=== PATIENT | male | born 1935 | race Caucasian/White ===

== ENCOUNTER 2018-01-06 11:59 | Observation (INO) | payer OTHER, BC ==
--- OUTSIDE RECORDS SUMMARY | 2018-01-06 12:32 | XMS REPORT | Clinical Summary ---
:1935 Author Organization [facility] Address [address] [place] [address] Care Team Providers Name Role Phone Jb Gregory Unavailable Allergies No Known Allergies Medications Medication Sig Dispensed Refills Start Date End Date Status naproxen Take 220 mg 0 Active (ALEVE,ANAPROX,MIDOL) 220 by mouth MG tablet daily. amLODIPine (NORVASC) 5 MG Take 5 mg by 0 Active tablet mouth daily. aspirin 81 MG EC tablet Take 81 mg by 0 Active mouth daily. omega-3 fatty acids-fish Take 1,400 mg 0 Active oil 340-1,000 mg Cap per by mouth capsule daily with dinner. folic acid (FOLVITE) 1 MG Take 1 mg by 0 Active tablet mouth 2 (two) times daily. hydroxychloroquine Take 200 mg 0 Active (PLAQUENIL) 200 mg tablet by mouth 2 (two) times daily. levothyroxine (SYNTHROID, Take 25 mcg 0 Active LEVOTHROID) 25 MCG tablet by mouth Every morning on an empty stomach. lutein 20 mg Tab Take 20 mg by 0 Active mouth daily with dinner. METHOTREXATE Take 2.5 mg 0 10/27/2017 Active ORALIndications: take 6 by mouth once pills a week. atorvastatin (LIPITOR) 10 Take 10 mg by 0 Active MG tablet mouth daily. traMADol (ULTRAM) 50 mg Take 50 mg by 0 Active tablet mouth every 6 (six) hours as needed for Pain. leflunomide (ARAVA) 10 MG Take 10 mg by 0 Active tablet mouth daily. losartan (COZAAR) 50 MG Take 50 mg by 0 Active tablet mouth daily. levoFLOXacin (LEVAQUIN) Take 1 tablet 7 tablet 0 10/28/2017 11/04/2017 500 MG tablet (500 mg total) by mouth daily for 7 days. Active Problems Problem Noted Date Syncope, unspecified syncope type 10/25/2017 Syncope 10/22/2017 Encounters Date Type Specialty Care Team Description 10/22/2017 - Hospital Encounter Cardiology [place], Syncope, unspecified syncope type; 10/27/2017 MD Pasha Family history of sudden cardiac ; Sebastianerkarina, Fall, initial encounter; Olivia Sensory ataxia; MD Alejandra Neurologic gait dysfunction; Neurogenic claudication; Polyneuropathy; Cervical myelopathy (HCC) 10/22/2017 Orders Only General Internal Medicine after 01/05/2017 Social History Tobacco Use Types Packs/Day Years Used Date Never Smoker Smokeless Tobacco: Never Used Sex Assigned at Date Recorded Not on file Job Start Date Occupation Industry Not on file Not on file Not on file Travel History Travel Start Travel End No recent travel history available. Last Filed Vital Signs Vital Sign Reading Time Taken Blood Pressure 129/70 10/27/2017 11:20 AM CDT Pulse 72 10/27/2017 11:20 AM CDT Temperature 35.7 C (96.3 F) 10/27/2017 11:20 AM CDT Respiratory Rate 18 10/27/2017 11:20 AM CDT Oxygen Saturation 100% 10/27/2017 11:20 AM CDT Inhaled Oxygen Concentration - - Weight 91.2 kg (201 lb 1 oz) 10/26/2017 7:16 AM CDT Height 165.1 cm (5' 5") 10/22/2017 3:43 PM CDT Body Mass Index 33.46 10/26/2017 7:16 AM CDT Plan of Treatment Not on file Procedures Procedure Name Priority Date/Time Associated Comments Diagnosis REPORT OF PROCEDURE - 10/31/2017 11:32 ENDOSCOPY SCAN AM CDT ARRYTHMIA IMPLANT 10/31/2017 11:32 REPORT - SCAN AM CDT RHYTHM STRIP - SCAN 10/31/2017 11:32 AM CDT NEEDLE EMG, 2 Routine 10/27/2017 5:04 Results for this EXTREMITY PM CDT procedure are in the results section. CBC W/PLT COUNT & AUTO Routine 10/27/2017 4:12 Results for this DIFFERENTIAL AM CDT procedure are in the results section. MAGNESIUM Routine 10/27/2017 4:12 Results for this AM CDT procedure are in the results section. BASIC METABOLIC PANEL Routine 10/27/2017 4:12 Results for this (7) AM CDT procedure are in the results section. CBC W/PLT COUNT & AUTO Routine 10/27/2017 4:12 Results for this DIFFERENTIAL AM CDT procedure are in the results section. MR THORACIC SPINE W & Routine 10/27/2017 3:28 Results for this WO CONTRAST AM CDT procedure are in the results section. KAPPA / LAMBDA LIGHT Routine 10/26/2017 6:02 Results for this CHAINS, SERUM PM CDT procedure are in the results section. PROTEIN AP Routine 10/26/2017 6:02 Results for this ELECTROPHORESIS, SERUM PM CDT procedure are in the results section. MR LUMBAR SPINE W & WO Routine 10/26/2017 6:18 Results for this CONTRAST AM CDT procedure are in the results section. MR CERVICAL SPINE W/WO Routine 10/26/2017 6:18 Results for this CONTRAST AM CDT procedure are in the results section. CBC W/PLT COUNT & AUTO Routine 10/26/2017 4:39 Results for this DIFFERENTIAL AM CDT procedure are in the results section. MAGNESIUM Routine 10/26/2017 4:39 Results for this AM CDT procedure are in the results section. BASIC METABOLIC PANEL Routine 10/26/2017 4:39 Results for this (7) AM CDT procedure are in the results section. CBC W/PLT COUNT & AUTO Routine 10/26/2017 4:39 Results for this DIFFERENTIAL AM CDT procedure are in the results section. HEMOGLOBIN A1C Routine 10/25/2017 10:32 Results for this AM CDT procedure are in the results section. PHOSPHORUS Routine 10/25/2017 4:10 Results for this AM CDT procedure are in the results section. MAGNESIUM Routine 10/25/2017 4:10 Results for this AM CDT procedure are in the results section. LIPID PANEL Routine 10/25/2017 4:10 Results for this AM CDT procedure are in the results section. ECHOCARDIOGRAM REPORT 10/24/2017 6:20 - SCAN PM CDT EEG AWAKE AND DROWSY Routine 10/24/2017 4:06 Results for this PM CDT procedure are in the results section. 2D ECHO W/ DOPPLER Routine 10/24/2017 3:02 Results for this (CW/PW/COLOR) PM CDT procedure are in the results section. CBC W/PLT COUNT & AUTO Routine 10/24/2017 4:11 Results for this DIFFERENTIAL AM CDT procedure are in the results section. CBC W/PLT COUNT & AUTO Routine 10/24/2017 4:11 Results for this DIFFERENTIAL AM CDT procedure are in the results section. PHOSPHORUS Routine 10/24/2017 4:11 Results for this AM CDT procedure are in the results section. MAGNESIUM Routine 10/24/2017 4:11 Results for this AM CDT procedure are in the results section. LIPID PANEL Routine 10/24/2017 4:11 Results for this AM CDT procedure are in the results section. BASIC METABOLIC PANEL Routine 10/24/2017 4:11 Results for this (7) AM CDT procedure are in the results section. MR MRA HEAD WITH AND Routine 10/23/2017 2:57 Results for this WITHOUT CONTRAST PM CDT procedure are in the results section. MR MRA NECK WITH AND Routine 10/23/2017 2:57 Results for this WITHOUT CONTRAST PM CDT procedure are in the results section. CBC W/PLT COUNT & AUTO Routine 10/23/2017 4:11 Results for this DIFFERENTIAL AM CDT procedure are in the results section. CBC W/PLT COUNT & AUTO Routine 10/23/2017 4:11 Results for this DIFFERENTIAL AM CDT procedure are in the results section. PHOSPHORUS Routine 10/23/2017 4:11 Results for this AM CDT procedure are in the results section. MAGNESIUM Routine 10/23/2017 4:11 Results for this AM CDT procedure are in the results section. LIPID PANEL Routine 10/23/2017 4:11 Results for this AM CDT procedure are in the results section. BASIC METABOLIC PANEL Routine 10/23/2017 4:11 Results for this (7) AM CDT procedure are in the results section. TROPONIN I Routine 10/22/2017 11:05 Results for this PM CDT procedure are in the results section. URINE CULTURE Routine 10/22/2017 7:00 Results for this PM CDT procedure are in the results section. ECG 12-LEAD Routine 10/22/2017 5:03 PM CDT Procedure Note - Interface, External Ris In - 10/22/2017 5:10 PM CDT Ventricular Rate 72 BPM Atrial Rate 72 BPM P-R Interval 190 ms QRS Duration 90 ms Q-T Interval 436 ms QTC Calculation(Bazett) 477 ms P [place] 54 degrees R [place] 29 degrees T [place] 67 degrees Normal sinus rhythm Normal ECG No previous ECGs available ECG 12-LEAD Routine 10/22/2017 5:03 PM CDT CBC W/PLT COUNT & AUTO Routine 10/22/2017 4:43 PM CDT Results for this DIFFERENTIAL procedure are in the results section. TSH/FREE T4 IF INDICATED Routine 10/22/2017 4:43 PM CDT IRON, TIBC, % SAT. (WITHOUT Routine 10/22/2017 4:43 PM CDT Results for this FERRITIN) procedure are in the results section. CALCIUM, IONIZED Routine 10/22/2017 4:43 PM CDT VITAMIN D, 25-HYDROXY Routine 10/22/2017 4:43 PM CDT RPR Routine 10/22/2017 4:43 PM CDT VITAMIN B12 AND FOLATE Routine 10/22/2017 4:43 PM CDT CBC W/PLT COUNT & AUTO Routine 10/22/2017 4:43 PM CDT Results for this DIFFERENTIAL procedure are in the results section. BASIC METABOLIC PANEL (7) Routine 10/22/2017 4:43 PM CDT TROPONIN I Routine 10/22/2017 4:43 PM CDT after 01/05/2017 Results EKG-SCANNED (10/31/2017 11:32 AM CDT) Narrative Performed At ARRYTHMIA IMPLANT REPORT - SCAN (10/31/2017 11:32 AM CDT) Narrative Performed At RHYTHM STRIP - SCAN (10/31/2017 11:32 AM CDT) Narrative Performed At NEEDLE EMG, 2 EXTREMITY (10/27/2017 5:04 PM CDT) Narrative Performed At [facility] Neurophysiology Department ELECTROMYOGRAPHY / NERVE CONDUCTION STUDY [address] [place] [address] Name: Germain Wilks Address:Date of : 1935 Gender: Male Date of Exam: 10/27/2017 5:15 PM Referring Physician: Dr. Viv Tomlinson Examining Physician: Dr. Sandra Quiñonez Patient History: Patient presents with a history of falls and gait instability, also endorses bilateral hand tingling and low back pain on right side without significant radiation.Exam shows 5/5 strength throughout, decreased sensation to proprioception in the toes (right>left), mild weakness in bilateral thumb abduction, negative Romberg.This study was done to evaluate for polyneuropathy, nerve entrapments in the hands, and right lumbosacral radiculopathy. Temperature: RLE 28 C; RUE, LUE 30 Standard temp: 32 C Temp correction: Latency 0.2 ms/C, CV 2 m/s/C Motor Nerve Conduction: Nerve and Site Latency Amplitude Segment Latency Difference Distance Conduction Velocity Peroneal.R Ankle 5.2 ms 0.4 mV Extensor digitorum brevis-Ankle 5.2 ms Fibula (head) 14.8 ms 0.3 mV Ankle-Fibula (head) 9.6 ms 300 mm 31 m/s *39 corrected Knee 17.4 ms 0.3 mV Fibula (head)-Knee 2.6 ms 110 mm 42 m/s Tibial.R Ankle 4.9 ms 3.3 mV Abductor hallucis-Ankle 4.9 ms Popliteal fossa 16.6 ms 1.8 mV Ankle-Popliteal fossa 11.7 ms 430 mm 37 m/s *45 corrected) Peroneal.R Fibula (head) 2.8 ms 4.1 mV Tibialis anterior -Fibula Knee 5.2 ms 5.9 mV Fibula (head)-Knee 2.4 ms 130 mm 54 m/s Peroneal.L Ankle 6.5 ms 0.3 mV Extensor digitorum brevis-Ankle Median.R Wrist 5.1 ms *4.7 corrected 4.7 mV Abductor pollicis brevis-Wrist 5.1 ms Elbow 10.3 ms 4.6 mV Wrist-Elbow 5.2 ms 245 mm 47 m/s *51 corrected Ulnar.R Wrist 3.0 ms 13.1 mV Abductor digiti minimi (manus)-Wrist 3.0 ms Below elbow 7.4 ms 11.5 mV Wrist-Below elbow 4.4 ms 240 mm 55 m/s Above elbow 9.8 ms 10.4 mV Below elbow-Above elbow 2.5 ms 100 mm 40 m/s Median.L Wrist 6.6 ms *6.2 corrected 3.4 mV Abductor pollicis brevis-Wrist 6.6 ms Elbow 13.2 ms 3.2 mV Wrist-Elbow 6.6 ms 290 mm 44 m/s *48 corrected Ulnar.L Wrist 2.8 ms 11.1 mV Abductor digiti minimi (manus)-Wrist 2.8 ms Below elbow 7.0 ms 10.8 mV Wrist-Below elbow 4.2 ms 240 mm 57 m/s Above elbow 9.0 ms 10.0 mV Below elbow-Above elbow 2.0 ms 130 mm 65 m/s F-Wave Studies Nerve M-Latency F-Latency Peroneal.R 17.4 NR Tibial.R 16.6 57.8 Median.R 10.3 34.4 Ulnar.R 9.8 34.6 Median.L 13.2 36.6 Ulnar.L 9.0 33.9 Sensory Nerve Conduction: Nerve and Site Onset Latency Peak Latency Amplitude Segment Latency Difference Distance Conduction Velocity Sural.R Lower leg NR NR NR Ankle-Lower [id number] mm Sural.L Lower leg NR NR NR Ankle-Lower [id number] mm Median.R Wrist 4.1 ms 5.1 ms 9 mV Digit II (index finger)-Wrist 4.1 ms 130 mm 32 m/s Ulnar.R Wrist NRNRNR Digit V (little finger)-Wrist 110 mm Median.R Wrist (Median) 2.5 ms 3.5 ms 31 mV 80 mm Wrist (Ulnar) NR NRNR 80 mm Radial.R Forearm 2.2 ms 2.8 ms 6 mV Anatomical snuff box-Forearm 2.2 ms 100 mm 36 m/s Median.L Wrist NR NR NR Digit II (index finger)-[id number] mm Ulnar.L Wrist 2.6 ms 3.2 ms 4 mV Digit V (little finger)-Wrist 2.6 ms 110 mm 42 m/s Radial.L Forearm 1.7 ms 2.4 ms 13 mV Anatomical snuff box-Forearm 1.7 ms 100 mm 42 m/s Median.L Wrist (Median) NR NRNR 80 mm Wrist (Ulnar) TI TI TI 80 mm TI - artifact Needle EMG Examination: Insertional Spontaneous Activity Volitional MUAPs Muscle Insertional Fibs +Wave Fasc Duration Amplitude Poly Pattern Effort Tibialis anterior.R Increased None None None Sl. Incr. Gr. Incr. Few Moderate Reduced Max. Gastrocnemius (Medial head).R Normal None None None Normal Normal None Normal Max. Vastus medialis.R Normal None None None Normal Normal None Normal Max. Gluteus medius.R Normal None None None Sl. Incr. Sl. Incr. Few Mild Reduced Max. Semimembranosus.R Normal None None None Normal Normal None Normal Max. 1st dorsal interosseous.R Normal None None None Normal Normal None Normal Max. Flexor carpi radialis.R Normal None None None Normal Normal None Normal Max. Biceps brachii.R Normal None None None Normal Sl. Incr. None Mild Reduced Deltoid.R Normal None None None Gr. Incr. Gr. Incr. Few Moderate Reduced Max. Triceps brachii.R Normal None None None Normal Normal None Normal Max. Abductor pollicis brevis.R Normal None None None Sl. Incr. Normal None Mild Reduced Max. 1st dorsal interosseous.L Normal None None None Normal Sl. Incr. None Normal Max. Abductor pollicis brevis.L Normal None None None Sl. IncrNormal None Mild Reduced Max. Extensor indicis proprius.L Normal None None None Normal Normal None Normal Max. Summary of findings: 1.Sensory studies of bilateral sural, left median (digit II and palmar), right ulnar (digit V and palmar) nerves showed no responses. The right median (digit II and palmar) showed prolonged peak latencies and reduced amplitudes.The left ulnar and both radial nerves showed low amplitudes. 2.Motor studies of the bilateral peroneal (EDB) showed very low amplitudes, otherwise normal when corrected for temperature on the right.The right tibial nerve showed borderline normal amplitude. The peroneal at TA showed normal findings.The median nerves showed prolonged distal latencies, much worse on the left, low amplitudes, also slightly worse on the left and normal to borderline normal velocities.The ulnar nerves showed normal findings except for mild slowing across the elbow on the right.F-wave latencies were unremarkable except for mild prolongation on the left median and absent response in right peroneal nerve. 3.Electromyography of the upper limbs and right lower limb was done using a disposable concentric needle.There was no abnormal spontaneous activity.There were chronic neurogenic changes in the right C5 myotome (deltoid>biceps) and right L5 myotome (gluteus medius, tibialis anterior) as well as both APB muscles.The remainder of the muscles tested showed normal findings. Conclusions: This is an abnormal electrodiagnostic study due to the followin. 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 3.Chronic cervical radiculopathies at the right C5 and the right L5 root levels, mild to moderate in severity, without active denervation. Sandra Quiñonez M.D. Procedure Note Interface, External Ris In - 10/27/2017 8:31 PM CDT [facility] Neurophysiology Department ELECTROMYOGRAPHY / NERVE CONDUCTION STUDY [address] [facility] [address] [place] [address] Name: Germain Wilks Address: Date of : 1935 Gender: Male Date of Exam: 10/27/2017 5:15 PM Referring Physician: Dr. Viv Tomlinson Examining Physician: Dr. Sandra Quiñonez Patient History: Patient presents with a history of falls and gait instability, also endorses bilateral hand tingling and low back pain on right side without significant radiation. Exam shows 5/5 strength throughout, decreased sensation to proprioception in the toes (right>left), mild weakness in bilateral thumb abduction, negative Romberg. This study was done to evaluate for polyneuropathy, nerve entrapments in the hands, and right lumbosacral radiculopathy. Temperature: RLE 28 C; DADA GRAY 30 Standard temp: 32 C Temp correction: Latency 0.2 ms/C, CV 2 m/s/C Motor Nerve Conduction: Nerve and Site Latency Amplitude Segment Latency Difference Distance Conduction Velocity Peroneal.R Ankle 5.2 ms 0.4 mV Extensor digitorum brevis-Ankle 5.2 ms Fibula (head) 14.8 ms 0.3 mV Ankle-Fibula (head) 9.6 ms 300 mm 31 m/s *39 corrected Knee 17.4 ms 0.3 mV Fibula (head)-Knee 2.6 ms 110 mm 42 m/s Tibial.R Ankle 4.9 ms 3.3 mV Abductor hallucis-Ankle 4.9 ms Popliteal fossa 16.6 ms 1.8 mV Ankle-Popliteal fossa 11.7 ms 430 mm 37 m/s *45 corrected) Peroneal.R Fibula (head) 2.8 ms 4.1 mV Tibialis anterior -Fibula Knee 5.2 ms 5.9 mV Fibula (head)-Knee 2.4 ms 130 mm 54 m/s Peroneal.L Ankle 6.5 ms 0.3 mV Extensor digitorum brevis-Ankle Median.R Wrist 5.1 ms *4.7 corrected 4.7 mV Abductor pollicis brevis-Wrist 5.1 ms Elbow 10.3 ms 4.6 mV Wrist-Elbow 5.2 ms 245 mm 47 m/s *51 corrected Ulnar.R Wrist 3.0 ms 13.1 mV Abductor digiti minimi (manus)-Wrist 3.0 ms Below elbow 7.4 ms 11.5 mV Wrist-Below elbow 4.4 ms 240 mm 55 m/s Above elbow 9.8 ms 10.4 mV Below elbow-Above elbow 2.5 ms 100 mm 40 m/s Median.L Wrist 6.6 ms *6.2 corrected 3.4 mV Abductor pollicis brevis-Wrist 6.6 ms Elbow 13.2 ms 3.2 mV Wrist-Elbow 6.6 ms 290 mm 44 m/s *48 corrected Ulnar.L Wrist 2.8 ms 11.1 mV Abductor digiti minimi (manus)-Wrist 2.8 ms Below elbow 7.0 ms 10.8 mV Wrist-Below elbow 4.2 ms 240 mm 57 m/s Above elbow 9.0 ms 10.0 mV Below elbow-Above elbow 2.0 ms 130 mm 65 m/s F-Wave Studies Nerve M-Latency F-Latency Peroneal.R 17.4 NR Tibial.R 16.6 57.8 Median.R 10.3 34.4 Ulnar.R 9.8 34.6 Median.L 13.2 36.6 Ulnar.L 9.0 33.9 Sensory Nerve Conduction: Nerve and Site Onset Latency Peak Latency Amplitude Segment Latency Difference Distance Conduction Velocity Sural.R Lower leg NR NR NR Ankle-Lower leg 140 mm Sural.L Lower leg NR NR NR Ankle-Lower leg 140 mm Median.R Wrist 4.1 ms 5.1 ms 9 mV Digit II (index finger)-Wrist 4.1 ms 130 mm 32 m/s Ulnar.R Wrist NR NR NR Digit V (little finger)-Wrist 110 mm Median.R Wrist (Median) 2.5 ms 3.5 ms 31 mV 80 mm Wrist (Ulnar) NR NR NR 80 mm Radial.R Forearm 2.2 ms 2.8 ms 6 mV Anatomical snuff box-Forearm 2.2 ms 100 mm 36 m/s Median.L Wrist NR NR NR Digit II (index finger)-Wrist 130 mm Ulnar.L Wrist 2.6 ms 3.2 ms 4 mV Digit V (little finger)-Wrist 2.6 ms 110 mm 42 m/s Radial.L Forearm 1.7 ms 2.4 ms 13 mV Anatomical snuff box-Forearm 1.7 ms 100 mm 42 m/s Median.L Wrist (Median) NR NR NR 80 mm Wrist (Ulnar) TI TI TI 80 mm TI - artifact Needle EMG Examination: Insertional Spontaneous Activity Volitional MUAPs Muscle Insertional Fibs +Wave Fasc Duration Amplitude Poly Pattern Effort Tibialis anterior.R Increased None None None Sl. Incr. Gr. Incr. Few Moderate Reduced Max. Gastrocnemius (Medial head).R Normal None None None Normal Normal None Normal Max. Vastus medialis.R Normal None None None Normal Normal None Normal Max. Gluteus medius.R Normal None None None Sl. Incr. Sl. Incr. Few Mild Reduced Max. Semimembranosus.R Normal None None None Normal Normal None Normal Max. 1st dorsal interosseous.R Normal None None None Normal Normal None Normal Max. Flexor carpi radialis.R Normal None None None Normal Normal None Normal Max. Biceps brachii.R Normal None None None Normal Sl. Incr. None Mild Reduced Deltoid.R Normal None None None Gr. Incr. Gr. Incr. Few Moderate Reduced Max. Triceps brachii.R Normal None None None Normal Normal None Normal Max. Abductor pollicis brevis.R Normal None None None Sl. Incr. Normal None Mild Reduced Max. 1st dorsal interosseous.L Normal None None None Normal Sl. Incr. None Normal Max. Abductor pollicis brevis.L Normal None None None Sl. Incr Normal None Mild Reduced Max. Extensor indicis proprius.L Normal None None None Normal Normal None Normal Max. Summary of findings: 1. Sensory studies of bilateral sural, left median (digit II and palmar), right ulnar (digit V and palmar) nerves showed no responses. The right median (digit II and palmar) showed prolonged peak latencies and reduced amplitudes. The left ulnar and both radial nerves showed low amplitudes. 2. Motor studies of the bilateral peroneal (EDB) showed very low amplitudes, otherwise normal when corrected for temperature on the right. The right tibial nerve showed borderline normal amplitude. The peroneal at TA showed normal findings. The median nerves showed prolonged distal latencies, much worse on the left, low amplitudes, also slightly worse on the left and normal to borderline normal velocities. The ulnar nerves showed normal findings except for mild slowing across the elbow on the right. F-wave latencies were unremarkable except for mild prolongation on the left median and absent response in right peroneal nerve. 3. Electromyography of the upper limbs and right lower limb was done using a disposable concentric needle. There was no abnormal spontaneous activity. There were chronic neurogenic changes in the right C5 myotome (deltoid>biceps) and right L5 myotome (gluteus medius, tibialis anterior) as well as both APB muscles. The remainder of the muscles tested showed normal findings. Conclusions: This is an abnormal electrodiagnostic study due to the followin. 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 2. 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 3. Chronic cervical radiculopathies at the right C5 and the right L5 root levels, mild to moderate in severity, without active denervation. Sandra Quiñonez M.D. Performing Organization Address City/State/Zipcode Phone Number GE RIS CBC with platelet count + automated diff (10/27/2017 4:12 AM CDT)Only the most recent of5 resultswithin the time period is included. WBC 5.4 3.5 - 10.5 K/L [facility] RBC 3.16 (L) 4.63 - 6.08 M/L [facility] Hemoglobin 9.0 (L) 13.7 - 17.5 GM/DL [facility] Hematocrit 29.2 (L) 40.1 - 51.0 % [facility] MCV 92.4 (H) 79.0 - 92.2 fL [facility] MCH 28.5 25.7 - 32.2 pg [facility] MCHC 30.8 (L) 32.3 - 36.5 GM/DL [facility] RDW 17.7 (H) 11.6 - 14.4 % [facility] Platelets 242 150 - 450 K/CU MM [facility] MPV 10.7 9.4 - 12.4 fL [facility] nRBC 0 0 - 0 /100 WBC [facility] % Neutros 51 % [facility] % Lymphs 15 % [facility] % Monos 17 % [facility] % Eos 15 % [facility] % Baso 1 % [facility] # Neutros 2.79 1.78 - 5.38 K/L [facility] # Lymphs 0.82 (L) 1.32 - 3.57 K/L [facility] # Monos 0.93 (H) 0.30 - 0.82 K/L [facility] # Eos 0.82 (H) 0.04 - 0.54 K/L [facility] # Baso 0.05 0.01 - 0.08 K/L [facility] Immature Granulocytes-Relative 0 0 - 1 % [facility] Specimen Blood Performing Organization Address City/State/Zipcode Phone Number [address] [address] CENTER Magnesium (10/27/2017 4:12 AM CDT)Only the most recent of5 resultswithin the time period is included. Magnesium 2.1 1.6 - 2.6 mg/dL [facility] Specimen Blood Performing Organization Address City/[facility] Phone Number [address] [address] [phone] REGINA Basic Metabolic Panel (10/27/2017 4:12 AM CDT)Only the most recent of5 resultswithin the time period is included. Sodium 139 136 - 145 meq/L [facility] Potassium 4.2 3.5 - 5.1 meq/L [facility] Chloride 107 98 - 107 meq/L [facility] CO2 25 22 - 29 meq/L [facility] BUN 13 7 - 21 mg/dL [facility] Creatinine 0.80 0.57 - 1.25 mg/dL [facility] Glucose 92 70 - 105 mg/dL [facility] Calcium 9.0 8.4 - 10.2 mg/dL [facility] EGFR Comment: INSUFFICIENT CLINICAL mL/min/1.73 sq m [facility] DATA TO CALCULATE ESTIMATED MEDICAL [facility] GFR. Specimen Blood Performing Organization Address City/State/Zipcode Phone Number [address] [address] [phone] [place] MR thoracic spine without & with IV contrast (10/27/2017 3:28 AM CDT) Narrative Performed At FINAL REPORT [facility] MR thoracic spine with and without contrast INDICATION: Myelopathy TECHNIQUE: MRI of the thoracic spine utilizing the following sequences: Sagittal T1, T2, STIR; axial T1 and T2, postcontrast sagittal and axial T1 with fat suppression. COMPARISON: None available FINDINGS: There are chronic Schmorl's nodes, degenerative endplate changes, and incidental small hemangiomas, most notable at T1, T5, and T7. Thoracic vertebral height and alignment are otherwise maintained. 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 There are disc osteophyte complexes and facet arthropathy at T1-2 and T2-3, a left paracentral disc protrusion at T3-4 indenting the cord, small left paracentral disc protrusion at T6-7, and small central disc protrusion at T8-9. There is conspicuous facet arthropathy and posterior ligamentous thickening at T7-8, T9-10, and T10-11. Spinal canal stenosis is mild at T1-T2 and mild to moderate T2-3. There are mild to moderate bilateral T1-T2 and mild T2-3, and T7-8 to T10-11 neural foraminal stenoses. 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 There is paraspinal muscle deconditioning. IMPRESSION: 1. Questionable faint cord signal changes T2-3 without enhancement. 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 Advise neurologic correlation. 2. Thoracic spine degenerative changes with multifactorial mild to moderate T2-3 and mild T1-2 canal stenosis with cord contouring. 3. Neural foraminal stenoses as detailed above. Signed: Hiren Suarez MD Report Verified Date/Time:10/27/2017 07:17:46 Reading Location: [address] Neuro Reading Room Procedure Note Interface, External Ris In - 10/27/2017 7:19 AM CDT FINAL REPORT MR thoracic spine with and without contrast INDICATION: Myelopathy TECHNIQUE: MRI of the thoracic spine utilizing the following sequences: Sagittal T1, T2, STIR; axial T1 and T2, postcontrast sagittal and axial T1 with fat suppression. COMPARISON: None available FINDINGS: There are chronic Schmorl's nodes, degenerative endplate changes, and incidental small hemangiomas, most notable at T1, T5, and T7. Thoracic vertebral height and alignment are otherwise maintained. 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 There are disc osteophyte complexes and facet arthropathy at T1-2 and T2-3, a left paracentral disc protrusion at T3-4 indenting the cord, small left paracentral disc protrusion at T6-7, and small central disc protrusion at T8-9. There is conspicuous facet arthropathy and posterior ligamentous thickening at T7-8, T9-10, and T10-11. Spinal canal stenosis is mild at T1-T2 and mild to moderate T2-3. There are mild to moderate bilateral T1-T2 and mild T2-3, and T7-8 to T10-11 neural foraminal stenoses. 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 There is paraspinal muscle deconditioning. IMPRESSION: 1. Questionable faint cord signal changes T2-3 without enhancement. 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 Advise neurologic correlation. 2. Thoracic spine degenerative changes with multifactorial mild to moderate T2-3 and mild T1-2 canal stenosis with cord contouring. 3. Neural foraminal stenoses as detailed above. Signed: Hiren Suarez MD Report Verified Date/Time: 10/27/2017 07:17:46 Reading Location: [address] Neuro Reading Room Performing Organization Address City/State/Zipcode Phone Number GE RIS [place] / lambda light chains, serum (10/26/2017 6:02 PM CDT) [place] Lt Chain,Free 17.0 3.3 - 19.4 mg/L [facility] Lambda Lt 12.8 5.7 - 26.3 mg/L [facility] Chain,Free [facility] [place]/Lambda,Free 1.33 0.26 - 1.65 [facility] Comment: INC[facility]PORATED Free kappa/lambda ratio in serum of normal individuals is 0.26-1.65. Excess production of free kappa or lambda chains can alter this ratio. Monoclonal free light chains are found in serum of patients with multiple myeloma, Waldenstrom's macroglobulinemia, mu-heavy chain disease, primary amyloidosis , light chain deposition disease, monoclonal gammopathy of undetermined significance, and lymphoproliferative disorders. Measurement of free light chain concentration in serum is useful for diagnosis, prognosis, monitoring disease activity and following response to therapy of these disorders. Specimen Blood Narrative Performed At Performing Lab [facility] EZ [facility] [address] [place] [address] Bradley Weems MD, PhD, [place] Performing Organization Address City/[facility] Phone Number [facility] [place] [address] [id number] [facility] Protein electrophoresis, serum (10/26/2017 6:02 PM CDT) Albumin Fraction 2.9 (L) 3.5 - 5.5 g/dL [facility] Alpha 1 Fraction 0.2 0.2 - 0.4 g/dL [facility] Alpha 2 Fraction 0.8 0.5 - 0.9 g/dL [facility] Beta Fraction 0.8 0.6 - 1.1 g/dL [facility] Gamma Globulin Fraction 0.7 0.7 - 1.7 g/dL [facility] Interpretation Pattern suggestive of [facility] acute inflammatory [facility] process. No monoclonal bands detected. Pathologist: Trish Rodas MD [facility] (electronic signature) [facility] Protein, Total 5.5 (L) 6.0 - 8.3 gm/dL [facility] Specimen Blood Performing Organization Address City/[facility]/Zipcode Phone Number [facility] [address] [place] [address] CENTER MR lumbar spine without & with IV contrast (10/26/2017 6:18 AM CDT) Narrative Performed At FINAL REPORT [facility] MR Lumbar spine with and without contrast INDICATION: Myelopathy TECHNIQUE: MRI of the lumbar spine utilizing the following sequences: Sagittal T1, T2, STIR; axial T1 and T2, postcontrast sagittal and axial T1 with fat suppression. COMPARISON: None available FINDINGS: There is mild right convex lumbar spinal curvature. There is mild retrolisthesis at L2-3 and L3-4 and minimal anterolisthesis at L5-S1. There are chronic Schmorl's nodes and degenerative endplate changes, most notable at L3-4. Vertebral height and alignment are otherwise maintained. The conus medullaris is unremarkable and terminates at L1. T12-L1: No significant canal or foraminal stenosis. L1-2: Left greater than right facet arthropathy and ligamentous thickening with mild to moderate left foraminal stenosis. No significant canal or right foraminal stenosis. L2-3: Disc degeneration with asymmetric bulge extending into the foraminal regions, endplate osteophytes, facet arthropathy, and ligamentous thickening. Moderate canal and left lateral recess stenosis. Mild to moderate left and mild right foraminal stenosis. L3-4: Disc degeneration and asymmetric bulge extending into the foraminal regions, endplate osteophytes and left foraminal/far lateral disc osteophyte complex, facet arthropathy, and ligamentous thickening. Moderate canal and lateral recess stenoses. Moderate bilateral foraminal stenosis. L4-5: Disc degeneration with asymmetric bulge extending into the foraminal regions, endplate osteophytes, and right foraminal/far lateral disc osteophyte complex, facet arthropathy, and ligamentous thickening. Severe canal and right lateral recess stenosis. Moderate to severe right and mild to moderate left foraminal stenosis. L5-S1: Disc bulge extending into the foraminal regions, endplate osteophytes, right foraminal/far lateral disc osteophyte complex, facet arthropathy, and ligamentous thickening. Mild canal stenosis. Mild to moderate right and mild left foraminal stenosis. There is bilateral SI joint arthropathy and paraspinal deconditioning. Bilateral renal T2 hyperintense foci may reflect parapelvic cysts. Advise dedicated renal imaging as clinically warranted. IMPRESSION: 1. Multilevel degenerative changes with multifactorial spinal canal stenosis, severe at L4-5, moderate at L2-3 and L3-4, and mild at L5-S1. 2. Lateral recess and neural foraminal stenoses as discussed, worst at L4-5 on the right. Advise correlation with radiculopathic symptoms. 3. 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 Consider dedicated imaging. Signed: Hiren Suarez MD Report Verified Date/Time:10/26/2017 07:52:13 Reading Location: [address] Neuro Reading Room Procedure Note Interface, External Ris In - 10/26/2017 7:54 AM CDT FINAL REPORT MR Lumbar spine with and without contrast INDICATION: Myelopathy TECHNIQUE: MRI of the lumbar spine utilizing the following sequences: Sagittal T1, T2, STIR; axial T1 and T2, postcontrast sagittal and axial T1 with fat suppression. COMPARISON: None available FINDINGS: There is mild right convex lumbar spinal curvature. There is mild retrolisthesis at L2-3 and L3-4 and minimal anterolisthesis at L5-S1. There are chronic Schmorl's nodes and degenerative endplate changes, most notable at L3-4. Vertebral height and alignment are otherwise maintained. The conus medullaris is unremarkable and terminates at L1. T12-L1: No significant canal or foraminal stenosis. L1-2: Left greater than right facet arthropathy and ligamentous thickening with mild to moderate left foraminal stenosis. No significant canal or right foraminal stenosis. L2-3: Disc degeneration with asymmetric bulge extending into the foraminal regions, endplate osteophytes, facet arthropathy, and ligamentous thickening. Moderate canal and left lateral recess stenosis. Mild to moderate left and mild right foraminal stenosis. L3-4: Disc degeneration and asymmetric bulge extending into the foraminal regions, endplate osteophytes and left foraminal/far lateral disc osteophyte complex, facet arthropathy, and ligamentous thickening. Moderate canal and lateral recess stenoses. Moderate bilateral foraminal stenosis. L4-5: Disc degeneration with asymmetric bulge extending into the foraminal regions, endplate osteophytes, and right foraminal/far lateral disc osteophyte complex, facet arthropathy, and ligamentous thickening. Severe canal and right lateral recess stenosis. Moderate to severe right and mild to moderate left foraminal stenosis. L5-S1: Disc bulge extending into the foraminal regions, endplate osteophytes, right foraminal/far lateral disc osteophyte complex, facet arthropathy, and ligamentous thickening. Mild canal stenosis. Mild to moderate right and mild left foraminal stenosis. There is bilateral SI joint arthropathy and paraspinal deconditioning. Bilateral renal T2 hyperintense foci may reflect parapelvic cysts. Advise dedicated renal imaging as clinically warranted. IMPRESSION: 1. Multilevel degenerative changes with multifactorial spinal canal stenosis, severe at L4-5, moderate at L2-3 and L3-4, and mild at L5-S1. 2. Lateral recess and neural foraminal stenoses as discussed, worst at L4-5 on the right. Advise correlation with radiculopathic symptoms. 3. 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 Consider dedicated imaging. Signed: Hiren Suarez MD Report Verified Date/Time: 10/26/2017 07:52:13 Reading Location: [facility] [id number] Neuro Reading Room Performing Organization Address City/State/Zipcode Phone Number [facility] MR cervical spine without & with IV contrast (10/26/2017 6:18 AM CDT) Narrative Performed At FINAL REPORT [facility] MR cervical spine with and without contrast INDICATION: Myelopathy TECHNIQUE: MRI of the cervical spine utilizing the following sequences: Sagittal T1, T2, STIR; axial T1 and T2; postcontrast sagittal and axial T1. COMPARISON: None available. FINDINGS: There are findings suggesting PLL ossification from C3 to C6. There is abnormal cord signal from C3 to C6 in keeping with myelopathy. There are disc osteophyte complexes with spondylosis, facet arthropathy, and posterior ligamentous thickening from C3-4 to C6-7. Resultant spinal canal stenosis is severe at C3-4 and C4-5, moderate to severe at C5-6, moderate at C6-7, and mild C7-T1. There is mild anterolisthesis at C3-4, C4-5, and C7-T1. Vertebral height and alignment are otherwise maintained. There is C1-2 arthropathy with mild pannus and dens remodeling. There are small left facet joint effusions at C3-4 and C4-5. Neural foraminal stenoses are suboptimally depicted due to artifacts. Right foraminal stenosis is mild at C2-3, severe at C3-4, moderate to severe at C4-5, severe at C5-6, moderate to severe at C6-7, and mild to moderate at C7-T1. Left foraminal stenosis is severe at C3-4, moderate to severe at C4-5, moderate at C5-6, mild to moderate at C6-7, and moderate at C7-T1. There is nonspecific hemosiderin staining in the right cerebellum. There is paraspinal muscle deconditioning. IMPRESSION: 1. 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 Resultant spinal canal stenosis, severe at C3-4 and C4-5, moderate to severe at C5-6, and moderate at C6-7. 2. Abnormal C3-C6 cord signal in keeping with myelopathy. Advise neurologic correlation. 3. Neural foraminal stenoses as discussed, worst at C3-4 and C4-5. Signed: Hiren Suarez MD Report Verified Date/Time:10/26/2017 07:53:00 Reading Location: [address] Neuro Reading Room Procedure Note Interface, External Ris In - 10/26/2017 7:55 AM CDT FINAL REPORT MR cervical spine with and without contrast INDICATION: Myelopathy TECHNIQUE: MRI of the cervical spine utilizing the following sequences: Sagittal T1, T2, STIR; axial T1 and T2; postcontrast sagittal and axial T1. COMPARISON: None available. FINDINGS: There are findings suggesting PLL ossification from C3 to C6. There is abnormal cord signal from C3 to C6 in keeping with myelopathy. There are disc osteophyte complexes with spondylosis, facet arthropathy, and posterior ligamentous thickening from C3-4 to C6-7. Resultant spinal canal stenosis is severe at C3-4 and C4-5, moderate to severe at C5-6, moderate at C6-7, and mild C7-T1. There is mild anterolisthesis at C3-4, C4-5, and C7-T1. Vertebral height and alignment are otherwise maintained. There is C1-2 arthropathy with mild pannus and dens remodeling. There are small left facet joint effusions at C3-4 and C4-5. Neural foraminal stenoses are suboptimally depicted due to artifacts. Right foraminal stenosis is mild at C2-3, severe at C3-4, moderate to severe at C4-5, severe at C5-6, moderate to severe at C6-7, and mild to moderate at C7-T1. Left foraminal stenosis is severe at C3-4, moderate to severe at C4-5, moderate at C5-6, mild to moderate at C6-7, and moderate at C7-T1. There is nonspecific hemosiderin staining in the right cerebellum. There is paraspinal muscle deconditioning. IMPRESSION: 1. 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 Resultant spinal canal stenosis, severe at C3-4 and C4-5, moderate to severe at C5-6, and moderate at C6-7. 2. Abnormal C3-C6 cord signal in keeping with myelopathy. Advise neurologic correlation. 3. Neural foraminal stenoses as discussed, worst at C3-4 and C4-5. Signed: Hiren Suarez MD Report Verified Date/Time: 10/26/2017 07:53:00 Reading Location: [address] Neuro Reading Room Performing Organization Address City/State/Zipcode Phone Number GE [facility] Hemoglobin A1c (10/25/2017 10:32 AM CDT) Hemoglobin A1C 5.7 4.3 - 6.1 % [facility] Specimen Blood Performing Organization Address City/[facility] Phone Number [address] [address] CENTER Phosphorus (10/25/2017 4:10 AM CDT)Only the most recent of3 resultswithin the time period is included. Phosphorus 3.2 2.3 - 4.7 mg/dL [facility] Specimen Blood - Arm, Right Performing Organization Address [facility]/Zipcode Phone Number [address] [address] [phone] CENTER Lipid panel (10/25/2017 4:10 AM CDT)Only the most recent of3 resultswithin the time period is included. Triglycerides 61 mg/dL [facility] Cholesterol 119 mg/dL [facility] HDL 36 mg/dL [facility] LDL Calculated 71 mg/dL [facility] Specimen Blood - Arm, Right Narrative Performed At [facility] Triglyceride Reference Range: Low Risk <150 [id number] High Risk 200-499 Very High Risk>=500 Cholesterol Reference Range: Low Risk <200 [id number] High Risk>240 HDL Cholesterol Reference Range: Low Risk >=60 High Risk <40 LDL Cholesterol Reference Range: Optimal<100 Near [id number] [id number] Very High >=190 Performing Organization Address City/State/Zipcode Phone Number [facility] [address] [place] [address] CENTER ECHOCARDIOGRAM REPORT - SCAN (10/24/2017 6:20 PM CDT) Narrative Performed At EEG AWAKE AND DROWSY (10/24/2017 4:06 PM CDT) Narrative Performed At Neurophysiology Electroencephalogram Report GE RIS DATE OF REPORT:DATE \\@ "M/d/yy" 10/24/17 Date(s) of Study: 10/24/2017 ACC: [id number] Start time: 1545 hrs Stop time: 1606 hrs ICD-10: R55 Syncope and Collapse CPT Code: 60634 EEG: awake and drowsy <40 min HISTORY: 82 year old male referred for EEG to assess for epileptiform abnormalities. He has a history significant for recurrent syncope with fall. MEDICATIONS THAT COULD AFFECT EEG: None TECHNICAL SUMMARY: This is a digital video EEG recorded with 32 input channels reviewed with bipolar and referential montages using the modified combinatorial system nomenclature. DESCRIPTION OF RECORD: BACKGROUND: There was a symmetric, reactive to eye opening, and well regulated posterior dominant rhythm of 10 Hz.More anteriorly, low voltage frontocentral beta predominated.Drowsiness was characterized by alpha attenuation and increased frontocentral theta. HYPERVENTILATION: Hyperventilation was not performed. PHOTIC STIMULATION: Photic stimulation was done from 3-30 Hz; no photic driving was seen; photoparoxysmal responses were absent. EVENTS: None ELECTROCARDIOGRAM: A single lead EKG showed normal rate, rhythm, and appearance. IMPRESSION: Normal awake and drowsy EEG CLINICAL COMMENT: An EEG without epileptiform discharges does not exclude the possibility of epilepsy.If the clinical suspicion of epilepsy remains, consider additional EEG recordings. Haydee Garcia MD Epilepsy Fellow [facility] Neurophysiology Service Robert Ferreira M.D., ABA, THERESA, SHADI Professor of Neurology, [facility] Director, [facility] Head, [facility] Neurophysiology Lab Procedure Note Interface, External Ris In - 10/24/2017 4:35 PM CDT Neurophysiology Electroencephalogram Report DATE OF REPORT: DATE \\@ "M//y" 10/24/17 Date(s) of Study: 10/24/2017 ACC: [id number] Start time: 1545 hrs Stop time: 1606 hrs ICD-10: R55 Syncope and Collapse CPT Code: 50925 EEG: awake and drowsy <40 min HISTORY: 82 year old male referred for EEG to assess for epileptiform abnormalities. He has a history significant for recurrent syncope with fall. MEDICATIONS THAT COULD AFFECT EEG: None TECHNICAL SUMMARY: This is a digital video EEG recorded with 32 input channels reviewed with bipolar and referential montages using the modified combinatorial system nomenclature. DESCRIPTION OF RECORD: BACKGROUND: There was a symmetric, reactive to eye opening, and well regulated posterior dominant rhythm of 10 Hz. More anteriorly, low voltage frontocentral beta predominated. Drowsiness was characterized by alpha attenuation and increased frontocentral theta. HYPERVENTILATION: Hyperventilation was not performed. PHOTIC STIMULATION: Photic stimulation was done from 3-30 Hz; no photic driving was seen; photoparoxysmal responses were absent. EVENTS: None ELECTROCARDIOGRAM: A single lead EKG showed normal rate, rhythm, and appearance. IMPRESSION: Normal awake and drowsy EEG CLINICAL COMMENT: An EEG without epileptiform discharges does not exclude the possibility of epilepsy. If the clinical suspicion of epilepsy remains, consider additional EEG recordings. Haydee Garcia MD Epilepsy Fellow [facility] Neurophysiology Service Robert Ferreira M.D., ABA, THERESA, SHADI Professor of Neurology, [facility] Director, [facility] Head, [facility] Neurophysiology Lab Performing Organization Address City/State/Zipcode Phone Number GE RIS 2D Echo W/Doppler(CW/PW/Color) (10/24/2017 3:02 PM CDT) Ejection Fraction [facility] ECHO [facility] MKCKESSON CPA Narrative Performed At Transthoracic Echocardiography Report (TTE) 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 Clinical History HGB 9.1 HCT 29.6 % DEFINITY SYNCOPE, HTN, RHEUMATOID ARTHRITIS Contrast Medium: Bubble Study. Height: 65 inches Weight: 91.17 kg (201 lbs) BSA: 1.98 m^2 BMI: 33.45 kg/m^2 HR: 65 bpm BP: 128/61 mmHg Summary LV endocardium is adequately visualized with IV ultrasound enhancing agent. Normal left ventricular chamber size. Normal wall thickness. Normal overall left ventricular systolic function. No apparent segmental wall motion abnormalities. Global LV systolic function normal . Estimated LVEF by qualitative assessment is normal (>60%) . Grade 1 diastolic dysfunction (impaired relaxation and low-normal LA pressure). Mild aortic stenosis. AoV area at rest by continuity equation is in the range of 1.7 Unable to estimate peak systolic PA pressure; inadequate TR velocity signal. IV saline contrast injection was negative for a PFO (patent foramen ovale) at rest and post Valsalva . Signature Findings Left Ventricle LV endocardium is adequately visualized with IV ul trasound enhancing agent. Normal left ventricular ch anthony size. Normal wall thickness. Normal overall le ft ventricular systolic function. No apparent se gmental wall motion abnormalities. Global LV sy stolic function normal . Estimated LVEF by qu alitative assessment is normal (>60%) . Grade 1 di astolic dysfunction (impaired relaxation and lo w-normal LA pressure). Left AtriumLA size is moderately enlarged . Right VentricleNormal right ventricle structure and function. Right Atrium Normal right atrium. Atrial SeptumIV saline contrast injection was negative for a PFO (p atent foramen ovale) at rest and post Valsalva . Aortic Valve Mild AoV cusp thickening. Mi ld AoV cusp calcification. Mi ld aortic stenosis. AoV area at rest by co ntinuity equation is in the range of 1.7 cm2. Mitral Valve Mild MV leaflet thickening. Tricuspid ValveA trace of tricuspid regurgitation. Un able to estimate peak systolic PA pressure; in adequate TR velocity signal. Pulmonic Valve Normal PV structure and function by limited views an d Doppler. AortaAortic root size (SInus of Valsalva diameter) is no rmal . PericardiumNo evidence of pericardial effusion. IVC/SVC/PA/PV/PleuralThe estimated RA pressure by IVC dynamics 5-10mmHg . Chambers/Structures Left Atrium LA Dimension: 3.8 cmLA Area: 25.9 cm^2 LA Volume: 87.23 ml LA Vol. Index: 44 ml/m^2 Left Ventricle LVIDd: 4.35 cm LV Septum Diastolic: 1 cm LV PW Diastolic: 1 cm LVOT Diameter: 1.94 cm Aorta Ao Root S of Chrissie.: 3.18 cm Doppler/Quantitative Measurements Aortic Valve Peak Velocity: 2.59 m/sMean Velocity: 1.62 m/s Peak Gradient: 26.79 mmHgMean Gradient: 12.68 mmHg AV Area (continuity): 1.73 cm^2 AV VTI: 47.15 cm AV DVI: 0.59 LVOT Peak Velocity: 1.37 m/s Peak Gradient: 7.47 mmHg Mean Velocity: 0.82 m/s Mean Gradient: 3.41 mmHg LVOT Diameter: 1.94 cmLVOT VTI: 27.62 cm LVOT Area: 2.96 cm^2LVOT SV:81.6 ml LVOT CO: 5.3 l/minLVOT CI: 2.68 l/min/m^2 Procedure Note Interface, External Ris In - 10/24/2017 5:37 PM CDT Transthoracic Echocardiography Report (TTE) Demographics Patient Name MOUSTAPHA, Date of Study 10/24/2017 [place] Gender Male Visit Number [id number] Race Unknown Room Number 1034 Number Date of 1935 Referring Olivia Da Cerda Physician Age 82 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 Clinical History HGB 9.1 HCT 29.6 % DEFINITY SYNCOPE, HTN, RHEUMATOID ARTHRITIS Contrast Medium: Bubble Study. Height: 65 inches Weight: 91.17 kg (201 lbs) BSA: 1.98 m^2 BMI: 33.45 kg/m^2 HR: 65 bpm BP: 128/61 mmHg Summary LV endocardium is adequately visualized with IV ultrasound enhancing agent. Normal left ventricular chamber size. Normal wall thickness. Normal overall left ventricular systolic function. No apparent segmental wall motion abnormalities. Global LV systolic function normal . Estimated LVEF by qualitative assessment is normal (>60%) . Grade 1 diastolic dysfunction (impaired relaxation and low-normal LA pressure). Mild aortic stenosis. AoV area at rest by continuity equation is in the range of 1.7 Unable to estimate peak systolic PA pressure; inadequate TR velocity signal. IV saline contrast injection was negative for a PFO (patent foramen ovale) at rest and post Valsalva . Signature Findings Left Ventricle LV endocardium is adequately visualized with IV ultrasound enhancing agent. Normal left ventricular chamber size. Normal wall thickness. Normal overall left ventricular systolic function. No apparent segmental wall motion abnormalities. Global LV systolic function normal . Estimated LVEF by qualitative assessment is normal (>60%) . Grade 1 diastolic dysfunction (impaired relaxation and low-normal LA pressure). Left Atrium LA size is moderately enlarged . Right Ventricle Normal right ventricle structure and function. Right Atrium Normal right atrium. Atrial Septum IV saline contrast injection was negative for a PFO (patent foramen ovale) at rest and post Valsalva . Aortic Valve Mild AoV cusp thickening. Mild AoV cusp calcification. Mild aortic stenosis. AoV area at rest by continuity equation is in the range of 1.7 cm2. Mitral Valve Mild MV leaflet thickening. Tricuspid Valve A trace of tricuspid regurgitation. Unable to estimate peak systolic PA pressure; inadequate TR velocity signal. Pulmonic Valve Normal PV structure and function by limited views and Doppler. Aorta Aortic root size (SInus of Valsalva diameter) is normal . Pericardium No evidence of pericardial effusion. IVC/SVC/PA/PV/Pleural The estimated RA pressure by IVC dynamics 5-10mmHg . Chambers/Structures Left Atrium LA Dimension: 3.8 cm LA Area: 25.9 cm^2 LA Volume: 87.23 ml LA Vol. Index: 44 ml/m^2 Left Ventricle LVIDd: 4.35 cm LV Septum Diastolic: 1 cm LV PW Diastolic: 1 cm LVOT Diameter: 1.94 cm Aorta Ao Root S of Chrissie.: 3.18 cm Doppler/Quantitative Measurements Aortic Valve Peak Velocity: 2.59 m/s Mean Velocity: 1.62 m/s Peak Gradient: 26.79 mmHg Mean Gradient: 12.68 mmHg AV Area (continuity): 1.73 cm^2 AV VTI: 47.15 cm AV DVI: 0.59 LVOT Peak Velocity: 1.37 m/s Peak Gradient: 7.47 mmHg Mean Velocity: 0.82 m/s Mean Gradient: 3.41 mmHg LVOT Diameter: 1.94 cm LVOT VTI: 27.62 cm LVOT Area: 2.96 cm^2 LVOT SV:81.6 ml LVOT CO: 5.3 l/min LVOT CI: 2.68 l/min/m^2 Performing Organization Address City/State/Zipcode Phone Number [facility] MRA neck without & with IV contrast (10/23/2017 2:57 PM CDT) Narrative Performed At FINAL REPORT [facility] MRA arch, great vessels, neck, and head with and without contrast Comparison: None Reason for exam:Stroke Discussion: 2 D and 3-D [id number] and contrast-enhanced MRA of the arch, great vessels, and neck, and 3-D htto-qs-ddiemc MRA head was provided with maximal intensity projection 3-D reconstructions of the imaged arterial vasculatures.NASCET criteria are utilized when considering stenosis. Normal flow cervical carotid systems and cervical segment vertebral arteries with no stenosis by NASCET criteria. Normal flow intracranial internal carotid arteries and in the carotid terminus branches proximally. There is however a focal moderate stenosis of the right-sided M1 segment is beyond its origin. Normal vertebrobasilar and proximal posterior cerebral artery flow. Impressions: 1. Negative MRA neck. 2. Moderate right MCA M1 segment stenosis. 3. 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 There is moderate to severe multilevel central canal stenosis warranting neurological correlation. Consider follow-up cervical spine MRI and/or CT. Signed: Agustina Hayes MD Report Verified Date/Time:10/23/2017 16:44:06 Reading Location: [address] Neuro Reading Room Procedure Note Interface, External Ris In - 10/23/2017 4:46 PM CDT FINAL REPORT MRA arch, great vessels, neck, and head with and without contrast Comparison: None Reason for exam: Stroke Discussion: 2 D and 3-D oban-ze-[id number] and contrast-enhanced MRA of the arch, great vessels, and neck, and 3-D fjzn-cq-hyospz MRA head was provided with maximal intensity projection 3-D reconstructions of the imaged arterial vasculatures. NASCET criteria are utilized when considering stenosis. Normal flow cervical carotid systems and cervical segment vertebral arteries with no stenosis by NASCET criteria. Normal flow intracranial internal carotid arteries and in the carotid terminus branches proximally. There is however a focal moderate stenosis of the right-sided M1 segment is beyond its origin. Normal vertebrobasilar and proximal posterior cerebral artery flow. Impressions: 1. Negative MRA neck. 2. Moderate right MCA M1 segment stenosis. 3. 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 There is moderate to severe multilevel central canal stenosis warranting neurological correlation. Consider follow-up cervical spine MRI and/or CT. Signed: Agustina Hayes MD Report Verified Date/Time: 10/23/2017 16:44:06 Reading Location: [address] Neuro Reading Room Performing Organization Address City/State/Zipcode Phone Number [facility] MRA head with and without contrast (10/23/2017 2:57 PM CDT) Narrative Performed At FINAL REPORT [facility] MRA arch, great vessels, neck, and head with and without contrast Comparison: None Reason for exam:Stroke Discussion: 2 D and 3-D qduc-xz-evvmko and contrast-enhanced MRA of the arch, great vessels, and neck, and 3-D wvhv-vv-anpehh MRA head was provided with maximal intensity projection 3-D reconstructions of the imaged arterial vasculatures.NASCET criteria are utilized when considering stenosis. Normal flow cervical carotid systems and cervical segment vertebral arteries with no stenosis by NASCET criteria. Normal flow intracranial internal carotid arteries and in the carotid terminus branches proximally. There is however a focal moderate stenosis of the right-sided M1 segment is beyond its origin. Normal vertebrobasilar and proximal posterior cerebral artery flow. Impressions: 1. Negative MRA neck. 2. Moderate right MCA M1 segment stenosis. 3. 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 There is moderate to severe multilevel central canal stenosis warranting neurological correlation. Consider follow-up cervical spine MRI and/or CT. Signed: Agustina Hayes MD Report Verified Date/Time:10/23/2017 16:44:06 Reading Location: [address] Neuro Reading Room Procedure Note Interface, External Ris In - 10/23/2017 4:46 PM CDT FINAL REPORT MRA arch, great vessels, neck, and head with and without contrast Comparison: None Reason for exam: Stroke Discussion: 2 D and 3-D xwgi-xw-behvxn and contrast-enhanced MRA of the arch, great vessels, and neck, and 3-D bhoe-wi-fsddlm MRA head was provided with maximal intensity projection 3-D reconstructions of the imaged arterial vasculatures. NASCET criteria are utilized when considering stenosis. Normal flow cervical carotid systems and cervical segment vertebral arteries with no stenosis by NASCET criteria. Normal flow intracranial internal carotid arteries and in the carotid terminus branches proximally. There is however a focal moderate stenosis of the right-sided M1 segment is beyond its origin. Normal vertebrobasilar and proximal posterior cerebral artery flow. Impressions: 1. Negative MRA neck. 2. Moderate right MCA M1 segment stenosis. 3. 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 There is moderate to severe multilevel central canal stenosis warranting neurological correlation. Consider follow-up cervical spine MRI and/or CT. Signed: Agustina Hayes MD Report Verified Date/Time: 10/23/2017 16:44:06 Reading Location: [address] Neuro Reading Room Performing Organization Address City/State/Zipcode Phone Number [facility] Troponin I (10/22/2017 11:05 PM CDT)Only the most recent of2 resultswithin the time period is included. Troponin I <0.01 0.00 - 0.03 ng/mL [facility] Specimen Blood - Arm, Right Narrative Performed At [facility] Troponin I (TnI) levels must be interpreted in the context of the presenting symptoms and the clinical findings. Elevated TnI levels indicate myocardial damage, but are not specific for ischemic heart disease. Elevated TnI levels are seen in patients with other cardiac conditions (including myocarditis and congestive heart failure), and slight TnI elevations occur in patients with other conditions, including sepsis, renal failure, acidosis, acute neurological disease, and persistent tachyarrhythmia. Performing Organization Address [facility] Phone Number [phone] [place] [address] [place] Urine culture (10/22/2017 7:00 PM CDT) Result KLEBSIELLA PNEUMONIAE (A) [facility] Specimen Urine - Urine, Clean Catch Narrative Performed At <10,000 col/mL Gram Negative Sid of second [facility] type Organism Antibiotic Method Susceptibility Klebsiella pneumoniae Amikacin <=2: Susceptible Klebsiella pneumoniae Ampicillin + Sulbactam 4: Susceptible Klebsiella pneumoniae Aztreonam <=1: Susceptible Klebsiella pneumoniae Cefepime <=1: Susceptible Klebsiella pneumoniae Cefoxitin <=4: Susceptible Klebsiella pneumoniae Ceftazidime <=1: Susceptible Klebsiella pneumoniae Ceftriaxone <=1: Susceptible Klebsiella pneumoniae Ertapenem <=0.5: Susceptible Klebsiella pneumoniae Gentamicin <=1: Susceptible Klebsiella pneumoniae Levofloxacin <=0.12: Susceptible Klebsiella pneumoniae Meropenem <=0.25: Susceptible Klebsiella pneumoniae Nitrofurantoin 64: Intermediate Klebsiella pneumoniae Piperacillin + Tazobactam <=4: Susceptible Klebsiella pneumoniae Tetracycline 2: Susceptible Klebsiella pneumoniae Tobramycin <=1: Susceptible Klebsiella pneumoniae Trimethoprim + Sulfamethoxazole <=20: Susceptible Performing Organization Address [facility] Phone Number [address] [address] [place] ECG 12 lead (10/22/2017 5:03 PM CDT) Narrative Performed At Ventricular Rate 72 BPM GE [facility] Atrial Rate 72 BPM P-R Interval 190 ms QRS Duration 90 ms Q-T Interval 436 ms QTC Calculation(Bazett) 477 ms P [place] 54 degrees R [place] 29 degrees T [place] 67 degrees Normal sinus rhythm Low voltage QRS Borderline ECG No previous ECGs available Confirmed by Du Wylie ([id number]) on 10/23/2017 2:07:12 PM Procedure Note Interface, External Ris In - 10/23/2017 2:07 PM CDT Ventricular Rate 72 BPM Atrial Rate 72 BPM P-R Interval 190 ms QRS Duration 90 ms Q-T Interval 436 ms QTC Calculation(Bazett) 477 ms P [place] 54 degrees R [place] 29 degrees T [place] 67 degrees Normal sinus rhythm Low voltage QRS Borderline ECG No previous ECGs available Confirmed by Du Wylie ([id number]) on 10/23/2017 2:07:12 PM Performing Organization Address [facility] Phone Number [facility] Vitamin B12 and Folate (10/22/2017 4:43 PM CDT) Vitamin B12 539 213 - 816 pg/mL [facility] Folate 35.7 >=7.0 ng/mL [facility] Specimen Blood Performing Organization Address [facility] [place] Phone Number [address] [address] C[facility] TSH/Free T4 If Indicated (10/22/2017 4:43 PM CDT) TSH 1.29 0.35 - 4.94 uIU/mL [facility] Specimen Blood Performing Organization Address [facility] [place] Phone Number [address] [address] [phone] CENTER Iron, TIBC, % sat. (without ferritin) (10/22/2017 4:43 PM CDT) Iron 36 (L) 40 - 160 ug/dL [facility] TIBC 348 250 - 450 ug/dL [facility] Iron % Saturation 10 (L) 20 - 55 % [facility] Specimen Blood Performing Organization Address [facility] Phone Number [address] [address] [phone] CENTER Calcium, Ionized (10/22/2017 4:43 PM CDT) Calcium, Ion 1.09 (L) 1.12 - 1.27 mmol/L [facility] pH, Blood 7.40 [facility] Specimen Blood Performing Organization Address City/State/Zipcode Phone Number [facility] [address] [place] [address] [place] Vitamin D, 25-Hydroxy (10/22/2017 4:43 PM CDT) Vitamin D 25-Hydroxy 41.7 6.6 - 49.9 ng/mL [facility] Specimen Blood Narrative Performed At [facility] Effective 11/17/2016: Reference Range Change New: 6.6-49.9 ng/mL Previous: 13.0-47.8 ng/mL Recommended Vitamin D Target Range: 30.0-40.0 ng/mL Performing Organization Address City/State/Zipcode Phone Number [facility] [address] [place] [address] [place] RPR (10/22/2017 4:43 PM CDT) RPR Nonreactive Nonreactive [facility] Specimen Blood Performing Organization Address City[facility] Phone Number [facility] [address] [place] [address] CENTER after 01/05/2017 Insurance Payer Benefit Plan / Subscriber ID Type Phone Address Group MEDICARE MEDICARE A B xxxxxxxxxxx Medicare BLUE CROSS/BLUE BCBS FED xxxxxxxxx O [phone] [address] [place] [address] Advance Directives For more information, please contact:[address] [phone] Code Status Date Activated Date Inactivated Comments Full Code 10/22/2017 4:08 PM 10/27/2017 9:37 PM This code status was determined by: Patient
--- OUTSIDE RECORDS SUMMARY | 2018-01-06 12:32 | XMS REPORT ---
:1935 [facility] [address] [place] [address] [address] [place] [address] Care Team Providers Name Role Phone TRACIE BISHOP Unavailable Unavailable Problems This patient has no known problems. Allergies, Adverse Reactions, Alerts This patient has no known allergies or adverse reactions. Medications This patient has no known medications. Results Test Description Test Time Test Comments Text Results Atomic Results Result Comments PROTEIN ELECTROPHORESIS, SERUM 2017-11-02 18:38:00 Test Item Value Reference Range Comments ALBUMIN FRACTION (BEAKER) (test 2.9 g/dL 3.5-5.5 rgsl=090) ALPHA 1 FRACTION (BEAKER) (test 0.2 g/dL 0.2-0.4 smzr=276) ALPHA 2 FRACTION (BEAKER) (test 0.8 g/dL 0.5-0.9 dxre=287) BETA FRACTION (BEAKER) (test 0.8 g/dL 0.6-1.1 jebo=301) GAMMA GLOBULIN FRACTION (BEAKER) 0.7 g/dL 0.7-1.7 (test cnxi=958) INTERPRETATION-119 (BEAKER) (test Pattern suggestive of acute rooj=4915) inflammatory process. No monoclonal bands detected. [id number] (BEAKER) (test Trish Rodas MD (electronic arpt=6604) signature) PROTEIN TOTAL SERUM, SPEP (BEAKER) 5.5 gm/dL 6.0-8.3 (test puvm=7342) NEEDLE EMG, 2 [id number] 20:31:00Reason for exam:->Suspect polyneuropathy, sensory ataxia, falls.[facility]Neurophysiology DepartmentELECTROMYOGRAPHY / NERVE CONDUCTION STUDY [address] [facility] [address] [place] [address] Name: Germain Gerard : Date of : 1935 Gender: Male Date of Exam: 10/27/2017 5:15 PMReferring Physician: Dr. Viv TomlinsonExamining Physician: Dr. Sandra Quiñonez Patient History: Patient [...] entrapments in the hands, and right lumbosacral radiculopathy.Temperature: RLE 28 C; DADA GRAY 30Standard temp: 32 CTemp correction: Latency 0.2 ms/C, CV 2 m/s/CMotor Nerve Conduction:Nerve and Site Latency Amplitude SegmentLatencyDifference Distance ConductionVelocityPeroneal.RAnkle 5.2 ms 0.4 mV Extensor digitorum brevis-Ankle 5.2 ms Fibula (head) 14.8 ms 0.3 mV Ankle-Fibula (head) 9.6 ms 300 mm 31 m/s *39 correctedKnee 17.4 ms 0.3 mV Fibula (head)-Knee 2.6 ms 110 mm 42 m/sTibial.RAnkle 4.9 ms 3.3 mV Abductor hallucis-Ankle 4.9 ms Popliteal fossa 16.6 ms 1.8 mV Ankle-Popliteal fossa 11.7 ms 430 mm 37 m/s *45 corrected) Peroneal.RFibula (head) 2.8 ms 4.1 mV Tibialis anterior -Fibula Knee 5.2 ms 5.9 mV Fibula (head)-Knee 2.4 ms 130 mm 54 m/sPeroneal.LAnkle 6.5 ms 0.3 mV Extensor digitorum brevis-Ankle Median.RWrist 5.1 ms *4.7 corrected 4.7 mV Abductor pollicis brevis-Wrist 5.1 ms Elbow 10.3 ms 4.6 mV Wrist-Elbow 5.2 ms 245 mm 47 m/s *51 correctedUlnar.RWrist 3.0 ms 13.1 mV Abductor digiti minimi ( manus)-Wrist3.0 ms Below elbow 7.4 ms 11.5 mV Wrist-Below elbow 4.4 ms 240 mm 55 m/sAbove elbow 9.8 ms 10.4 mV Below elbow-Above elbow 2.5 ms 100 mm 40 m/ sMedian.LWrist 6.6 ms *6.2 corrected 3.4 mV Abductor pollicis brevis-Wrist 6.6 ms Elbow 13.2 ms 3.2 mV Wrist-Elbow 6.6 ms 290 mm 44 m/s *48 correctedUlnar.LWrist 2.8 ms 11.1 mV Abductor digiti minimi (manus)-Wrist 2.8 ms Below elbow 7.0 ms 10.8 mV Wrist-Below elbow 4.2 ms 240 mm 57 m/sAbove elbow 9.0 ms 10.0 mV Below elbow-Above elbow 2.0 ms 130 mm 65 m/sF-Wave StudiesNerve M-Latency F-LatencyPeroneal.R 17.4 NRTibial.R 16.6 57.8Median.R 10.3 34.4Ulnar.R 9.8 34.6Median.L 13.2 36.6Ulnar.L 9.0 33.9Sensory Nerve Conduction:Nerve and Site Onset Latency PeakLatency Amplitude Segment LatencyDifference Distance ConductionVelocitySural.RLower leg NR NR NR Ankle- Lower leg 140 mm Sural.LLower leg NR NR NR Ankle-Lower leg 140 mm Median.RWrist 4.1 ms 5.1 ms 9 㡖V Digit II (index finger)-Wrist 4.1 ms 130 mm 32 m/sUlnar.RWrist NR NR NR Digit V (little finger)-Wrist 110 mm Median.RWrist (Median) 2.5 ms 3.5 ms 31 &#[id number];V 80 mm Wrist (Ulnar) NRNR NR 80 mm Radial.RForearm 2.2 ms 2.8 ms 6 𗋻V Anatomical snuff box-Forearm 2.2 ms 100mm 36 m/sMedian.LWrist NR NR NR Digit II (index finger)- Wrist 130 mm Ulnar.LWrist 2.6 ms 3.2 ms 4 V Digit V (little finger) -Wrist 2.6 ms 110 mm 42 m/sRadial.LForearm 1.7 ms 2.4 ms 13 𖛒V Anatomical snuff box-Forearm 1.7 ms 100 mm 42 m/sMedian.LWrist (Median) NR NR NR 80 mm Wrist (Ulnar) TI TI TI 80 mm TI - artifactNeedle EMG Examination: Insertional Spontaneous Activity Volitional MUAPsMuscle Insertional Fibs +Wave Fasc Duration Amplitude Poly Pattern EffortTibialis anterior.R Increased None None None Sl. Incr. Gr. Incr. Few Moderate Reduced Max.Gastrocnemius (Medial head).R Normal None None None Normal Normal None Normal Max.Vastus medialis.R Normal None None None Normal Normal None Normal Max.Gluteus medius.R Normal None None None Sl. Incr. Sl. Incr. Few Mild ReducedMax.Semimembranosus.R Normal None None None Normal Normal None Normal Max.1st dorsal interosseous.R Normal None None None Normal Normal None Normal Max.Flexor carpi radialis.R Normal None None None Normal Normal None Normal Max.Biceps brachii.R Normal None None None Normal Sl. Incr. None Mild Reduced Deltoid.R Normal None None None Gr. Incr. Gr. Incr. Few Moderate Reduced Max.Triceps brachii.R NormalNone None None Normal Normal None Normal Max.Abductor pollicis brevis.R Normal None None None Sl. Incr. Normal None Mild Reduced Max.1st dorsal interosseous.L Normal None None None Normal Sl. Incr. None Normal Max.Abductor pollicis brevis.L Normal None None None Sl. Incr Normal None Mild Reduced Max.Extensor indicis proprius.L Normal None None None Normal Normal None Normal Max.Summary of findings: 1. Sensory studies of bilateral sural, left median (digit II and palmar), right ulnar (digit V and palmar) nerves showed no responses. The right median (digit II and palmar) showed prolonged peak latencies and reduced amplitudes. The left ulnar and both radial nerves showed low amplitudes. 2. Motor studies of the bilateral peroneal (EDB) showed very low amplitudes, otherwise normal when correctedfor temperature on the right. The right tibial nerve showed borderline normal amplitude. The peroneal at TA showed normal findings. The median nerves showed prolonged distal latencies, much worse onthe left, low amplitudes, also slightly worse on the left and normal to borderline normal velocities. The ulnar nerves showed normal findings except for mild slowing across the elbow on the right. F-wave latencies were unremarkable except for mild prolongation on the left median and absent response in right peroneal nerve.3. Electromyography of the upper limbs and right lower limb was done using adisposable concentric needle. There was no abnormal spontaneous activity. There were chronic neurogenic changes in the right C5 myotome (deltoid>biceps) and right L5 myotome (gluteus medius, tibialis anterior) as well as both APB muscles. The remainder of the muscles tested showed normal findings.Conclusions: This is an abnormal electrodiagnostic study due to the followin. 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 Chronic cervical radiculopathies at the right C5 and the right L5 root levels, mild to moderate in severity, without active denervation. Sandra Quiñonez M.D. MR, SPINE, THORACIC, [id number] 07:17: 00FINAL REPORT MR thoracic spine with and without [...] canal stenosis is mild at T1-T2 and mildto moderate T2-3. There are mild to moderate bilateral T1-T2 and mild T2-3, and T7-8 to T10-11 neural foraminal stenoses. 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 IMPRESSION: 1. Questionable faint cord signal changes T2-3 without enhancement. 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 Advise neurologic correlation. 2. Thoracic spine degenerative changes with multifactorial mild to moderate T2-3 and mild T1-2 canal stenosis with cord contouring. 3. Neural foraminal stenoses as detailed above. Signed: Hiren Suarez MDReport Verified Date/Time: 10/27/2017 07: 17:46 Reading Location: [facility] C0[facility] Neuro Reading Room BASIC METABOLIC [id number] 05:18:00 Test Item Value Reference Range Comments SODIUM (BEAKER) (test 139 meq/L 136-145 einx=252) POTASSIUM (BEAKER) (test 4.2 meq/L 3.5-5.1 cdcj=975) CHLORIDE (BEAKER) (test 107 meq/L 98-107 fkah=181) CO2 (BEAKER) (test 25 meq/L 22-29 qvju=420) BLOOD UREA NITROGEN 13 mg/dL 7-21 (BEAKER) (test pidq=581) CREATININE (BEAKER) (test 0.80 mg/dL 0.57-1.25 zvxb=022) GLUCOSE RANDOM (BEAKER) 92 mg/dL 70-105 (test tghy=471) CALCIUM (BEAKER) (test 9.0 mg/dL 8.4-10.2 epyb=288) EGFR (BEAKER) (test mL/min/1.73 sq m INSUFFICIENT CLINICAL DATA wtlo=8915) TO CALCULATE ESTIMATED GFR. [id number] 05:16:00 Test Item Value Reference Range Comments MAGNESIUM (BEAKER) (test rdms=769) 2.1 mg/dL 1.6-2.6 CBC W/PLT COUNT & AUTO [id number] 05:01:00 Test Item Value Reference Range Comments WHITE BLOOD CELL COUNT (BEAKER) (test spsq=382) 5.4 K/ L 3.5-10.5 RED BLOOD CELL COUNT (BEAKER) (test vinc=189) 3.16 M/ L 4.63-6.08 HEMOGLOBIN (BEAKER) (test hcqt=718) 9.0 GM/DL 13.7-17.5 HEMATOCRIT (BEAKER) (test ugyf=055) 29.2 % 40.1-51.0 MEAN CORPUSCULAR VOLUME (BEAKER) (test nalz=508) 92.4 fL 79.0-92.2 MEAN CORPUSCULAR HEMOGLOBIN (BEAKER) (test 28.5 pg 25.7-32.2 hppn=517) MEAN CORPUSCULAR HEMOGLOBIN CONC (BEAKER) (test 30.8 GM/DL 32.3-36.5 ycmg=016) RED CELL DISTRIBUTION WIDTH (BEAKER) (test 17.7 % 11.6-14.4 tgbs=230) PLATELET COUNT (BEAKER) (test lqjm=544) 242 K/CU MM 150-450 MEAN PLATELET VOLUME (BEAKER) (test aqhx=126) 10.7 fL 9.4-12.4 NUCLEATED RED BLOOD CELLS (BEAKER) (test 0 /100 WBC 0-0 hwkg=045) NEUTROPHILS RELATIVE PERCENT (BEAKER) (test 51 % zrgg=599) LYMPHOCYTES RELATIVE PERCENT (BEAKER) (test 15 % rqfb=813) MONOCYTES RELATIVE PERCENT (BEAKER) (test 17 % dejo=750) EOSINOPHILS RELATIVE PERCENT (BEAKER) (test 15 % dbqf=872) BASOPHILS RELATIVE PERCENT (BEAKER) (test 1 % pajd=152) NEUTROPHILS ABSOLUTE COUNT (BEAKER) (test 2.79 K/ L 1.78-5.38 vyqk=648) LYMPHOCYTES ABSOLUTE COUNT (BEAKER) (test 0.82 K/ L 1.32-3.57 seuv=997) MONOCYTES ABSOLUTE COUNT (BEAKER) (test 0.93 K/ L 0.30-0.82 qiwf=937) EOSINOPHILS ABSOLUTE COUNT (BEAKER) (test 0.82 K/ L 0.04-0.54 yzhw=236) BASOPHILS ABSOLUTE COUNT (BEAKER) (test 0.05 K/ L 0.01-0.08 lrrf=779) IMMATURE GRANULOCYTES-RELATIVE PERCENT (BEAKER) 0 % 0-1 (test zkep=6203) MR, SPINE, CERVICAL, [id number] 07:53:00FINAL REPORT MR cervical spine with and without contrast INDICATION: Myelopathy TECHNIQUE: MRI of the cervical spine utilizing the following sequences: Sagittal T1, T2, STIR; axial T1 and T2; postcontrast sagittal and axial T1. COMPARISON: None available. FINDINGS:There are findings suggesting PLL ossification from C3 to C6. There is abnormal cord signal from C3 to C6 in keeping with myelopathy. There are disc osteophyte complexes with spondylosis, facet arthropathy, and posterior ligamentous thickening from C3-4 to C6-7. Resultant spinal canal stenosis is severe at C3-4 and C4-5, moderate to severe at C5-6, moderate at C6- 7, and mild C7-T1. There is mild anterolisthesis [...] and moderate at C7-T1. There is nonspecific hemosiderinstaining in the right cerebellum. There is paraspinal muscle deconditioning. IMPRESSION: 1. 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 Resultant spinal canal stenosis, severe at C3-4 and C4-5, moderate to severe at C5-6, and moderate at C6-7. 2. Abnormal C3-C6 cord signal in keeping with myelopathy. Advise neurologic correlation. 3. Neural foraminal stenoses as discussed, worst at C3-4 and C4-5. Signed: Hiren Suarez MDReport Verified Date/Time: 10/26/2017 07:53:00 Reading Location: [facility] C013V Neuro Reading Room MR, SPINE, LUMBAR, [id number] 07:52:00FINAL REPORT MR Lumbar spine with and without contrast INDICATION: MyelopathyTECHNIQUE: MRI of the lumbar spine utilizing the following sequences: Sagittal T1, T2, STIR; axial T1 and T2, postcontrast sagittal and axial T1 with fat suppression. COMPARISON: None available FINDINGS:There is mild right convex lumbar spinal curvature. [...] foraminal/far lateral disc osteophyte complex, facet arthropathy, andligamentous thickening. Moderate canal and lateral recess stenoses. Moderate bilateral foraminal stenosis. L4-5: Disc degeneration with asymmetric bulge extending into the foraminal regions, endplate osteophytes, and right foraminal/ far lateral disc osteophyte complex, facet arthropathy, and [...] canal stenosis, severe at L4-5, moderate at L2-3and L3-4, and mild at L5-S1. 2. Lateral recess and neural foraminal stenoses as discussed, worst at L4-5 on the right. Advise correlation with radiculopathic symptoms. 3. 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 Consider dedicated imaging. Signed: Hiren Suarez MDReport Verified Date/Time: 10/26/201707:52:13 Reading Location: [address] Neuro Reading Room BASIC METABOLIC [id number] 06:20:00 Test Item Value Reference Range Comments SODIUM (BEAKER) (test 139 meq/L 136-145 qngs=054) POTASSIUM (BEAKER) (test 4.3 meq/L 3.5-5.1 Specimen slightly lwjo=795) hemolyzed CHLORIDE (BEAKER) (test 109 meq/L 98-107 btey=143) CO2 (BEAKER) (test 24 meq/L 22-29 pece=406) BLOOD UREA NITROGEN 15 mg/dL 7-21 (BEAKER) (test rrlh=351) CREATININE (BEAKER) (test 0.78 mg/dL 0.57-1.25 Specimen slightly rpkc=407) hemolyzed GLUCOSE RANDOM (BEAKER) 86 mg/dL 70-105 (test tdlp=218) CALCIUM (BEAKER) (test 8.6 mg/dL 8.4-10.2 shdi=493) EGFR (BEAKER) (test mL/min/1.73 sq m INSUFFICIENT CLINICAL DATA plgj=8202) TO CALCULATE ESTIMATED GFR. [id number] 06:14:00 Test Item Value Reference Range Comments MAGNESIUM (BEAKER) (test 2.3 mg/dL 1.6-2.6 Specimen slightly hemolyzed mcka=865) CBC W/PLT COUNT & AUTO [id number] 05:27:00 Test Item Value Reference Range Comments WHITE BLOOD CELL COUNT (BEAKER) (test qwxa=719) 5.1 K/ L 3.5-10.5 RED BLOOD CELL COUNT (BEAKER) (test qfcj=930) 3.13 M/ L 4.63-6.08 HEMOGLOBIN (BEAKER) (test pnis=594) 8.9 GM/DL 13.7-17.5 HEMATOCRIT (BEAKER) (test wmkn=576) 28.8 % 40.1-51.0 MEAN CORPUSCULAR VOLUME (BEAKER) (test iebl=231) 92.0 fL 79.0-92.2 MEAN CORPUSCULAR HEMOGLOBIN (BEAKER) (test 28.4 pg 25.7-32.2 ocel=009) MEAN CORPUSCULAR HEMOGLOBIN CONC (BEAKER) (test 30.9 GM/DL 32.3-36.5 csrx=359) RED CELL DISTRIBUTION WIDTH (BEAKER) (test 17.8 % 11.6-14.4 ecce=177) PLATELET COUNT (BEAKER) (test hyeb=592) 258 K/CU MM 150-450 MEAN PLATELET VOLUME (BEAKER) (test vpjr=076) 10.6 fL 9.4-12.4 NUCLEATED RED BLOOD CELLS (BEAKER) (test 0 /100 WBC 0-0 gxzg=762) NEUTROPHILS RELATIVE PERCENT (BEAKER) (test 49 % yzqk=306) LYMPHOCYTES RELATIVE PERCENT (BEAKER) (test 15 % ruac=427) MONOCYTES RELATIVE PERCENT (BEAKER) (test 19 % xtib=689) EOSINOPHILS RELATIVE PERCENT (BEAKER) (test 16 % spcz=116) BASOPHILS RELATIVE PERCENT (BEAKER) (test 1 % izws=644) NEUTROPHILS ABSOLUTE COUNT (BEAKER) (test 2.50 K/ L 1.78-5.38 ixox=432) LYMPHOCYTES ABSOLUTE COUNT (BEAKER) (test 0.77 K/ L 1.32-3.57 ynrp=438) MONOCYTES ABSOLUTE COUNT (BEAKER) (test 0.98 K/ L 0.30-0.82 jecg=906) EOSINOPHILS ABSOLUTE COUNT (BEAKER) (test 0.79 K/ L 0.04-0.54 mncy=110) BASOPHILS ABSOLUTE COUNT (BEAKER) (test 0.04 K/ L 0.01-0.08 fwyh=013) IMMATURE GRANULOCYTES-RELATIVE PERCENT (BEAKER) 1 % 0-1 (test gikv=5702) HEMOGLOBIN [id number] 14:31:00 Test Item Value Reference Range Comments HEMOGLOBIN A1C (BEAKER) (test tzvi=140) 5.7 % 4.3-6.1 URINE [id number] 10:53:00 Test Item Value Reference Range Comments CULTURE (BEAKER) (test KLEBSIELLA PNEUMONIAE >100,000 col/mL ujbb=7799) Klebsiella pneumoniae Amikacin (test code=1) Ampicillin + Sulbactam (test code=6) Aztreonam (test code=32) Cefepime (test code=51) Cefoxitin (test code=68) Ceftazidime (test code=27) Ceftriaxone (test code=52) Ertapenem (test code=38) Gentamicin (test code=18) Levofloxacin (test code=22) Meropenem (test code=34) Nitrofurantoin (test code=23) Piperacillin + Tazobactam (test code=29) Tetracycline (test code=2) Tobramycin (test code=25) Trimethoprim + Sulfamethoxazole (test code=47) <10,000 col/mL Gram Negative Sid of second [id number] 06:07:00 Test Item Value Reference Range Comments PHOSPHORUS (BEAKER) (test myrc=615) 3.2 mg/dL 2.3-4.7 [id number] 06:07:00 Test Item Value Reference Range Comments MAGNESIUM (BEAKER) (test lhhu=606) 2.1 mg/dL 1.6-2.6 LIPID [id number] 06:07:00 Test Item Value Reference Range Comments TRIGLYCERIDES (BEAKER) (test jmtz=639) 61 mg/dL CHOLESTEROL (BEAKER) (test qnwn=354) 119 mg/dL HDL CHOLESTEROL (BEAKER) (test qlji=319) 36 mg/dL LDL CHOLESTEROL CALCULATED (BEAKER) (test 71 mg/dL jwnd=165) Triglyceride Reference Range: Low Risk <150 Borderline 150- 199 High Risk 200-499 Very High Risk >=500Cholesterol Reference Range: Low Risk <200 Borderline 200-239 High Risk > 240HDL Cholesterol Reference Range: Low Risk >=60 High Risk <40LDL Cholesterol Reference Range: Optimal <100 Near Optimal 100-129 Borderline 130-159 High 160-189 Very High >=190EEG AWAKE AND [id number] 16:35:00Reason for exam:-> syncopeNeurophysiology Electroencephalogram Report DATE OF REPORT: DATE \\@ "M /d/yy" 10/24/17 Date(s) of Study: 10/24/2017 ACC: [id number] EE Start time : 1545 hrs Stop time: 1606 hrs ICD-10: R55 Syncope and Collapse CPT Code: 05577 EEG: awake and drowsy <40 min HISTORY: 82 year old male referredfor EEG to assess for epileptiform abnormalities. He has a history significant for recurrent syncopewith fall. MEDICATIONS THAT COULD AFFECT EEG: None TECHNICAL SUMMARY: This is a digital video EEG recorded with 32 input channels reviewed with bipolar and referential montages using the modified combinatorial system nomenclature. DESCRIPTION OF RECORD: BACKGROUND: There was a symmetric , reactive to eye opening, and well regulated [...] epilepsy. If the clinical suspicion of epilepsy remains,consider additional EEG recordings. Haydee Garcia MD Epilepsy Fellow [facility] Neurophysiology Service Robert Cardona M.D. , FACNS, FAAN, FAES Professor of Neurology, [facility] [employer] Director , [facility] Head, [facility] BASIC METABOLIC [id number] 05:04:00 Test Item Value Reference Range Comments SODIUM (BEAKER) (test 141 meq/L 136-145 brqs=157) POTASSIUM (BEAKER) (test 4.1 meq/L 3.5-5.1 pssz=485) CHLORIDE (BEAKER) (test 110 meq/L 98-107 hsvi=244) CO2 (BEAKER) (test 25 meq/L 22-29 jraq=359) BLOOD UREA NITROGEN 13 mg/dL 7-21 (BEAKER) (test blzo=259) CREATININE (BEAKER) (test 0.77 mg/dL 0.57-1.25 zskr=774) GLUCOSE RANDOM (BEAKER) 86 mg/dL 70-105 (test ecku=647) CALCIUM (BEAKER) (test 8.8 mg/dL 8.4-10.2 mabd=588) EGFR (BEAKER) (test mL/min/1.73 sq m INSUFFICIENT CLINICAL DATA xvdi=5756) TO CALCULATE ESTIMATED GFR. [id number] 05:01:00 Test Item Value Reference Range Comments PHOSPHORUS (BEAKER) (test clde=862) 2.9 mg/dL 2.3-4.7 [id number] 05:01:00 Test Item Value Reference Range Comments MAGNESIUM (BEAKER) (test jqux=915) 2.2 mg/dL 1.6-2.6 LIPID [id number] 05:01:00 Test Item Value Reference Range Comments TRIGLYCERIDES (BEAKER) (test gnak=842) 70 mg/dL CHOLESTEROL (BEAKER) (test ucxp=337) 120 mg/dL HDL CHOLESTEROL (BEAKER) (test kxzf=472) 35 mg/dL LDL CHOLESTEROL CALCULATED (BEAKER) (test 71 mg/dL arzf=247) Triglyceride Reference Range: Low Risk <150 Borderline 150- 199 High Risk 200-499 Very High Risk >=500Cholesterol Reference Range: Low Risk <200 Borderline 200-239 High Risk > 240HDL Cholesterol Reference Range: Low Risk >=60 High Risk <40LDL Cholesterol Reference Range: Optimal <100 Near Optimal 100-129 Borderline 130-159 High 160-189 Very High >=190CBC W/PLT COUNT & AUTO [id number] 04:32:00 Test Item Value Reference Range Comments WHITE BLOOD CELL COUNT (BEAKER) (test vvgp=948) 5.3 K/ L 3.5-10.5 RED BLOOD CELL COUNT (BEAKER) (test xnlm=621) 3.22 M/ L 4.63-6.08 HEMOGLOBIN (BEAKER) (test wvvk=446) 9.1 GM/DL 13.7-17.5 HEMATOCRIT (BEAKER) (test egcs=351) 29.6 % 40.1-51.0 MEAN CORPUSCULAR VOLUME (BEAKER) (test osry=160) 91.9 fL 79.0-92.2 MEAN CORPUSCULAR HEMOGLOBIN (BEAKER) (test 28.3 pg 25.7-32.2 ybpu=587) MEAN CORPUSCULAR HEMOGLOBIN CONC (BEAKER) (test 30.7 GM/DL 32.3-36.5 dspi=223) RED CELL DISTRIBUTION WIDTH (BEAKER) (test 17.4 % 11.6-14.4 nmic=508) PLATELET COUNT (BEAKER) (test gpgs=948) 250 K/CU MM 150-450 MEAN PLATELET VOLUME (BEAKER) (test nnym=681) 10.6 fL 9.4-12.4 NUCLEATED RED BLOOD CELLS (BEAKER) (test 0 /100 WBC 0-0 bkvd=708) NEUTROPHILS RELATIVE PERCENT (BEAKER) (test 53 % uhni=870) LYMPHOCYTES RELATIVE PERCENT (BEAKER) (test 16 % akdw=191) MONOCYTES RELATIVE PERCENT (BEAKER) (test 16 % xjyx=657) EOSINOPHILS RELATIVE PERCENT (BEAKER) (test 14 % jxbx=652) BASOPHILS RELATIVE PERCENT (BEAKER) (test 1 % qzvh=120) NEUTROPHILS ABSOLUTE COUNT (BEAKER) (test 2.80 K/ L 1.78-5.38 ttyq=523) LYMPHOCYTES ABSOLUTE COUNT (BEAKER) (test 0.84 K/ L 1.32-3.57 xgkf=665) MONOCYTES ABSOLUTE COUNT (BEAKER) (test 0.82 K/ L 0.30-0.82 ozjz=375) EOSINOPHILS ABSOLUTE COUNT (BEAKER) (test 0.75 K/ L 0.04-0.54 gesc=128) BASOPHILS ABSOLUTE COUNT (BEAKER) (test 0.05 K/ L 0.01-0.08 ditj=662) IMMATURE GRANULOCYTES-RELATIVE PERCENT (BEAKER) 0 % 0-1 (test weiu=7943) MR, MRA, NECK, [id number] 16:44:00FINAL REPORT MRA arch, great vessels, neck, and head with and without contrast Comparison: None Reason for exam: Stroke Discussion: 2 D and 3-D rscf-ui-sloyop and contrast-enhanced MRA of the arch, great vessels, and neck, and 3-D time-of- flight MRA head was provided withmaximal intensity projection 3-D reconstructions of the imaged arterial vasculatures. NASCET criteria are utilized when considering stenosis. Normal flow cervical carotid systems and cervical segment vertebral arteries with no stenosis by NASCET criteria. Normal flow intracranial internal carotid arteries and in the carotid terminus branches proximally. There is however a focal moderate stenosis of the right- sided M1 segment is beyond its origin. Normal vertebrobasilar and proximal posterior cerebral artery flow. Impressions: 1. Negative MRA neck. 2. Moderate right MCA M1 segment stenosis. 3. MRAneck source images show multiple levels of disc protrusion or ossification posterior longitudinal ligament. There is moderate to severe multilevel central canal stenosis warranting neurological correlation. Consider follow-up cervical spine MRI and/or CT. Signed: Agustina Hayes Verified Date/Time: 10/23/2017 16:44:06 Reading Location: [address] Neuro Reading Room MR, MRA, BRAIN, [id number] 16:44:00FINAL REPORT MRA arch, great vessels, neck, and head with and without contrast Comparison: None Reason for exam: Stroke Discussion: 2 D and 3-D hrlf-dg-mvuobw and contrast-enhanced MRA of the arch, great vessels, and neck, and 3-D leqb-cd-lygymb MRA head was provided withmaximal intensity projection 3- D reconstructions of the imaged arterial vasculatures. NASCET criteria are utilized when considering stenosis. Normal flow cervical carotid systems and cervical segment vertebral arteries with no stenosis by NASCET criteria. Normal flow intracranial internal carotid arteries and in the carotid terminus branches proximally. There is however a focal moderate stenosis of the right- sided M1 segment is beyond its origin. Normal vertebrobasilar and proximal posterior cerebral artery flow. Impressions: 1. Negative MRA neck. 2. Moderate right MCA M1 segment stenosis. 3. MRAneck source images show multiple levels of disc protrusion or ossification posterior longitudinal ligament. There is moderate to severe multilevel central canal stenosis warranting neurological correlation. Consider follow-up cervical spine MRI and/or CT. Signed: Agustina Hayes Verified Date/Time: 10/23/2017 16:44:06 Reading Location: [facility] [id number] Neuro Reading Room [id number] 05:18:00 Test Item Value Reference Range Comments RPR SCREEN (BEAKER) (test pnrg=690) Nonreactive Nonreactive BASIC METABOLIC [id number] 05:05:00 Test Item Value Reference Range Comments SODIUM (BEAKER) (test 141 meq/L 136-145 gsfq=102) POTASSIUM (BEAKER) (test 4.0 meq/L 3.5-5.1 jrou=147) CHLORIDE (BEAKER) (test 110 meq/L 98-107 jids=351) CO2 (BEAKER) (test 25 meq/L 22-29 jfsc=632) BLOOD UREA NITROGEN 12 mg/dL 7-21 (BEAKER) (test fnpk=004) CREATININE (BEAKER) (test 0.78 mg/dL 0.57-1.25 jfql=310) GLUCOSE RANDOM (BEAKER) 89 mg/dL 70-105 (test qlfb=660) CALCIUM (BEAKER) (test 8.6 mg/dL 8.4-10.2 pydk=825) EGFR (BEAKER) (test mL/min/1.73 sq m INSUFFICIENT CLINICAL DATA nfkw=6426) TO CALCULATE ESTIMATED GFR. [id number] 04:58:00 Test Item Value Reference Range Comments PHOSPHORUS (BEAKER) (test dlub=920) 2.9 mg/dL 2.3-4.7 [id number] 04:58:00 Test Item Value Reference Range Comments MAGNESIUM (BEAKER) (test mpjp=580) 2.0 mg/dL 1.6-2.6 LIPID [id number] 04:58:00 Test Item Value Reference Range Comments TRIGLYCERIDES (BEAKER) (test xamp=793) 69 mg/dL CHOLESTEROL (BEAKER) (test gbwh=703) 108 mg/dL HDL CHOLESTEROL (BEAKER) (test paku=231) 34 mg/dL LDL CHOLESTEROL CALCULATED (BEAKER) (test 60 mg/dL nxes=416) Triglyceride Reference Range: Low Risk <150 Borderline 150- 199 High Risk 200-499 Very High Risk >=500Cholesterol Reference Range: Low Risk <200 Borderline 200-239 High Risk > 240HDL Cholesterol Reference Range: Low Risk >=60 High Risk <40LDL Cholesterol Reference Range: Optimal <100 Near Optimal 100-129 Borderline 130-159 High 160-189 Very High >=190CBC W/PLT COUNT & AUTO [id number] 04:46:00 Test Item Value Reference Range Comments WHITE BLOOD CELL COUNT (BEAKER) (test oxzi=431) 5.6 K/ L 3.5-10.5 RED BLOOD CELL COUNT (BEAKER) (test koor=748) 3.19 M/ L 4.63-6.08 HEMOGLOBIN (BEAKER) (test lsrt=683) 9.1 GM/DL 13.7-17.5 HEMATOCRIT (BEAKER) (test iojl=307) 29.4 % 40.1-51.0 MEAN CORPUSCULAR VOLUME (BEAKER) (test oyjd=347) 92.2 fL 79.0-92.2 MEAN CORPUSCULAR HEMOGLOBIN (BEAKER) (test 28.5 pg 25.7-32.2 alaa=423) MEAN CORPUSCULAR HEMOGLOBIN CONC (BEAKER) (test 31.0 GM/DL 32.3-36.5 yekr=944) RED CELL DISTRIBUTION WIDTH (BEAKER) (test 17.2 % 11.6-14.4 pwtj=790) PLATELET COUNT (BEAKER) (test gxgf=032) 253 K/CU MM 150-450 MEAN PLATELET VOLUME (BEAKER) (test mpkv=402) 10.4 fL 9.4-12.4 NUCLEATED RED BLOOD CELLS (BEAKER) (test 0 /100 WBC 0-0 moyp=626) NEUTROPHILS RELATIVE PERCENT (BEAKER) (test 53 % ksdj=925) LYMPHOCYTES RELATIVE PERCENT (BEAKER) (test 16 % wijw=953) MONOCYTES RELATIVE PERCENT (BEAKER) (test 15 % elef=568) EOSINOPHILS RELATIVE PERCENT (BEAKER) (test 14 % fupq=363) BASOPHILS RELATIVE PERCENT (BEAKER) (test 1 % tasr=245) NEUTROPHILS ABSOLUTE COUNT (BEAKER) (test 2.95 K/ L 1.78-5.38 glcp=564) LYMPHOCYTES ABSOLUTE COUNT (BEAKER) (test 0.90 K/ L 1.32-3.57 qgox=040) MONOCYTES ABSOLUTE COUNT (BEAKER) (test 0.86 K/ L 0.30-0.82 vivc=405) EOSINOPHILS ABSOLUTE COUNT (BEAKER) (test 0.80 K/ L 0.04-0.54 iwgm=694) BASOPHILS ABSOLUTE COUNT (BEAKER) (test 0.05 K/ L 0.01-0.08 zihn=908) IMMATURE GRANULOCYTES-RELATIVE PERCENT (BEAKER) 0 % 0-1 (test bobm=8023) TROPONIN [id number] 23:34:00 Test Item Value Reference Range Comments TROPONIN I (BEAKER) (test nknb=786) < ng/mL 0.00-0.03 Troponin I (TnI) levels must be interpreted [...] failure, acidosis, acute neurological disease, and persistent tachyarrhythmia.VITAMIN B12 AND [id number] 18:43: 00 Test Item Value Reference Range Comments VITAMIN B12 (BEAKER) (test ikio=529) 539 pg/mL 213-816 FOLATE (BEAKER) (test zdqa=607) 35.7 ng/mL >=7.0 VITAMIN D, [id number] 18:35:00 Test Item Value Reference Range Comments VITAMIN D 25-OH (BEAKER) (test sisl=5687) 41.7 ng/mL 6.6-49.9 Effective 11/17/2016: Reference Range ChangeNew: 6.6-49.9 ng/mL Previous: 13.0 -47.8 ng/mLRecommended Vitamin D Target Range: 30.0-40.0 ng/mLCALCIUM, [id number] 17:55:00 Test Item Value Reference Range Comments CALCIUM IONIZED (BEAKER) (test aqaf=609) 1.09 mmol/L 1.12-1.27 PH, BLOOD (BEAKER) (test fzkv=6713) 7.40 TSH/FREE T4 IF [id number] 17:34:00 Test Item Value Reference Range Comments THYROID STIMULATING HORMONE (BEAKER) (test 1.29 uIU/mL 0.35-4.94 kmzp=788) TROPONIN [id number] 17:22:00 Test Item Value Reference Range Comments TROPONIN I (BEAKER) (test kbrn=316) < ng/mL 0.00-0.03 Troponin I (TnI) levels must be interpreted [...] failure, acidosis, acute neurological disease, and persistent tachyarrhythmia.IRON, TIBC, % SAT. (WITHOUT FERRITIN) 2017-10-22 17:16:00 Test Item Value Reference Range Comments IRON (BEAKER) (test imgz=396) 36 ug/dL 40-160 TOTAL IRON BINDING CAPACITY (BEAKER) (test 348 ug/dL 250-450 qmbx=083) IRON % SATURATION (2) (BEAKER) (test yiab=9623) 10 % 20-55 BASIC METABOLIC [id number] 17:14:00 Test Item Value Reference Range Comments SODIUM (BEAKER) (test 139 meq/L 136-145 ignu=001) POTASSIUM (BEAKER) (test 4.1 meq/L 3.5-5.1 qdxz=971) CHLORIDE (BEAKER) (test 108 meq/L 98-107 ywkd=849) CO2 (BEAKER) (test 25 meq/L 22-29 jinx=159) BLOOD UREA NITROGEN 13 mg/dL 7-21 (BEAKER) (test bsdz=046) CREATININE (BEAKER) (test 0.73 mg/dL 0.57-1.25 vhvb=365) GLUCOSE RANDOM (BEAKER) 91 mg/dL 70-105 (test zqpn=311) CALCIUM (BEAKER) (test 8.8 mg/dL 8.4-10.2 gcxe=100) EGFR (BEAKER) (test mL/min/1.73 sq m INSUFFICIENT CLINICAL DATA izkn=7547) TO CALCULATE ESTIMATED GFR. CBC W/PLT COUNT & AUTO [id number] 17:00:00 Test Item Value Reference Range Comments WHITE BLOOD CELL COUNT (BEAKER) (test cdnq=834) 6.4 K/ L 3.5-10.5 RED BLOOD CELL COUNT (BEAKER) (test jxyn=710) 3.14 M/ L 4.63-6.08 HEMOGLOBIN (BEAKER) (test mkum=779) 9.0 GM/DL 13.7-17.5 HEMATOCRIT (BEAKER) (test kfnf=765) 29.3 % 40.1-51.0 MEAN CORPUSCULAR VOLUME (BEAKER) (test xllw=208) 93.3 fL 79.0-92.2 MEAN CORPUSCULAR HEMOGLOBIN (BEAKER) (test 28.7 pg 25.7-32.2 thmn=935) MEAN CORPUSCULAR HEMOGLOBIN CONC (BEAKER) (test 30.7 GM/DL 32.3-36.5 zulu=807) RED CELL DISTRIBUTION WIDTH (BEAKER) (test 17.2 % 11.6-14.4 fogv=518) PLATELET COUNT (BEAKER) (test jxhj=412) 232 K/CU MM 150-450 MEAN PLATELET VOLUME (BEAKER) (test ffsh=382) 10.6 fL 9.4-12.4 NUCLEATED RED BLOOD CELLS (BEAKER) (test 0 /100 WBC 0-0 sjdn=208) NEUTROPHILS RELATIVE PERCENT (BEAKER) (test 62 % mekx=773) LYMPHOCYTES RELATIVE PERCENT (BEAKER) (test 14 % bhsn=262) MONOCYTES RELATIVE PERCENT (BEAKER) (test 12 % bgri=897) EOSINOPHILS RELATIVE PERCENT (BEAKER) (test 11 % eyxo=785) BASOPHILS RELATIVE PERCENT (BEAKER) (test 1 % rvqy=051) NEUTROPHILS ABSOLUTE COUNT (BEAKER) (test 4.02 K/ L 1.78-5.38 iwcl=393) LYMPHOCYTES ABSOLUTE COUNT (BEAKER) (test 0.87 K/ L 1.32-3.57 brwo=861) MONOCYTES ABSOLUTE COUNT (BEAKER) (test 0.78 K/ L 0.30-0.82 guzt=374) EOSINOPHILS ABSOLUTE COUNT (BEAKER) (test 0.70 K/ L 0.04-0.54 sltq=690) BASOPHILS ABSOLUTE COUNT (BEAKER) (test 0.05 K/ L 0.01-0.08 gkfo=961) IMMATURE GRANULOCYTES-RELATIVE PERCENT (BEAKER) 0 % 0-1 (test zuca=1529)
[2018-01-06] MEDS ORDERED: POLYETHYL GLY 3350 17 GM/DOSE PO PRN (14:00)
[2018-01-06] MEDS: NACHLORIDE 0.45% 1,000 ML IV SCH ×2 (14:00→23:00)
[2018-01-06] MEDS ORDERED: LOPERAMIDE HCL 2 MG CAPSULE PO PRN (14:00)
[2018-01-06] MEDS ORDERED: ONDANSETRON 4 MG/2 ML VIAL IV PRN (14:00)
[2018-01-06] MEDS ORDERED: DIPHENHYDRAMINE 25 MG TAB/CAP PO PRN (14:00)
[2018-01-06] MEDS ORDERED: ONDANSETRON 4 MG (ODT) TAB PO PRN (14:00)
[2018-01-06] MEDS ORDERED: ACETAMINOPHEN 325 MG TABLET PO PRN (14:00)
[2018-01-06 14:25] VITALS: BMI 32.5
[2018-01-06 14:39] LABS: Absolute Lymphocytes (CBC) 0.7 K/uL (0.7-4.9); Absolute Monocytes 0.7 K/uL (0.1-1.3); Absolute Neutrophil 3.7 K/uL (1.8-8.0); Eosinophils % 2.5 % (0-4.4); Hematocrit 20.5 % (39.6-49.0); Lymphocytes % 12.5 % (15.3-44.8); MCH 26.2 pg (27.0-35.0); MCV 81.2 fL (80-100); MPV 8.9 fL (7.6-11.3); RBC Red Blood Cell Count 2.53 M/uL (4.33-5.43)
[2018-01-06 14:46] LABS: BUN Blood Urea Nitrogen 16 mg/dL (7-18); Bicarbonate 26 mmol/L (21-32); Glucose Level 90 mg/dL (74-106); Potassium 4.3 mmol/L (3.5-5.1); Sodium Level 140 mmol/L (136-145)
--- NOTE | 2018-01-06 14:59 | RAD REPORT ---
EXAM DESCRIPTION: Bessy Wright (2 Views)01/06/2018 2:54 pm CLINICAL HISTORY: Anemia COMPARISON: None FINDINGS: The lungs appear clear of acute infiltrate. The heart is normal size IMPRESSION: No acute abnormalities displayed
[2018-01-06 15:09] LABS: Anisocytosis 2+; Blood Morphology Comment NOTED (NOT SEEN); Elliptocytes 1+; Platelet Estimate ADEQ; Poikilocytosis 1+; Urine White Blood Cell Casts OK
[2018-01-06] MEDS ORDERED: NA CHLORIDE 0.9% 250 ML ONE (15:55)
[2018-01-06 16:44] LABS: Urine Appearance CLEAR; Urine Bilirubin NEGATIVE (NEG); Urine Blood NEGATIVE (NEG); Urine Color YELLOW; Urine Glucose NEGATIVE (NEG); Urine Protein NEGATIVE (NEG); Urine Specific Gravity 1.025 (1.005-1.030); Urine Urobilinogen 0.2 mg/dL (0.2-1.0); Urine pH 5.5 (5.0-7.0)
[2018-01-06 16:56] LABS: Urine Microscopic Reflex NO UMIC
[2018-01-06] MEDS ORDERED: AMLODIPINE 5 MG TAB PO ONE (20:10)
[2018-01-06] MEDS ORDERED: cloNIDine HCl 0.1 MG TAB PO ONE (21:36)
[2018-01-06] MEDS ORDERED: cloNIDine HCl 0.1 MG TAB PO PRN (21:37)
[2018-01-06 22:08] VITALS: O2SAT 97
[2018-01-07] MEDS ORDERED: NA CHLORIDE 0.9% 250 ML ONE ×2 (03:42→09:23)
[2018-01-07 05:22] LABS: BUN Blood Urea Nitrogen 11 mg/dL (7-18); Bicarbonate 27 mmol/L (21-32); Glucose Level 82 mg/dL (74-106); Magnesium 2.3 mg/dL (1.8-2.4); Potassium 4.3 mmol/L (3.5-5.1); Sodium Level 142 mmol/L (136-145)
--- NOTE | 2018-01-07 08:30 | EKG ---
Test Date: 2018-01-06 Test Time: 14:03:41 Tariff Compiler: KARINA MEASUREMENT RESULTS: Intervals: Rate: 71 NH: 194 QRSD: 92 QT: 412 QTc: 447 [place]: P: 62 NH: 194 QRS: 59 T: 74 INTERPRETIVE STATEMENTS: Normal sinus rhythm Normal ECG Compared to ECG 08/30/2000 11:50:00 Myocardial infarct finding no longer present Electronically Signed On 01-07-18 08:29:18 NETWORK SYSTEMS ANALYST by Leno Martinez
--- NOTE | 2018-01-07 10:19 | P.DS ---
Admission Date: 01/06/18 Discharge Date: 01/07/18 Disposition: ROUTINE DISCHARGE Discharge Condition: FAIR Hospital Course: MR. GERARD HAS LOW HG DOWN TO 6.6 GM HE HAS NO ACUTE BLEEDING. HE HAS NO SYMPTOMS. HE HAS IRON DEF. HE IS SEEN BY DR MALAGON FOR EGD AND COLONOSCOPY JUST DONE. HE MAY NEED CAPSULE ENDOSCOPY BY DR MALAGON. HE IS AWARE. PATIENT WILL GO HOME AFTER 3 UNITS IF HE IS STABLE. I EXPECT HE WILL BE FINE. Vital Signs/Physical Exam: Temp Pulse Resp BP Pulse Ox 98.1 F 79 16 145/65 H 95 01/07/18 04:00 01/07/18 04:00 01/07/18 04:00 01/07/18 04:00 01/07/18 04:00 Laboratory Data at Discharge: WBC 5.3 K/uL (4.3-10.9) 01/06/18 14:18 Hgb 6.6 g/dL (13.6-17.9) L* 01/06/18 14:18 Hct 20.5 % (39.6-49.0) L* 01/06/18 14:18 Plt Count 198 K/uL (152-406) 01/06/18 14:18 Sodium 142 mmol/L (136-145) 01/07/18 04:23 Potassium 4.3 mmol/L (3.5-5.1) 01/07/18 04:23 BUN 11 mg/dL (7-18) 01/07/18 04:23 Creatinine 0.80 mg/dL (0.55-1.3) 01/07/18 04:23 Glucose 82 mg/dL (74-106) 01/07/18 04:23 Magnesium 2.3 mg/dL (1.8-2.4) 01/07/18 04:23 Home Medications: Acetaminophen [Tylenol Arthritis] 1 tab PO DAILY PRN 01/06/18 Amlodipine [Norvasc*] 1 tab PO DAILY 01/06/18 Folic Acid 1 tab PO DAILY AFTER SUPPER 01/06/18 Hydroxychloroquine [Plaquenil*] 1 tab PO BID 01/06/18 Leflunomide [Arava] 1 tab PO DAILY 01/06/18 Levothyroxine Sodium 1 tab PO [id number] 01/06/18 Lutein 1 tab PO DAILY AFTER SUPPER 01/06/18 Meclizine HCl 1 tab PO DAILY PRN 01/06/18 Methotrexate Sodium [Methotrexate] 6 tab PO SEECOM 01/06/18 Multivitamin [Multivitamins] 1 tab PO DAILY AFTER SUPPER 01/06/18 Naltrexone HCl/Bupropion HCl [Contrave ER 8-90 mg Tablet] 1.5 mg PO DAILY PRN [place]-3/Dha/Epa/Fish Oil [Fish Oil 1,360 mg Softgel] 1 tab PO DAILY AFTER SUPPER 01/06/18 Omeprazole [Prilosec] 40 cap PO BID 01/06/18 Simvastatin 40 mg PO BEDTIME 01/06/18 Tramadol HCl [Ultram] 50 mg PO DAILY 01/06/18 methylPREDNISolone [Medrol*] 4 mg PO DAILY 01/06/18 Patient Discharge Instructions: no changes in meds. Come to office in 10 days Diet: AHA
[2018-01-07 19:43] LABS: Hematocrit 30.4 % (39.6-49.0)
[2018-01-07 19:44] LABS: Absolute Lymphocytes (CBC) 0.8 K/uL (0.7-4.9); Absolute Monocytes 0.6 K/uL (0.1-1.3); Absolute Neutrophil 3.3 K/uL (1.8-8.0); Basophils % 1.3 % (0-1.3); Lymphocytes % 16.3 % (15.3-44.8); MCV 83.9 fL (80-100); MPV 9.1 fL (7.6-11.3); Monocytes % 11.9 % (3.3-12.3); RBC Red Blood Cell Count 3.58 M/uL (4.33-5.43)
[2018-01-07 20:41] VITALS: BP 176/73; TEMP 98.1
== END 2018-01-07 20:50 | disposition home or self-care (01) ==
LOC: 2ND 12:24
PROVIDERS: ADMIT Internal Medicine; ATTEND Internal Medicine
PROC: 30233N1 Transfusion of Nonautologous Red Blood Cells into Peripheral Vein, Percutaneous Approach (ICD-10-PCS; principal; 2018-01-07)
DX: D50.9 Iron deficiency anemia, unspecified (principal); M19.90 Unspecified osteoarthritis, unspecified site; I10 Essential (primary) hypertension; E03.9 Hypothyroidism, unspecified; E78.5 Hyperlipidemia, unspecified; M06.9 Rheumatoid arthritis, unspecified
CPT/HCPCS: 36415 ×2; 36430; 71046; 80048 ×2; 81003; 83735; 85014; 85018; 85025 ×2; 86850; 86900; 86901; 93005; P9016 ×3

== ENCOUNTER 2018-02-24 09:27 | Inpatient (IN) | payer OTHER, BC ==
--- NOTE | 2018-02-24 15:21 | R.PREADM ---
SCREENING DATE AND TIME 02/24/2018 11:55 (CADASTRAL SURVEYOR) ANTICIPATED REHAB ADMISSION DATE 02/26/2018 REFERRING FACILITY [facility] REFERRAL DATE AND TIME 02/24/2018 11:55 (CADASTRAL SURVEYOR) ACUTE ADMIT DATE 02/21/2018 Previous Rehabilitation(s): No. ACUTE PARKING ENFORCEMENT OFFICER/DC THRESHING DEPARTMENT SUPERVISOR Wilma Brewster REFERRING PHYSICIAN Efe Cooper REHAB FACILITY [facility] CLINICAL LIAISON Cameron Romero PHYSICIAN REVIEWER Dr. Parish Gates M.D. [id number] [id number] NAME RONNI GERARD [address] [facility] [place]IP [address] DATE OF 1935 AGE 83 SSN# [id number] GENDER male MARITAL STATUS RACE white ADMIT FROM 02 - [facility] PRE-HOSPITAL LIVING SETTING 01 - Home (private home/apt. board/care, assisted living, senior care, transitional living) HOME TYPE AND DETAILS Type of home: single family house # of steps to enter the residence: 0 # of steps within the residence: 0 # of levels in the residence: 1 PRE-HOSPITAL LIVING WITH Alone FAMILY SUPPORT No PRIMARY FAMILY CONTACT NAME Raf Gerard PRIMARY FAMILY CONTACT PHONE PHONE PRIMARY FAMILY CONTACT ON ADM.? no IS PRIMARY FAMILY CONTACT AUTH. REP.? no 1ST EMERGENCY CONTACT Raf Gerard 1ST CONTACT PHONE PHONE 1ST CONTACT ON ADM. no IS 1ST CONTACT AUTH. REP.? no PHONE 2ND CONTACT ON ADM.? no PATIENT EMPLOYMENT STATUS Retired (for age) PATIENT EMPLOYER No Employer PAYOR INFORMATION: 1ST PAYOR NAME Medicare 1ST PAYOR PHONE 1ST PAYOR INJURY/ILLNESS DUE TO ACCIDENT? No ANOTHER CONSTITUTION PARTY RESPONSIBLE? 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 is a 83 yo Right-handed white male. On 02/21/2018 he was admitted to [facility] with diagnosis degenerative ryan mbar spinal stenosis. His impairment category is Spinal Cord Dysfunction 04 - Other Non-traumatic Spinal Cord Dysfunction (04.130). Pre-morbidly, Pt. was independent/mod-I in Self-Care, Sphincter Control, Transfers Control, Communica tion, Social Cognition, and Locomotion; and he had good Sphincter Control. Currently, he has deficits of Balance, Endurance, Safety Awareness, Transfers Control, Communication, Social Cognition, Locomotion, and Self-Care. Pt. is now referred to [facility] for acute in-patient rehabilitation in order to maximize patient's functional independence in activities of daily living, strength, ROM, and mobi lity. Patient has realistic goal of being discharged at assistance level 6-Wei to reside at Home with Fam papito/Relatives. PAST MEDICAL HISTORY cholesterol hypertension anemia arthritis benign mass of parotid gland hearing loss rheumatoid arthritis PAST SURGICAL HISTORY: history of left knee replacement tonsillectomy MEDICATION ALLERGIES: No Known Drug Allergies (NKDA) ENVIRONMENTAL ALLERGIES: - Substance Allergies None Known - Other Allergies None Known CODE STATUS: Full code WEIGHT/HEIGHT/BMI: WEIGHT 199 lbs HEIGHT 5' 6" BMI 32.1 DIET: - Diet Type Regular - Diet - Solid Texture Regular - Diet - Liquid Texture Regular - Tube Feed N/A SKIN DIAGRAM: Incision on Neck; extent - small; stage - NS(Not Stageable). Treatment - Per Physician's Orders. Incision on Back; extent - small; stage - NS(Not Stageable). Treatment - Per Physician's Orders. REVIEW OF SYSTEMS: - Gen Alert and awake Lying in bed No apparent distress Oriented to: person, time, and place - CVS RRR VITAL SIGNS Temperature: 100 F SBP/DBP: 132/60 Pulse: 94 Resp: 18 Vital signs stable, afebrile CURRENT SPHINCTER CONTROL: Pre-hospital bladder status: continent # of bladder accidents in the last 7 days prior to screenin Pre-hospital bowel status: continent # of bowel accidents in the last 7 days prior to screenin Last Bowel Movement Date: 02/24/2018 DETAILED CURRENT FUNCTIONAL STATUS: - Bladder accident frequency: Ind - No accidents in the past 7 days - Bowel accident frequency: Ind - No accidents in the past 7 days - Walking score based on distance walked: 3(>=150ft) FUNCTIONAL STATUS: - Self-Care A. Eating Ind Ind B. Grooming Ind sup C. Bathing Ind modA D. Dressing - Upper Ind sup E. Dressing - Lower Ind Dep F. Toileting Ind Dep - Sphincter Control G: Bladder control Ind Ind H: Bowel control Ind Ind - Transfers Control I. Bed/Chair/Wheelchair Ind Jossy J. Toilet Ind Jossy K. Tub/Shower Ind Jossy - Locomotion L. Walk/Wheelchair (B) Ind sup M. Stairs Ind ADNO - Communication N. Comprehension (B) Ind sup O. Expression (B) Ind sup - Social Cognition P. Social Interaction Ind sup Q. Problem Solving Ind sup R. Memory Ind sup - Endurance Fair - Balance Fair - Safety Awareness Fair CURRENT FUNC. DEFICITS: Balance, Endurance, Safety Awareness, Transfers Control, Communication, Social Cognition, Locomotion, and Self-Care THERAPY NOTES FROM ACUTE CARE: Attached. SPECIAL NEEDS: - Safety Concerns Skin breakdown precautions needed due to skin breakdown risk PATIENT NEEDS ACTIVE AND ONGOING THERAPEUTIC INTERVENTION OF MULTIPLE THERAPY DISCIPLINES, INCLUDING: - Orthotics/Prosthetics Orthotic Evaluation. Splinting/Casting. - Occupational Therapy Evaluate and Treat. - Physical Therapy Evaluate and Treat. PATIENT NEEDS CLOSE MEDICAL SUPERVISION BY A REHABILITATION PHYSICIAN FOR: Bowel and Bladder Management Coordination of Treatment Team Medical and Co-Morbidity Management Wound Care PATIENT REQUIRES 24X7 REHAB NURSING FOR MEDICAL AND FUNCTIONAL MGT. OF THE FOLLOWING DEFICITS: ADL's Ambulation Bowel and Bladder Management Cognition Communication Disease Management Medication Management Patient/Family Education Providing Safe Environment Skin Integrity Transfers PATIENT REQUIRES INTENSIVE, COORDINATED INTERDISCIPLINARY APPROACH TO REHAB: Arranging Home Equipment/Services Discharge Planning Family Intervention/Training Subassembly Assembler/Case Management PATIENT REHAB POTENTIAL: Expected level of measurable improvement will be of a practical value to patient's functional capacit y or adaptations to impairments Has a viable Discharge Plan Medically appropriate; condition is sufficiently stable to participate in intensive rehab program Patient is able and expected to receive 3 hours of individualized therapy daily on at least 5 of ever y 7 days Patient's prognosis for significant practical improvement within a reasonable period of time appears Good DISCHARGE PLAN: - Estimated Length of Stay (days) 16. - Consensus on plan Discharge plan has been discussed with primary caregiver. Patient/Family is in agreement with the haley n. Primary caregiver is in agreement with the plan. - Patient/Family Goals Return home with assistance. - Planned Living Setting Upon Discharge Home, to live with Family/Relatives. RECOMMENDED CARE LEVEL: IRF RECOMMENDATION DETAILS: Recommended Admission to Comprehensive Rehabilitation Program to Increase Functional [place] SCREENER'S COMPLETENESS CONFIRMATION: - Screening Confirmation The patient data collection on this preadmission screening form is finished PHYSICIANS REVIEW AND ADMISSION DETERMINATION Admit - Based on my review of the Pre-Admission Screening results, in my medical judgment and experie nce, I concur with the findings and recommend admission to [facility], as this patient requires an IRF level of care. SIGNATURE PANEL: Clinical Liaison - [electronically] signed by Dena Allison on 02/24/2018 at 12:48 (CADASTRAL SURVEYOR) Clinical Liaison - [electronically] signed by Cameron Romero on 02/24/2018 at 14:56 (CADASTRAL SURVEYOR) Physician Reviewer - [electronically] signed by Dr. Parish Gates M.D. on 02/24/2018 at 15:20 (CADASTRAL SURVEYOR )
--- OUTSIDE RECORDS SUMMARY | 2018-02-24 18:05 | XMS REPORT | Clinical Summary ---
:1935 Author Organization [facility] Address [address] [place] [address] Care Team Providers Name Role Phone Colt Jb Fisher Unavailable Pcp, No Primary Care Provider Unavailable Allergies No Known Allergies Medications Medication Sig Dispensed Refills Start End Date Status Date amLODIPine (NORVASC) 5 Take 5 mg by 0 Active MG tablet mouth daily. omega-3 fatty Take 1,400 mg 0 Active acids-fish oil by mouth 340-1,000 mg Cap per daily with capsule dinner. folic acid (FOLVITE) 1 Take 1 mg by 0 Active MG tablet mouth 2 (two) times daily. hydroxychloroquine Take 200 mg 0 Active (PLAQUENIL) 200 mg by mouth 2 tablet (two) times daily. levothyroxine Take 25 mcg 0 Active (SYNTHROID, LEVOTHROID) by mouth 25 MCG tablet Every morning on an empty stomach. lutein 20 mg Tab Take 20 mg by 0 Active mouth daily with dinner. METHOTREXATE Take 2.5 mg 0 Active ORALIndications: take 6 by mouth once 8 pills a week. atorvastatin (LIPITOR) Take 10 mg by 0 Active 10 MG tablet mouth daily. leflunomide (ARAVA) 10 Take 10 mg by 0 Active MG tablet mouth daily. losartan (COZAAR) 50 MG Take 50 mg by 0 Active tablet mouth daily. iron Take by mouth 0 Active aspgly,[id number] daily. uc 150-60-25-1 zk-qx-sso-mg Cap per capsule przav-[id number]-epa-fish Take 1 0 Active oil 1,000-1,400 mg CpDR capsule by mouth daily. gabapentin (NEURONTIN) Take 300 mg 0 Active 300 MG capsule by mouth 3 (three) times daily. meclizine (ANTIVERT) 25 Take 25 mg by 0 Active MG tablet mouth 3 (three) times daily as needed. methylPREDNISolone Take 4 mg by 0 Active (MEDROL) 4 MG tablet mouth daily directed . naltrexone HCl Take by 0 Active (NALTREXONE ORAL) mouth. omeprazole (PRILOSEC) Take 40 mg by 0 Active 40 MG capsule mouth daily. simvastatin (ZOCOR) 40 Take 40 mg by 0 Active MG tablet mouth nightly. acetaminophen (TYLENOL) Take 650 mg 0 Active 650 MG CR tablet by mouth every 8 (eight) hours as needed for Pain. aspirin 81 MG EC tablet May resume on 0 Active Tuesday02/28/18. docusate sodium Take 1 20 capsule 0 03/06/19 Active (COLACE) 100 MG capsule capsule (100 9 19 mg total) by mouth 2 (two) times daily for 10 days. traMADol (ULTRAM) 50 mg Take 1 tablet 30 tablet 0 03/06/19 Active tablet (50 mg total) 9 19 by mouth every 6 (six) hours as needed for Pain for up to 10 days. Max Daily Amount: 200 mg naproxen Take 220 mg 0 02/24/19 Discontinued (ALEVE,ANAPROX,MIDOL) by mouth 19 220 MG tablet daily. aspirin 81 MG EC tablet Take 81 mg by 0 02/24/19 Discontinued mouth daily. 19 traMADol (ULTRAM) 50 mg Take 50 mg by 0 02/24/19 Discontinued tablet mouth every 6 19 (six) hours as needed for Pain. levoFLOXacin (LEVAQUIN) Take 1 tablet 7 tablet 0 11/05/19 500 MG tablet (500 mg 8 18 total) by mouth daily for 7 days. HYDROcodone-acetaminoph Take 1 tablet 30 tablet 0 02/24/19 Discontinued en (NORCO 5-325) 5-325 by mouth 9 19 mg per tablet every 6 (six) hours as needed for up to 10 days. 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 Pre-op testing 02/21/2018 Syncope, unspecified syncope type 10/25/2017 Syncope 10/22/2017 Encounters Date Type Specialty Care Team Description 02/21/2018 Anesthesia Event Trish Blackman, MASSIMO 02/21/2018 Surgery Efe Cooper LAMINECTOMY,POSTERIO MD Kylee R CERVICAL PRONE W/INTERNAL FIXATION 02/21/2018 - Hospital Encounter General Internal Efe Cooper Pre-op testing 02/24/2018 Medicine MD Kylee (Primary Dx) 02/21/2018 Travel 02/03/2018 Anesthesia Event Pre-Admission Trish Blackman Testing MASSIMO Huynh 02/03/2018 Hospital Encounter Cardiology Efe Cooper MD 02/03/2018 Hospital Encounter Efe Cooper MD 02/03/2018 Hospital Encounter Pre-Admission Efe Cooper Pre-op testing; Testing MD Kylee Cervical myelopathy ([facility]); Edema of spinal cord (HCC); Lumbar stenosis with neurogenic claudication 02/03/2018 Hospital Encounter Radiology IgwalKay wilson Cervical myelopathy ([facility]); Chinedum, 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 Degenerative cervical spinal stenosis 01/30/2018 Orders Only Family Medicine Efe Cooper Pre-op testing ( Primary Dx); MD Kylee Cervical myelopathy (HCC); Edema of spinal cord (HCC); Lumbar stenosis with neurogenic claudication 01/10/2018 Outside Orders Central Scheduling Kay Ortega Cervical myelopathy (HCC) (Primary Dx); 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, 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[employer]IC Degenerative cervical spinal stenosis 10/22/2017 - Hospital Encounter Cardiology Pasha Alcantara, Syncope, unspecified syncope type; 10/27/2017 Family history of sudden cardiac ; Olivia Cerda Fall, initial encounter; MD Alejandra Sensory ataxia; Neurologic gait dysfunction; Neurogenic claudication; Polyneuropathy; Cervical myelopathy (HCC) 10/22/2017 Orders Only General Internal Medicine after 02/23/2017 Social History Tobacco Use Types Packs/Day Years Used Date Never Smoker Smokeless Tobacco: Never Used Tobacco Cessation: Counseling Given: No Alcohol Use Drinks/Week oz/Week Comments No Alcohol Habits Answer Date Recorded How often do you have a drink containing alcohol? Never 02/03/2018 How many drinks containing alcohol do you have on a typical Not asked day when you are drinking? How often do you have six or more drinks on one occasion? 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 Last Filed Vital Signs Vital Sign Reading Time Taken Blood Pressure 136/64 02/24/2018 2:58 PM METEOROLOGY TEACHER Pulse 86 02/24/2018 2:58 PM METEOROLOGY TEACHER Temperature 38.3 C (100.9 F) 02/24/2018 2:58 PM METEOROLOGY TEACHER Respiratory Rate 20 02/24/2018 2:58 PM METEOROLOGY TEACHER Oxygen Saturation 96% 02/24/2018 2:58 PM METEOROLOGY TEACHER Inhaled Oxygen Concentration - - Weight 88.5 kg (194 lb 16 oz) 02/21/2018 9:30 AM METEOROLOGY TEACHER Height 170.2 cm (5' 7.01") 02/21/2018 9:30 AM METEOROLOGY TEACHER Body Mass Index 30.53 02/21/2018 9:30 AM METEOROLOGY TEACHER Plan of Treatment Not on file Implants Implanted Type Area Side Sawyer Device Shelf Model / Identifier Expiration Serial / Lot Date Bone Vivigen Matrix Frozen 5cc Bl-[id number] - [id number] Bone N/A: Spine LIFENET:LIFENET 12/28/2018 [id number] / Implanted: Qty: 1 on 02/21/2018 by Efe Cooper MD Cervical TRANSPLANT SRV / [id number] Flseal Vhsd Full Strlprep 10ml [id number] - [id number] Cement/F N/A: Spine LONGORIA:BIOSCI 07/11/2019 [id number] / Implanted: Qty: 1 on 02/21/2018 by Efe Cooper MD iller/Ad Cervical / hesive [id number] Floseal Vhsd Full Strlprep 5ml [id number] - [id number] Cement/F N/A: Spine LONGORIA:BIOSCI 04/07/2019 [id number] / Implanted: Qty: 1 on 02/21/2018 by Efe Cooper MD iller/Ad Cervical / hesive [id number] Scr Canc Pa Synap 3.5x14 Ti Ns .014 - [id number] Spine N/A: Spine SYNTHES:SYNTHES / Implanted: Qty: 6 on 02/21/2018 by Efe Cooper MD Cervical USA / Scr Lck Synap Ti Ns .614.508 - [id number] Spine N/A: Spine SYNTHES:SYNTHES 614.508 / Implanted: Qty: 6 on 02/21/2018 by Efe Cooper MD Cervical USA / Rods N/A: Spine SYNTHES SPINE 614.760 / Implanted: Qty: 2 on 02/21/2018 by Efe Cooper MD Cervical / Procedures Procedure Name Priority Date/Time Associated Diagnosis Comments CBC (HEMOGRAM ONLY) Routine 02/24/2018 4:34 Results for this AM METEOROLOGY TEACHER procedure are in the results section. BASIC METABOLIC Routine 02/24/2018 4:34 Results for this PANEL (7) AM METEOROLOGY TEACHER procedure are in the results section. TRANSFUSION SERVICE 02/23/2018 6:01 REPORT - SCAN PM METEOROLOGY TEACHER CBC (HEMOGRAM ONLY) Routine 02/23/2018 4:22 Results for this AM METEOROLOGY TEACHER procedure are in the results section. BASIC METABOLIC Routine 02/23/2018 4:22 Results for this PANEL (7) AM METEOROLOGY TEACHER procedure are in the results section. PREPARE RBC STAT 02/22/2018 11:54 Results for this PM METEOROLOGY TEACHER procedure are in the results section. TRANSFUSION SERVICE 02/22/2018 6:01 REPORT - SCAN PM METEOROLOGY TEACHER CBC (HEMOGRAM ONLY) Routine 02/22/2018 4:51 Results for this AM METEOROLOGY TEACHER procedure are in the results section. BASIC METABOLIC Routine 02/22/2018 4:51 Results for this PANEL (7) AM METEOROLOGY TEACHER procedure are in the results section. BASIC METABOLIC Routine 02/21/2018 5:47 Results for this PANEL (7) PM METEOROLOGY TEACHER procedure are in the results section. CALCIUM, IONIZED STAT 02/21/2018 4:14 Results for this PM METEOROLOGY TEACHER procedure are in the results section. HGB/HCT (H&H) - STAT STAT 02/21/2018 4:14 Results for this LAB PM METEOROLOGY TEACHER procedure are in the results section. GLUCOSE-STAT LAB STAT 02/21/2018 4:14 Results for this PM METEOROLOGY TEACHER procedure are in the results section. POTASSIUM-STAT LAB STAT 02/21/2018 4:14 Results for this PM METEOROLOGY TEACHER procedure are in the results section. SODIUM NA-STAT LAB STAT 02/21/2018 4:14 Results for this PM METEOROLOGY TEACHER procedure are in the results section. BLOOD GAS, ARTERIAL STAT 02/21/2018 4:14 Results for this PM METEOROLOGY TEACHER procedure are in the results section. FL STITCH BONDER MACHINE OPERATOR HELPER IN OR 30 Routine 02/21/2018 3:55 Results for this MINUTE INCREMENTS PM METEOROLOGY TEACHER procedure are in the results section. TRANSFUSE Routine 02/21/2018 3:28 LEUKO-REDUCED RED PM METEOROLOGY TEACHER BLOOD CELLS HGB/HCT (H&H) - STAT STAT 02/21/2018 2:58 Results for this LAB PM METEOROLOGY TEACHER procedure are in the results section. GLUCOSE-STAT LAB STAT 02/21/2018 2:58 Results for this PM METEOROLOGY TEACHER procedure are in the results section. POTASSIUM-STAT LAB STAT 02/21/2018 2:58 Results for this PM METEOROLOGY TEACHER procedure are in the results section. SODIUM NA-STAT LAB STAT 02/21/2018 2:58 Results for this PM METEOROLOGY TEACHER procedure are in the results section. BLOOD GAS, ARTERIAL STAT 02/21/2018 2:58 Results for this PM METEOROLOGY TEACHER procedure are in the results section. CALCIUM, IONIZED STAT 02/21/2018 2:58 Results for this PM METEOROLOGY TEACHER procedure are in the results section. RRL CRITICAL LABS STAT 02/21/2018 2:58 Results for this (ABG,NA,K,H&H,GLUCOS PM METEOROLOGY TEACHER procedure are in E) the results section. FL STITCH BONDER MACHINE OPERATOR HELPER IN OR 30 Routine 02/21/2018 2:28 Results for this MINUTE INCREMENTS PM METEOROLOGY TEACHER procedure are in the results section. PROCEDURE W/ C-ARM 02/21/2018 12:34 Cervical myelopathy PM METEOROLOGY TEACHER (HCC) Edema of spinal cord (HCC) Lumbar stenosis with neurogenic claudication Case Notes 3 HRS PER FAX Special Needs (PRONE POSITION, NEURO-MONITORING:SSEP, EMG, C-ARM, MICROSCOPE, REGULAR OR TABLE, AQUAMANTYS, BOVIES X2, MISONIX BONE SCALPEL, DEPUY) PROCEDURE W/ INTRAOPERATIVE 02/21/2018 12:34 PM METEOROLOGY TEACHER Cervical myelopathy ( HCC) NEUROMONITORING Edema of spinal cord (HCC) Lumbar stenosis with neurogenic claudication Case Notes 3 HRS PER FAX Special Needs (PRONE POSITION, NEURO-MONITORING:SSEP, EMG, C-ARM, MICROSCOPE, REGULAR OR TABLE, AQUAMANTYS, BOVIES X2, MISONIX BONE SCALPEL, DEPUY) LAMINECTOMY,POSTERIOR CERVICAL 02/21/2018 12:34 PM Cervical myelopathy (HCC ) PRONE W/FUSION METEOROLOGY TEACHER Edema of spinal cord (HCC) Lumbar stenosis with neurogenic claudication Case Notes 3 HRS PER FAX Special Needs (PRONE POSITION, NEURO-MONITORING:SSEP, EMG, C-ARM, MICROSCOPE, REGULAR OR TABLE, AQUAMANTYS, BOVIES X2, MISONIX BONE SCALPEL, DEPUY) LAMINECTOMY,POSTERIOR CERVICAL 02/21/2018 12:34 PM Cervical myelopathy (HCC ) PRONE W/INTERNAL FIXATION METEOROLOGY TEACHER Edema of spinal cord (HCC) Lumbar stenosis with neurogenic claudication Case Notes 3 HRS PER FAX Special Needs (PRONE POSITION, NEURO-MONITORING:SSEP, EMG, C-ARM, MICROSCOPE, REGULAR OR TABLE, AQUAMANTYS, BOVIES X2, MISONIX BONE SCALPEL, DEPUY) TRANSFUSION SERVICE 02/04/2018 6:04 PM REPORT - SCAN METEOROLOGY TEACHER CT SPINE CERVICAL Routine 02/03/2018 12:43 PM Cervical myelopathy Results for this WITHOUT IV CONTRAST METEOROLOGY TEACHER (HCC) procedure are in Degenerative the results cervical spinal section. stenosis ECG 12-LEAD Routine 02/03/2018 11:35 AM METEOROLOGY TEACHER Procedure Note - Interface, External Ris In - 02/03/2018 12:19 PM METEOROLOGY TEACHER Ventricular Rate 72 BPM Atrial Rate 72 BPM P-R Interval 186 ms QRS Duration 84 ms Q-T Interval 418 ms QTC Calculation(Bazett) 457 ms P Leola 60 degrees R Leola 40 degrees T Leola 66 degrees Normal sinus rhythm Normal ECG When compared with ECG of 22-OCT-2017 17:03, No significant change was found ECG 12-LEAD STAT 02/03/2018 11:35 AM Pre-op testing Results for this METEOROLOGY TEACHER procedure are in the results section. CBC W/PLT COUNT & AUTO Routine 02/03/2018 11:27 AM Pre-op testing Results for this DIFFERENTIAL METEOROLOGY TEACHER procedure are in the results section. CBC W/PLT COUNT & AUTO Routine 02/03/2018 11:27 AM Pre-op testing Results for this DIFFERENTIAL METEOROLOGY TEACHER procedure are in the results section. URINALYSIS W/ REFLEX Routine 02/03/2018 11:27 AM Pre-op testing Results for this URINE CULTURE METEOROLOGY TEACHER procedure are in the results section. URINE CULTURE Routine 02/03/2018 11:27 AM Pre-op testing Results for this METEOROLOGY TEACHER procedure are in the results section. TYPE AND SCREEN, Routine 02/03/2018 11:24 AM Pre-op testing Results for this AUTOMATED METEOROLOGY TEACHER procedure are in the results section. PROTHROMBIN TIME/INR Routine 02/03/2018 11:24 AM Pre-op testing Results for this METEOROLOGY TEACHER procedure are in the results section. APTT Routine 02/03/2018 11:24 AM Pre-op testing Results for this METEOROLOGY TEACHER procedure are in the results section. BASIC METABOLIC PANEL Routine 02/03/2018 11:24 AM Pre-op testing Results for this (7) METEOROLOGY TEACHER procedure are in the results section. REPORT OF PROCEDURE - 10/31/2017 11:32 AM ENDOSCOPY SCAN CDT ARRYTHMIA IMPLANT 10/31/2017 11:32 AM REPORT - SCAN CDT RHYTHM STRIP - SCAN 10/31/2017 11:32 AM CDT NEEDLE EMG, 2 EXTREMITY Routine 10/27/2017 5:04 PM Results for this CDT procedure are in the results section. CBC W/PLT COUNT & AUTO Routine 10/27/2017 4:12 AM Results for this DIFFERENTIAL CDT procedure are in the results section. MAGNESIUM Routine 10/27/2017 4:12 AM Results for this CDT procedure are in the results section. BASIC METABOLIC PANEL Routine 10/27/2017 4:12 AM Results for this (7) CDT procedure are in the results section. CBC W/PLT COUNT & AUTO Routine 10/27/2017 4:12 AM Results for this DIFFERENTIAL CDT procedure are in the results section. MR THORACIC SPINE W & Routine 10/27/2017 3:28 AM Results for this WO CONTRAST CDT procedure are in the results section. KAPPA / LAMBDA LIGHT Routine 10/26/2017 6:02 PM Results for this CHAINS, SERUM CDT procedure are in the results section. PROTEIN AP Routine 10/26/2017 6:02 PM Results for this ELECTROPHORESIS, SERUM CDT procedure are in the results section. MR LUMBAR SPINE W & WO Routine 10/26/2017 6:18 AM Results for this CONTRAST CDT procedure are in the results section. MR CERVICAL SPINE W/WO Routine 10/26/2017 6:18 AM Results for this CONTRAST CDT procedure are in the results section. CBC W/PLT COUNT & AUTO Routine 10/26/2017 4:39 AM Results for this DIFFERENTIAL CDT procedure are in the results section. MAGNESIUM Routine 10/26/2017 4:39 AM Results for this CDT procedure are in the results section. BASIC METABOLIC PANEL Routine 10/26/2017 4:39 AM Results for this (7) CDT procedure are in the results section. CBC W/PLT COUNT & AUTO Routine 10/26/2017 4:39 AM Results for this DIFFERENTIAL CDT procedure are in the results section. HEMOGLOBIN A1C Routine 10/25/2017 10:32 AM Results for this CDT procedure are in the results section. PHOSPHORUS Routine 10/25/2017 4:10 AM Results for this CDT procedure are in the results section. MAGNESIUM Routine 10/25/2017 4:10 AM Results for this CDT procedure are in the results section. LIPID PANEL Routine 10/25/2017 4:10 AM Results for this CDT procedure are in the results section. ECHOCARDIOGRAM REPORT - 10/24/2017 6:20 PM SCAN CDT EEG AWAKE AND DROWSY Routine 10/24/2017 4:06 PM Results for this CDT procedure are in the results section. 2D ECHO W/ DOPPLER Routine 10/24/2017 3:02 PM Results for this (CW/PW/COLOR) CDT procedure are in the results section. CBC W/PLT COUNT & AUTO Routine 10/24/2017 4:11 AM Results for this DIFFERENTIAL CDT procedure are in the results section. CBC W/PLT COUNT & AUTO Routine 10/24/2017 4:11 AM Results for this DIFFERENTIAL CDT procedure are in the results section. PHOSPHORUS Routine 10/24/2017 4:11 AM Results for this CDT procedure are in the results section. MAGNESIUM Routine 10/24/2017 4:11 AM Results for this CDT procedure are in the results section. LIPID PANEL Routine 10/24/2017 4:11 AM Results for this CDT procedure are in the results section. BASIC METABOLIC PANEL Routine 10/24/2017 4:11 AM Results for this (7) CDT procedure are in the results section. MR MRA HEAD WITH AND Routine 10/23/2017 2:57 PM Results for this WITHOUT CONTRAST CDT procedure are in the results section. MR MRA NECK WITH AND Routine 10/23/2017 2:57 PM Results for this WITHOUT CONTRAST CDT procedure are in the results section. CBC W/PLT COUNT & AUTO Routine 10/23/2017 4:11 AM Results for this DIFFERENTIAL CDT procedure are in the results section. CBC W/PLT COUNT & AUTO Routine 10/23/2017 4:11 AM Results for this DIFFERENTIAL CDT procedure are in the results section. PHOSPHORUS Routine 10/23/2017 4:11 AM Results for this CDT procedure are in the results section. MAGNESIUM Routine 10/23/2017 4:11 AM Results for this CDT procedure are in the results section. LIPID PANEL Routine 10/23/2017 4:11 AM Results for this CDT procedure are in the results section. BASIC METABOLIC PANEL Routine 10/23/2017 4:11 AM Results for this (7) CDT procedure are in the results section. TROPONIN I Routine 10/22/2017 11:05 PM Results for this CDT procedure are in the results section. URINE CULTURE Routine 10/22/2017 7:00 PM Results for this CDT procedure are in the results section. ECG 12-LEAD Routine 10/22/2017 5:03 PM CDT Procedure Note - Interface, External Ris In - 10/22/2017 5:10 PM CDT Ventricular Rate 72 BPM Atrial Rate 72 BPM P-R Interval 190 ms QRS Duration 90 ms Q-T Interval 436 ms QTC Calculation(Bazett) 477 ms P Leola 54 degrees R Leola 29 degrees T Leola 67 degrees Normal sinus rhythm Normal ECG [...] I Routine 10/22/2017 4:43 PM CDT after 02/23/2017 Results CBC (Hemogram only) (02/24/2018 4:34 AM METEOROLOGY TEACHER)Only the most recent of3 resultswithin the time period is included. WBC 9.0 3.5 - 10.5 K/L [facility] RBC 2.96 (L) 4.63 - 6.08 M/L [facility] Hemoglobin 8.6 (L) 13.7 - 17.5 GM/DL [facility] Hematocrit 28.2 (L) 40.1 - 51.0 % [facility] MCV 95.3 (H) 79.0 - 92.2 fL [facility] MCH 29.1 25.7 - 32.2 pg [facility] MCHC 30.5 (L) 32.3 - 36.5 GM/DL [facility] RDW 22.2 (H) 11.6 - 14.4 % [facility] Platelets 233 150 - 450 K/CU MM [facility] MPV 10.3 9.4 - 12.4 fL [facility] nRBC 0 0 - 0 /100 WBC [facility] Specimen Blood Performing Organization Address City/State/Zipcode Phone Number [facility] [address] [place] [address] CENTER Basic Metabolic Panel (02/24/2018 4:34 AM METEOROLOGY TEACHER)Only the most recent of10 resultswithin the time period is included. Sodium 136 136 - 145 meq/L [facility] Potassium 4.2 3.5 - 5.1 meq/L [facility] Chloride 106 98 - 107 meq/L [facility] CO2 26 22 - 29 meq/L [facility] BUN 13 7 - 21 mg/dL [facility] Creatinine 0.67 0.57 - 1.25 mg/dL [facility] Glucose 93 70 - 105 mg/dL [facility] Calcium 7.9 (L) 8.4 - 10.2 mg/dL [facility] EGFR 113Comment: ESTIMATED GFR IS mL/min/1.73 sq m [facility] NOT ACCURATE [facility] CLEARANCE IN PREDICTING GLOMERULAR FILTRATION RATE. ESTIMATED GFR IS NOT APPLICABLE FOR DIALYSIS PATIENTS. Specimen Blood Narrative Performed At POD 1 [facility] Performing Organization Address City/[facility] Phone Number [address] [address] [phone] [place] TRANSFUSION SERVICE REPORT - SCAN (02/23/2018 6:01 PM METEOROLOGY TEACHER)Only the most recent of3 resultswithin the time period is included. Narrative Performed At Prepare RBC (02/22/2018 11:54 PM METEOROLOGY TEACHER) CROSSMATCH COMPATIBLE SAFETRACE TX Unit ABO A Pos SAFETRACE TX UNIT NUMBER [id number] SAFETRACE TX Status TRANSFUSED SAFETRACE TX Blood Bank Product RED BLOOD CELLS SAFETRACE TX PRODUCT CODE [id number] SAFETRACE TX Performing Organization Address [facility] Phone Number [facility] Potassium-Stat Lab (02/21/2018 4:14 PM METEOROLOGY TEACHER)Only the most recent of2 resultswithin the time period is included. Potassium 4.0 3.6 - 5.5 meq/L [facility] Specimen Blood, Arterial Performing Organization Address City/[facility]/Zipcode Phone Number [address] [address] [phone] [place] Sodium Na-Stat Lab (02/21/2018 4:14 PM METEOROLOGY TEACHER)Only the most recent of2 resultswithin the time period is included. Sodium 137 135 - 148 meq/L [facility] Specimen Blood, Arterial Performing Organization Address City/[facility]/Zipcode Phone Number [address] [phone] [place] Glucose-Stat Lab (02/21/2018 4:14 PM METEOROLOGY TEACHER)Only the most recent of2 resultswithin the time period is included. Glucose 87 70 - 110 mg/dL [facility] Specimen Blood, Arterial Performing Organization Address [facility] Phone Number [address] [address] [place] HGB/HCT (H&H)-Stat Lab (02/21/2018 4:14 PM METEOROLOGY TEACHER)Only the most recent of2 resultswithin the time period is included. Hemoglobin 9.3 (L) 13.0 - 16.8 g/dL [facility] Hematocrit 27.0 (L) 40.0 - 50.0 % [facility] Specimen Blood, Arterial Performing Organization Address [facility] Phone Number [address] [phone] [place] Calcium, Ionized (02/21/2018 4:14 PM METEOROLOGY TEACHER)Only the most recent of3 resultswithin the time period is included. Calcium, Ion 1.12 1.12 - 1.27 mmol/L [facility] pH, Blood 7.37 [facility] Specimen Blood Performing Organization Address [facility] Phone Number [address] [phone] [place] Blood gas, arterial (02/21/2018 4:14 PM METEOROLOGY TEACHER)Only the most recent of2 resultswithin the time period is included. pH, Arterial 7.39 7.35 - 7.45 [facility] pCO2, Arterial 39 35 - 45 mmHg [facility] pO2, Arterial 310 (H) 80 - 90 mmHg [facility] O2 Sat, Arterial 99.7 (H) 96.0 - 97.0 % [facility] [place] HCO3, Arterial 23 21 - 29 mmol/L [facility] Base Excess, Arterial -2.2 (L) -2.0 - 3.0 mmol/L [facility] Patient Temperature 36.0 C [facility] FIO2 50.0 % [facility] Specimen Blood, Arterial Performing Organization Address City/[facility]/Zipcode Phone Number [facility] [address] [place] [address] CENTER [place] Transportation Supervisor in [place] 30 minute increments (02/21/2018 3:55 PM METEOROLOGY TEACHER)Only the most recent of2 resultswithin the time period is included. Narrative Performed At FINAL REPORT GE RIS Lumbar spine one view intraoperative 02/21/2018 4:08 PM CLINICAL HISTORY: Instrument localization COMPARISON: None available IMPRESSION: A localization probe projects posterior and inferior to L4-5. Findings were reported to Dr. Lamar on 02/21/2018 at 1608. Signed: Jonathon Romero MD Report Verified Date/Time:02/21/2018 19:10:44 Reading Location: [facility] Radiology Reading Room Procedure Note Interface, External Ris In - 02/21/2018 7:12 PM METEOROLOGY TEACHER FINAL REPORT Lumbar spine one view intraoperative 02/21/2018 4:08 PM CLINICAL HISTORY: Instrument localization COMPARISON: None available IMPRESSION: A localization probe projects posterior and inferior to L4-5. Findings were reported to Dr. Lamar on 02/21/2018 at 1608. Signed: Jonathon Romero MD Report Verified Date/Time: 02/21/2018 19:10:44 Reading Location: [facility] Radiology Reading Room Performing Organization Address City/[facility] Cent[facility]ode Phone Number GE RIS Transfuse Leuko-Red RBC (02/21/2018 3:28 PM METEOROLOGY TEACHER)CT Spine Cervical without IV Contrast (02/03/2018 12:43 PM METEOROLOGY TEACHER) Narrative Performed At FINAL REPORT GE RIS CT cervical spine without contrast 02/03/2018 1:07 PM CLINICAL HISTORY: g95.9,m48.02 COMPARISON: None available TECHNIQUE: Axial noncontrast CT images of the cervical spine were obtained. Axially acquired data were reformatted in coronal and sagittal planes for further analysis. This examination was performed according to our departmental dose optimization program, which includes automated exposure control, adjustment of the mA and/or kV according to patient size, and/or use of iterated reconstruction technique. FINDINGS: There is no fracture or traumatic malalignment. There are no osteolytic or osteoblastic lesions. Spinal canal diameter is at the lower limit of normal. 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 Uncovertebral and facet joint arthropathy contribute to multifocal mild/moderate foraminal stenosis. The visualized soft tissue is without worrisome finding. IMPRESSION: 1. No fracture or traumatic malalignment. 2. 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 Signed: Jonathon Romero MD Report Verified Date/Time:02/03/2018 13:11:13 Reading Location: [facility] Radiology Reading Room Procedure Note Interface, External Ris In - 02/03/2018 1:13 PM METEOROLOGY TEACHER FINAL REPORT CT cervical spine without contrast 02/03/2018 1:07 PM CLINICAL HISTORY: g95.9,m48.02 COMPARISON: None available TECHNIQUE: Axial noncontrast CT images of the cervical spine were obtained. Axially acquired data were reformatted in coronal and sagittal planes for further analysis. This examination was performed according to our departmental dose optimization program, which includes automated exposure control, adjustment of the mA and/or kV according to patient size, and/or use of iterated reconstruction technique. FINDINGS: There is no fracture or traumatic malalignment. There are no osteolytic or osteoblastic lesions. Spinal canal diameter is at the lower limit of normal. 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 Uncovertebral and facet joint arthropathy contribute to multifocal mild/moderate foraminal stenosis. The visualized soft tissue is without worrisome finding. IMPRESSION: 1. No fracture or traumatic malalignment. 2. 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 Signed: Jonathon Romero MD Report Verified Date/Time: 02/03/2018 13:11:13 Reading Location: [facility] Radiology Reading Room Performing Organization Address [facility] Phone Number [facility] ECG 12 lead (02/03/2018 11:35 AM METEOROLOGY TEACHER)Only the most recent of2 resultswithin the time period is included. Narrative Performed At Ventricular Rate 72 BPM GE MUSE Atrial Rate 72 BPM P-R Interval 186 ms QRS Duration 84 ms Q-T Interval 418 ms QTC Calculation(Bazett) 457 ms P Leola 60 degrees R Leola 40 degrees T Leola 66 degrees Normal sinus rhythm Normal ECG When compared with ECG of 22-OCT-2017 17:03, No significant change was found Confirmed by MD BYRNE JORGE ([id number]) on 02/03/2018 1:57:55 PM Procedure Note Interface, External Ris In - 02/03/2018 1:58 PM METEOROLOGY TEACHER Ventricular Rate 72 BPM Atrial Rate 72 BPM P-R Interval 186 ms QRS Duration 84 ms Q-T Interval 418 ms QTC Calculation(Bazett) 457 ms P Leola 60 degrees R Leola 40 degrees T Leola 66 degrees Normal sinus rhythm Normal ECG When compared with ECG of 22-OCT-2017 17:03, No significant change was found Confirmed by MD BYRNE JORGE ([id number]) on 02/03/2018 1:57:55 PM Performing Organization Address [facility] Phone Number [employer] Urinalysis w/Microscopic + Reflex to Culture (02/03/2018 11:27 AM METEOROLOGY TEACHER) Color, UA Yellow [facility] Clarity, UA Clear [facility] Specific [place], UA 1.023 1.001 - 1.035 [facility] pH, UA 5.5 5.0 - 8.0 [facility] Protein, UA 20 mg/dL (A) Negative [facility] Glucose, UA Negative Negative [facility] Ketones, UA Negative Negative [facility] Bilirubin, UA Negative Negative [facility] Blood, UA Negative Negative [facility] Nitrite, UA Negative Negative [facility] Leukocytes, UA Negative Negative [facility] Urobilinogen, UA 0.2 0.2 - 1.0 mg/dL [facility] RBC, UA 0 /HPF [facility] WBC, UA 72 /HPF [facility] Bacteria, UA Rare [facility] Mucus Few [facility] Specimen Source [facility] Specimen Urine Performing Organization Address City/State/Zipcode Phone Number [facility] [address] [place] [address] CENTER CBC with platelet count + automated diff (02/03/2018 11:27 AM METEOROLOGY TEACHER)Only the most recent of6 resultswithin the time period is included. WBC 9.0 3.5 - 10.5 K/L [facility] RBC 3.51 (L) 4.63 - 6.08 M/L [facility] Hemoglobin 9.9 (L) 13.7 - 17.5 GM/DL [facility] Hematocrit 33.3 (L) 40.1 - 51.0 % [facility] MCV 94.9 (H) 79.0 - 92.2 fL [facility] MCH 28.2 25.7 - 32.2 pg [facility] MCHC 29.7 (L) 32.3 - 36.5 GM/DL [facility] RDW 24.6 (H) 11.6 - 14.4 % [facility] Platelets 277 150 - 450 K/CU MM [facility] MPV 10.8 9.4 - 12.4 fL [facility] nRBC 0 0 - 0 /100 WBC [facility] % Neutros 63 % [facility] % Lymphs 10 % [facility] % Monos 13 % [facility] % Eos 12 % [facility] % Baso 1 % [facility] # Neutros 5.70 (H) 1.78 - 5.38 K/L [facility] # Lymphs 0.89 (L) 1.32 - 3.57 K/L [facility] # Monos 1.21 (H) 0.30 - 0.82 K/L [facility] # Eos 1.12 (H) 0.04 - 0.54 K/L [facility] # Baso 0.05 0.01 - 0.08 K/L [facility] Immature Granulocytes-Relative 1 0 - 1 % [facility] Specimen Blood Performing Organization Address City/[facility]/Zipcode Phone Number [address] [address] [phone] CENTER Urine culture (02/03/2018 11:27 AM METEOROLOGY TEACHER)Only the most recent of2 resultswithin the time period is included. Result No growth [facility] Specimen Urine Performing Organization Address City/[facility]/Zipcode Phone Number [address] [address] [phone] CENTER Type and screen, automated (02/03/2018 11:24 AM METEOROLOGY TEACHER) ABO/RH AUTOMATED (BEAKER) A POSITIVE [facility] Ab Scrn NEGATIVE [facility] Specimen Blood Performing Organization Address City/State/Zipcode Phone Number [facility] [address] [place], [place] [phone] aPTT (02/03/2018 11:24 AM METEOROLOGY TEACHER) PTT 33.2 22.5 - 36.0 seconds [facility] Specimen Blood Performing Organization Address [facility]/Zipcode Phone Number [facility] [address] [place] [address] CENTER Prothrombin time/INR (02/03/2018 11:24 AM METEOROLOGY TEACHER) Protime 13.3 11.7 - 14.7 seconds [facility] INR 1.0 <=5.9 [facility] Specimen Blood Narrative Performed At RECOMMENDED COUMADIN/WARFARIN INR THERAPY [facility] RANGES STANDARD DOSE: 2.0 - 3.0 Includes: PROPHYLAXIS for venous thrombosis, systemic embolization; TREATMENT for venous thrombosis and/or pulmonary embolus. HIGH RISK: Target INR is 2.5-3.5 for patients with mechanical heart valves. Performing Organization Address [facility] Cent[facility]ode Phone Number [facility] [address] [place] [phone] [place] EKG-SCANNED (10/31/2017 11:32 AM CDT) Narrative Performed At ARRYTHMIA IMPLANT REPORT - SCAN (10/31/2017 11:32 AM CDT) Narrative Performed At RHYTHM STRIP - SCAN (10/31/2017 11:32 AM CDT) Narrative Performed At NEEDLE EMG, 2 EXTREMITY (10/27/2017 5:04 PM CDT) Narrative Performed At [facility] Neurophysiology Department ELECTROMYOGRAPHY / NERVE CONDUCTION STUDY [address] [place], [place] [address]del[facility]is [facility] [address] [place] [address] Name: Germain Wilks Address:Date of [...] Sural.R Lower leg NR NR NR Ankle-Lower [id number] mm Sural.L Lower leg NR NR NR Ankle-Lower [id number] mm Median.R Wrist 4.1 ms 5.1 ms [...] Wrist NR NR NR Digit II (index finger)-[id number] mm Ulnar.L Wrist 2.6 ms 3.2 ms [...] Ris In - 10/27/2017 8:31 PM CDT [facility] Neurophysiology Department ELECTROMYOGRAPHY / NERVE CONDUCTION STUDY [address] [facility] [facility] [address] [place] [address] Name: Germain Wilks Address: Date of : [...] Performing Organization Address City/State/Zipcode Phone Number GE MEG Magnesium (10/27/2017 4:12 AM CDT)Only the most recent of5 resultswithin the time period is included. Magnesium 2.1 1.6 - 2.6 mg/dL [facility] CENTER Specimen Blood Performing Organization Address City/[facility]/Zipcode Phone Number [facility] [address] [place] [address] CENTER MR thoracic spine without & with IV contrast (10/27/2017 3:28 AM CDT) Narrative Performed At FINAL REPORT GE Tittat MR thoracic spine with and without contrast [...] MD Report Verified Date/Time:10/27/2017 07:17:46 Reading Location: [address] Neuro Reading Room Procedure Note Interface, [...] Report Verified Date/Time: 10/27/2017 07:17:46 Reading Location: [facility] Neuro Reading Room Performing Organization Address City/State/Zipcode Phone Number GE RIS [place] / lambda light chains, serum (10/26/2017 6:02 PM CDT) [place] Lt Chain,Free 17.0 3.3 - 19.4 mg/L [facility] Lambda Lt 12.8 5.7 - 26.3 mg/L [facility] Chain,Free [facility] [place]/Lambda,Free 1.33 0.26 - 1.65 [facility] Comment: [...] Lab [facility] EZ [facility] [address] [address] Bradley Weems MD, PhD, [place] Performing Organization Address [facility] Centerconv Phone Number [place] [address] [facility]ORPORATED [phone] [facility] Protein electrophoresis, serum (10/26/2017 6:02 PM CDT) Albumin Fraction 2.9 (L) 3.5 - 5.5 g/dL [facility] Alpha 1 Fraction 0.2 0.2 - 0.4 g/dL [facility] Alpha 2 Fraction 0.8 0.5 - 0.9 g/dL [facility] Beta Fraction 0.8 0.6 - 1.1 g/dL [facility] Gamma Globulin Fraction 0.7 0.7 - 1.7 g/dL [facility] Interpretation Pattern suggestive of [facility] acute inflammatory [facility] process. No monoclonal bands detected. Pathologist: Trish Rodas MD [facility] (electronic signature) [facility] Protein, Total 5.5 (L) 6.0 - 8.3 gm/dL [facility] Specimen Blood Performing Organization Address City/State/Zipcode Phone Number [facility] [address] [place] [address] CENTER MR lumbar spine without & with IV contrast (10/26/2017 6:18 AM CDT) Narrative Performed At FINAL REPORT [facility] MR Lumbar spine with and without contrast [...] MD Report Verified Date/Time:10/26/2017 07:52:13 Reading Location: [address] Neuro Reading Room Procedure Note Interface, [...] Report Verified Date/Time: 10/26/2017 07:52:13 Reading Location: [address] Neuro Reading Room Performing Organization Address City/State/Zipcode Phone Number [facility] MR cervical spine without & with IV contrast (10/26/2017 6:18 AM CDT) Narrative Performed At FINAL REPORT [facility] MR cervical spine with and without contrast [...] MD Report Verified Date/Time:10/26/2017 07:53:00 Reading Location: [address] Neuro Reading Room Procedure Note Interface, [...] Report Verified Date/Time: 10/26/2017 07:53:00 Reading Location: [facility] Neuro Reading Room Performing Organization Address City/State/Zipcode Phone Number GE RIS Hemoglobin A1c (10/25/2017 10:32 AM CDT) Hemoglobin A1C 5.7 4.3 - 6.1 % [facility] Specimen Blood Performing Organization Address City/State/Zipcode Phone Number [address] [address] [phone] CENTER Phosphorus (10/25/2017 4:10 AM CDT)Only the most recent of3 resultswithin the time period is included. Phosphorus 3.2 2.3 - 4.7 mg/dL [facility] Specimen Blood - Arm, Right Performing Organization Address City/State/Zipcode Phone Number [facility] [address] [place], [place] [phone] [place] Lipid panel (10/25/2017 4:10 AM CDT)Only the most recent of3 resultswithin the time period is included. Triglycerides 61 mg/dL [facility] Cholesterol 119 mg/dL [facility] HDL 36 mg/dL [facility] LDL Calculated 71 mg/dL [facility] Specimen Blood - Arm, Right Narrative Performed At [facility] Triglyceride Reference Range: Low Risk <150 [id number] High Risk 200-499 Very High Risk>=500 Cholesterol Reference Range: Low Risk <200 Pkihqgfafz812-613 High Risk>240 HDL Cholesterol Reference Range: Low Risk >=60 High Risk <40 LDL Cholesterol Reference Range: Optimal<100 Near Jmethxn555-280 Zxumzoifbi648-928 Hnfm819-104 Very High >=190 Performing Organization Address City/State/Zipcode Phone Number [facility] [address] [place], [place] [phone] [place] ECHOCARDIOGRAM REPORT - SCAN (10/24/2017 6:20 PM CDT) Narrative Performed At EEG AWAKE AND DROWSY (10/24/2017 4:06 PM CDT) Narrative Performed At Neurophysiology Electroencephalogram Report GE RIS DATE OF REPORT:DATE \\@ "M/d/yy" 10/24/17 Date(s) of Study: 10/24/2017 ACC: [id number] Start time: 1545 hrs Stop time: 1606 hrs ICD-10: R55 Syncope and Collapse CPT Code: 88599 EEG: awake and drowsy <40 min HISTORY: [...] EEG recordings. Haydee Garcia MD Epilepsy Fellow [facility] Neurophysiology Service Robert Ferreira M.D., FACJAMES, FAAN, SHADI Professor of Neurology, [facility] [employer] Director, [facility] Ep[facility] Head, Cristi [facility] Neurophysiology Lab Procedure Note Interface, External Ris In - 10/24/2017 4:35 PM CDT Neurophysiology Electroencephalogram Report DATE OF REPORT: DATE \\@ "M/d/yy" 10/24/17 Date(s) of Study: 10/24/2017 ACC: [id number] Start time: 1545 hrs Stop time: 1606 hrs ICD-10: R55 Syncope and Collapse CPT Code: 08194 EEG: awake and drowsy <40 min HISTORY: [...] EEG recordings. Haydee Garcia MD Epilepsy Fellow [facility] Neurophysiology Service Robert Ferreira M.D., FACNS, FAAN, FAES Professor of Neurology, [facility] [employer] Director, [facility] Ep[facility]psy [facility] Head, Cristi [facility] [place] Neurophysiology Lab Performing Organization Address City/State/Zipcode Phone Number [facility] 2D Echo W/Doppler(CW/PW/Color) (10/24/2017 3:02 PM CDT) Ejection Fraction [facility] Narrative Performed At Transthoracic Echocardiography Report (TTE) [facility] Demographics Patient NameALEXANDER,Date of Study 10/24/2017 [place] Male Visit [id number] Unknown Room Number 1034 Number Date of 4Referring Olivia Da Vernonnoemijennifer Physician Age 82 year(s)Rides Supervisor YUE Vasquez, RDCS,RVT,RDMS InterpretingJoabdullahi Torrez MD Physician [...] Transthoracic Echocardiography Report (TTE) Demographics Patient Name EFE, Date of Study 10/24/2017 [place] Gender Male Visit Number [id number] Race Unknown Room Number 1034 Number Date of 1935 Referring Olivia Da Cerda Physician Age 82 year(s) Rides Supervisor YUE Vasquez, RDCS,RVT,RDMS Interpreting Ten Torrez MD [...] LVOT CI: 2.68 l/min/m^2 Performing Organization Address City/State/[facility] Centercode Phone Number [facility]CK[facility] MRA neck without & with IV contrast (10/23/2017 2:57 PM CDT) Narrative Performed At FINAL REPORT [facility] MRA arch, great vessels, neck, and head with and without contrast Comparison: None Reason for exam:Stroke Discussion: 2 D and 3-D maza-jx-fcfosj and contrast-enhanced MRA of the arch, great vessels, and neck, and 3-D jgly-nv-kqltbo MRA head was provided with maximal intensity [...] MD Report Verified Date/Time:10/23/2017 16:44:06 Reading Location: [address] Neuro Reading Room Procedure Note Interface, External Ris In - 10/23/2017 4:46 PM CDT FINAL REPORT MRA arch, great vessels, neck, and head with and without contrast Comparison: None Reason for exam: Stroke Discussion: 2 D and 3-D jaez-yt-hongye and contrast-enhanced MRA of the arch, great vessels, and neck, and 3-D vvwx-vk-yyofbe MRA head was provided with maximal intensity [...] Report Verified Date/Time: 10/23/2017 16:44:06 Reading Location: [address] Neuro Reading Room Performing Organization Address City/State/Zipcode Phone Number [facility] MRA head with and without contrast (10/23/2017 2:57 PM CDT) Narrative Performed At FINAL REPORT [facility] MRA arch, great vessels, neck, and head with and without contrast Comparison: None Reason for exam:Stroke Discussion: 2 D and 3-D xzry-dk-kdxybv and contrast-enhanced MRA of the arch, great vessels, and neck, and 3-D iqyw-wj-zqsjre MRA head was provided with maximal intensity [...] MD Report Verified Date/Time:10/23/2017 16:44:06 Reading Location: [address] Neuro Reading Room Procedure Note Interface, External Ris In - 10/23/2017 4:46 PM CDT FINAL REPORT MRA arch, great vessels, neck, and head with and without contrast Comparison: None Reason for exam: Stroke Discussion: 2 D and 3-D naex-rl-lctiwq and contrast-enhanced MRA of the arch, great vessels, and neck, and 3-D fgom-yc-cmzcry MRA head was provided with maximal intensity [...] Report Verified Date/Time: 10/23/2017 16:44:06 Reading Location: [address] Neuro Reading Room Performing Organization Address City/[facility] Centercode Phone Number GE RIS Troponin I (10/22/2017 11:05 PM CDT)Only the most recent of2 resultswithin the time period is included. Troponin I <0.01 0.00 - 0.03 ng/mL [facility] Specimen Blood - Arm, Right Narrative Performed At [facility] Troponin I (TnI) levels must be interpreted [...] disease, and persistent tachyarrhythmia. Performing Organization Address [facility] Centerconv Phone Number [address] [address] [phone] CENTER Vitamin B12 and Folate (10/22/2017 4:43 PM CDT) Vitamin B12 539 213 - 816 pg/mL [facility] Folate 35.7 >=7.0 ng/mL [facility] Specimen Blood Performing Organization Address [facility] Phone Number [address] [address] CENTER TSH/Free T4 If Indicated (10/22/2017 4:43 PM CDT) TSH 1.29 0.35 - 4.94 uIU/mL [facility] Specimen Blood Performing Organization Address [facility] Phone Number [address] [address] CENTER Iron, TIBC, % sat. (without ferritin) (10/22/2017 4:43 PM CDT) Iron 36 (L) 40 - 160 ug/dL [facility] TIBC 348 250 - 450 ug/dL [facility] Iron % Saturation 10 (L) 20 - 55 % [facility] Specimen Blood Performing Organization Address City/State/Zipcode Phone Number [address] [address] CENTER Vitamin D, 25-Hydroxy (10/22/2017 4:43 PM CDT) Vitamin D 25-Hydroxy 41.7 6.6 - 49.9 ng/mL [facility] Specimen Blood Narrative Performed At [facility] Effective 11/17/2016: Reference Range Change New: 6.6-49.9 ng/mL Previous: 13.0-47.8 ng/mL Recommended Vitamin D Target Range: 30.0-40.0 ng/mL Performing Organization Address City/[facility]/Zipcode Phone Number [address] [address] CENTER RPR (10/22/2017 4:43 PM CDT) RPR Nonreactive Nonreactive [facility] Specimen Blood Performing Organization Address City/[facility] Centercode Phone Number [address] [address] [id number] [phone] [facility] after 02/23/2017 Insurance Payer Benefit Plan / Subscriber ID Type Phone Address Group MEDICARE MEDICARE A B xxxxxxxxxxx Medicare BLUE CROSS/BLUE BCBS FED xxxxxxxxx [facility] [phone] [address] [place] [address] Advance Directives For more information, please contact:[address] [phone] Code Status Date Activated Date Inactivated Comments Full Code 02/21/2018 10:03 PM This code status was determined by: Patient Full Code 02/21/2018 10:15 AM 02/21/2018 5:14 PM This code status was determined by: Patient Full Code 10/22/2017 4:08 PM 10/27/2017 9:37 PM This code status was determined by: Patient
--- OUTSIDE RECORDS SUMMARY | 2018-02-24 18:07 | XMS REPORT ---
:1935 [facility] Address [address] [place] [address] Dr. Shell [address] [place] [id number] Care Team Providers Name Role Phone MOUSTAPHA WAKEFIELD PHILLIP Unavailable Unavailable TRACIE BISHOP Unavailable Unavailable Problems This patient has no known problems. Allergies, Adverse Reactions, Alerts This patient has no known allergies or adverse reactions. Medications This patient has no known medications. Results Test Description Test Time Test Comments Text Results Atomic Results Result Comments BASIC METABOLIC PANEL 2018-02-24 05:22:00 Test Item Value Reference Range Comments SODIUM (BEAKER) (test 136 meq/L 136-145 crrf=165) POTASSIUM (BEAKER) (test 4.2 meq/L 3.5-5.1 juaw=231) CHLORIDE (BEAKER) (test 106 meq/L 98-107 ozcb=428) CO2 (BEAKER) (test 26 meq/L 22-29 uyoh=672) BLOOD UREA NITROGEN 13 mg/dL 7-21 (BEAKER) (test szon=668) CREATININE (BEAKER) (test 0.67 mg/dL 0.57-1.25 yrpi=757) GLUCOSE RANDOM (BEAKER) 93 mg/dL 70-105 (test hpln=690) CALCIUM (BEAKER) (test 7.9 mg/dL 8.4-10.2 pldy=714) EGFR (BEAKER) (test 113 mL/min/1.73 sq m ESTIMATED GFR IS NOT cmsh=3401) ACCURATE CREATININE CLEARANCE IN PREDICTING GLOMERULAR FILTRATION RATE. ESTIMATED GFR IS NOT APPLICABLE FOR DIALYSIS PATIENTS. POD 1CBC (HEMOGRAM ONLY)2018-02-24 05:04:00 Test Item Value Reference Range Comments WHITE BLOOD CELL COUNT (BEAKER) (test zmxy=338) 9.0 K/ L 3.5-10.5 RED BLOOD CELL COUNT (BEAKER) (test shwh=145) 2.96 M/ L 4.63-6.08 HEMOGLOBIN (BEAKER) (test imhd=491) 8.6 GM/DL 13.7-17.5 HEMATOCRIT (BEAKER) (test brns=195) 28.2 % 40.1-51.0 MEAN CORPUSCULAR VOLUME (BEAKER) (test hxqe=459) 95.3 fL 79.0-92.2 MEAN CORPUSCULAR HEMOGLOBIN (BEAKER) (test 29.1 pg 25.7-32.2 ktlo=100) MEAN CORPUSCULAR HEMOGLOBIN CONC (BEAKER) (test 30.5 GM/DL 32.3-36.5 tzdr=230) RED CELL DISTRIBUTION WIDTH (BEAKER) (test 22.2 % 11.6-14.4 efcy=315) PLATELET COUNT (BEAKER) (test fahf=016) 233 K/CU MM 150-450 MEAN PLATELET VOLUME (BEAKER) (test dytc=938) 10.3 fL 9.4-12.4 NUCLEATED RED BLOOD CELLS (BEAKER) (test 0 /100 WBC 0-0 wwjy=796) BASIC METABOLIC [id number] 06:44:00 Test Item Value Reference Range Comments SODIUM (BEAKER) (test 138 meq/L 136-145 phkg=662) POTASSIUM (BEAKER) (test 4.0 meq/L 3.5-5.1 facn=007) CHLORIDE (BEAKER) (test 108 meq/L 98-107 suew=287) CO2 (BEAKER) (test 23 meq/L 22-29 eoan=162) BLOOD UREA NITROGEN 13 mg/dL 7-21 (BEAKER) (test qrjb=296) CREATININE (BEAKER) (test 0.64 mg/dL 0.57-1.25 zyqz=942) GLUCOSE RANDOM (BEAKER) 99 mg/dL 70-105 (test fiuv=375) CALCIUM (BEAKER) (test 8.0 mg/dL 8.4-10.2 raxm=309) EGFR (BEAKER) (test 119 mL/min/1.73 sq m ESTIMATED GFR IS NOT ucik=9442) ACCURATE CREATININE CLEARANCE IN PREDICTING GLOMERULAR FILTRATION RATE. ESTIMATED GFR IS NOT APPLICABLE FOR DIALYSIS PATIENTS. POD 1CBC (HEMOGRAM ONLY)2018-02-23 06:01:00 Test Item Value Reference Range Comments WHITE BLOOD CELL COUNT (BEAKER) (test zeyf=531) 10.1 K/ L 3.5-10.5 RED BLOOD CELL COUNT (BEAKER) (test oxmb=895) 3.02 M/ L 4.63-6.08 HEMOGLOBIN (BEAKER) (test yzrp=687) 8.9 GM/DL 13.7-17.5 HEMATOCRIT (BEAKER) (test wquq=058) 29.0 % 40.1-51.0 MEAN CORPUSCULAR VOLUME (BEAKER) (test cxye=274) 96.0 fL 79.0-92.2 MEAN CORPUSCULAR HEMOGLOBIN (BEAKER) (test 29.5 pg 25.7-32.2 tgmb=931) MEAN CORPUSCULAR HEMOGLOBIN CONC (BEAKER) (test 30.7 GM/DL 32.3-36.5 qzug=992) RED CELL DISTRIBUTION WIDTH (BEAKER) (test 23.2 % 11.6-14.4 dtex=775) PLATELET COUNT (BEAKER) (test cgxk=173) 249 K/CU MM 150-450 MEAN PLATELET VOLUME (BEAKER) (test kcru=562) 10.7 fL 9.4-12.4 NUCLEATED RED BLOOD CELLS (BEAKER) (test 0 /100 WBC 0-0 bdbn=386) BASIC METABOLIC [id number] 07:14:00 Test Item Value Reference Range Comments SODIUM (BEAKER) (test 139 meq/L 136-145 cejs=177) POTASSIUM (BEAKER) (test 4.9 meq/L 3.5-5.1 zguc=254) CHLORIDE (BEAKER) (test 110 meq/L 98-107 sfzs=647) CO2 (BEAKER) (test 21 meq/L 22-29 cerb=121) BLOOD UREA NITROGEN 14 mg/dL 7-21 (BEAKER) (test jyso=209) CREATININE (BEAKER) (test 0.73 mg/dL 0.57-1.25 sepo=456) GLUCOSE RANDOM (BEAKER) 108 mg/dL 70-105 (test olmo=495) CALCIUM (BEAKER) (test 8.4 mg/dL 8.4-10.2 lrhq=909) EGFR (BEAKER) (test 102 mL/min/1.73 sq m ESTIMATED GFR IS NOT uiff=8048) ACCURATE CREATININE CLEARANCE IN PREDICTING GLOMERULAR FILTRATION RATE. ESTIMATED GFR IS NOT APPLICABLE FOR DIALYSIS PATIENTS. POD 1CBC (HEMOGRAM ONLY)2018-02-22 06:54:00 Test Item Value Reference Range Comments WHITE BLOOD CELL COUNT (BEAKER) (test szbv=980) 11.5 K/ L 3.5-10.5 RED BLOOD CELL COUNT (BEAKER) (test ulxk=818) 3.15 M/ L 4.63-6.08 HEMOGLOBIN (BEAKER) (test hbvv=743) 9.2 GM/DL 13.7-17.5 HEMATOCRIT (BEAKER) (test ucxd=129) 30.8 % 40.1-51.0 MEAN CORPUSCULAR VOLUME (BEAKER) (test rcnq=194) 97.8 fL 79.0-92.2 MEAN CORPUSCULAR HEMOGLOBIN (BEAKER) (test 29.2 pg 25.7-32.2 lfhi=966) MEAN CORPUSCULAR HEMOGLOBIN CONC (BEAKER) (test 29.9 GM/DL 32.3-36.5 mbab=058) RED CELL DISTRIBUTION WIDTH (BEAKER) (test 23.9 % 11.6-14.4 srvr=662) PLATELET COUNT (BEAKER) (test uxoc=036) 253 K/CU MM 150-450 MEAN PLATELET VOLUME (BEAKER) (test dfmv=231) 10.9 fL 9.4-12.4 NUCLEATED RED BLOOD CELLS (BEAKER) (test 0 /100 WBC 0-0 horp=375) [place], [employer] SALES IN OR/30 MINUTE [id number] 19:10:00Reason for exam:-> LUMBAR STENOSISFINAL REPORT Lumbar spine one view intraoperative 02/21/2018 4:08 PM CLINICAL HISTORY: Instrument localization COMPARISON: None available IMPRESSION: A localization probe projectsposterior and inferior to L4-5. Findings were reported to Dr. Lamar on 02/21/2018 at 1608. Signed: Jonathon Romero Verified Date/Time: 02/21/2018 19:10:44 Reading Location: [facility] Radiology Reading Room BASI METABOLIC [id number] 18:27:00 Test Item Value Reference Range Comments SODIUM (BEAKER) (test 140 meq/L 136-145 zqid=801) POTASSIUM (BEAKER) (test 4.5 meq/L 3.5-5.1 jfyf=855) CHLORIDE (BEAKER) (test 109 meq/L 98-107 jyvz=486) CO2 (BEAKER) (test 22 meq/L 22-29 puwu=054) BLOOD UREA NITROGEN 15 mg/dL 7-21 (BEAKER) (test tqxb=245) CREATININE (BEAKER) (test 0.80 mg/dL 0.57-1.25 pgei=872) GLUCOSE RANDOM (BEAKER) 101 mg/dL 70-105 (test brhw=748) CALCIUM (BEAKER) (test 9.0 mg/dL 8.4-10.2 axxo=896) EGFR (BEAKER) (test 92 mL/min/1.73 sq m ESTIMATED GFR IS NOT aewn=3418) ACCURATE CREATININE CLEARANCE IN PREDICTING GLOMERULAR FILTRATION RATE. ESTIMATED GFR IS NOT APPLICABLE FOR DIALYSIS PATIENTS. GLUCOSE-STAT [id number] 16:28:00 Test Item Value Reference Range Comments GLUCOSE RANDOM (BEAKER) (test dlmm=428) 87 mg/dL 70-110 SODIUM NA-STAT [id number] 16:28:00 Test Item Value Reference Range Comments SODIUM (BEAKER) (test grhm=764) 137 meq/L 135-148 POTASSIUM-STAT [id number] 16:28:00 Test Item Value Reference Range Comments POTASSIUM (BEAKER) (test lyct=733) 4.0 meq/L 3.6-5.5 BLOOD GAS, [id number] 16:28:00 Test Item Value Reference Range Comments PH ARTERIAL (BEAKER) (test ypdh=238) 7.39 7.35-7.45 PCO2 ARTERIAL (BEAKER) (test ozeu=676) 39 mmHg 35-45 PO2 ARTERIAL (BEAKER) (test naxz=546) 310 mmHg 80-90 O2 SATURATION ARTERIAL (BEAKER) (test txoa=504) 99.7 % 96.0-97.0 HCO3 ARTERIAL (BEAKER) (test oovn=007) 23 mmol/L 21-29 BASE EXCESS ARTERIAL (BEAKER) (test lkcl=174) -2.2 mmol/L -2.0-3.0 PATIENT TEMPERATURE (BEAKER) (test tkus=6751) 36.0 C FIO2 (BEAKER) (test ycba=7198) 50.0 % HGB/HCT (H&H) - STAT [id number] 16:28:00 Test Item Value Reference Range Comments HEMOGLOBIN (BEAKER) (test gvjw=169) 9.3 g/dL 13.0-16.8 HEMATOCRIT (BEAKER) (test biop=714) 27.0 % 40.0-50.0 CALCIUM, [id number] 16:27:00 Test Item Value Reference Range Comments CALCIUM IONIZED (BEAKER) (test yfnk=625) 1.12 mmol/L 1.12-1.27 PH, BLOOD (BEAKER) (test flyn=8756) 7.37 BLOOD GAS, [id number] 15:11:00 Test Item Value Reference Range Comments PH ARTERIAL (BEAKER) (test ofab=991) 7.40 7.35-7.45 PCO2 ARTERIAL (BEAKER) (test xoar=521) 38 mmHg 35-45 PO2 ARTERIAL (BEAKER) (test fyfa=110) 293 mmHg 80-90 O2 SATURATION ARTERIAL (BEAKER) (test yfgb=091) 99.7 % 96.0-97.0 HCO3 ARTERIAL (BEAKER) (test rwdh=162) 23 mmol/L 21-29 BASE EXCESS ARTERIAL (BEAKER) (test towx=374) -1.3 mmol/L -2.0-3.0 PATIENT TEMPERATURE (BEAKER) (test qwjf=5621) 37.0 C POTASSIUM-STAT [id number] 15:11:00 Test Item Value Reference Range Comments POTASSIUM (BEAKER) (test zqim=803) 3.4 meq/L 3.6-5.5 HGB/HCT (H&H) - STAT [id number] 15:11:00 Test Item Value Reference Range Comments HEMOGLOBIN (BEAKER) (test zyjq=119) 7.9 g/dL 13.0-16.8 HEMATOCRIT (BEAKER) (test dogc=651) 23.0 % 40.0-50.0 CALCIUM, [id number] 15:11:00 Test Item Value Reference Range Comments CALCIUM IONIZED (BEAKER) (test adca=938) 0.98 mmol/L 1.12-1.27 PH, BLOOD (BEAKER) (test yhah=4396) 7.40 GLUCOSE-STAT [id number] 15:10:00 Test Item Value Reference Range Comments GLUCOSE RANDOM (CHAN) (test eqkb=255) 78 mg/dL 70-110 SODIUM NA-STAT [id number] 15:10:00 Test Item Value Reference Range Comments SODIUM (CHAN) (test zpkt=425) 137 meq/L 135-148 [place], DIRECTOR [employer] SALES IN OR/30 MINUTE [id number] 14:32:00Reason for exam:-> spine painFINAL REPORT Radiograph of the cervical spine Indication: spine pain Comparison: none Findings: A single lateral view of the cervical spine is obtained intraoperatively. A probeprojects over C3-4 facet. Results were discussed with Dr. Wakefield , who concurred with the above findings. Signed: Lubna Hendricks Verified Date/Time: 02/21/2018 14:32:06 Reading Location: [address] Consult Reading Room CT, SPINE, CERVICAL, WO [id number] 13:11:00FINAL REPORT CT cervical spine without contrast 02/03/2018 1:07 PM CLINICAL HISTORY: g95.9,m48.02 COMPARISON: None available TECHNIQUE: Axial noncontrast CT images of the cervical spine were obtained. Axially acquired data were reformatted in coronal and sagittal planes for further analysis. This examination was performed according to our departmental dose optimization program,which includes automated exposure control , adjustment of the mA and/or kV according to patient size,and/or use of iterated reconstruction technique. FINDINGS: There is no fracture or traumatic malalignment. There are no osteolytic or osteoblastic lesions. Spinal canal diameter is at the lower limit of normal. 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 Uncovertebral and facet joint arthropathy contribute to multifocal mild/moderate foraminal stenosis. The visualized soft tissue is without worrisome finding. IMPRESSION: 1. No fracture or traumatic malalignment. 2. 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 Signed: Jonathon Romero Verified Date/Time: 02/03/2018 13:11:13 Reading Location: [facility] Reading Room [id number] 12:44:00 Test Item Value Reference Range Comments PARTIAL THROMBOPLASTIN TIME (BEAKER) (test 33.2 seconds 22.5-36.0 hbjc=009) PROTHROMBIN TIME/[id number] 12:43:00 Test Item Value Reference Range Comments PROTIME (BEAKER) (test tppj=695) 13.3 seconds 11.7-14.7 INR (BEAKER) (test pswb=081) 1.0 <=5.9 RECOMMENDED COUMADIN/WARFARIN INR THERAPY RANGESSTANDARD DOSE: 2.0 - 3.0 Includes: PROPHYLAXIS forvenous thrombosis, systemic embolization; TREATMENT for venous thrombosis and/or pulmonary embolus.HIGH RISK: Target INR is 2.5-3.5 for patients with mechanical heart valves.BASIC METABOLIC [id number] 12:42: 00 Test Item Value Reference Range Comments SODIUM (BEAKER) (test 140 meq/L 136-145 fesh=200) POTASSIUM (BEAKER) (test 4.7 meq/L 3.5-5.1 fppo=166) CHLORIDE (BEAKER) (test 106 meq/L 98-107 krmr=023) CO2 (BEAKER) (test 31 meq/L 22-29 hmlj=307) BLOOD UREA NITROGEN 13 mg/dL 7-21 (BEAKER) (test horl=002) CREATININE (BEAKER) (test 0.75 mg/dL 0.57-1.25 umcf=949) GLUCOSE RANDOM (BEAKER) 98 mg/dL 70-105 (test sedd=899) CALCIUM (BEAKER) (test 9.3 mg/dL 8.4-10.2 eoel=954) EGFR (BEAKER) (test 99 mL/min/1.73 sq m ESTIMATED GFR IS NOT dstl=2630) ACCURATE CREATININE CLEARANCE IN PREDICTING GLOMERULAR FILTRATION RATE. ESTIMATED GFR IS NOT APPLICABLE FOR DIALYSIS PATIENTS. URINALYSIS W/ REFLEX URINE [id number] 12:40:00 Test Item Value Reference Range Comments COLOR (BEAKER) (test zyys=565) Yellow CLARITY (BEAKER) (test maru=687) Clear SPECIFIC GRAVITY UA (BEAKER) (test zqxz=605) 1.023 1.001-1.035 PH UA (BEAKER) (test seov=384) 5.5 5.0-8.0 PROTEIN UA (BEAKER) (test kosv=281) 20 mg/dL Negative GLUCOSE UA (BEAKER) (test zcgg=090) Negative Negative KETONES UA (BEAKER) (test ibjs=613) Negative Negative BILIRUBIN UA (BEAKER) (test mbci=957) Negative Negative BLOOD UA (BEAKER) (test yxos=058) Negative Negative NITRITE UA (BEAKER) (test rakr=943) Negative Negative LEUKOCYTE ESTERASE UA (BEAKER) (test rndy=400) Negative Negative UROBILINOGEN UA (BEAKER) (test cxdv=166) 0.2 mg/dL 0.2-1.0 RBC UA (BEAKER) (test kbcz=904) 0 /HPF WBC UA (BEAKER) (test cikm=297) 72 /HPF BACTERIA (BEAKER) (test cbxh=668) Rare MUCUS (BEAKER) (test vdvc=7607) Few SOURCE(BEAKER) (test mrca=8033) CBC W/PLT COUNT & AUTO [id number] 12:39:00 Test Item Value Reference Range Comments WHITE BLOOD CELL COUNT (BEAKER) (test dgbk=858) 9.0 K/ L 3.5-10.5 RED BLOOD CELL COUNT (BEAKER) (test zwlz=011) 3.51 M/ L 4.63-6.08 HEMOGLOBIN (BEAKER) (test zdzl=861) 9.9 GM/DL 13.7-17.5 HEMATOCRIT (BEAKER) (test htnu=100) 33.3 % 40.1-51.0 MEAN CORPUSCULAR VOLUME (BEAKER) (test kxmq=167) 94.9 fL 79.0-92.2 MEAN CORPUSCULAR HEMOGLOBIN (BEAKER) (test 28.2 pg 25.7-32.2 qobn=471) MEAN CORPUSCULAR HEMOGLOBIN CONC (BEAKER) (test 29.7 GM/DL 32.3-36.5 fmne=971) RED CELL DISTRIBUTION WIDTH (BEAKER) (test 24.6 % 11.6-14.4 zypq=595) PLATELET COUNT (BEAKER) (test irah=420) 277 K/CU MM 150-450 MEAN PLATELET VOLUME (BEAKER) (test lout=798) 10.8 fL 9.4-12.4 NUCLEATED RED BLOOD CELLS (BEAKER) (test 0 /100 WBC 0-0 nddv=045) NEUTROPHILS RELATIVE PERCENT (BEAKER) (test 63 % klql=771) LYMPHOCYTES RELATIVE PERCENT (BEAKER) (test 10 % ljhh=215) MONOCYTES RELATIVE PERCENT (BEAKER) (test 13 % hcwg=326) EOSINOPHILS RELATIVE PERCENT (BEAKER) (test 12 % jrlo=316) BASOPHILS RELATIVE PERCENT (BEAKER) (test 1 % fkpc=081) NEUTROPHILS ABSOLUTE COUNT (BEAKER) (test 5.70 K/ L 1.78-5.38 ofcy=999) LYMPHOCYTES ABSOLUTE COUNT (BEAKER) (test 0.89 K/ L 1.32-3.57 fmhb=719) MONOCYTES ABSOLUTE COUNT (BEAKER) (test 1.21 K/ L 0.30-0.82 nubk=284) EOSINOPHILS ABSOLUTE COUNT (BEAKER) (test 1.12 K/ L 0.04-0.54 omrt=726) BASOPHILS ABSOLUTE COUNT (BEAKER) (test 0.05 K/ L 0.01-0.08 sefv=396) IMMATURE GRANULOCYTES-RELATIVE PERCENT (BEAKER) 1 % 0-1 (test osnq=8950) PROTEIN ELECTROPHORESIS, [id number] 18:38:00 Test Item Value Reference Range Comments ALBUMIN FRACTION (BEAKER) 2.9 g/dL 3.5-5.5 (test azav=201) ALPHA 1 FRACTION (BEAKER) 0.2 g/dL 0.2-0.4 (test ehpr=681) ALPHA 2 FRACTION (BEAKER) 0.8 g/dL 0.5-0.9 (test ztth=538) BETA FRACTION (BEAKER) (test 0.8 g/dL 0.6-1.1 hhfe=565) GAMMA GLOBULIN FRACTION 0.7 g/dL 0.7-1.7 (BEAKER) (test uinv=750) INTERPRETATION-119 (BEAKER) Pattern suggestive of acute (test bdus=5449) inflammatory process. No monoclonal bands detected. [id number] Trish Rodas MD (BEAKER) (test leiv=6294) (electronic signature) PROTEIN TOTAL SERUM, SPEP 5.5 gm/dL 6.0-8.3 (BEAKER) (test sthe=6324) NEEDLE EMG, 2 [id number] 20:31:00Reason for exam:->Suspect polyneuropathy, sensory ataxia, falls.[facility] DepartmentELECTROMYOGRAPHY / NERVE CONDUCTION STUDY [address] [place] [address] Name: Germain Wilks : Date of : 1935 Gender: Male [...] and right lumbosacral radiculopathy.Temperature: RLE 28 C; RUDADA Adamson 30Standard temp: 32 CTemp correction: Latency 0.2 [...] mm Median.RWrist 4.1 ms 5.1 ms 9 𑾻V Digit II (index finger)-Wrist 4.1 ms 130 mm 32 m/sUlnar.RWrist NR NR NR Digit V (little finger)-Wrist 110 mm Median.RWrist (Median) 2.5 ms 3.5 ms 31 뾻V 80 mm Wrist (Ulnar) NRNR NR 80 mm Radial.RForearm 2.2 ms 2.8 ms 6 썒V Anatomical snuff box-Forearm 2.2 ms 100mm 36 m/sMedian.LWrist NR NR NR Digit II (index finger)- Wrist 130 mm Ulnar.LWrist 2.6 ms 3.2 ms 4 ꑜV Digit V (little finger) -Wrist 2.6 ms 110 mm 42 m/sRadial.LForearm 1.7 ms 2.4 ms 13 𕲮V Anatomical snuff box-Forearm 1.7 ms 100 mm [...] denervation. Sandra Quiñonez M.D. MR, SPINE, THORACIC, [id number] 07:17: 00FINAL REPORT MR thoracic spine with [...] stenoses as detailed above. Signed: Hiren Suarez [facility] Verified Date/Time: 10/27/2017 07: 17:46 Reading Location: [address] Neuro Reading Room BASIC METABOLIC [id number] 05:18:00 Test Item Value Reference Range Comments SODIUM (BEAKER) (test 139 meq/L 136-145 wtyd=588) POTASSIUM (BEAKER) (test 4.2 meq/L 3.5-5.1 ofnw=682) CHLORIDE (BEAKER) (test 107 meq/L 98-107 oakp=137) CO2 (BEAKER) (test 25 meq/L 22-29 vmov=027) BLOOD UREA NITROGEN 13 mg/dL 7-21 (BEAKER) (test wvae=423) CREATININE (BEAKER) (test 0.80 mg/dL 0.57-1.25 swbv=629) GLUCOSE RANDOM (BEAKER) 92 mg/dL 70-105 (test qpru=645) CALCIUM (BEAKER) (test 9.0 mg/dL 8.4-10.2 unuy=177) EGFR (BEAKER) (test mL/min/1.73 sq m INSUFFICIENT CLINICAL DATA uxtv=8914) TO CALCULATE ESTIMATED GFR. [id number] 05:16:00 Test Item Value Reference Range Comments MAGNESIUM (BEAKER) (test qrgj=294) 2.1 mg/dL 1.6-2.6 CBC W/PLT COUNT & AUTO [id number] 05:01:00 Test Item Value Reference Range Comments WHITE BLOOD CELL COUNT (BEAKER) (test mfxn=905) 5.4 K/ L 3.5-10.5 RED BLOOD CELL COUNT (BEAKER) (test dmdx=805) 3.16 M/ L 4.63-6.08 HEMOGLOBIN (BEAKER) (test wfxl=179) 9.0 GM/DL 13.7-17.5 HEMATOCRIT (BEAKER) (test orrq=510) 29.2 % 40.1-51.0 MEAN CORPUSCULAR VOLUME (BEAKER) (test sxpz=531) 92.4 fL 79.0-92.2 MEAN CORPUSCULAR HEMOGLOBIN (BEAKER) (test 28.5 pg 25.7-32.2 adaz=645) MEAN CORPUSCULAR HEMOGLOBIN CONC (BEAKER) (test 30.8 GM/DL 32.3-36.5 cndq=741) RED CELL DISTRIBUTION WIDTH (BEAKER) (test 17.7 % 11.6-14.4 tsjr=351) PLATELET COUNT (BEAKER) (test hbax=513) 242 K/CU MM 150-450 MEAN PLATELET VOLUME (BEAKER) (test ztmp=262) 10.7 fL 9.4-12.4 NUCLEATED RED BLOOD CELLS (BEAKER) (test 0 /100 WBC 0-0 qeyw=020) NEUTROPHILS RELATIVE PERCENT (BEAKER) (test 51 % egsi=427) LYMPHOCYTES RELATIVE PERCENT (BEAKER) (test 15 % mijd=766) MONOCYTES RELATIVE PERCENT (BEAKER) (test 17 % rahm=650) EOSINOPHILS RELATIVE PERCENT (BEAKER) (test 15 % gidg=937) BASOPHILS RELATIVE PERCENT (BEAKER) (test 1 % fjqe=998) NEUTROPHILS ABSOLUTE COUNT (BEAKER) (test 2.79 K/ L 1.78-5.38 xywk=444) LYMPHOCYTES ABSOLUTE COUNT (BEAKER) (test 0.82 K/ L 1.32-3.57 jkzp=308) MONOCYTES ABSOLUTE COUNT (BEAKER) (test 0.93 K/ L 0.30-0.82 omss=302) EOSINOPHILS ABSOLUTE COUNT (BEAKER) (test 0.82 K/ L 0.04-0.54 llzq=292) BASOPHILS ABSOLUTE COUNT (BEAKER) (test 0.05 K/ L 0.01-0.08 sazi=416) IMMATURE GRANULOCYTES-RELATIVE PERCENT (BEAKER) 0 % 0-1 (test favh=5241) MR, SPINE, CERVICAL, [id number] 07:53:00FINAL REPORT MR cervical spine with and [...] MDReport Verified Date/Time: 10/26/2017 07:53:00 Reading Location: [address] Neuro Reading Room , SPINE, LUMBAR, [id number] 07:52:00FINAL REPORT MR Lumbar spine with and [...] Suarez MDReport Verified Date/Time: 10/26/201707:52:13 Reading Location: [address] Neuro Reading Room BASIC METABOLIC [id number] 06:20:00 Test Item Value Reference Range Comments SODIUM (BEAKER) (test 139 meq/L 136-145 fako=927) POTASSIUM (BEAKER) (test 4.3 meq/L 3.5-5.1 Specimen slightly lnec=426) hemolyzed CHLORIDE (BEAKER) (test 109 meq/L 98-107 pvfw=899) CO2 (BEAKER) (test 24 meq/L 22-29 scth=981) BLOOD UREA NITROGEN 15 mg/dL 7-21 (BEAKER) (test ryde=897) CREATININE (BEAKER) (test 0.78 mg/dL 0.57-1.25 Specimen slightly aeei=694) hemolyzed GLUCOSE RANDOM (BEAKER) 86 mg/dL 70-105 (test gmnl=088) CALCIUM (BEAKER) (test 8.6 mg/dL 8.4-10.2 orwl=080) EGFR (BEAKER) (test mL/min/1.73 sq m INSUFFICIENT CLINICAL DATA lvas=7281) TO CALCULATE ESTIMATED GFR. [id number] 06:14:00 Test Item Value Reference Range Comments MAGNESIUM (BEAKER) (test 2.3 mg/dL 1.6-2.6 Specimen slightly hemolyzed txpk=218) CBC W/PLT COUNT & AUTO [id number] 05:27:00 Test Item Value Reference Range Comments WHITE BLOOD CELL COUNT (BEAKER) (test pqeb=694) 5.1 K/ L 3.5-10.5 RED BLOOD CELL COUNT (BEAKER) (test tlgp=158) 3.13 M/ L 4.63-6.08 HEMOGLOBIN (BEAKER) (test jgog=480) 8.9 GM/DL 13.7-17.5 HEMATOCRIT (BEAKER) (test aiff=183) 28.8 % 40.1-51.0 MEAN CORPUSCULAR VOLUME (BEAKER) (test qxqq=639) 92.0 fL 79.0-92.2 MEAN CORPUSCULAR HEMOGLOBIN (BEAKER) (test 28.4 pg 25.7-32.2 thmh=007) MEAN CORPUSCULAR HEMOGLOBIN CONC (BEAKER) (test 30.9 GM/DL 32.3-36.5 dxnz=165) RED CELL DISTRIBUTION WIDTH (BEAKER) (test 17.8 % 11.6-14.4 zayr=866) PLATELET COUNT (BEAKER) (test aqvu=803) 258 K/CU MM 150-450 MEAN PLATELET VOLUME (BEAKER) (test yrrw=167) 10.6 fL 9.4-12.4 NUCLEATED RED BLOOD CELLS (BEAKER) (test 0 /100 WBC 0-0 uwsw=367) NEUTROPHILS RELATIVE PERCENT (BEAKER) (test 49 % uarx=476) LYMPHOCYTES RELATIVE PERCENT (BEAKER) (test 15 % zigo=579) MONOCYTES RELATIVE PERCENT (BEAKER) (test 19 % mqsj=773) EOSINOPHILS RELATIVE PERCENT (BEAKER) (test 16 % ksra=986) BASOPHILS RELATIVE PERCENT (BEAKER) (test 1 % tffn=592) NEUTROPHILS ABSOLUTE COUNT (BEAKER) (test 2.50 K/ L 1.78-5.38 uaxi=002) LYMPHOCYTES ABSOLUTE COUNT (BEAKER) (test 0.77 K/ L 1.32-3.57 corz=617) MONOCYTES ABSOLUTE COUNT (BEAKER) (test 0.98 K/ L 0.30-0.82 pzzc=942) EOSINOPHILS ABSOLUTE COUNT (BEAKER) (test 0.79 K/ L 0.04-0.54 ybbq=484) BASOPHILS ABSOLUTE COUNT (BEAKER) (test 0.04 K/ L 0.01-0.08 pygr=083) IMMATURE GRANULOCYTES-RELATIVE PERCENT (BEAKER) 1 % 0-1 (test nrzw=2963) HEMOGLOBIN [id number] 14:31:00 Test Item Value Reference Range Comments HEMOGLOBIN A1C (BEAKER) (test pexa=900) 5.7 % 4.3-6.1 URINE [id number] 10:53:00 Test Item Value Reference Range Comments CULTURE (BEAKER) (test KLEBSIELLA PNEUMONIAE >100,000 col/mL mjui=9904) Klebsiella pneumoniae Amikacin (test code=1) Ampicillin + Sulbactam (test code=6) Aztreonam (test code=32) Cefepime (test code=51) Cefoxitin (test code=68) Ceftazidime (test code=27) Ceftriaxone (test code=52) Ertapenem (test code=38) Gentamicin (test code=18) Levofloxacin (test code=22) Meropenem (test code=34) Nitrofurantoin (test code=23) Piperacillin + Tazobactam (test code=29) Tetracycline (test code=2) Tobramycin (test code=25) Trimethoprim + Sulfamethoxazole (test code=47) <10,000 col/mL Gram Negative Sid of second [id number] 06:07:00 Test Item Value Reference Range Comments PHOSPHORUS (BEAKER) (test fxiu=924) 3.2 mg/dL 2.3-4.7 [id number] 06:07:00 Test Item Value Reference Range Comments MAGNESIUM (BEAKER) (test dmea=350) 2.1 mg/dL 1.6-2.6 LIPID [id number] 06:07:00 Test Item Value Reference Range Comments TRIGLYCERIDES (BEAKER) (test gwzo=701) 61 mg/dL CHOLESTEROL (BEAKER) (test fuek=202) 119 mg/dL HDL CHOLESTEROL (ADRIANNEAKER) (test jded=450) 36 mg/dL LDL CHOLESTEROL CALCULATED (BEAKER) (test 71 mg/dL xrxy=735) Triglyceride Reference Range: Low Risk <150 Borderline 150- 199 High Risk 200-499 Very High Risk >=500Cholesterol Reference Range: Low Risk <200 Borderline 200-239 High Risk > 240HDL Cholesterol Reference Range: Low Risk >=60 High Risk <40LDL Cholesterol Reference Range: Optimal <100 Near Optimal 100-129 Borderline 130-159 High 160-189 Very High >=190EEG AWAKE AND [id number] 16:35:00Reason for exam:-> syncopeNeurophysiology Electroencephalogram Report DATE OF REPORT: DATE \\@ "M /d/yy" 10/24/17 Date(s) of Study: 10/24/2017 ACC: [id number] Start time : 1545 hrs Stop time: 1606 hrs ICD-10: R55 Syncope and Collapse CPT Code: 70258 EEG: awake and drowsy <40 min HISTORY: [...] EEG recordings. Haydee Garcia MD Epilepsy Fellow [facility] Neurophysiology Service Robert Ferreira M.D. , FACNS, FAAN, FAES Professor of Neurology, [facility] [employer] Director , [facility] Epilepsy [place], [facility]iology [facility] METABOLIC [id number] 05:04:00 Test Item Value Reference Range Comments SODIUM (BEAKER) (test 141 meq/L 136-145 haft=429) POTASSIUM (BEAKER) (test 4.1 meq/L 3.5-5.1 ofhk=893) CHLORIDE (BEAKER) (test 110 meq/L 98-107 vozi=152) CO2 (BEAKER) (test 25 meq/L 22-29 juie=796) BLOOD UREA NITROGEN 13 mg/dL 7-21 (BEAKER) (test anuf=983) CREATININE (BEAKER) (test 0.77 mg/dL 0.57-1.25 dbjc=675) GLUCOSE RANDOM (BEAKER) 86 mg/dL 70-105 (test tstj=291) CALCIUM (BEAKER) (test 8.8 mg/dL 8.4-10.2 mfez=225) EGFR (BEAKER) (test mL/min/1.73 sq m INSUFFICIENT CLINICAL DATA khwh=6975) TO CALCULATE ESTIMATED GFR. [id number] 05:01:00 Test Item Value Reference Range Comments PHOSPHORUS (BEAKER) (test imzk=546) 2.9 mg/dL 2.3-4.7 [id number] 05:01:00 Test Item Value Reference Range Comments MAGNESIUM (BEAKER) (test tpqo=079) 2.2 mg/dL 1.6-2.6 LIPID [id number] 05:01:00 Test Item Value Reference Range Comments TRIGLYCERIDES (BEAKER) (test kqpq=714) 70 mg/dL CHOLESTEROL (BEAKER) (test ciiz=529) 120 mg/dL HDL CHOLESTEROL (BEAKER) (test tzzs=308) 35 mg/dL LDL CHOLESTEROL CALCULATED (BEAKER) (test 71 mg/dL lami=161) Triglyceride Reference Range: Low Risk <150 Borderline 150- 199 High Risk 200-499 Very High Risk >=500Cholesterol Reference Range: Low Risk <200 Borderline 200-239 High Risk > 240HDL Cholesterol Reference Range: Low Risk >=60 High Risk <40LDL Cholesterol Reference Range: Optimal <100 Near Optimal 100-129 Borderline 130-159 High 160-189 Very High >=190CBC W/PLT COUNT & AUTO [id number] 04:32:00 Test Item Value Reference Range Comments WHITE BLOOD CELL COUNT (BEAKER) (test glce=707) 5.3 K/ L 3.5-10.5 RED BLOOD CELL COUNT (BEAKER) (test rfwp=068) 3.22 M/ L 4.63-6.08 HEMOGLOBIN (BEAKER) (test dfjm=516) 9.1 GM/DL 13.7-17.5 HEMATOCRIT (BEAKER) (test ngeu=193) 29.6 % 40.1-51.0 MEAN CORPUSCULAR VOLUME (BEAKER) (test rilc=427) 91.9 fL 79.0-92.2 MEAN CORPUSCULAR HEMOGLOBIN (BEAKER) (test 28.3 pg 25.7-32.2 uubo=789) MEAN CORPUSCULAR HEMOGLOBIN CONC (BEAKER) (test 30.7 GM/DL 32.3-36.5 vqzj=179) RED CELL DISTRIBUTION WIDTH (BEAKER) (test 17.4 % 11.6-14.4 htso=617) PLATELET COUNT (BEAKER) (test wyes=800) 250 K/CU MM 150-450 MEAN PLATELET VOLUME (BEAKER) (test wmgl=290) 10.6 fL 9.4-12.4 NUCLEATED RED BLOOD CELLS (BEAKER) (test 0 /100 WBC 0-0 kceo=514) NEUTROPHILS RELATIVE PERCENT (BEAKER) (test 53 % cufq=574) LYMPHOCYTES RELATIVE PERCENT (BEAKER) (test 16 % hezl=681) MONOCYTES RELATIVE PERCENT (BEAKER) (test 16 % awob=407) EOSINOPHILS RELATIVE PERCENT (BEAKER) (test 14 % fner=267) BASOPHILS RELATIVE PERCENT (BEAKER) (test 1 % rups=616) NEUTROPHILS ABSOLUTE COUNT (BEAKER) (test 2.80 K/ L 1.78-5.38 rfjx=162) LYMPHOCYTES ABSOLUTE COUNT (BEAKER) (test 0.84 K/ L 1.32-3.57 boww=437) MONOCYTES ABSOLUTE COUNT (BEAKER) (test 0.82 K/ L 0.30-0.82 wiwp=997) EOSINOPHILS ABSOLUTE COUNT (BEAKER) (test 0.75 K/ L 0.04-0.54 pava=228) BASOPHILS ABSOLUTE COUNT (BEAKER) (test 0.05 K/ L 0.01-0.08 xyqp=344) IMMATURE GRANULOCYTES-RELATIVE PERCENT (BEAKER) 0 % 0-1 (test winc=4511) MR, MRA, NECK, [id number] 16:44:00FINAL REPORT MRA arch, great vessels, neck, and head with and without contrast Comparison: None Reason for exam: Stroke Discussion: 2 D and 3-D pmhw-ij-ihkmcj and contrast-enhanced MRA of the arch, great [...] Hayes Verified Date/Time: 10/23/2017 16:44:06 Reading Location: [address] Neuro Reading Room MR, MRA, BRAIN, [id number] 16:44:00FINAL REPORT MRA arch, great vessels, neck, and head with and without contrast Comparison: None Reason for exam: Stroke Discussion: 2 D and 3-D wyod-ue-ofakzo and contrast-enhanced MRA of the arch, great vessels, and neck, and 3-D ogbe-jn-[id number] MRA head was provided withmaximal intensity projection [...] spine MRI and/or CT. Signed: Agustina Hayes MDReport Verified Date/Time: 10/23/2017 16:44:06 Reading Location: [address] Neuro Reading Room [id number] 05:18:00 Test Item Value Reference Range Comments RPR SCREEN (BEAKER) (test okdl=375) Nonreactive Nonreactive BASIC METABOLIC [id number] 05:05:00 Test Item Value Reference Range Comments SODIUM (BEAKER) (test 141 meq/L 136-145 inwp=367) POTASSIUM (BEAKER) (test 4.0 meq/L 3.5-5.1 ahda=022) CHLORIDE (BEAKER) (test 110 meq/L 98-107 kkmb=689) CO2 (BEAKER) (test 25 meq/L 22-29 bcrh=783) BLOOD UREA NITROGEN 12 mg/dL 7-21 (BEAKER) (test dapc=923) CREATININE (BEAKER) (test 0.78 mg/dL 0.57-1.25 lmkv=110) GLUCOSE RANDOM (BEAKER) 89 mg/dL 70-105 (test ildo=755) CALCIUM (BEAKER) (test 8.6 mg/dL 8.4-10.2 zifk=327) EGFR (BEAKER) (test mL/min/1.73 sq m INSUFFICIENT CLINICAL DATA dqil=5158) TO CALCULATE ESTIMATED GFR. [id number] 04:58:00 Test Item Value Reference Range Comments PHOSPHORUS (BEAKER) (test zaja=006) 2.9 mg/dL 2.3-4.7 [id number] 04:58:00 Test Item Value Reference Range Comments MAGNESIUM (BEAKER) (test mjyr=639) 2.0 mg/dL 1.6-2.6 LIPID [id number] 04:58:00 Test Item Value Reference Range Comments TRIGLYCERIDES (BEAKER) (test jzmb=298) 69 mg/dL CHOLESTEROL (BEAKER) (test yukr=571) 108 mg/dL HDL CHOLESTEROL (BEAKER) (test otdg=845) 34 mg/dL LDL CHOLESTEROL CALCULATED (BEAKER) (test 60 mg/dL tvrc=309) Triglyceride Reference Range: Low Risk <150 Borderline 150- 199 High Risk 200-499 Very High Risk >=500Cholesterol Reference Range: Low Risk <200 Borderline 200-239 High Risk > 240HDL Cholesterol Reference Range: Low Risk >=60 High Risk <40LDL Cholesterol Reference Range: Optimal <100 Near Optimal 100-129 Borderline 130-159 High 160-189 Very High >=190CBC W/PLT COUNT & AUTO [id number] 04:46:00 Test Item Value Reference Range Comments WHITE BLOOD CELL COUNT (BEAKER) (test hbwu=154) 5.6 K/ L 3.5-10.5 RED BLOOD CELL COUNT (BEAKER) (test jkvq=040) 3.19 M/ L 4.63-6.08 HEMOGLOBIN (BEAKER) (test umlx=955) 9.1 GM/DL 13.7-17.5 HEMATOCRIT (BEAKER) (test iydb=305) 29.4 % 40.1-51.0 MEAN CORPUSCULAR VOLUME (BEAKER) (test hxvi=298) 92.2 fL 79.0-92.2 MEAN CORPUSCULAR HEMOGLOBIN (BEAKER) (test 28.5 pg 25.7-32.2 rhap=791) MEAN CORPUSCULAR HEMOGLOBIN CONC (BEAKER) (test 31.0 GM/DL 32.3-36.5 ovpo=953) RED CELL DISTRIBUTION WIDTH (BEAKER) (test 17.2 % 11.6-14.4 mxbx=977) PLATELET COUNT (BEAKER) (test cqhn=664) 253 K/CU MM 150-450 MEAN PLATELET VOLUME (BEAKER) (test bbdj=431) 10.4 fL 9.4-12.4 NUCLEATED RED BLOOD CELLS (BEAKER) (test 0 /100 WBC 0-0 kwhr=105) NEUTROPHILS RELATIVE PERCENT (BEAKER) (test 53 % bfpk=446) LYMPHOCYTES RELATIVE PERCENT (BEAKER) (test 16 % wgoy=777) MONOCYTES RELATIVE PERCENT (BEAKER) (test 15 % uaar=273) EOSINOPHILS RELATIVE PERCENT (BEAKER) (test 14 % arci=658) BASOPHILS RELATIVE PERCENT (BEAKER) (test 1 % vwxf=359) NEUTROPHILS ABSOLUTE COUNT (BEAKER) (test 2.95 K/ L 1.78-5.38 gtue=411) LYMPHOCYTES ABSOLUTE COUNT (BEAKER) (test 0.90 K/ L 1.32-3.57 wovb=864) MONOCYTES ABSOLUTE COUNT (BEAKER) (test 0.86 K/ L 0.30-0.82 tcqt=959) EOSINOPHILS ABSOLUTE COUNT (BEAKER) (test 0.80 K/ L 0.04-0.54 opxu=663) BASOPHILS ABSOLUTE COUNT (BEAKER) (test 0.05 K/ L 0.01-0.08 apoo=779) IMMATURE GRANULOCYTES-RELATIVE PERCENT (BEAKER) 0 % 0-1 (test vxzg=5492) TROPONIN [id number] 23:34:00 Test Item Value Reference Range Comments TROPONIN I (BEAKER) (test bgja=314) < ng/mL 0.00-0.03 Troponin I (TnI) levels [...] neurological disease, and persistent tachyarrhythmia.VITAMIN B12 AND [id number] 18:43: 00 Test Item Value Reference Range Comments VITAMIN B12 (BEAKER) (test eefr=506) 539 pg/mL 213-816 FOLATE (BEAKER) (test srbm=016) 35.7 ng/mL >=7.0 VITAMIN D, [id number] 18:35:00 Test Item Value Reference Range Comments VITAMIN D 25-OH (BEAKER) (test mktf=0891) 41.7 ng/mL 6.6-49.9 Effective 11/17/2016: Reference Range ChangeNew: 6.6-49.9 ng/mL Previous: 13.0 -47.8 ng/mLRecommended Vitamin D Target Range: 30.0-40.0 ng/mLCALCIUM, [id number] 17:55:00 Test Item Value Reference Range Comments CALCIUM IONIZED (BEAKER) (test ovcq=988) 1.09 mmol/L 1.12-1.27 PH, BLOOD (BEAKER) (test yluf=2213) 7.40 TSH/FREE T4 IF [id number] 17:34:00 Test Item Value Reference Range Comments THYROID STIMULATING HORMONE (BEAKER) (test 1.29 uIU/mL 0.35-4.94 ydxo=602) TROPONIN [id number] 17:22:00 Test Item Value Reference Range Comments TROPONIN I (BEAKER) (test nnqh=389) < ng/mL 0.00-0.03 Troponin I (TnI) levels [...] Value Reference Range Comments IRON (BEAKER) (test lzkq=048) 36 ug/dL 40-160 TOTAL IRON BINDING CAPACITY (BEAKER) (test 348 ug/dL 250-450 mjvw=633) IRON % SATURATION (2) (BEAKER) (test cgtv=6052) 10 % 20-55 BASIC METABOLIC [id number] 17:14:00 Test Item Value Reference Range Comments SODIUM (BEAKER) (test 139 meq/L 136-145 tiee=533) POTASSIUM (BEAKER) (test 4.1 meq/L 3.5-5.1 fwfq=464) CHLORIDE (BEAKER) (test 108 meq/L 98-107 eqfq=842) CO2 (BEAKER) (test 25 meq/L 22-29 doak=477) BLOOD UREA NITROGEN 13 mg/dL 7-21 (BEAKER) (test ktpe=501) CREATININE (BEAKER) (test 0.73 mg/dL 0.57-1.25 wuir=074) GLUCOSE RANDOM (BEAKER) 91 mg/dL 70-105 (test vtrw=502) CALCIUM (BEAKER) (test 8.8 mg/dL 8.4-10.2 uqtf=982) EGFR (BEAKER) (test mL/min/1.73 sq m INSUFFICIENT CLINICAL DATA myok=1966) TO CALCULATE ESTIMATED GFR. CBC W/PLT COUNT & AUTO [id number] 17:00:00 Test Item Value Reference Range Comments WHITE BLOOD CELL COUNT (BEAKER) (test xotw=531) 6.4 K/ L 3.5-10.5 RED BLOOD CELL COUNT (BEAKER) (test ldxo=434) 3.14 M/ L 4.63-6.08 HEMOGLOBIN (BEAKER) (test vrek=723) 9.0 GM/DL 13.7-17.5 HEMATOCRIT (BEAKER) (test ccio=603) 29.3 % 40.1-51.0 MEAN CORPUSCULAR VOLUME (BEAKER) (test rkav=934) 93.3 fL 79.0-92.2 MEAN CORPUSCULAR HEMOGLOBIN (BEAKER) (test 28.7 pg 25.7-32.2 rkdy=784) MEAN CORPUSCULAR HEMOGLOBIN CONC (BEAKER) (test 30.7 GM/DL 32.3-36.5 ymvy=114) RED CELL DISTRIBUTION WIDTH (BEAKER) (test 17.2 % 11.6-14.4 kxho=397) PLATELET COUNT (BEAKER) (test qlex=121) 232 K/CU MM 150-450 MEAN PLATELET VOLUME (BEAKER) (test upwj=338) 10.6 fL 9.4-12.4 NUCLEATED RED BLOOD CELLS (BEAKER) (test 0 /100 WBC 0-0 fory=814) NEUTROPHILS RELATIVE PERCENT (BEAKER) (test 62 % rwxd=438) LYMPHOCYTES RELATIVE PERCENT (BEAKER) (test 14 % zgce=626) MONOCYTES RELATIVE PERCENT (BEAKER) (test 12 % gswa=250) EOSINOPHILS RELATIVE PERCENT (BEAKER) (test 11 % jogk=718) BASOPHILS RELATIVE PERCENT (BEAKER) (test 1 % lxsj=283) NEUTROPHILS ABSOLUTE COUNT (BEAKER) (test 4.02 K/ L 1.78-5.38 wmud=629) LYMPHOCYTES ABSOLUTE COUNT (BEAKER) (test 0.87 K/ L 1.32-3.57 aqdi=343) MONOCYTES ABSOLUTE COUNT (BEAKER) (test 0.78 K/ L 0.30-0.82 djor=715) EOSINOPHILS ABSOLUTE COUNT (BEAKER) (test 0.70 K/ L 0.04-0.54 flen=732) BASOPHILS ABSOLUTE COUNT (BEAKER) (test 0.05 K/ L 0.01-0.08 sbxb=358) IMMATURE GRANULOCYTES-RELATIVE PERCENT (BEAKER) 0 % 0-1 (test ygso=8874)
[2018-02-24] MEDS ORDERED: MECLIZINE HCL 12.5 MG TAB PO PRN (18:47)
[2018-02-24] MEDS: DOCUSATE NA 100 MG CAP PO SCH (20:00)
[2018-02-24] MEDS: HYDROXYCHLOROQUINE 200MG TAB PO SCH (20:00)
[2018-02-24] MEDS ORDERED: ATORVASTATIN 10 MG TAB PO SCH (21:00)
[2018-02-24] MEDS: FOLIC ACID 1 MG TABLET PO SCH (22:27)
[2018-02-24] MEDS: GABAPENTIN 300 MG CAP PO SCH (22:28)
[2018-02-24] MEDS: ATORVASTATIN 20 MG TAB PO SCH (22:28)
[2018-02-24 22:53] LABS: Urine Appearance CLEAR; Urine Bilirubin NEGATIVE (NEG); Urine Blood NEGATIVE (NEG); Urine Color YELLOW; Urine Glucose NEGATIVE (NEG); Urine Protein 1+ (NEG); Urine Specific Gravity 1.025 (1.005-1.030); Urine Urobilinogen 0.2 mg/dL (0.2-1.0)
[2018-02-25 00:14] LABS: Urine Bacteria <20 /HPF (NONE SEEN); Urine Culture Reflex Order NOT NEEDED; Urine Mucus HEAVY /HPF (NONE SEEN); Urine RBC <5 /HPF (NONE SEEN)
[2018-02-25] MEDS: PANTOPRAZOLE 40MG TABLET PO SCH (06:28)
[2018-02-25] MEDS: LEVOTHYROXINE SOD 0.125 MG TAB PO SCH (06:28)
[2018-02-25 07:05] LABS: Absolute Lymphocytes (CBC) 0.9 K/uL (0.7-4.9); Absolute Monocytes 1.5 K/uL (0.1-1.3); Absolute Neutrophil 5.5 K/uL (1.8-8.0); Basophils % 0.7 % (0-1.3); Eosinophils % 7.3 % (0-4.4); Hematocrit 28.5 % (39.6-49.0); Monocytes % 17.2 % (3.3-12.3); RBC Red Blood Cell Count 3.13 M/uL (4.33-5.43)
[2018-02-25] MEDS ORDERED: DOCOSAHEXANOIC AC/EPA 1000 MG PO SCH (08:00)
[2018-02-25] MEDS ORDERED: methylPREDNISolone 4 MG TAB PO SCH (08:00)
[2018-02-25 08:07] LABS: Anisocytosis 2+; Blood Morphology Comment NOTED (NOT SEEN); Platelet Estimate ADEQ; Urine White Blood Cell Casts OK
[2018-02-25] MEDS: DOCUSATE NA 100 MG CAP PO SCH ×2 (08:29→20:21)
[2018-02-25] MEDS: TRAMADOL HCL 50 MG TAB PO PRN (08:29)
[2018-02-25] MEDS: AMLODIPINE 5 MG TAB PO SCH (08:29)
[2018-02-25] MEDS: LOSARTAN POTASSIUM 50 MG TABLET PO SCH (08:30)
[2018-02-25] MEDS: FOLIC ACID 1 MG TABLET PO SCH ×2 (08:30→20:21)
[2018-02-25] MEDS: GABAPENTIN 300 MG CAP PO SCH ×3 (08:30→20:21)
[2018-02-25 08:36] LABS: Albumin 2.2 g/dL (3.4-5.0); BUN Blood Urea Nitrogen 12 mg/dL (7-18); Bicarbonate 26 mmol/L (21-32); Glucose Level 93 mg/dL (74-106); Magnesium 2.4 mg/dL (1.8-2.4); Potassium 4.3 mmol/L (3.5-5.1); Prealbumin 7.6 mg/dL (20-40); Sodium Level 138 mmol/L (136-145)
[2018-02-25] MEDS: HYDROXYCHLOROQUINE 200MG TAB PO SCH (11:04)
[2018-02-25] MEDS: DOCOSAHEXANOIC AC/EPA 1000 MG PO SCH (11:04)
--- NOTE | 2018-02-25 12:49 | FAST ---
ENCOUNTER DATE AND TIME: 02/25/2018 08:00 ([employer] [employer] [facility]) NAME RONNI GERARD DATE OF : 1935 DATE OF ADMISSION: 02/25/2018 18:03 ([facility] [employer] [facility]) PHONE: AGE: 83 SSN# [id number] GENDER: Male ENCOUNTER PHYSICIAN: Dr. Parish Gates M.D. 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 concussion and edema of cervical spinal cord, sequela. cervical myelopathy. degenerative cervical spinal stenosis. lumbar stenosis with neurogenic claudication. EATING: EATING - STEP 1: Does the patient require the assistance of a person or device, or need extra time when eating? Yes. EATING - STEP 2: Does the patient require the assistance of a helper? Yes. EATING - STEP 3: Does the patient perform half or more of the eating tasks? Yes. EATING - STEP 4: Does the patient need only supervision, cuing, coaxing OR help to apply an orthosis OR help to cut fo od, open containers, pour liquids, or butter bread? Yes. EATING - SCORE: 5-SUP GROOMING: GROOMING - STEP 1: Does the patient require the assistance of a person or device, or need extra time when grooming? Yes. GROOMING - STEP 2: Does the patient require the assistance of a helper? Yes. GROOMING - STEP 3: How much assistance does the patient require from the helper? Only prior equipment preparation/set up from the helper GROOMING - SCORE: 5-SUP BATHING: Abdomen Buttocks Chest Left arm Left lower leg and foot Left upper leg Perineal area Right arm Right lower leg and foot Right upper leg BATHING - STEP 1: Does the patient require the assistance of a person or device, or need extra time when bathing? Yes. BATHING - STEP 2: Does the patient require the assistance of a helper? Yes. BATHING - STEP 3: How much assistance does the patient require from the helper? More than just incidental help BATHING - STEP 4: What percent of the body parts did the patient bathe WITHOUT the helper? Half or more of the body par ts BATHING - SCORE: 3-MOD DRESSING - UPPER BODY: T-shirt/pullover shirt (four steps) ARTICLES SCORE Total number of steps: 4 DRESSING - UPPER BODY - STEP 1: Does the patient require help from a person or device, or need extra time when dressing above the [address]? Yes. DRESSING - UPPER BODY - STEP 2: Does the patient require the assistance of a helper? Yes. DRESSING - UPPER BODY - STEP 3: Does the helper touch the patient while dressing? Yes. DRESSING - UPPER BODY - STEP 4: How many of the total steps does the patient complete on his/her own? 3 DRESSING - UPPER BODY - SCORE: 4-MIN DRESSING - LOWER BODY: Slip-on shoe - Left foot (one step) Slip-on shoe - Right foot (one step) Sock - Left foot (one step) Sock - Right foot (one step) Zippered pants (four steps) ARTICLES SCORE Total number of steps: 8 DRESSING - LOWER BODY - STEP 1: Does the patient require help from a person or device, or need extra time when dressing below the [address]? Yes. DRESSING - LOWER BODY - STEP 2: Does the patient require the assistance of a helper? Yes. DRESSING - LOWER BODY - STEP 3: Does the helper touch the patient while dressing? Yes. DRESSING - LOWER BODY - STEP 4: How many of the total steps does the patient complete on his/her own? 4 DRESSING - LOWER BODY - SCORE: 3-MOD TOILETING: TOILETING - STEP 1: Does the patient require the assistance of a person or device, or need extra time with toileting? Yes . TOILETING - STEP 2: Does the patient require the assistance of a helper? Yes. TOILETING - STEP 3: How much assistance does the patient require from the helper? Hands-on assistance from the helper TOILETING - STEP 4: Of the 3 tasks: 1) Adjusting clothing prior to use, 2) Cleansing of perineal area, 3) Adjusting clot cooper after use; How many tasks does the patient perform WITHOUT assistance of the helper? Three tasks with steadying assistance from the helper TOILETING - SCORE: 4-MIN BLADDER MANAGEMENT: Activity did not occur on this shift BLADDER MANAGEMENT - SCORE: 7-IND BOWEL MANAGEMENT: Activity did not occur on this shift BOWEL MANAGEMENT - SCORE: 7-IND TRANSFERS: BED, CHAIR, WHEELCHAIR: TRANSFERS: BED, CHAIR, WHEELCHAIR - STEP 1: Does the patient require assistance of a person or device, or need extra time with bed, chair, or whe elchair transfers? Yes. TRANSFERS: BED, CHAIR, WHEELCHAIR - STEP 2: Does the patient require the assistance of a helper? Yes. TRANSFERS: BED, CHAIR, WHEELCHAIR - STEP 3: How much assistance does the patient require from the helper? Steadying/guiding assistance TRANSFERS: BED, CHAIR, WHEELCHAIR - SCORE: 4-MIN TRANSFERS: TOILET: TRANSFERS: TOILET - STEP 1: Does the patient require the assistance of a person or device, or need extra time with toilet transfe rs? Yes. TRANSFERS: TOILET - STEP 2: Does the patient require the assistance of a helper? Yes. TRANSFERS: TOILET - STEP 3: How much assistance does the patient require from the helper? Patient performs half or more of the tr ansferring tasks TRANSFERS: TOILET - STEP 4: Does the patient need only incidental help such as contact guard or steadying during toilet transfer? Yes. TRANSFERS: TOILET - SCORE: 4-MIN TRANSFERS: SHOWER: Activity did not occur on this shift TRANSFERS: SHOWER - SCORE: 0-UNK TRANSFERS: TUB: TRANSFERS: TUB - STEP 1: Does the patient require the assistance of a person or device, or need extra time with tub transfers? Yes. TRANSFERS: TUB - STEP 2: Does the patient require the assistance of a helper? Yes. TRANSFERS: TUB - STEP 3: How much assistance does the patient require from the helper? Incidental help such as contact guardin g or steadying, OR help to lift one leg into the tub TRANSFERS: TUB - SCORE: 4-MIN LOCOMOTION: WALK: Activity did not occur on this shift LOCOMOTION: WALK - SCORE: 0-UNK LOCOMOTION: WHEELCHAIR: Activity did not occur on this shift LOCOMOTION: WHEELCHAIR - SCORE: 0-UNK LOCOMOTION: STAIRS: Activity did not occur on this shift LOCOMOTION: STAIRS - SCORE: 0-UNK COMPREHENSION: COMPREHENSION: TYPE: Auditory COMPREHENSION - STEP 1: Does the patient require help from a person or device, or need extra time to understand complex and a bstract ideas (such as current events, finances, discharge planning, medical issues, relationships, e tc)? Yes. COMPREHENSION - STEP 2: Does the patient require help to understand questions or statements about basic needs or ideas (such as hunger, thirst, sleep, safety, daily schedule, room location, or discomfort) half or more of the t gabriel? No. COMPREHENSION - STEP 3: How often does the patient need help to understand directions and conversation about basic needs? Les s than 10% of the time COMPREHENSION - SCORE: 5-SUP EXPRESSION EXPRESSION: TYPE: Vocal EXPRESSION - STEP 1: Does the patient require help from a person or device, or need extra time expressing complex and abst ract ideas (such as current events, finances, discharge planning, medical issues, relationships, etc) ? No. EXPRESSION - STEP 2: Does the patient need extra time, require an assistive device (such as augmentive communication syste m or a communication board), OR does s/he have mild difficulty expressing complex and abstract ideas (including mild dysarthria or mild word-find problems)? Yes. EXPRESSION - SCORE: 6-MAGGY SOCIAL INTERACTION: SOCIAL INTERACTION - STEP 1: Does the patient require a helper to interact with others in social and therapeutic situations? No. SOCIAL INTERACTION - STEP 2: Does the patient need extra time in social situations, OR does s/he interact with staff, other patien ts, and family members ONLY in structured environments, OR does s/he require medication for social in teraction? Yes, patient interacts appropriately ONLY in structured environments SOCIAL INTERACTION - SCORE: 6-MAGGY PROBLEM SOLVING: PROBLEM SOLVING - STEP 1: Does the patient need help from a person or device, or need extra time to solve complex problems such as managing a checking account or confronting interpersonal problems? Yes. PROBLEM SOLVING - STEP 2: Does the patient solve basic routine problems half or more of the time? Yes. PROBLEM SOLVING - STEP 3: How often does the patient need help to solve basic routine problems? 10%-24% of the time PROBLEM SOLVING - SCORE: 4-MIN MEMORY: MEMORY - STEP 1: Does the patient need help from a person or device, or need extra time to remember frequently encount ered people, daily routines, and executing requests? Yes. MEMORY - STEP 2: How often does the patient need help to remember frequently encountered people, daily routines, and e xecuting requests? Less than 10% of the time MEMORY - SCORE: 5-SUP SIGNATURE PANEL: The following modified sections: Eating - Score, Grooming - Score, Bathing - Score, Dressing - Upper Body - Score, Dressing - Lower Body - Score, Toileting - Score, Transfers: Bed, Chair, Wheelchair - S core, Transfers: Toilet - Score, Transfers: Shower - Score, Transfers: Tub - Score, Comprehension - S core, Expression - Score, Social Interaction - Score, Problem Solving - Score, Memory - Score were [e lectronically] signed by Mey Collins OT on Sat Feb 25 2018 12:48:02 GMT-0600 (Central Standard Time)
--- NOTE | 2018-02-25 19:50 | R.HP ---
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 board/care, assisted living, longterm, transitional living) PRE-HOSPITAL LIVING WITH Alone ENCOUNTER PHYSICIAN: Dr. Parish Gates M.D. 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 is a 83 yo Right-handed white male. On 02/21/2018 he was admitted to [facility] with diagnosis degenerative ryan mbar spinal stenosis. His impairment category is Spinal Cord Dysfunction 04 - Other Non-traumatic Spinal Cord Dysfunction (04.130). Pre-morbidly, Pt. was independent/mod-I in Self-Care, Sphincter Control, Transfers Control, Communica tion, Social Cognition, and Locomotion; and he had good Sphincter Control. Currently, he has deficits of Balance, Endurance, Safety Awareness, Transfers Control, Communication, Social Cognition, Locomotion, and Self-Care. Pt. is now referred to [facility] for acute in-patient rehabilitation in order to maximize patient's functional independence in activities of daily living, strength, ROM, and mobi lity. Patient has realistic goal of being discharged at assistance level 6-Wei to reside at Home with Fam papito/Relatives. MEDICATION ALLERGIES: No Known Drug Allergies (NKDA) ENVIRONMENTAL ALLERGIES: - Substance Allergies None Known - Other Allergies None Known PAST MEDICAL HISTORY: cholesterol hypertension anemia arthritis benign mass of parotid gland hearing loss rheumatoid arthritis PAST SURGICAL HISTORY: history of left knee replacement tonsillectomy FAMILY HISTORY: Family history is not contributory. SOCIAL HISTORY: - Home Living Alone REVIEW OF SYSTEMS: - Gen No Chills Fatigue No Fever - Eyes No Double Vision No itchiness - ENMT No Difficulty Swallowing - CVS No Chest Discomfort No Chest Pain Fatigue No Weight Gain - Resp No Cough No Shortness of Breath - GI Continent No Abdominal Pain No Constipation No Diarrhea - Continent No Kidney Pain No Painful Urination No Urinary Urgency - MSK Joint Pain Muscle Cramps Stiffness - Skin No Itching No Rash No Suspicious Lesions - Neuro Coordination Difficulty No Difficulty with Concentration No Memory Loss No Seizures Weakness - Psych No Anxiety No Depression No HIV Exposure No Persistent Infections No Seasonal Allergies - Endo No Cold/Heat Intolerance No Excessive Hunger No Excessive Thirst No Excessive Urination PHYSICAL EXAM - Gen Alert and awake Lying in bed No apparent distress Oriented to: person, time, and place - Skin No breakdown No abnormalities - Eyes No abnormalities - ENMT No abnormalities - Neck No pain - CVS RRR - Chest No abnormalities - Resp CTA bilaterally - Abd +bowel sounds - GI Soft Deferred - No abnormalities - Ext No significant edema - MSK 4+/5 weakness in both lower extremities. - Neuro No focal deficits - Psych No abnormalities VITAL SIGNS Temperature: 100 F SBP/DBP: 132/60 Pulse: 94 Resp: 18 NURSING: - Shower allowing shower - Bladder care per protocol - Skin care per protocol ACTIVITIES OOB only with supervision FUNCTIONAL STATUS: - Self-Care A. Eating Ind Ind B. Grooming Ind sup C. Bathing Ind modA D. Dressing - Upper Ind sup E. Dressing - Lower Ind Dep F. Toileting Ind Dep - Sphincter Control G: Bladder control Ind Ind H: Bowel control Ind Ind - Transfers Control I. Bed/Chair/Wheelchair Ind Jossy J. Toilet Ind Jossy K. Tub/Shower Ind Jossy - Locomotion L. Walk/Wheelchair (B) Ind sup M. Stairs Ind ADNO - Communication N. Comprehension (B) Ind sup O. Expression (B) Ind sup - Social Cognition P. Social Interaction Ind sup Q. Problem Solving Ind sup R. Memory Ind sup - Endurance Fair - Balance Fair - Safety Awareness Fair [facility] DEFICITS: Balance, Endurance, Safety Awareness, Transfers Control, Communication, Social Cognition, Locomotion, and Self-Care ASSESSMENT: Pt. is a 83 yo Right-handed white male.On 02/21/2018 he was admitted to [facility] with diagnosis degenerative lumbar spinal stenosis.His impairment category is Spinal Cord Dy sfunction 04 - Other Non-traumatic Spinal Cord Dysfunction (04.130).Pre-morbidly, Pt. was independen t/mod-I in Self-Care, Sphincter Control, Transfers Control, Communication, Social Cognition, and [place] motion; and he had good Sphincter Control.Currently, he has deficits of Balance, Endurance, Safety Aw areness, Transfers Control, Communication, Social Cognition, Locomotion, and Self-Care.Pt. is now ref erred to [facility] for acute in-patient rehabilitation in order to maximize p atient's functional independence in activities of daily living, strength, ROM, and mobility.- Rehab G oal Patient has realistic goal of being discharged at assistance level 6-Wei to reside at Home with Fam papito/Relatives. REHAB PLAN: - Physical Therapy Gait dysfunction - to improve, our physical therapists will perform initial evaluation of pt's status upon admission and devise an individualized program for Gait Training, and Wheel Chair mobility Inability to transfer - to improve, our physical therapists will perform initial evaluation of pt's s tatus upon admission and devise an individualized program for Bed mobility Need for home safety evaluation - to improve, our physical therapists will perform initial evaluation of pt's status upon admission and devise an individualized program for Home Evaluation Need in caregiver upon discharge - to improve, our physical therapists will perform initial evaluatio n of pt's status upon admission and devise an individualized program for Caregiver Training New precaution - to improve, our physical therapists will perform initial evaluation of pt's status u jaylyn admission and devise an individualized program for Patient precaution education Edema - to improve, our physical therapists will perform initial evaluation of pt's status upon admi ssion and devise an individualized program for Elevation Training, and Lymphedema Therapy Poor balance - to improve, our physical therapists will perform initial evaluation of pt's status upo n admission and devise an individualized program for Balance Training Poor endurance - to improve, our physical therapists will perform initial evaluation of pt's status u jaylyn admission and devise an individualized program for Endurance Training Weakness - to improve, our physical therapists will perform initial evaluation of pt's status upon ad mission and devise an individualized program for Aquatic Therapy, Neuromuscular Reeducation, and Stre ngthening Achieving independence - to improve, our physical therapists will perform initial evaluation of pt's status upon admission and devise an individualized program for Community Reintegration Activities - Occupational Therapy ADL deficits - to improve, our occupation therapists will perform initial evaluation of pt's status u jaylyn admission and devise an individualized program for Bathing, Bed mobility, Community Reintegration , Cooking, Dressing, Eating, Fine Motor Skills, Grooming, Homemaking, Kitchen Mobility, Laundry, Aggie ent Education, Safety Awareness, Splinting - Positioning, Transfers(Toilet, Tub, Shower), and Wheel C hair Management Cognitive deficits - to improve, our occupation therapists will perform initial evaluation of pt's st atus upon admission and devise an individualized program for Cognition - orientation Need for primary care md - to improve, our occupation therapists will perform initial evaluation of pt's s tatus upon admission and devise an individualized program for Caregiver Training Weakness - to improve, our occupation therapists will perform initial evaluation of pt's status upon admission and devise an individualized program for Aquatic Therapy, Balance, Endurance, UE ROM, and U E strengthening MEDICAL PLAN: - Diet Type Start Regular - Diet - Liquid Texture Start Regular - Tube Feed Start N/A - Bladder care per protocol - Skin care per protocol - Diet - Solid Texture Regular - Shower shower DISCHARGE PLAN: - Estimated Length of Stay (days) 16. - Consensus on plan Discharge plan has been discussed with primary caregiver. Patient/Family is in agreement with the haley n. Primary caregiver is in agreement with the plan. - Patient/Family Goals Return home with assistance. - Planned Living Setting Upon Discharge Home, to live with Family/Relatives. 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
[2018-02-25] MEDS: ATORVASTATIN 20 MG TAB PO SCH (20:21)
[2018-02-25] MEDS: PROMOD 30 ML DOSE PO SCH (20:22)
--- NOTE | 2018-02-26 00:28 | FAST ---
SHIFT START DATE/TIME: 02/25/2018 19:00 (OFFSET PRINTER) SHIFT END DATE/TIME: 02/26/2018 07:00 (OFFSET PRINTER) NAME RONNI GERARD DATE OF : 1935 DATE OF ADMISSION: 02/25/2018 18:03 (OFFSET PRINTER) PHONE: AGE: 83 SSN# [id number] GENDER: Male ENCOUNTER PHYSICIAN: Dr. Parish Gates M.D. 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 concussion and edema of cervical spinal cord, sequela. cervical myelopathy. degenerative cervical spinal stenosis. lumbar stenosis with neurogenic claudication. EATING: Activity did not occur on this shift EATING - SCORE: 0-UNK GROOMING: Activity did not occur on this shift GROOMING - SCORE: 0-UNK BATHING: Activity did not occur on this shift BATHING - SCORE: 0-UNK DRESSING - UPPER BODY: Patient is not dressing in public clothing ARTICLES SCORE Total number of steps: 0 DRESSING - UPPER BODY - SCORE: 0-UNK DRESSING - LOWER BODY: Patient is not dressing in public clothing ARTICLES SCORE Total number of steps: 0 DRESSING - LOWER BODY - SCORE: 0-UNK TOILETING: TOILETING - STEP 1: Does the patient require the assistance of a person or device, or need extra time with toileting? Yes . TOILETING - STEP 2: Does the patient require the assistance of a helper? Yes. TOILETING - STEP 3: How much assistance does the patient require from the helper? Hands-on assistance from the helper TOILETING - STEP 4: Of the 3 tasks: 1) Adjusting clothing prior to use, 2) Cleansing of perineal area, 3) Adjusting clot cooper after use; How many tasks does the patient perform WITHOUT assistance of the helper? One task TOILETING - SCORE: 2-MAX BLADDER MANAGEMENT: Fleischmanns removes incontinent device (Depends, pull ups, etc.); cleans the patient after accident / inco ntinent episode; and, applies new incontinent device. BLADDER MANAGEMENT - SCORE: 1-DEP BLADDER MANAGEMENT - FREQUENCY OF ACCIDENTS: BLADDER MANAGEMENT(FA) - STEP 1: How many accidents has the patient had during the current shift? 1 BOWEL MANAGEMENT: Activity did not occur on this shift BOWEL MANAGEMENT - SCORE: 7-IND TRANSFERS: BED, CHAIR, WHEELCHAIR: Activity did not occur on this shift TRANSFERS: BED, CHAIR, WHEELCHAIR - SCORE: 0-UNK TRANSFERS: TOILET: Activity did not occur on this shift TRANSFERS: TOILET - SCORE: 0-UNK TRANSFERS: SHOWER: Activity did not occur on this shift TRANSFERS: SHOWER - SCORE: 0-UNK TRANSFERS: TUB: Activity did not occur on this shift TRANSFERS: TUB - SCORE: 0-UNK LOCOMOTION: WALK: Activity did not occur on this shift LOCOMOTION: WALK - SCORE: 0-UNK LOCOMOTION: WHEELCHAIR: Activity did not occur on this shift LOCOMOTION: WHEELCHAIR - SCORE: 0-UNK COMPREHENSION: COMPREHENSION: TYPE: Both COMPREHENSION - STEP 1: Does the patient require help from a person or device, or need extra time to understand complex and a bstract ideas (such as current events, finances, discharge planning, medical issues, relationships, e tc)? No. COMPREHENSION - STEP 2: Does the patient need extra time, require an assistive device (such as glasses for visual comprehensi on or a hearing aid for auditory comprehension) or does s/he have mild difficulty understanding compl ex and abstract information? Yes. COMPREHENSION - SCORE: 6-MAGGY EXPRESSION EXPRESSION: TYPE: Both EXPRESSION - STEP 1: Does the patient require help from a person or device, or need extra time expressing complex and abst ract ideas (such as current events, finances, discharge planning, medical issues, relationships, etc) ? No. EXPRESSION - STEP 2: Does the patient need extra time, require an assistive device (such as augmentive communication syste m or a communication board), OR does s/he have mild difficulty expressing complex and abstract ideas (including mild dysarthria or mild word-find problems)? No. EXPRESSION - SCORE: 7-IND SOCIAL INTERACTION: SOCIAL INTERACTION - STEP 1: Does the patient require a helper to interact with others in social and therapeutic situations? No. SOCIAL INTERACTION - STEP 2: Does the patient need extra time in social situations, OR does s/he interact with staff, other patien ts, and family members ONLY in structured environments, OR does s/he require medication for social in teraction? Yes, patient needs extra time SOCIAL INTERACTION - SCORE: 6-MAGGY PROBLEM SOLVING: PROBLEM SOLVING - STEP 1: Does the patient need help from a person or device, or need extra time to solve complex problems such as managing a checking account or confronting interpersonal problems? Yes. PROBLEM SOLVING - STEP 2: Does the patient solve basic routine problems half or more of the time? Yes. PROBLEM SOLVING - STEP 3: How often does the patient need help to solve basic routine problems? 10%-24% of the time PROBLEM SOLVING - SCORE: 4-MIN MEMORY: MEMORY - STEP 1: Does the patient need help from a person or device, or need extra time to remember frequently encount ered people, daily routines, and executing requests? No. MEMORY - STEP 2: Does the patient have slight difficulty recognizing frequently encountered people, daily routines, or executing requests without the need for repetition or using self-initiated or environmental cues to remember? Yes. MEMORY - SCORE: 6-MAGGY SIGNATURE PANEL: The following modified sections: Eating - Score, Grooming - Score, Dressing - Upper Body - Score, Gregory ssing - Lower Body - Score, Toileting - Score, Bladder Management - Score, Bowel Management - Score, Transfers: Bed, Chair, Wheelchair - Score, Transfers: Toilet - Score, Transfers: Shower - Score, Mariano sfers: Tub - Score, Locomotion: Walk - Score, Locomotion: Wheelchair - Score, Comprehension - Score, Expression - Score, Social Interaction - Score, Problem Solving - Score, Memory - Score were [electro nically] signed by Gabbi Soni CNA on TueFeb 26 2018 00:21:39 GMT-0600 (Central Standard Time)
[2018-02-26] MEDS: PANTOPRAZOLE 40MG TABLET PO SCH (05:18)
[2018-02-26] MEDS: LEVOTHYROXINE SOD 0.125 MG TAB PO SCH (05:18)
[2018-02-26] MEDS: PROMOD 30 ML DOSE PO SCH ×2 (08:00→19:30)
[2018-02-26] MEDS ORDERED: ASPIRIN 81 MG CHEWABLE TABLET PO SCH (08:00)
[2018-02-26] MEDS ORDERED: LEFLUNOMIDE 10 MG PO SCH (08:00)
[2018-02-26] MEDS ORDERED: LUTEIN 20 MG PO SCH (08:00)
[2018-02-26] MEDS: AMLODIPINE 5 MG TAB PO SCH (08:29)
[2018-02-26] MEDS: FOLIC ACID 1 MG TABLET PO SCH ×2 (08:29→19:30)
[2018-02-26] MEDS: FE SULF/FA/VIT B COMP & C TAB PO SCH (08:30)
[2018-02-26] MEDS: LOSARTAN POTASSIUM 50 MG TABLET PO SCH (08:30)
[2018-02-26] MEDS: GABAPENTIN 300 MG CAP PO SCH ×3 (08:30→21:54)
[2018-02-26] MEDS: DOCUSATE NA 100 MG CAP PO SCH ×2 (08:30→19:30)
[2018-02-26] MEDS: DOCOSAHEXANOIC AC/EPA 1000 MG PO SCH (08:30)
[2018-02-26] MEDS: FERROUS SULFATE 325 MG TAB PO SCH (08:30)
--- NOTE | 2018-02-26 12:02 | P.HP ---
Certification for Inpatient Patient admitted to: Inpatient With expected LOS: >2 Midnights Practitioner: I am a practitioner with admitting privileges, knowledge of patient current condition, hospital course, and medical plan of care. Services: Services provided to patient in accordance with Admission requirements found in Title 42 Section 412.3 of the Code of Federal Regulations Patient History Date of Service: 02/26/18 Reason for admission: MR. GERARD HAD CERVICAL LAMINECTOMY History of Present Illness: MR. GERARD HAD SURGERY FOR C SPINE AND I HAD ADVISED HE CAME TO REHAB FOR PT NOW. HE IS COMFORTABLE AND DOING WELL. Allergies No Known Allergies Allergy (Verified 02/25/18 11:09) Home Medications: Acetaminophen [Tylenol Arthritis] 1 tab PO Q8HP PRN 01/06/18 Amlodipine [Norvasc*] 1 tab PO DAILY 01/06/18 Folic Acid 1 tab PO BID 01/06/18 Hydroxychloroquine [Plaquenil*] 1 tab PO BID 01/06/18 Leflunomide [Arava] 1 tab PO DAILY 01/06/18 Levothyroxine Sodium 1 tab PO [id number] 01/06/18 Lutein 1 tab PO DAILY AFTER SUPPER 01/06/18 Meclizine HCl 1 tab PO TIDP PRN 01/06/18 Methotrexate Sodium [Methotrexate] 6 tab PO EVERY 7TH DAY 01/06/18 Naltrexone HCl/Bupropion HCl [Contrave ER 8-90 mg Tablet] 1.5 mg PO DAILY PRN [place]-3/Dha/Epa/Fish Oil [Fish Oil 1,360 mg Softgel] 1 tab PO DAILY AFTER SUPPER 01/06/18 Omeprazole [Prilosec] 40 cap PO DAILY 01/06/18 Simvastatin 40 mg PO BEDTIME 01/06/18 Tramadol HCl [Ultram] 50 mg PO Q6HP PRN 01/06/18 methylPREDNISolone [Medrol*] 4 mg PO DAILY 01/06/18 Atorvastatin Calcium [Lipitor] 10 mg PO DAILY 02/25/18 Docusate Sodium 100 mg PO BID 02/25/18 Gabapentin 1 cap PO TID 02/25/18 Iron Aspgly/C/B12/FA/Ca-Th/Suc [Ferrovite FA Caplet] 1 each PO DAILY 02/25/18 Losartan Potassium [Cozaar] 50 mg PO DAILY 02/25/18 [place]-3S/Dha/Epa/Fish Oil [[place]-3 Fish Oil 1,400 mg Sfgl] 1 cap PO DAILY - Past Medical/Surgical History Has patient received pneumonia vaccine in the past: Yes Diabetic: No -: Vertigo -: HTN -: ANEMIA -: ARTHRITIS -: BENIGN MASS ON PAROTID GLAND -: HEARING LOSS -: RHEUMATOID ARTHRITIS -: HYPERCHOLESTEROL -: neck surgery -: left knee surgery -: surgery for anal fistula - Social History Smoking Status: Never smoker Alcohol use: No CD- Drugs: No Caffeine use: No Place of Residence: Home Review of Systems 10-point ROS is otherwise unremarkable Physical Examination - Vital Signs Temperature: 98.5 F Blood Pressure: 138/63 Pulse: 88 Respirations: 16 Pulse Ox (%): 96 - Physical Exam General: Mild distress, Obese, Other (POST SURGICAL) HEENT: Atraumatic, PERRLA, Mucous membr. moist/pink, EOMI, Sclerae nonicteric Neck: Supple, 2+ carotid pulse no bruit, No LAD, Without JVD or thyroid abnormality Respiratory: Clear to auscultation bilaterally, Normal air movement Cardiovascular: Regular rate/rhythm, Normal S1 S2 Gastrointestinal: Normal bowel sounds, No tenderness Musculoskeletal: No tenderness Integumentary: No rashes Neurological: Normal gait, Normal speech, Normal strength at 5/5 x4 extr, Normal tone, Normal affect Lymphatics: No axilla or inguinal lymphadenopathy Assessment and Plan - Problems (Diagnosis) (1) Cervical post-laminectomy syndrome Current Visit: Yes Status: Acute Plan: OT PT. (2) Anemia, chronic disease Current Visit: Yes Status: Chronic Plan: STABLE AT ABOUT 9 HE ALSO HAS SOME BLEEDING BUT HAS BEEN TO GI DOCTORS. 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 - Advance Directives Does patient have a Living Will: Yes Does patient have a Durable POA for Healthcare: No
[2018-02-26] MEDS: [UNRECOGNIZED DRUG - OTHER] PO SCH (12:11)
--- NOTE | 2018-02-26 16:07 | FAST ---
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 Parish Gates M.D. 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 concussion and edema of cervical spinal cord, sequela. cervical myelopathy. degenerative cervical spinal stenosis. lumbar stenosis with neurogenic claudication. EATING: EATING - STEP 1: Does the patient require the assistance of a person or device, or need extra time when eating? Yes. EATING - STEP 2: Does the patient require the assistance of a helper? Yes. EATING - STEP 3: Does the patient perform half or more of the eating tasks? Yes. EATING - STEP 4: Does the patient need only supervision, cuing, coaxing OR help to apply an orthosis OR help to cut fo od, open containers, pour liquids, or butter bread? Yes. EATING - SCORE: 5-SUP GROOMING: Comb/brush hair Oral care Wash, rinse, and dry face Wash, rinse, and dry hands GROOMING - STEP 1: Does the patient require the assistance of a person or device, or need extra time when grooming? Yes. GROOMING - STEP 2: Does the patient require the assistance of a helper? No. The patient only requires an assistive devic e, OR takes more than reasonable time to groom, OR there is a concern for safety as the patient groom s GROOMING - SCORE: 6-MAGGY BATHING: Activity did not occur on this shift BATHING - SCORE: 0-UNK DRESSING - UPPER BODY: ARTICLES SCORE Total number of steps: 0 DRESSING - UPPER BODY - STEP 1: Does the patient require help from a person or device, or need extra time when dressing above the [address] st? Yes. DRESSING - UPPER BODY - STEP 2: Does the patient require the assistance of a helper? Yes. DRESSING - UPPER BODY - STEP 3: Does the helper touch the patient while dressing? No. DRESSING - UPPER BODY - SCORE: 5-SUP DRESSING - LOWER BODY: ARTICLES SCORE Total number of steps: 0 DRESSING - LOWER BODY - STEP 1: Does the patient require help from a person or device, or need extra time when dressing below the [address] st? Yes. DRESSING - LOWER BODY - STEP 2: Does the patient require the assistance of a helper? Yes. DRESSING - LOWER BODY - STEP 3: Does the helper touch the patient while dressing? No. DRESSING - LOWER BODY - SCORE: 5-SUP TOILETING: TOILETING - STEP 1: Does the patient require the assistance of a person or device, or need extra time with toileting? Yes . TOILETING - STEP 2: Does the patient require the assistance of a helper? Yes. TOILETING - STEP 3: How much assistance does the patient require from the helper? Only supervision TOILETING - SCORE: 5-SUP BLADDER MANAGEMENT: BLADDER MANAGEMENT - STEP 1: Does the patient control the bladder completely and intentionally without equipment or devices or med ications, and is always continent? No. BLADDER MANAGEMENT - STEP 2: Does the patient require the assistance of a helper? Yes. BLADDER MANAGEMENT - STEP 3: How much assistance does the patient require from the helper? Only set-up of equipment - such as plac ing it within reach of the patient or emptying a device - to maintain either satisfactory voiding pat tern or managing an external device, such as an absorbent pad, ileal device, or catheter BLADDER MANAGEMENT - SCORE: 5-SUP BLADDER MANAGEMENT - FREQUENCY OF ACCIDENTS: BLADDER MANAGEMENT(FA) - STEP 1: How many accidents has the patient had during the current shift? 0 BOWEL MANAGEMENT: BOWEL MANAGEMENT - STEP 1: Does the patient control bowels completely and intentionally without equipment devices or medications AND is always continent? No. BOWEL MANAGEMENT - STEP 2: Does the patient require the assistance of a helper? No, patient requires medication for control such as stool softeners, suppositories, laxatives, enemas, or OTC medications BOWEL MANAGEMENT - SCORE: 6-MAGGY BOWEL MANAGEMENT - FREQUENCY OF ACCIDENTS: BOWEL MANAGEMENT(FA) - STEP 1: How many accidents has the patient had during the current shift? 0 TRANSFERS: BED, CHAIR, WHEELCHAIR: TRANSFERS: BED, CHAIR, WHEELCHAIR - STEP 1: Does the patient require assistance of a person or device, or need extra time with bed, chair, or whe elchair transfers? Yes. TRANSFERS: BED, CHAIR, WHEELCHAIR - STEP 2: Does the patient require the assistance of a helper? Yes. TRANSFERS: BED, CHAIR, WHEELCHAIR - STEP 3: How much assistance does the patient require from the helper? Steadying/guiding assistance TRANSFERS: BED, CHAIR, WHEELCHAIR - SCORE: 4-MIN TRANSFERS: TOILET: TRANSFERS: TOILET - STEP 1: Does the patient require the assistance of a person or device, or need extra time with toilet transfe rs? Yes. TRANSFERS: TOILET - STEP 2: Does the patient require the assistance of a helper? Yes. TRANSFERS: TOILET - STEP 3: How much assistance does the patient require from the helper? Patient performs half or more of the tr ansferring tasks TRANSFERS: TOILET - STEP 4: Does the patient need only incidental help such as contact guard or steadying during toilet transfer? Yes. TRANSFERS: TOILET - SCORE: 4-MIN TRANSFERS: SHOWER: Activity did not occur on this shift TRANSFERS: SHOWER - SCORE: 0-UNK TRANSFERS: TUB: Activity did not occur on this shift TRANSFERS: TUB - SCORE: 0-UNK LOCOMOTION: WALK: Activity did not occur on this shift LOCOMOTION: WALK - SCORE: 0-UNK LOCOMOTION: WHEELCHAIR: Activity did not occur on this shift LOCOMOTION: WHEELCHAIR - SCORE: 0-UNK COMPREHENSION: COMPREHENSION: TYPE: Both COMPREHENSION - STEP 1: Does the patient require help from a person or device, or need extra time to understand complex and a bstract ideas (such as current events, finances, discharge planning, medical issues, relationships, e tc)? No. COMPREHENSION - STEP 2: Does the patient need extra time, require an assistive device (such as glasses for visual comprehensi on or a hearing aid for auditory comprehension) or does s/he have mild difficulty understanding compl ex and abstract information? Yes. COMPREHENSION - SCORE: 6-MAGGY EXPRESSION EXPRESSION: TYPE: Both EXPRESSION - STEP 1: Does the patient require help from a person or device, or need extra time expressing complex and abst ract ideas (such as current events, finances, discharge planning, medical issues, relationships, etc) ? No. EXPRESSION - STEP 2: Does the patient need extra time, require an assistive device (such as augmentive communication syste m or a communication board), OR does s/he have mild difficulty expressing complex and abstract ideas (including mild dysarthria or mild word-find problems)? Yes. EXPRESSION - SCORE: 6-MAGGY SOCIAL INTERACTION: SOCIAL INTERACTION - STEP 1: Does the patient require a helper to interact with others in social and therapeutic situations? No. SOCIAL INTERACTION - STEP 2: Does the patient need extra time in social situations, OR does s/he interact with staff, other patien ts, and family members ONLY in structured environments, OR does s/he require medication for social in teraction? Yes, patient needs extra time SOCIAL INTERACTION - SCORE: 6-MAGGY PROBLEM SOLVING: PROBLEM SOLVING - STEP 1: Does the patient need help from a person or device, or need extra time to solve complex problems such as managing a checking account or confronting interpersonal problems? No. PROBLEM SOLVING - STEP 2: Does the patient require extra time to make decisions or solve problems, OR does s/he have slight dif ficulty reading, initiating, or self-correcting in unfamiliar situations? No. PROBLEM SOLVING - SCORE: 7-IND MEMORY: MEMORY - STEP 1: Does the patient need help from a person or device, or need extra time to remember frequently encount ered people, daily routines, and executing requests? No. MEMORY - STEP 2: Does the patient have slight difficulty recognizing frequently encountered people, daily routines, or executing requests without the need for repetition or using self-initiated or environmental cues to remember? Yes. MEMORY - SCORE: 6-MAGGY SIGNATURE PANEL: The following modified sections: Eating - Score, Grooming - Score, Bathing - Score, Dressing - Upper Body - Score, Dressing - Lower Body - Score, Toileting - Score, Bladder Management - Score, Bowel Man agement - Score, Transfers: Bed, Chair, Wheelchair - Score, Transfers: Toilet - Score, Transfers: Enedina wer - Score, Transfers: Tub - Score, Locomotion: Walk - Score, Locomotion: Wheelchair - Score, Compre hension - Score, Expression - Score, Social Interaction - Score, Problem Solving - Score, Memory - Sc ore were [electronically] signed by Joyce Levin C.N.A. on TueFeb 26 2018 16:06:51 GMT-0600 (Cent[place] Standard Time)
[2018-02-26] MEDS: TRAMADOL HCL 50 MG TAB PO PRN (19:36)
[2018-02-26] MEDS: ATORVASTATIN 20 MG TAB PO SCH (21:55)
[2018-02-27] MEDS: PANTOPRAZOLE 40MG TABLET PO SCH (06:27)
[2018-02-27] MEDS: LEVOTHYROXINE SOD 0.125 MG TAB PO SCH (06:27)
[2018-02-27] MEDS: [UNRECOGNIZED DRUG - OTHER] PO SCH (08:03)
[2018-02-27] MEDS: FE SULF/FA/VIT B COMP & C TAB PO SCH (08:04)
[2018-02-27] MEDS: DOCOSAHEXANOIC AC/EPA 1000 MG PO SCH (08:04)
[2018-02-27] MEDS: FERROUS SULFATE 325 MG TAB PO SCH (08:04)
[2018-02-27] MEDS: DOCUSATE NA 100 MG CAP PO SCH ×2 (08:05→20:37)
[2018-02-27] MEDS: AMLODIPINE 5 MG TAB PO SCH (08:05)
[2018-02-27] MEDS: GABAPENTIN 300 MG CAP PO SCH ×3 (08:05→20:37)
[2018-02-27] MEDS: LOSARTAN POTASSIUM 50 MG TABLET PO SCH (08:06)
[2018-02-27] MEDS: FOLIC ACID 1 MG TABLET PO SCH ×2 (08:06→20:37)
[2018-02-27] MEDS: TRAMADOL HCL 50 MG TAB PO PRN ×2 (08:06→13:22)
[2018-02-27] MEDS: PROMOD 30 ML DOSE PO SCH ×2 (08:07→20:37)
--- NOTE | 2018-02-27 12:36 | P.PN ---
Subjective Date of Service: 02/27/18 Chief Complaint: MR. GERARD HAD CERVICAL LAMINECTOMY Subjective: Improving HE IS FEELING GREAT, SP SURGERY. Review of Systems 10-point ROS is otherwise unremarkable General: Weakness, Malaise Physical Examination - Vital Signs Temperature: 97.8 F Blood Pressure: 128/60 Pulse: 85 Respirations: 16 Pulse Ox (%): 98 - Physical Exam General: Alert, In no apparent distress HEENT: Atraumatic, PERRLA, EOMI Neck: Supple, JVD not distended Respiratory: Clear to auscultation bilaterally, Normal air movement Cardiovascular: Regular rate/rhythm, Normal S1 S2 Gastrointestinal: Normal bowel sounds, No tenderness Musculoskeletal: No tenderness Integumentary: No rashes Neurological: Normal speech, Normal tone, Normal affect Lymphatics: No axilla or inguinal lymphadenopathy - Studies Microbiology Data (last 24 hrs): 02/24/18 19:00 Clean Catch Urine [place] Count - Final <10,000 CFU/ML. 02/24/18 19:00 Clean Catch Urine - Final Medications List Reviewed: Yes Assessment And Plan - Current Problems (Diagnosis) (1) Cervical post-laminectomy syndrome Onset Date: 02/27/18 Current Visit: Yes Status: Acute Plan: OT PT. SP SURGERY, DOING WELL. STABLE. (2) Anemia, chronic disease Onset Date: 02/27/18 Current Visit: Yes Status: Chronic Plan: STABLE AT ABOUT 9 HE ALSO HAS SOME BLEEDING BUT HAS BEEN TO GI DOCTORS. (3) Rheumatoid arthritis Onset Date: 02/27/18 Current Visit: Yes Status: Chronic Plan: HAS DOGMAN/WOMAN AND GOES TO [facility].
--- NOTE | 2018-02-27 15:39 | FAST ---
SHIFT START DATE/TIME: 02/27/2018 07:00 (FINANCIAL DEALERS) SHIFT END DATE/TIME: 02/27/2018 19:00 (FINANCIAL DEALERS) NAME RONNI GERARD DATE OF : 1935 DATE OF ADMISSION: 02/25/2018 18:03 (FINANCIAL DEALERS) PHONE: AGE: 83 SSN# [id number] GENDER: Male ENCOUNTER PHYSICIAN: Dr. Parish Gates M.D. 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 concussion and edema of cervical spinal cord, sequela. cervical myelopathy. degenerative cervical spinal stenosis. lumbar stenosis with neurogenic claudication. EATING: EATING - STEP 1: Does the patient require the assistance of a person or device, or need extra time when eating? Yes. EATING - STEP 2: Does the patient require the assistance of a helper? Yes. EATING - STEP 3: Does the patient perform half or more of the eating tasks? Yes. EATING - STEP 4: Does the patient need only supervision, cuing, coaxing OR help to apply an orthosis OR help to cut fo od, open containers, pour liquids, or butter bread? Yes. EATING - SCORE: 5-SUP GROOMING: Comb/brush hair Oral care Wash, rinse, and dry face Wash, rinse, and dry hands GROOMING - STEP 1: Does the patient require the assistance of a person or device, or need extra time when grooming? Yes. GROOMING - STEP 2: Does the patient require the assistance of a helper? Yes. GROOMING - STEP 3: How much assistance does the patient require from the helper? Only prior equipment preparation/set up from the helper GROOMING - SCORE: 5-SUP BATHING: Activity did not occur on this shift BATHING - SCORE: 0-UNK DRESSING - UPPER BODY: Activity did not occur on this shift ARTICLES SCORE Total number of steps: 0 DRESSING - UPPER BODY - SCORE: 0-UNK DRESSING - LOWER BODY: Activity did not occur on this shift ARTICLES SCORE Total number of steps: 0 DRESSING - LOWER BODY - SCORE: 0-UNK TOILETING: TOILETING - STEP 1: Does the patient require the assistance of a person or device, or need extra time with toileting? Yes . TOILETING - STEP 2: Does the patient require the assistance of a helper? Yes. TOILETING - STEP 3: How much assistance does the patient require from the helper? Only supervision TOILETING - SCORE: 5-SUP BLADDER MANAGEMENT: BLADDER MANAGEMENT - STEP 1: Does the patient control the bladder completely and intentionally without equipment or devices or med ications, and is always continent? Yes. BLADDER MANAGEMENT - SCORE: 7-IND BOWEL MANAGEMENT: Activity did not occur on this shift BOWEL MANAGEMENT - SCORE: 7-IND TRANSFERS: BED, CHAIR, WHEELCHAIR: TRANSFERS: BED, CHAIR, WHEELCHAIR - STEP 1: Does the patient require assistance of a person or device, or need extra time with bed, chair, or whe elchair transfers? Yes. TRANSFERS: BED, CHAIR, WHEELCHAIR - STEP 2: Does the patient require the assistance of a helper? Yes. TRANSFERS: BED, CHAIR, WHEELCHAIR - STEP 3: How much assistance does the patient require from the helper? Steadying/guiding assistance TRANSFERS: BED, CHAIR, WHEELCHAIR - SCORE: 4-MIN TRANSFERS: TOILET: TRANSFERS: TOILET - STEP 1: Does the patient require the assistance of a person or device, or need extra time with toilet transfe rs? Yes. TRANSFERS: TOILET - STEP 2: Does the patient require the assistance of a helper? Yes. TRANSFERS: TOILET - STEP 3: How much assistance does the patient require from the helper? Only supervision, cuing, coaxing, OR he lp to set out transfer equipment or to lock brakes and/or lift foot rests TRANSFERS: TOILET - SCORE: 5-SUP TRANSFERS: SHOWER: Activity did not occur on this shift TRANSFERS: SHOWER - SCORE: 0-UNK TRANSFERS: TUB: Activity did not occur on this shift TRANSFERS: TUB - SCORE: 0-UNK LOCOMOTION: WALK: Activity did not occur on this shift LOCOMOTION: WALK - SCORE: 0-UNK LOCOMOTION: WHEELCHAIR: Activity did not occur on this shift LOCOMOTION: WHEELCHAIR - SCORE: 0-UNK COMPREHENSION: COMPREHENSION: TYPE: Both COMPREHENSION - STEP 1: Does the patient require help from a person or device, or need extra time to understand complex and a bstract ideas (such as current events, finances, discharge planning, medical issues, relationships, e tc)? Yes. COMPREHENSION - STEP 2: Does the patient require help to understand questions or statements about basic needs or ideas (such as hunger, thirst, sleep, safety, daily schedule, room location, or discomfort) half or more of the t gabriel? No. COMPREHENSION - STEP 3: How often does the patient need help to understand directions and conversation about basic needs? Les s than 10% of the time COMPREHENSION - SCORE: 5-SUP EXPRESSION EXPRESSION: TYPE: Both EXPRESSION - STEP 1: Does the patient require help from a person or device, or need extra time expressing complex and abst ract ideas (such as current events, finances, discharge planning, medical issues, relationships, etc) ? Yes. EXPRESSION - STEP 2: Does the patient require help to express basic necessities or ideas (such as hunger, thirst, sleep, s afety, daily schedule, room location, or discomfort) half or more of the time? No. EXPRESSION - STEP 3: How often does the patient need help to express directions and conversation about basic needs? Less t patterson 10% of the time EXPRESSION - SCORE: 5-SUP SOCIAL INTERACTION: SOCIAL INTERACTION - STEP 1: Does the patient require a helper to interact with others in social and therapeutic situations? No. SOCIAL INTERACTION - STEP 2: Does the patient need extra time in social situations, OR does s/he interact with staff, other patien ts, and family members ONLY in structured environments, OR does s/he require medication for social in teraction? No. SOCIAL INTERACTION - SCORE: 7-IND PROBLEM SOLVING: PROBLEM SOLVING - STEP 1: Does the patient need help from a person or device, or need extra time to solve complex problems such as managing a checking account or confronting interpersonal problems? No. PROBLEM SOLVING - STEP 2: Does the patient require extra time to make decisions or solve problems, OR does s/he have slight dif ficulty reading, initiating, or self-correcting in unfamiliar situations? Yes, patient needs extra ti me. PROBLEM SOLVING - SCORE: 6-MAGGY MEMORY: MEMORY - STEP 1: Does the patient need help from a person or device, or need extra time to remember frequently encount ered people, daily routines, and executing requests? No. MEMORY - STEP 2: Does the patient have slight difficulty recognizing frequently encountered people, daily routines, or executing requests without the need for repetition or using self-initiated or environmental cues to remember? No. MEMORY - SCORE: 7-IND SIGNATURE PANEL: The following modified sections: Eating - Score, Grooming - Score, Bathing - Score, Dressing - Upper Body - Score, Dressing - Lower Body - Score, Toileting - Score, Bladder Management - Score, Bowel Man agement - Score, Transfers: Bed, Chair, Wheelchair - Score, Transfers: Toilet - Score, Transfers: Enedina wer - Score, Transfers: Tub - Score, Locomotion: Walk - Score, Locomotion: Wheelchair - Score, Compre hension - Score, Expression - Score, Social Interaction - Score, Problem Solving - Score, Memory - Sc ore were [electronically] signed by Bruce Garces on TueFeb 27 2018 15:38:32 GMT-0600 (Central Standard Time)
[2018-02-27] MEDS: ACETAMINOPHEN 325 MG TABLET PO PRN (16:42)
--- NOTE | 2018-02-27 17:43 | R.PN ---
ENCOUNTER DATE AND TIME: 02/27/2018 17:39 (JAVA SOLUTIONS ARCHITECT) NAME RONNI GERARD DATE OF : 1935 DATE OF ADMISSION: 02/25/2018 18:03 (JAVA SOLUTIONS ARCHITECT) degenerative lumbar spinal stenosisconcussion and edema of cervical spinal cord, sequelacervical myel opathydegenerative cervical spinal stenosislumbar stenosis with neurogenic claudicationCHIEF COMPLAIN T: Spinal stenosis SUBJECTIVE: Pt denied any depression. Pt denied any Shortness of Breath. Ambulated 250' with standby assistance using a rolling walker. Up and down 50 steps with standby assi stance using bilateral handrails. VITAL SIGNS Temperature: 97.8 F SBP/DBP: 128/60 Pulse: 85 Resp: 16 Pulse: 60 MEDICATION ALLERGIES: No Known Drug Allergies (NKDA) ENVIRONMENTAL ALLERGIES: - Substance Allergies None Known - Other Allergies None Known NURSING: - Shower allowing shower - Bladder care per protocol - Skin care per protocol ACTIVITIES OOB only with supervision THERAPIES: - Orthotics/Prosthetics Orthotic Evaluation. Splinting/Casting. - Occupational Therapy Evaluate and Treat. - Physical Therapy Evaluate and Treat. PHYSICAL EXAM - Gen Alert and awake Lying in bed No apparent distress Oriented to: person, time, and place - Skin No breakdown No abnormalities - Eyes No abnormalities - ENMT No abnormalities - Neck No pain - CVS RRR - Chest No abnormalities - Resp CTA bilaterally - Abd +bowel sounds - GI Soft Deferred - No abnormalities - Ext No significant edema - MSK 4+/5 weakness in both lower extremities. - Neuro No focal deficits - Psych No abnormalities ASSESSMENT: Pt. is a 83 yo Right-handed white male.On 02/21/2018 he was admitted to [facility] with diagnosis degenerative lumbar spinal stenosis.His impairment category is Spinal Cord Dy sfunction 04 - Other Non-traumatic Spinal Cord Dysfunction (04.130).Pre-morbidly, Pt. was independen t/mod-I in Self-Care, Sphincter Control, Transfers Control, Communication, Social Cognition, and [place] motion; and he had good Sphincter Control.Currently, he has deficits of Balance, Endurance, Safety Aw areness, Transfers Control, Communication, Social Cognition, Locomotion, and Self-Care.Pt. is now ref erred to [facility] for acute in-patient rehabilitation in order to maximize p atient's functional independence in activities of daily living, strength, ROM, and mobility.- Rehab G oal Patient has realistic goal of being discharged at assistance level 6-Wei to reside at Home with Fam papito/Relatives. MDM/PLAN: - Physical Therapy Gait dysfunction - to improve, our physical therapists will perform initial evaluation of pt's statu s upon admission and devise an individualized program for Gait Training, and Wheel Chair mobility Inability to transfer - to improve, our physical therapists will perform initial evaluation of pt's status upon admission and devise an individualized program for Bed mobility Need for home safety evaluation - to improve, our physical therapists will perform initial evaluatio n of pt's status upon admission and devise an individualized program for Home Evaluation Need in caregiver upon discharge - to improve, our physical therapists will perform initial evaluati on of pt's status upon admission and devise an individualized program for Caregiver Training Edema - to improve, our physical therapists will perform initial evaluation of pt's status upon admis latricia and devise an individualized program for Elevation Training, and Lymphedema Therapy New precaution - to improve, our physical therapists will perform initial evaluation of pt's status upon admission and devise an individualized program for Patient precaution education Poor balance - to improve, our physical therapists will perform initial evaluation of pt's status up on admission and devise an individualized program for Balance Training Poor endurance - to improve, our physical therapists will perform initial evaluation of pt's status upon admission and devise an individualized program for Endurance Training Weakness - to improve, our physical therapists will perform initial evaluation of pt's status upon a dmission and devise an individualized program for Aquatic Therapy, Neuromuscular Reeducation, and Str engthening Achieving independence - to improve, our physical therapists will perform initial evaluation of pt's status upon admission and devise an individualized program for Community Reintegration Activities - Occupational Therapy ADL deficits - to improve, our occupation therapists will perform initial evaluation of pt's status upon admission and devise an individualized program for Bathing, Bed mobility, Community Reintegratio n, Cooking, Dressing, Eating, Fine Motor Skills, Grooming, Homemaking, Kitchen Mobility, Laundry, Pat ient Education, Safety Awareness, Splinting - Positioning, Transfers(Toilet, Tub, Shower), and Wheel Chair Management Cognitive deficits - to improve, our occupation therapists will perform initial evaluation of pt's s tatus upon admission and devise an individualized program for Cognition - orientation Need for plant care worker - to improve, our occupation therapists will perform initial evaluation of pt's status upon admission and devise an individualized program for Caregiver Training Weakness - to improve, our occupation therapists will perform initial evaluation of pt's status upon admission and devise an individualized program for Aquatic Therapy, Balance, Endurance, UE ROM, and UE strengthening - Diet Type Continue Regular - Diet - Liquid Texture Continue Regular - Tube Feed Continue N/A - Bladder care per protocol - Skin care per protocol - Diet - Solid Texture Continue Regular - Shower allowing shower FUNCTIONAL STATUS: UPDATED AT WEEKLY TEAM CONFERENCE - Bladder Same accident frequency: 7-Ind - No accidents in the past 7 days - Bowel Same accident frequency: 7-Ind - No accidents in the past 7 days - Walking Same score based on distance walked: 3(>=150ft) FUNCTIONAL STATUS: - Self-Care A. Eating Ind B. Grooming sup C. Bathing modA D. Dressing - Upper sup E. Dressing - Lower Dep F. Toileting Dep - Sphincter Control G: Bladder control Ind H: Bowel control Ind - Transfers Control I. Bed/Chair/Wheelchair Jossy J. Toilet Jossy K. Tub/Shower Jossy - Locomotion L. Walk/Wheelchair (B) sup M. Stairs ADNO - Communication N. Comprehension (B) sup O. Expression (B) sup - Social Cognition P. Social Interaction sup Q. Problem Solving sup R. Memory sup - Endurance Fair - Balance Fair - Safety Awareness Fair CURRENT FUNC. DEFICITS: Balance, Endurance, Safety Awareness, Transfers Control, Communication, Social Cognition, Locomotion, and Self-Care SIGNATURE PANEL: (JAVA SOL[employer]IONS ARCHITECT)
--- NOTE | 2018-02-27 18:35 | FAST ---
ENCOUNTER DATE AND TIME: 02/27/2018 08:00 (FLAP LINING BINDER) NAME RONNI GERARD DATE OF : 1935 DATE OF ADMISSION: 02/25/2018 18:03 (FLAP LINING BINDER) PHONE: AGE: 83 SSN# [id number] GENDER: Male ENCOUNTER PHYSICIAN: Dr. Parish Gates M.D. 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 concussion and edema of cervical spinal cord, sequela. cervical myelopathy. degenerative cervical spinal stenosis. lumbar stenosis with neurogenic claudication. EATING: EATING - STEP 1: Does the patient require the assistance of a person or device, or need extra time when eating? No. EATING - SCORE: 7-IND GROOMING: Oral care Wash, rinse, and dry face Wash, rinse, and dry hands GROOMING - STEP 1: Does the patient require the assistance of a person or device, or need extra time when grooming? No. GROOMING - SCORE: 7-IND BATHING: Abdomen Buttocks Chest Left arm Left lower leg and foot Left upper leg Perineal area Right arm Right lower leg and foot Right upper leg BATHING - STEP 1: Does the patient require the assistance of a person or device, or need extra time when bathing? Yes. BATHING - STEP 2: Does the patient require the assistance of a helper? Yes. BATHING - STEP 3: How much assistance does the patient require from the helper? Only supervision, cuing, coaxing, instr uctions, encouragement BATHING - SCORE: 5-SUP DRESSING - UPPER BODY: T-shirt/pullover shirt (four steps) ARTICLES SCORE Total number of steps: 4 DRESSING - UPPER BODY - STEP 1: Does the patient require help from a person or device, or need extra time when dressing above the [address] st? Yes. DRESSING - UPPER BODY - STEP 2: Does the patient require the assistance of a helper? Yes. DRESSING - UPPER BODY - STEP 3: Does the helper touch the patient while dressing? No. DRESSING - UPPER BODY - SCORE: 5-SUP DRESSING - LOWER BODY: Elastic waist pants (three steps) Slip-on shoe - Left foot (one step) Slip-on shoe - Right foot (one step) Sock - Left foot (one step) Sock - Right foot (one step) ARTICLES SCORE Total number of steps: 7 DRESSING - LOWER BODY - STEP 1: Does the patient require help from a person or device, or need extra time when dressing below the [address] st? Yes. DRESSING - LOWER BODY - STEP 2: Does the patient require the assistance of a helper? Yes. DRESSING - LOWER BODY - STEP 3: Does the helper touch the patient while dressing? No. DRESSING - LOWER BODY - SCORE: 5-SUP TOILETING: Activity did not occur on this shift TOILETING - SCORE: 0-UNK BLADDER MANAGEMENT: Activity did not occur on this shift BLADDER MANAGEMENT - SCORE: 7-IND BOWEL MANAGEMENT: Activity did not occur on this shift BOWEL MANAGEMENT - SCORE: 7-IND TRANSFERS: BED, CHAIR, WHEELCHAIR: Activity did not occur on this shift TRANSFERS: BED, CHAIR, WHEELCHAIR - SCORE: 0-UNK TRANSFERS: TOILET: Activity did not occur on this shift TRANSFERS: TOILET - SCORE: 0-UNK TRANSFERS: SHOWER: TRANSFERS: SHOWER - STEP 1: Does the patient require the assistance of a person or device, or need extra time with shower transfe rs? Yes. TRANSFERS: SHOWER - STEP 2: Does the patient require the assistance of a helper? Yes. TRANSFERS: SHOWER - STEP 3: How much assistance does the patient require from the helper? Only supervision, cuing, coaxing, or he lp to set out transfer equipment or to lock brakes and/or lift foot rests TRANSFERS: SHOWER - SCORE: 5-SUP TRANSFERS: TUB: Activity did not occur on this shift TRANSFERS: TUB - SCORE: 0-UNK LOCOMOTION: WALK: Activity did not occur on this shift LOCOMOTION: WALK - SCORE: 0-UNK LOCOMOTION: WHEELCHAIR: Activity did not occur on this shift LOCOMOTION: WHEELCHAIR - SCORE: 0-UNK LOCOMOTION: STAIRS: Activity did not occur on this shift LOCOMOTION: STAIRS - SCORE: 0-UNK COMPREHENSION: COMPREHENSION: TYPE: Both COMPREHENSION - STEP 1: Does the patient require help from a person or device, or need extra time to understand complex and a bstract ideas (such as current events, finances, discharge planning, medical issues, relationships, e tc)? No. COMPREHENSION - STEP 2: Does the patient need extra time, require an assistive device (such as glasses for visual comprehensi on or a hearing aid for auditory comprehension) or does s/he have mild difficulty understanding compl ex and abstract information? Yes. COMPREHENSION - SCORE: 6-MAGGY EXPRESSION EXPRESSION: TYPE: Both EXPRESSION - STEP 1: Does the patient require help from a person or device, or need extra time expressing complex and abst ract ideas (such as current events, finances, discharge planning, medical issues, relationships, etc) ? No. EXPRESSION - STEP 2: Does the patient need extra time, require an assistive device (such as augmentive communication syste m or a communication board), OR does s/he have mild difficulty expressing complex and abstract ideas (including mild dysarthria or mild word-find problems)? No. EXPRESSION - SCORE: 7-IND SOCIAL INTERACTION: SOCIAL INTERACTION - STEP 1: Does the patient require a helper to interact with others in social and therapeutic situations? No. SOCIAL INTERACTION - STEP 2: Does the patient need extra time in social situations, OR does s/he interact with staff, other patien ts, and family members ONLY in structured environments, OR does s/he require medication for social in teraction? No. SOCIAL INTERACTION - SCORE: 7-IND PROBLEM SOLVING: PROBLEM SOLVING - STEP 1: Does the patient need help from a person or device, or need extra time to solve complex problems such as managing a checking account or confronting interpersonal problems? No. PROBLEM SOLVING - STEP 2: Does the patient require extra time to make decisions or solve problems, OR does s/he have slight dif ficulty reading, initiating, or self-correcting in unfamiliar situations? No. PROBLEM SOLVING - SCORE: 7-IND MEMORY: MEMORY - STEP 1: Does the patient need help from a person or device, or need extra time to remember frequently encount ered people, daily routines, and executing requests? No. MEMORY - STEP 2: Does the patient have slight difficulty recognizing frequently encountered people, daily routines, or executing requests without the need for repetition or using self-initiated or environmental cues to remember? No. MEMORY - SCORE: 7-IND SIGNATURE PANEL: The following modified sections: Eating - Score, Grooming - Score, Bathing - Score, Dressing - Upper Body - Score, Dressing - Lower Body - Score, Toileting - Score, Transfers: Bed, Chair, Wheelchair - S core, Transfers: Toilet - Score, Transfers: Tub - Score, Transfers: Shower - Score, Comprehension - S core, Expression - Score, Social Interaction - Score, Problem Solving - Score, Memory - Score were [e lectronically] signed by Juanita Spence OT on TueFeb 27 2018 18:35:06 T-0600 ([employer] [facility])
[2018-02-27] MEDS: ATORVASTATIN 20 MG TAB PO SCH (20:37)
--- NOTE | 2018-02-28 00:54 | FAST ---
SHIFT START DATE/TIME: 02/27/2018 19:00 (CLAIM REPRESENTATIVE) SHIFT END DATE/TIME: 02/28/2018 07:00 (CLAIM REPRESENTATIVE) NAME RONNI GERARD DATE OF : 1935 DATE OF ADMISSION: 02/25/2018 18:03 (CLAIM REPRESENTATIVE) PHONE: AGE: 83 SSN# [id number] GENDER: Male ENCOUNTER PHYSICIAN: Dr. Parish Gates M.D. 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 concussion and edema of cervical spinal cord, sequela. cervical myelopathy. degenerative cervical spinal stenosis. lumbar stenosis with neurogenic claudication. EATING: Activity did not occur on this shift EATING - SCORE: 0-UNK GROOMING: Activity did not occur on this shift GROOMING - SCORE: 0-UNK BATHING: Activity did not occur on this shift BATHING - SCORE: 0-UNK DRESSING - UPPER BODY: Activity did not occur on this shift ARTICLES SCORE Total number of steps: 0 DRESSING - UPPER BODY - SCORE: 0-UNK DRESSING - LOWER BODY: Activity did not occur on this shift ARTICLES SCORE Total number of steps: 0 DRESSING - LOWER BODY - SCORE: 0-UNK TOILETING: TOILETING - STEP 1: Does the patient require the assistance of a person or device, or need extra time with toileting? Yes . TOILETING - STEP 2: Does the patient require the assistance of a helper? Yes. TOILETING - STEP 3: How much assistance does the patient require from the helper? Only supervision TOILETING - SCORE: 5-SUP BLADDER MANAGEMENT: BLADDER MANAGEMENT - STEP 1: Does the patient control the bladder completely and intentionally without equipment or devices or med ications, and is always continent? No. BLADDER MANAGEMENT - STEP 2: Does the patient require the assistance of a helper? Yes. BLADDER MANAGEMENT - STEP 3: How much assistance does the patient require from the helper? Patient requires contact assistance fro m the helper BLADDER MANAGEMENT - STEP 4: How much contact assistance does the patient require from the helper? Patient requires minimal assist ance to maintain an external device - by positioning, and the patient performs 75% or more of bladder management tasks, while the helper provides less than 25% of the assistance to position patient on / off bedpan BLADDER MANAGEMENT - SCORE: 4-MIN BOWEL MANAGEMENT: Activity did not occur on this shift BOWEL MANAGEMENT - SCORE: 7-IND TRANSFERS: BED, CHAIR, WHEELCHAIR: TRANSFERS: BED, CHAIR, WHEELCHAIR - STEP 1: Does the patient require assistance of a person or device, or need extra time with bed, chair, or whe elchair transfers? Yes. TRANSFERS: BED, CHAIR, WHEELCHAIR - STEP 2: Does the patient require the assistance of a helper? Yes. TRANSFERS: BED, CHAIR, WHEELCHAIR - STEP 3: How much assistance does the patient require from the helper? Steadying/guiding assistance TRANSFERS: BED, CHAIR, WHEELCHAIR - SCORE: 4-MIN TRANSFERS: TOILET: TRANSFERS: TOILET - STEP 1: Does the patient require the assistance of a person or device, or need extra time with toilet transfe rs? Yes. TRANSFERS: TOILET - STEP 2: Does the patient require the assistance of a helper? Yes. TRANSFERS: TOILET - STEP 3: How much assistance does the patient require from the helper? Patient performs half or more of the tr ansferring tasks TRANSFERS: TOILET - STEP 4: Does the patient need only incidental help such as contact guard or steadying during toilet transfer? Yes. TRANSFERS: TOILET - SCORE: 4-MIN TRANSFERS: SHOWER: Activity did not occur on this shift TRANSFERS: SHOWER - SCORE: 0-UNK TRANSFERS: TUB: Activity did not occur on this shift TRANSFERS: TUB - SCORE: 0-UNK LOCOMOTION: WALK: Activity did not occur on this shift LOCOMOTION: WALK - SCORE: 0-UNK LOCOMOTION: WHEELCHAIR: Activity did not occur on this shift LOCOMOTION: WHEELCHAIR - SCORE: 0-UNK COMPREHENSION: COMPREHENSION: TYPE: Both COMPREHENSION - STEP 1: Does the patient require help from a person or device, or need extra time to understand complex and a bstract ideas (such as current events, finances, discharge planning, medical issues, relationships, e tc)? No. COMPREHENSION - STEP 2: Does the patient need extra time, require an assistive device (such as glasses for visual comprehensi on or a hearing aid for auditory comprehension) or does s/he have mild difficulty understanding compl ex and abstract information? Yes. COMPREHENSION - SCORE: 6-MAGGY EXPRESSION EXPRESSION: TYPE: Both EXPRESSION - STEP 1: Does the patient require help from a person or device, or need extra time expressing complex and abst ract ideas (such as current events, finances, discharge planning, medical issues, relationships, etc) ? No. EXPRESSION - STEP 2: Does the patient need extra time, require an assistive device (such as augmentive communication syste m or a communication board), OR does s/he have mild difficulty expressing complex and abstract ideas (including mild dysarthria or mild word-find problems)? Yes. EXPRESSION - SCORE: 6-MAGGY SOCIAL INTERACTION: SOCIAL INTERACTION - STEP 1: Does the patient require a helper to interact with others in social and therapeutic situations? No. SOCIAL INTERACTION - STEP 2: Does the patient need extra time in social situations, OR does s/he interact with staff, other patien ts, and family members ONLY in structured environments, OR does s/he require medication for social in teraction? No. SOCIAL INTERACTION - SCORE: 7-IND PROBLEM SOLVING: PROBLEM SOLVING - STEP 1: Does the patient need help from a person or device, or need extra time to solve complex problems such as managing a checking account or confronting interpersonal problems? No. PROBLEM SOLVING - STEP 2: Does the patient require extra time to make decisions or solve problems, OR does s/he have slight dif ficulty reading, initiating, or self-correcting in unfamiliar situations? No. PROBLEM SOLVING - SCORE: 7-IND MEMORY: MEMORY - STEP 1: Does the patient need help from a person or device, or need extra time to remember frequently encount ered people, daily routines, and executing requests? No. MEMORY - STEP 2: Does the patient have slight difficulty recognizing frequently encountered people, daily routines, or executing requests without the need for repetition or using self-initiated or environmental cues to remember? No. MEMORY - SCORE: 7-IND SIGNATURE PANEL: The following modified sections: Eating - Score, Grooming - Score, Bathing - Score, Dressing - Upper Body - Score, Dressing - Lower Body - Score, Toileting - Score, Bladder Management - Score, Bowel Man agement - Score, Transfers: Bed, Chair, Wheelchair - Score, Transfers: Toilet - Score, Transfers: Enedina wer - Score, Transfers: Tub - Score, Locomotion: Walk - Score, Locomotion: Wheelchair - Score, Compre hension - Score, Expression - Score, Social Interaction - Score, Problem Solving - Score, Memory - Sc ore were [electronically] signed by Yun Martinez CNA on TueFeb 28 2018 00:53:22 T-0600 ([facility])
[2018-02-28] MEDS: TRAMADOL HCL 50 MG TAB PO PRN ×2 (06:24→12:11)
[2018-02-28] MEDS: LEVOTHYROXINE SOD 0.125 MG TAB PO SCH (06:24)
[2018-02-28] MEDS: PANTOPRAZOLE 40MG TABLET PO SCH (06:24)
[2018-02-28] MEDS: LOSARTAN POTASSIUM 50 MG TABLET PO SCH (08:00)
[2018-02-28] MEDS: ASPIRIN 81 MG CHEWABLE TABLET PO SCH (08:00)
[2018-02-28] MEDS: AMLODIPINE 5 MG TAB PO SCH (08:00)
[2018-02-28] MEDS: [UNRECOGNIZED DRUG - OTHER] PO SCH (08:10)
[2018-02-28] MEDS: DOCOSAHEXANOIC AC/EPA 1000 MG PO SCH (08:10)
[2018-02-28] MEDS: FERROUS SULFATE 325 MG TAB PO SCH (08:11)
[2018-02-28] MEDS: GABAPENTIN 300 MG CAP PO SCH ×3 (08:11→20:14)
[2018-02-28] MEDS: FE SULF/FA/VIT B COMP & C TAB PO SCH (08:11)
[2018-02-28] MEDS: DOCUSATE NA 100 MG CAP PO SCH ×2 (08:11→20:13)
[2018-02-28] MEDS: APIXABAN 2.5 MG TABLET PO SCH ×2 (08:11→20:13)
[2018-02-28] MEDS: FOLIC ACID 1 MG TABLET PO SCH ×2 (08:12→20:13)
[2018-02-28] MEDS: ACETAMINOPHEN 325 MG TABLET PO PRN (08:13)
[2018-02-28] MEDS: PROMOD 30 ML DOSE PO SCH ×2 (08:13→20:13)
--- NOTE | 2018-02-28 10:23 | FAST ---
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 Parish Gates M.D. 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 concussion and edema of cervical spinal cord, sequela. cervical myelopathy. degenerative cervical spinal stenosis. lumbar stenosis with neurogenic claudication. EATING: EATING - STEP 1: Does the patient require the assistance of a person or device, or need extra time when eating? Yes. EATING - STEP 2: Does the patient require the assistance of a helper? No, patient only requires an assistive device, O R s/he takes more than reasonable time to eat, OR there is a safety concern, OR s/he requires modifie d food consistency EATING - SCORE: 6-MAGGY GROOMING: Comb/brush hair Oral care Wash, rinse, and dry face Wash, rinse, and dry hands GROOMING - STEP 1: Does the patient require the assistance of a person or device, or need extra time when grooming? Yes. GROOMING - STEP 2: Does the patient require the assistance of a helper? Yes. GROOMING - STEP 3: How much assistance does the patient require from the helper? Only prior equipment preparation/set up from the helper GROOMING - SCORE: 5-SUP BATHING: Activity did not occur on this shift BATHING - SCORE: 0-UNK DRESSING - UPPER BODY: Patient is not dressing in public clothing ARTICLES SCORE Total number of steps: 0 DRESSING - UPPER BODY - SCORE: 0-UNK DRESSING - LOWER BODY: Patient is not dressing in public clothing ARTICLES SCORE Total number of steps: 0 DRESSING - LOWER BODY - SCORE: 0-UNK TOILETING: TOILETING - STEP 1: Does the patient require the assistance of a person or device, or need extra time with toileting? Yes . TOILETING - STEP 2: Does the patient require the assistance of a helper? Yes. TOILETING - STEP 3: How much assistance does the patient require from the helper? Hands-on assistance from the helper TOILETING - STEP 4: Of the 3 tasks: 1) Adjusting clothing prior to use, 2) Cleansing of perineal area, 3) Adjusting clot cooper after use; How many tasks does the patient perform WITHOUT assistance of the helper? Three tasks with steadying assistance from the helper TOILETING - SCORE: 4-MIN BLADDER MANAGEMENT: BLADDER MANAGEMENT - STEP 1: Does the patient control the bladder completely and intentionally without equipment or devices or med ications, and is always continent? No. BLADDER MANAGEMENT - STEP 2: Does the patient require the assistance of a helper? No, patient requires and independently uses an a ssistive device, such as a urinal, bedpan, bedside commode, catheter, absorbent pad, or collecting de vice BLADDER MANAGEMENT - SCORE: 6-MAGGY BOWEL MANAGEMENT: Activity did not occur on this shift BOWEL MANAGEMENT - SCORE: 7-IND TRANSFERS: BED, CHAIR, WHEELCHAIR: TRANSFERS: BED, CHAIR, WHEELCHAIR - STEP 1: Does the patient require assistance of a person or device, or need extra time with bed, chair, or whe elchair transfers? Yes. TRANSFERS: BED, CHAIR, WHEELCHAIR - STEP 2: Does the patient require the assistance of a helper? Yes. TRANSFERS: BED, CHAIR, WHEELCHAIR - STEP 3: How much assistance does the patient require from the helper? Lifting of the legs TRANSFERS: BED, CHAIR, WHEELCHAIR - STEP 4: How many legs does the patient require the helper to lift? one leg TRANSFERS: BED, CHAIR, WHEELCHAIR - SCORE: 4-MIN TRANSFERS: TOILET: TRANSFERS: TOILET - STEP 1: Does the patient require the assistance of a person or device, or need extra time with toilet transfe rs? Yes. TRANSFERS: TOILET - STEP 2: Does the patient require the assistance of a helper? Yes. TRANSFERS: TOILET - STEP 3: How much assistance does the patient require from the helper? Patient performs half or more of the tr ansferring tasks TRANSFERS: TOILET - STEP 4: Does the patient need only incidental help such as contact guard or steadying during toilet transfer? Yes. TRANSFERS: TOILET - SCORE: 4-MIN TRANSFERS: SHOWER: Activity did not occur on this shift TRANSFERS: SHOWER - SCORE: 0-UNK TRANSFERS: TUB: Activity did not occur on this shift TRANSFERS: TUB - SCORE: 0-UNK LOCOMOTION: WALK: Activity did not occur on this shift LOCOMOTION: WALK - SCORE: 0-UNK LOCOMOTION: WHEELCHAIR: Activity did not occur on this shift LOCOMOTION: WHEELCHAIR - SCORE: 0-UNK COMPREHENSION: COMPREHENSION: TYPE: Both COMPREHENSION - STEP 1: Does the patient require help from a person or device, or need extra time to understand complex and a bstract ideas (such as current events, finances, discharge planning, medical issues, relationships, e tc)? No. COMPREHENSION - STEP 2: Does the patient need extra time, require an assistive device (such as glasses for visual comprehensi on or a hearing aid for auditory comprehension) or does s/he have mild difficulty understanding compl ex and abstract information? Yes. COMPREHENSION - SCORE: 6-MAGGY EXPRESSION EXPRESSION: TYPE: Both EXPRESSION - STEP 1: Does the patient require help from a person or device, or need extra time expressing complex and abst ract ideas (such as current events, finances, discharge planning, medical issues, relationships, etc) ? No. EXPRESSION - STEP 2: Does the patient need extra time, require an assistive device (such as augmentive communication syste m or a communication board), OR does s/he have mild difficulty expressing complex and abstract ideas (including mild dysarthria or mild word-find problems)? Yes. EXPRESSION - SCORE: 6-MAGGY SOCIAL INTERACTION: SOCIAL INTERACTION - STEP 1: Does the patient require a helper to interact with others in social and therapeutic situations? No. SOCIAL INTERACTION - STEP 2: Does the patient need extra time in social situations, OR does s/he interact with staff, other patien ts, and family members ONLY in structured environments, OR does s/he require medication for social in teraction? Yes, patient needs extra time SOCIAL INTERACTION - SCORE: 6-MAGGY PROBLEM SOLVING: PROBLEM SOLVING - STEP 1: Does the patient need help from a person or device, or need extra time to solve complex problems such as managing a checking account or confronting interpersonal problems? No. PROBLEM SOLVING - STEP 2: Does the patient require extra time to make decisions or solve problems, OR does s/he have slight dif ficulty reading, initiating, or self-correcting in unfamiliar situations? Yes, patient needs extra ti me. PROBLEM SOLVING - SCORE: 6-MAGGY MEMORY: MEMORY - STEP 1: Does the patient need help from a person or device, or need extra time to remember frequently encount ered people, daily routines, and executing requests? Yes. MEMORY - STEP 2: How often does the patient need help to remember frequently encountered people, daily routines, and e xecuting requests? Less than 10% of the time MEMORY - SCORE: 5-SUP SIGNATURE PANEL: The following modified sections: Eating - Score, Grooming - Score, Bathing - Score, Dressing - Upper Body - Score, Dressing - Lower Body - Score, Toileting - Score, Bladder Management - Score, Bowel Man agement - Score, Transfers: Bed, Chair, Wheelchair - Score, Transfers: Toilet - Score, Transfers: Enedina wer - Score, Transfers: Tub - Score, Locomotion: Walk - Score, Locomotion: Wheelchair - Score, Compre hension - Score, Expression - Score, Social Interaction - Score, Problem Solving - Score, Memory - Sc ore were [electronically] signed by Bruce Garces on TueFeb 28 2018 10:22:50 GMT-0600 (Central Standard Time)
--- NOTE | 2018-02-28 14:27 | FAST ---
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 Parish Gates M.D. 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 concussion and edema of cervical spinal cord, sequela. cervical myelopathy. degenerative cervical spinal stenosis. lumbar stenosis with neurogenic claudication. EATING: Activity did not occur on this shift EATING - SCORE: 0-UNK GROOMING: Activity did not occur on this shift GROOMING - SCORE: 0-UNK BATHING: Activity did not occur on this shift BATHING - SCORE: 0-UNK DRESSING - UPPER BODY: Activity did not occur on this shift Patient is not dressing in public clothing ARTICLES SCORE Total number of steps: 0 DRESSING - UPPER BODY - SCORE: 0-UNK DRESSING - LOWER BODY: Activity did not occur on this shift Patient is not dressing in public clothing ARTICLES SCORE Total number of steps: 0 DRESSING - LOWER BODY - SCORE: 0-UNK TOILETING: Activity did not occur on this shift TOILETING - SCORE: 0-UNK BLADDER MANAGEMENT: Activity did not occur on this shift BLADDER MANAGEMENT - SCORE: 7-IND BOWEL MANAGEMENT: Activity did not occur on this shift BOWEL MANAGEMENT - SCORE: 7-IND TRANSFERS: BED, CHAIR, WHEELCHAIR: TRANSFERS: BED, CHAIR, WHEELCHAIR - STEP 1: Does the patient require assistance of a person or device, or need extra time with bed, chair, or whe elchair transfers? Yes. TRANSFERS: BED, CHAIR, WHEELCHAIR - STEP 2: Does the patient require the assistance of a helper? Yes. TRANSFERS: BED, CHAIR, WHEELCHAIR - STEP 3: How much assistance does the patient require from the helper? Only supervision TRANSFERS: BED, CHAIR, WHEELCHAIR - SCORE: 5-SUP TRANSFERS: TOILET: Activity did not occur on this shift TRANSFERS: TOILET - SCORE: 0-UNK TRANSFERS: SHOWER: Activity did not occur on this shift TRANSFERS: SHOWER - SCORE: 0-UNK TRANSFERS: TUB: Activity did not occur on this shift TRANSFERS: TUB - SCORE: 0-UNK LOCOMOTION: WALK: LOCOMOTION: WALK - STEP 1: Does the patient need help from a person or device, or need extra time to walk 150 feet? Yes. LOCOMOTION: WALK - STEP 2: How much assistance does the patient require to walk a minimum of 150 feet? Only supervision, cuing, or coaxing LOCOMOTION: WALK - SCORE: 5-SUP LOCOMOTION: WHEELCHAIR: Activity did not occur on this shift LOCOMOTION: WHEELCHAIR - SCORE: 0-UNK LOCOMOTION: STAIRS: Activity did not occur on this shift LOCOMOTION: STAIRS - SCORE: 0-UNK COMPREHENSION: COMPREHENSION - SCORE: 0-UNK EXPRESSION EXPRESSION - SCORE: 0-UNK SOCIAL INTERACTION: SOCIAL INTERACTION - SCORE: 0-UNK PROBLEM SOLVING: PROBLEM SOLVING - SCORE: 0-UNK MEMORY: MEMORY - SCORE: 0-UNK SIGNATURE PANEL: The following modified sections: Transfers: Bed, Chair, Wheelchair - Score, Transfers: Toilet - Score , Locomotion: Walk - Score, Locomotion: Stairs - Score, Locomotion: Wheelchair - Score were [linda richard] signed by Piter Cain PT on TueFeb 28 2018 14:26:32 GMT-0600 (Central Standard Time)
--- NOTE | 2018-02-28 17:43 | R.PN ---
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 Pt denied any Shortness of Breath. Ambulated 1000' with standby assistance using a rolling walker. Up and down 20 steps with modified in dependence using bilateral handrails. Hgb 9.3, prealbumin 7.6. VITAL SIGNS Temperature: 97.8 F SBP/DBP: 88-123/56-62 Pulse: 83-95 Resp: 16 MEDICATION ALLERGIES: No Known Drug Allergies (NKDA) ENVIRONMENTAL ALLERGIES: - Substance Allergies None Known - Other Allergies None Known NURSING: - Shower allowing shower - Bladder care per protocol - Skin care per protocol ACTIVITIES OOB only with supervision THERAPIES: - Orthotics/Prosthetics Orthotic Evaluation. Splinting/Casting. - Occupational Therapy Evaluate and Treat. - Physical Therapy Evaluate and Treat. PHYSICAL EXAM - Gen Alert and awake Lying in bed No apparent distress Oriented to: person, time, and place - Skin No breakdown No abnormalities - Eyes No abnormalities - ENMT No abnormalities - Neck No pain - CVS RRR - Chest No abnormalities - Resp CTA bilaterally - Abd +bowel sounds - GI Soft Deferred - No abnormalities - Ext No significant edema - MSK 4+/5 weakness in both lower extremities. - Neuro No focal deficits - Psych No abnormalities ASSESSMENT: Pt. is a 83 yo Right-handed white male.On 02/21/2018 he was admitted to [facility] with diagnosis degenerative lumbar spinal stenosis.His impairment category is Spinal Cord Dy sfunction 04 - Other Non-traumatic Spinal Cord Dysfunction (04.130).Pre-morbidly, Pt. was independen t/mod-I in Self-Care, Sphincter Control, Transfers Control, Communication, Social Cognition, and [place] motion; and he had good Sphincter Control.Currently, he has deficits of Balance, Endurance, Safety Aw areness, Transfers Control, Communication, Social Cognition, Locomotion, and Self-Care.Pt. is now ref erred to [facility] for acute in-patient rehabilitation in order to maximize p atient's functional independence in activities of daily living, strength, ROM, and mobility.- Rehab G oal Patient has realistic goal of being discharged at assistance level 6-Wei to reside at Home with Fam papito/Relatives. MDM/PLAN: - Physical Therapy Gait dysfunction - to improve, our physical therapists will perform initial evaluation of pt's statu s upon admission and devise an individualized program for Gait Training, and Wheel Chair mobility Inability to transfer - to improve, our physical therapists will perform initial evaluation of pt's status upon admission and devise an individualized program for Bed mobility Need for home safety evaluation - to improve, our physical therapists will perform initial evaluatio n of pt's status upon admission and devise an individualized program for Home Evaluation Need in caregiver upon discharge - to improve, our physical therapists will perform initial evaluati on of pt's status upon admission and devise an individualized program for Caregiver Training Edema - to improve, our physical therapists will perform initial evaluation of pt's status upon admi ssion and devise an individualized program for Elevation Training, and Lymphedema Therapy New precaution - to improve, our physical therapists will perform initial evaluation of pt's status upon admission and devise an individualized program for Patient precaution education Poor balance - to improve, our physical therapists will perform initial evaluation of pt's status up on admission and devise an individualized program for Balance Training Poor endurance - to improve, our physical therapists will perform initial evaluation of pt's status upon admission and devise an individualized program for Endurance Training Weakness - to improve, our physical therapists will perform initial evaluation of pt's status upon a dmission and devise an individualized program for Aquatic Therapy, Neuromuscular Reeducation, and Str engthening Achieving independence - to improve, our physical therapists will perform initial evaluation of pt's status upon admission and devise an individualized program for Community Reintegration Activities - Occupational Therapy ADL deficits - to improve, our occupation therapists will perform initial evaluation of pt's status upon admission and devise an individualized program for Bathing, Bed mobility, Community Reintegratio n, Cooking, Dressing, Eating, Fine Motor Skills, Grooming, Homemaking, Kitchen Mobility, Laundry, Pat ient Education, Safety Awareness, Splinting - Positioning, Transfers(Toilet, Tub, Shower), and Wheel Chair Management Cognitive deficits - to improve, our occupation therapists will perform initial evaluation of pt's s tatus upon admission and devise an individualized program for Cognition - orientation Need for direct care professional - to improve, our occupation therapists will perform initial evaluation of pt's status upon admission and devise an individualized program for Caregiver Training Weakness - to improve, our occupation therapists will perform initial evaluation of pt's status upon admission and devise an individualized program for Aquatic Therapy, Balance, Endurance, UE ROM, and UE strengthening - Diet Type Continue Regular - Diet - Liquid Texture Continue Regular - Tube Feed Continue N/A - Bladder care per protocol - Skin care per protocol - Diet - Solid Texture Continue Regular - Shower allowing shower FUNCTIONAL STATUS: UPDATED AT WEEKLY TEAM CONFERENCE - Bladder Same accident frequency: 7-Ind - No accidents in the past 7 days - Bowel Same accident frequency: 7-Ind - No accidents in the past 7 days - Walking Same score based on distance walked: 3(>=150ft) FUNCTIONAL STATUS: - Self-Care A. Eating Ind B. Grooming sup C. Bathing modA D. Dressing - Upper sup E. Dressing - Lower Dep F. Toileting Dep - Sphincter Control G: Bladder control Ind H: Bowel control Ind - Transfers Control I. Bed/Chair/Wheelchair Jossy J. Toilet Jossy K. Tub/Shower Jossy - Locomotion L. Walk/Wheelchair (B) sup M. Stairs ADNO - Communication N. Comprehension (B) sup O. Expression (B) sup - Social Cognition P. Social Interaction sup Q. Problem Solving sup R. Memory sup - Endurance Fair - Balance Fair - Safety Awareness Fair CURRENT FUNC. DEFICITS: Balance, Endurance, Safety Awareness, Transfers Control, Communication, Social Cognition, Locomotion, and Self-Care SIGNATURE PANEL: (EXECUTIVE COMMUNITY PLANNING)
--- NOTE | 2018-02-28 19:16 | P.PN ---
Subjective Date of Service: 02/28/18 Chief Complaint: MR. GERARD HAD CERVICAL LAMINECTOMY HE IS FEELING GREAT, SP SURGERY. HE IS FEELING WELL, HAS NO COMPLAINTS. Review of Systems 10-point ROS is otherwise unremarkable Physical Examination - Vital Signs Temperature: 97.2 F Blood Pressure: 88/56 Pulse: 95 Respirations: 18 Pulse Ox (%): 97 - Physical Exam General: Alert, In no apparent distress HEENT: Atraumatic, PERRLA, EOMI Neck: Supple, JVD not distended Respiratory: Clear to auscultation bilaterally, Normal air movement Cardiovascular: Regular rate/rhythm, Normal S1 S2 Gastrointestinal: Normal bowel sounds, No tenderness Musculoskeletal: No tenderness Integumentary: No rashes Neurological: Normal speech, Normal tone, Normal affect Lymphatics: No axilla or inguinal lymphadenopathy - Studies Medications List Reviewed: Yes Assessment And Plan - Current Problems (Diagnosis) (1) Cervical post-laminectomy syndrome Onset Date: 02/27/18 Current Visit: Yes Status: Acute Plan: OT PT. SP SURGERY, DOING WELL. STABLE. GETTING STRONGER. HE IS STARTING TO WALK WELL. (2) Anemia, chronic disease Onset Date: 02/27/18 Current Visit: Yes Status: Chronic Plan: STABLE AT ABOUT 9 HE ALSO HAS SOME BLEEDING BUT HAS BEEN TO GI DOCTORS. (3) Rheumatoid arthritis Onset Date: 02/27/18 Current Visit: Yes Status: Chronic Plan: HAS [employer] INS[employer]OR AND GOES TO [facility] [employer].
[2018-02-28] MEDS: ATORVASTATIN 20 MG TAB PO SCH (20:13)
--- NOTE | 2018-03-01 01:44 | FAST ---
SHIFT START DATE/TIME: 02/28/2018 19:00 (TIE TAMPER) SHIFT END DATE/TIME: 03/01/2018 07:00 (TIE TAMPER) NAME RONNI GERARD DATE OF : 1935 DATE OF ADMISSION: 02/25/2018 18:03 (TIE TAMPER) PHONE: AGE: 83 SSN# [id number] GENDER: Male ENCOUNTER PHYSICIAN: Dr. Parish Gates M.D. 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 concussion and edema of cervical spinal cord, sequela. cervical myelopathy. degenerative cervical spinal stenosis. lumbar stenosis with neurogenic claudication. EATING: Activity did not occur on this shift EATING - SCORE: 0-UNK GROOMING: Activity did not occur on this shift GROOMING - SCORE: 0-UNK BATHING: Activity did not occur on this shift BATHING - SCORE: 0-UNK DRESSING - UPPER BODY: Activity did not occur on this shift ARTICLES SCORE Total number of steps: 0 DRESSING - UPPER BODY - SCORE: 0-UNK DRESSING - LOWER BODY: Activity did not occur on this shift ARTICLES SCORE Total number of steps: 0 DRESSING - LOWER BODY - SCORE: 0-UNK TOILETING: Activity did not occur on this shift TOILETING - SCORE: 0-UNK BLADDER MANAGEMENT: BLADDER MANAGEMENT - STEP 1: Does the patient control the bladder completely and intentionally without equipment or devices or med ications, and is always continent? No. BLADDER MANAGEMENT - STEP 2: Does the patient require the assistance of a helper? Yes. BLADDER MANAGEMENT - STEP 3: How much assistance does the patient require from the helper? Patient requires contact assistance fro m the helper BLADDER MANAGEMENT - STEP 4: How much contact assistance does the patient require from the helper? Patient requires minimal assist ance to maintain an external device - by positioning, and the patient performs 75% or more of bladder management tasks, while the helper provides less than 25% of the assistance to position patient on / off bedpan BLADDER MANAGEMENT - SCORE: 4-MIN BOWEL MANAGEMENT: Activity did not occur on this shift BOWEL MANAGEMENT - SCORE: 7-IND TRANSFERS: BED, CHAIR, WHEELCHAIR: TRANSFERS: BED, CHAIR, WHEELCHAIR - STEP 1: Does the patient require assistance of a person or device, or need extra time with bed, chair, or whe elchair transfers? Yes. TRANSFERS: BED, CHAIR, WHEELCHAIR - STEP 2: Does the patient require the assistance of a helper? Yes. TRANSFERS: BED, CHAIR, WHEELCHAIR - STEP 3: How much assistance does the patient require from the helper? Steadying/guiding assistance TRANSFERS: BED, CHAIR, WHEELCHAIR - SCORE: 4-MIN TRANSFERS: TOILET: Activity did not occur on this shift TRANSFERS: TOILET - SCORE: 0-UNK TRANSFERS: SHOWER: Activity did not occur on this shift TRANSFERS: SHOWER - SCORE: 0-UNK TRANSFERS: TUB: Activity did not occur on this shift TRANSFERS: TUB - SCORE: 0-UNK LOCOMOTION: WALK: Activity did not occur on this shift LOCOMOTION: WALK - SCORE: 0-UNK LOCOMOTION: WHEELCHAIR: Activity did not occur on this shift LOCOMOTION: WHEELCHAIR - SCORE: 0-UNK COMPREHENSION: COMPREHENSION: TYPE: Both COMPREHENSION - STEP 1: Does the patient require help from a person or device, or need extra time to understand complex and a bstract ideas (such as current events, finances, discharge planning, medical issues, relationships, e tc)? No. COMPREHENSION - STEP 2: Does the patient need extra time, require an assistive device (such as glasses for visual comprehensi on or a hearing aid for auditory comprehension) or does s/he have mild difficulty understanding compl ex and abstract information? Yes. COMPREHENSION - SCORE: 6-MAGGY EXPRESSION EXPRESSION: TYPE: Both EXPRESSION - STEP 1: Does the patient require help from a person or device, or need extra time expressing complex and abst ract ideas (such as current events, finances, discharge planning, medical issues, relationships, etc) ? No. EXPRESSION - STEP 2: Does the patient need extra time, require an assistive device (such as augmentive communication syste m or a communication board), OR does s/he have mild difficulty expressing complex and abstract ideas (including mild dysarthria or mild word-find problems)? No. EXPRESSION - SCORE: 7-IND SOCIAL INTERACTION: SOCIAL INTERACTION - STEP 1: Does the patient require a helper to interact with others in social and therapeutic situations? No. SOCIAL INTERACTION - STEP 2: Does the patient need extra time in social situations, OR does s/he interact with staff, other patien ts, and family members ONLY in structured environments, OR does s/he require medication for social in teraction? No. SOCIAL INTERACTION - SCORE: 7-IND PROBLEM SOLVING: PROBLEM SOLVING - STEP 1: Does the patient need help from a person or device, or need extra time to solve complex problems such as managing a checking account or confronting interpersonal problems? No. PROBLEM SOLVING - STEP 2: Does the patient require extra time to make decisions or solve problems, OR does s/he have slight dif ficulty reading, initiating, or self-correcting in unfamiliar situations? No. PROBLEM SOLVING - SCORE: 7-IND MEMORY: MEMORY - STEP 1: Does the patient need help from a person or device, or need extra time to remember frequently encount ered people, daily routines, and executing requests? No. MEMORY - STEP 2: Does the patient have slight difficulty recognizing frequently encountered people, daily routines, or executing requests without the need for repetition or using self-initiated or environmental cues to remember? No. MEMORY - SCORE: 7-IND SIGNATURE PANEL: The following modified sections: Eating - Score, Grooming - Score, Bathing - Score, Dressing - Upper Body - Score, Dressing - Lower Body - Score, Toileting - Score, Bladder Management - Score, Bowel Man agement - Score, Transfers: Bed, Chair, Wheelchair - Score, Transfers: Toilet - Score, Transfers: Enedina wer - Score, Transfers: Tub - Score, Locomotion: Walk - Score, Locomotion: Wheelchair - Score, Compre hension - Score, Expression - Score, Social Interaction - Score, Problem Solving - Score, Memory - Sc ore were [electronically] signed by Yun Martinez CNA on TueMar 01 2018 01:44:10 [facility]-[id number] ([facility])
[2018-03-01] MEDS: TRAMADOL HCL 50 MG TAB PO PRN ×4 (02:07→20:43)
[2018-03-01] MEDS: PANTOPRAZOLE 40MG TABLET PO SCH (08:12)
[2018-03-01] MEDS: LEVOTHYROXINE SOD 0.125 MG TAB PO SCH (08:12)
[2018-03-01] MEDS: GABAPENTIN 300 MG CAP PO SCH ×3 (08:13→20:43)
[2018-03-01] MEDS: DOCOSAHEXANOIC AC/EPA 1000 MG PO SCH (08:13)
[2018-03-01] MEDS: FERROUS SULFATE 325 MG TAB PO SCH (08:13)
[2018-03-01] MEDS: APIXABAN 2.5 MG TABLET PO SCH ×2 (08:13→20:42)
[2018-03-01] MEDS: FE SULF/FA/VIT B COMP & C TAB PO SCH (08:13)
[2018-03-01] MEDS: DOCUSATE NA 100 MG CAP PO SCH ×2 (08:13→20:43)
[2018-03-01] MEDS: ASPIRIN 81 MG CHEWABLE TABLET PO SCH (08:13)
[2018-03-01] MEDS: FOLIC ACID 1 MG TABLET PO SCH ×2 (08:14→20:43)
[2018-03-01] MEDS: LOSARTAN POTASSIUM 50 MG TABLET PO SCH (08:14)
[2018-03-01] MEDS: AMLODIPINE 2.5 MG TAB PO SCH (08:14)
[2018-03-01] MEDS: PROMOD 30 ML DOSE PO SCH ×2 (08:15→20:43)
[2018-03-01] MEDS: [UNRECOGNIZED DRUG - OTHER] PO SCH (12:27)
--- NOTE | 2018-03-01 15:44 | FAST ---
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 Parish Gates M.D. 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 concussion and edema of cervical spinal cord, sequela. cervical myelopathy. degenerative cervical spinal stenosis. lumbar stenosis with neurogenic claudication. EATING: EATING - STEP 1: Does the patient require the assistance of a person or device, or need extra time when eating? Yes. EATING - STEP 2: Does the patient require the assistance of a helper? Yes. EATING - STEP 3: Does the patient perform half or more of the eating tasks? Yes. EATING - STEP 4: Does the patient need only supervision, cuing, coaxing OR help to apply an orthosis OR help to cut fo od, open containers, pour liquids, or butter bread? Yes. EATING - SCORE: 5-SUP GROOMING: Comb/brush hair Oral care Wash, rinse, and dry face Wash, rinse, and dry hands GROOMING - STEP 1: Does the patient require the assistance of a person or device, or need extra time when grooming? No. GROOMING - SCORE: 7-IND BATHING: Activity did not occur on this shift BATHING - SCORE: 0-UNK DRESSING - UPPER BODY: Activity did not occur on this shift ARTICLES SCORE Total number of steps: 0 DRESSING - UPPER BODY - SCORE: 0-UNK DRESSING - LOWER BODY: Activity did not occur on this shift ARTICLES SCORE Total number of steps: 0 DRESSING - LOWER BODY - SCORE: 0-UNK TOILETING: TOILETING - STEP 1: Does the patient require the assistance of a person or device, or need extra time with toileting? Yes . TOILETING - STEP 2: Does the patient require the assistance of a helper? Yes. TOILETING - STEP 3: How much assistance does the patient require from the helper? Only supervision TOILETING - SCORE: 5-SUP BLADDER MANAGEMENT: BLADDER MANAGEMENT - STEP 1: Does the patient control the bladder completely and intentionally without equipment or devices or med ications, and is always continent? No. BLADDER MANAGEMENT - STEP 2: Does the patient require the assistance of a helper? No, patient requires and independently uses an a ssistive device, such as a urinal, bedpan, bedside commode, catheter, absorbent pad, or collecting de vice BLADDER MANAGEMENT - SCORE: 6-MAGGY BLADDER MANAGEMENT - FREQUENCY OF ACCIDENTS: BLADDER MANAGEMENT(FA) - STEP 1: How many accidents has the patient had during the current shift? 0 BOWEL MANAGEMENT: Activity did not occur on this shift BOWEL MANAGEMENT - SCORE: 7-IND BOWEL MANAGEMENT - FREQUENCY OF ACCIDENTS: BOWEL MANAGEMENT(FA) - STEP 1: How many accidents has the patient had during the current shift? 0 TRANSFERS: BED, CHAIR, WHEELCHAIR: TRANSFERS: BED, CHAIR, WHEELCHAIR - STEP 1: Does the patient require assistance of a person or device, or need extra time with bed, chair, or whe elchair transfers? Yes. TRANSFERS: BED, CHAIR, WHEELCHAIR - STEP 2: Does the patient require the assistance of a helper? Yes. TRANSFERS: BED, CHAIR, WHEELCHAIR - STEP 3: How much assistance does the patient require from the helper? Steadying/guiding assistance TRANSFERS: BED, CHAIR, WHEELCHAIR - SCORE: 4-MIN TRANSFERS: TOILET: TRANSFERS: TOILET - STEP 1: Does the patient require the assistance of a person or device, or need extra time with toilet transfe rs? Yes. TRANSFERS: TOILET - STEP 2: Does the patient require the assistance of a helper? Yes. TRANSFERS: TOILET - STEP 3: How much assistance does the patient require from the helper? Patient performs half or more of the tr ansferring tasks TRANSFERS: TOILET - STEP 4: Does the patient need only incidental help such as contact guard or steadying during toilet transfer? Yes. TRANSFERS: TOILET - SCORE: 4-MIN TRANSFERS: SHOWER: Activity did not occur on this shift TRANSFERS: SHOWER - SCORE: 0-UNK TRANSFERS: TUB: Activity did not occur on this shift TRANSFERS: TUB - SCORE: 0-UNK LOCOMOTION: WALK: Activity did not occur on this shift LOCOMOTION: WALK - SCORE: 0-UNK LOCOMOTION: WHEELCHAIR: Activity did not occur on this shift LOCOMOTION: WHEELCHAIR - SCORE: 0-UNK COMPREHENSION: COMPREHENSION: TYPE: Both COMPREHENSION - STEP 1: Does the patient require help from a person or device, or need extra time to understand complex and a bstract ideas (such as current events, finances, discharge planning, medical issues, relationships, e tc)? No. COMPREHENSION - STEP 2: Does the patient need extra time, require an assistive device (such as glasses for visual comprehensi on or a hearing aid for auditory comprehension) or does s/he have mild difficulty understanding compl ex and abstract information? Yes. COMPREHENSION - SCORE: 6-MAGGY EXPRESSION EXPRESSION: TYPE: Both EXPRESSION - STEP 1: Does the patient require help from a person or device, or need extra time expressing complex and abst ract ideas (such as current events, finances, discharge planning, medical issues, relationships, etc) ? No. EXPRESSION - STEP 2: Does the patient need extra time, require an assistive device (such as augmentive communication syste m or a communication board), OR does s/he have mild difficulty expressing complex and abstract ideas (including mild dysarthria or mild word-find problems)? Yes. EXPRESSION - SCORE: 6-MAGGY SOCIAL INTERACTION: SOCIAL INTERACTION - STEP 1: Does the patient require a helper to interact with others in social and therapeutic situations? No. SOCIAL INTERACTION - STEP 2: Does the patient need extra time in social situations, OR does s/he interact with staff, other patien ts, and family members ONLY in structured environments, OR does s/he require medication for social in teraction? Yes, patient needs extra time SOCIAL INTERACTION - SCORE: 6-MAGGY PROBLEM SOLVING: PROBLEM SOLVING - STEP 1: Does the patient need help from a person or device, or need extra time to solve complex problems such as managing a checking account or confronting interpersonal problems? No. PROBLEM SOLVING - STEP 2: Does the patient require extra time to make decisions or solve problems, OR does s/he have slight dif ficulty reading, initiating, or self-correcting in unfamiliar situations? No. PROBLEM SOLVING - SCORE: 7-IND MEMORY: MEMORY - STEP 1: Does the patient need help from a person or device, or need extra time to remember frequently encount ered people, daily routines, and executing requests? No. MEMORY - STEP 2: Does the patient have slight difficulty recognizing frequently encountered people, daily routines, or executing requests without the need for repetition or using self-initiated or environmental cues to remember? Yes. MEMORY - SCORE: 6-MAGGY SIGNATURE PANEL: The following modified sections: Eating - Score, Grooming - Score, Bathing - Score, Dressing - Upper Body - Score, Dressing - Lower Body - Score, Toileting - Score, Bladder Management - Score, Bowel Man agement - Score, Transfers: Bed, Chair, Wheelchair - Score, Transfers: Toilet - Score, Transfers: Enedina wer - Score, Transfers: Tub - Score, Locomotion: Walk - Score, Locomotion: Wheelchair - Score, Compre hension - Score, Expression - Score, Social Interaction - Score, Problem Solving - Score, Memory - Sc ore were [electronically] signed by Abelardo BauerNEvan on TueMar 01 2018 15:44:29 GMT-0600 ([facility])
--- NOTE | 2018-03-01 17:34 | P.PN ---
Subjective Date of Service: 03/01/18 Chief Complaint: MR. GERARD HAD CERVICAL LAMINECTOMY Subjective: Improving HE IS FEELING GREAT, SP SURGERY. HE IS FEELING WELL, HAS NO COMPLAINTS. NO ISSUES. Review of Systems 10-point ROS is otherwise unremarkable Physical Examination - Vital Signs Temperature: 99 F Blood Pressure: 142/65 Pulse: 78 Respirations: 18 Pulse Ox (%): 95 - Physical Exam General: Alert, In no apparent distress HEENT: Atraumatic, PERRLA, EOMI Neck: Supple, JVD not distended Respiratory: Clear to auscultation bilaterally, Normal air movement Cardiovascular: Regular rate/rhythm, Normal S1 S2 Gastrointestinal: Normal bowel sounds, No tenderness Musculoskeletal: No tenderness Integumentary: No rashes Neurological: Normal speech, Normal tone, Normal affect Lymphatics: No axilla or inguinal lymphadenopathy - Studies Medications List Reviewed: Yes Assessment And Plan - Current Problems (Diagnosis) (1) Cervical post-laminectomy syndrome Onset Date: 02/27/18 Current Visit: Yes Status: Acute Plan: OT PT. SP SURGERY, DOING WELL. STABLE. GETTING STRONGER. HE IS STARTING TO WALK WELL. GETTING STRONGER DAILY. (2) Anemia, chronic disease Onset Date: 02/27/18 Current Visit: Yes Status: Chronic Plan: STABLE AT ABOUT 9 HE ALSO HAS SOME BLEEDING BUT HAS BEEN TO GI DOCTORS. (3) Rheumatoid arthritis Onset Date: 02/27/18 Current Visit: Yes Status: Chronic Plan: HAS FINISHED [employer] AND GOES TO [facility].
--- NOTE | 2018-03-01 18:40 | R.PN ---
ENCOUNTER DATE AND TIME: 03/01/2018 18:38 (RECRUITMENT DIRECTOR) NAME RONNI GERARD DATE OF : 1935 DATE OF ADMISSION: 02/25/2018 18:03 (RECRUITMENT DIRECTOR) degenerative lumbar spinal stenosisconcussion and edema of cervical spinal cord, sequelacervical myel opathydegenerative cervical spinal stenosislumbar stenosis with neurogenic claudicationCHIEF COMPLAIN T: Spinal stenosis SUBJECTIVE: Pt denied any depression. Pt denied any Shortness of Breath. Ambulated 1000' with modified independence using a rolling walker. Up and down 20 steps with modified independence using bilateral handrails. Hgb 9.3, prealbumin 7.6. VITAL SIGNS Temperature: 99 F SBP/DBP: 142/65 Pulse: 78 Resp: 14 MEDICATION ALLERGIES: No Known Drug Allergies (NKDA) ENVIRONMENTAL ALLERGIES: - Substance Allergies None Known - Other Allergies None Known NURSING: - Shower allowing shower - Bladder care per protocol - Skin care per protocol ACTIVITIES OOB only with supervision THERAPIES: - Orthotics/Prosthetics Orthotic Evaluation. Splinting/Casting. - Occupational Therapy Evaluate and Treat. - Physical Therapy Evaluate and Treat. PHYSICAL EXAM - Gen Alert and awake Lying in bed No apparent distress Oriented to: person, time, and place - Skin No breakdown No abnormalities - Eyes No abnormalities - ENMT No abnormalities - Neck No pain - CVS RRR - Chest No abnormalities - Resp CTA bilaterally - Abd +bowel sounds - GI Soft Deferred - No abnormalities - Ext No significant edema - MSK 4+/5 weakness in both lower extremities. - Neuro No focal deficits - Psych No abnormalities ASSESSMENT: Pt. is a 83 yo Right-handed white male.On 02/21/2018 he was admitted to [facility] with diagnosis degenerative lumbar spinal stenosis.His impairment category is Spinal Cord Dy sfunction 04 - Other Non-traumatic Spinal Cord Dysfunction (04.130).Pre-morbidly, Pt. was independen t/mod-I in Self-Care, Sphincter Control, Transfers Control, Communication, Social Cognition, and Kelley motion; and he had good Sphincter Control.Currently, he has deficits of Balance, Endurance, Safety Aw areness, Transfers Control, Communication, Social Cognition, Locomotion, and Self-Care.Pt. is now ref erred to [facility] for acute in-patient rehabilitation in order to maximize p atient's functional independence in activities of daily living, strength, ROM, and mobility.- Rehab G oal Patient has realistic goal of being discharged at assistance level 6-Wei to reside at Home with Fam papito/Relatives. MDM/PLAN: - Physical Therapy Gait dysfunction - to improve, our physical therapists will perform initial evaluation of pt's statu s upon admission and devise an individualized program for Gait Training, and Wheel Chair mobility Inability to transfer - to improve, our physical therapists will perform initial evaluation of pt's status upon admission and devise an individualized program for Bed mobility Need for home safety evaluation - to improve, our physical therapists will perform initial evaluatio n of pt's status upon admission and devise an individualized program for Home Evaluation Need in caregiver upon discharge - to improve, our physical therapists will perform initial evaluati on of pt's status upon admission and devise an individualized program for Caregiver Training Edema - to improve, our physical therapists will perform initial evaluation of pt's status upon admi ssion and devise an individualized program for Elevation Training, and Lymphedema Therapy New precaution - to improve, our physical therapists will perform initial evaluation of pt's status upon admission and devise an individualized program for Patient precaution education Poor balance - to improve, our physical therapists will perform initial evaluation of pt's status up on admission and devise an individualized program for Balance Training Poor endurance - to improve, our physical therapists will perform initial evaluation of pt's status upon admission and devise an individualized program for Endurance Training Weakness - to improve, our physical therapists will perform initial evaluation of pt's status upon a dmission and devise an individualized program for Aquatic Therapy, Neuromuscular Reeducation, and Str engthening Achieving independence - to improve, our physical therapists will perform initial evaluation of pt's status upon admission and devise an individualized program for Community Reintegration Activities - Occupational Therapy ADL deficits - to improve, our occupation therapists will perform initial evaluation of pt's status upon admission and devise an individualized program for Bathing, Bed mobility, Community Reintegratio n, Cooking, Dressing, Eating, Fine Motor Skills, Grooming, Homemaking, Kitchen Mobility, Laundry, Pat ient Education, Safety Awareness, Splinting - Positioning, Transfers(Toilet, Tub, Shower), and Wheel Chair Management Cognitive deficits - to improve, our occupation therapists will perform initial evaluation of pt's s tatus upon admission and devise an individualized program for Cognition - orientation Need for senior resident care director - to improve, our occupation therapists will perform initial evaluation of pt's status upon admission and devise an individualized program for Caregiver Training Weakness - to improve, our occupation therapists will perform initial evaluation of pt's status upon admission and devise an individualized program for Aquatic Therapy, Balance, Endurance, UE ROM, and UE strengthening - Diet Type Continue Regular - Diet - Liquid Texture Continue Regular - Tube Feed Continue N/A - Bladder care per protocol - Skin care per protocol - Diet - Solid Texture Continue Regular - Shower allowing shower FUNCTIONAL STATUS: UPDATED AT WEEKLY TEAM CONFERENCE - Bladder Same accident frequency: 7-Ind - No accidents in the past 7 days - Bowel Same accident frequency: 7-Ind - No accidents in the past 7 days - Walking Same score based on distance walked: 3(>=150ft) FUNCTIONAL STATUS: - Self-Care A. Eating Ind B. Grooming sup C. Bathing modA D. Dressing - Upper sup E. Dressing - Lower Dep F. Toileting Dep - Sphincter Control G: Bladder control Ind H: Bowel control Ind - Transfers Control I. Bed/Chair/Wheelchair Jossy J. Toilet Jossy K. Tub/Shower Jossy - Locomotion L. Walk/Wheelchair (B) sup M. Stairs ADNO - Communication N. Comprehension (B) sup O. Expression (B) sup - Social Cognition P. Social Interaction sup Q. Problem Solving sup R. Memory sup - Endurance Fair - Balance Fair - Safety Awareness Fair CURRENT FUNC. DEFICITS: Balance, Endurance, Safety Awareness, Transfers Control, Communication, Social Cognition, Locomotion, and Self-Care SIGNATURE PANEL: (RECRUITMENT DIRECTOR)
[2018-03-01] MEDS: ATORVASTATIN 20 MG TAB PO SCH (20:42)
--- NOTE | 2018-03-02 01:06 | FAST ---
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 Parish Gates M.D. 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 concussion and edema of cervical spinal cord, sequela. cervical myelopathy. degenerative cervical spinal stenosis. lumbar stenosis with neurogenic claudication. EATING: Activity did not occur on this shift EATING - SCORE: 0-UNK GROOMING: Activity did not occur on this shift GROOMING - SCORE: 0-UNK BATHING: Activity did not occur on this shift BATHING - SCORE: 0-UNK DRESSING - UPPER BODY: Patient is not dressing in public clothing ARTICLES SCORE Total number of steps: 0 DRESSING - UPPER BODY - SCORE: 0-UNK DRESSING - LOWER BODY: Patient is not dressing in public clothing ARTICLES SCORE Total number of steps: 0 DRESSING - LOWER BODY - SCORE: 0-UNK TOILETING: TOILETING - STEP 1: Does the patient require the assistance of a person or device, or need extra time with toileting? Yes . TOILETING - STEP 2: Does the patient require the assistance of a helper? Yes. TOILETING - STEP 3: How much assistance does the patient require from the helper? Only supervision TOILETING - SCORE: 5-SUP BLADDER MANAGEMENT: BLADDER MANAGEMENT - STEP 1: Does the patient control the bladder completely and intentionally without equipment or devices or med ications, and is always continent? No. BLADDER MANAGEMENT - STEP 2: Does the patient require the assistance of a helper? Yes. BLADDER MANAGEMENT - STEP 3: How much assistance does the patient require from the helper? Only supervision, stand-by, cuing, or c oaxing BLADDER MANAGEMENT - SCORE: 5-SUP BOWEL MANAGEMENT: Activity did not occur on this shift BOWEL MANAGEMENT - SCORE: 7-IND TRANSFERS: BED, CHAIR, WHEELCHAIR: TRANSFERS: BED, CHAIR, WHEELCHAIR - STEP 1: Does the patient require assistance of a person or device, or need extra time with bed, chair, or whe elchair transfers? Yes. TRANSFERS: BED, CHAIR, WHEELCHAIR - STEP 2: Does the patient require the assistance of a helper? Yes. TRANSFERS: BED, CHAIR, WHEELCHAIR - STEP 3: How much assistance does the patient require from the helper? Steadying/guiding assistance TRANSFERS: BED, CHAIR, WHEELCHAIR - SCORE: 4-MIN TRANSFERS: TOILET: Activity did not occur on this shift TRANSFERS: TOILET - SCORE: 0-UNK TRANSFERS: SHOWER: Activity did not occur on this shift TRANSFERS: SHOWER - SCORE: 0-UNK TRANSFERS: TUB: Activity did not occur on this shift TRANSFERS: TUB - SCORE: 0-UNK LOCOMOTION: WALK: Activity did not occur on this shift LOCOMOTION: WALK - SCORE: 0-UNK LOCOMOTION: WHEELCHAIR: Activity did not occur on this shift LOCOMOTION: WHEELCHAIR - SCORE: 0-UNK COMPREHENSION: COMPREHENSION: TYPE: Both COMPREHENSION - STEP 1: Does the patient require help from a person or device, or need extra time to understand complex and a bstract ideas (such as current events, finances, discharge planning, medical issues, relationships, e tc)? No. COMPREHENSION - STEP 2: Does the patient need extra time, require an assistive device (such as glasses for visual comprehensi on or a hearing aid for auditory comprehension) or does s/he have mild difficulty understanding compl ex and abstract information? Yes. COMPREHENSION - SCORE: 6-MAGGY EXPRESSION EXPRESSION: TYPE: Both EXPRESSION - STEP 1: Does the patient require help from a person or device, or need extra time expressing complex and abst ract ideas (such as current events, finances, discharge planning, medical issues, relationships, etc) ? No. EXPRESSION - STEP 2: Does the patient need extra time, require an assistive device (such as augmentive communication syste m or a communication board), OR does s/he have mild difficulty expressing complex and abstract ideas (including mild dysarthria or mild word-find problems)? No. EXPRESSION - SCORE: 7-IND SOCIAL INTERACTION: SOCIAL INTERACTION - STEP 1: Does the patient require a helper to interact with others in social and therapeutic situations? No. SOCIAL INTERACTION - STEP 2: Does the patient need extra time in social situations, OR does s/he interact with staff, other patien ts, and family members ONLY in structured environments, OR does s/he require medication for social in teraction? Yes, patient needs extra time SOCIAL INTERACTION - SCORE: 6-MAGGY PROBLEM SOLVING: PROBLEM SOLVING - STEP 1: Does the patient need help from a person or device, or need extra time to solve complex problems such as managing a checking account or confronting interpersonal problems? Yes. PROBLEM SOLVING - STEP 2: Does the patient solve basic routine problems half or more of the time? Yes. PROBLEM SOLVING - STEP 3: How often does the patient need help to solve basic routine problems? Less than 10% of the time PROBLEM SOLVING - SCORE: 5-SUP MEMORY: MEMORY - STEP 1: Does the patient need help from a person or device, or need extra time to remember frequently encount ered people, daily routines, and executing requests? No. MEMORY - STEP 2: Does the patient have slight difficulty recognizing frequently encountered people, daily routines, or executing requests without the need for repetition or using self-initiated or environmental cues to remember? Yes. MEMORY - SCORE: 6-MAGGY SIGNATURE PANEL: The following modified sections: Eating - Score, Grooming - Score, Dressing - Upper Body - Score, Gregory ssing - Lower Body - Score, Toileting - Score, Bladder Management - Score, Bowel Management - Score, Transfers: Bed, Chair, Wheelchair - Score, Transfers: Toilet - Score, Transfers: Shower - Score, Mariano sfers: Tub - Score, Locomotion: Walk - Score, Locomotion: Wheelchair - Score, Comprehension - Score, Expression - Score, Social Interaction - Score, Problem Solving - Score, Memory - Score were [electro nically] signed by Gabbi Soni CNA on TueMar 02 2018 01:05:40 GMT-0600 (Central Standard Time)
[2018-03-02] MEDS: LEVOTHYROXINE SOD 0.125 MG TAB PO SCH (05:09)
[2018-03-02] MEDS: PANTOPRAZOLE 40MG TABLET PO SCH (05:09)
[2018-03-02 06:19] LABS: Absolute Lymphocytes (CBC) 0.6 K/uL (0.7-4.9); Absolute Monocytes 0.9 K/uL (0.1-1.3); Absolute Neutrophil 5.1 K/uL (1.8-8.0); Eosinophils % 9.4 % (0-4.4); Hematocrit 24.7 % (39.6-49.0); Lymphocytes % 8.5 % (15.3-44.8); MPV 8.7 fL (7.6-11.3); Monocytes % 11.9 % (3.3-12.3); RBC Red Blood Cell Count 2.74 M/uL (4.33-5.43)
[2018-03-02 06:33] LABS: BUN Blood Urea Nitrogen 14 mg/dL (7-18); Bicarbonate 27 mmol/L (21-32); Glucose Level 89 mg/dL (74-106); Prealbumin 8.8 mg/dL (20-40); Sodium Level 139 mmol/L (136-145)
[2018-03-02] MEDS: DOCUSATE NA 100 MG CAP PO SCH (08:26)
[2018-03-02] MEDS: LOSARTAN POTASSIUM 50 MG TABLET PO SCH (08:26)
[2018-03-02] MEDS: APIXABAN 2.5 MG TABLET PO SCH ×2 (08:26→21:43)
[2018-03-02] MEDS: ASPIRIN 81 MG CHEWABLE TABLET PO SCH (08:26)
[2018-03-02] MEDS: FOLIC ACID 1 MG TABLET PO SCH ×2 (08:26→21:43)
[2018-03-02] MEDS: FERROUS SULFATE 325 MG TAB PO SCH (08:26)
[2018-03-02] MEDS: DOCOSAHEXANOIC AC/EPA 1000 MG PO SCH (08:26)
[2018-03-02] MEDS: AMLODIPINE 2.5 MG TAB PO SCH (08:26)
[2018-03-02] MEDS: FE SULF/FA/VIT B COMP & C TAB PO SCH (08:26)
[2018-03-02] MEDS: PROMOD 30 ML DOSE PO SCH ×2 (08:27→21:45)
[2018-03-02] MEDS: GABAPENTIN 300 MG CAP PO SCH ×3 (08:27→21:43)
[2018-03-02] MEDS: [UNRECOGNIZED DRUG - OTHER] PO SCH (08:27)
[2018-03-02] MEDS: TRAMADOL HCL 50 MG TAB PO PRN ×2 (08:31→12:24)
--- NOTE | 2018-03-02 08:49 | FAST ---
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 Parish Gates M.D. 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 concussion and edema of cervical spinal cord, sequela. cervical myelopathy. degenerative cervical spinal stenosis. lumbar stenosis with neurogenic claudication. EATING: Activity did not occur on this shift EATING - SCORE: 0-UNK GROOMING: Activity did not occur on this shift GROOMING - SCORE: 0-UNK BATHING: Activity did not occur on this shift BATHING - SCORE: 0-UNK DRESSING - UPPER BODY: Activity did not occur on this shift Patient is not dressing in public clothing ARTICLES SCORE Total number of steps: 0 DRESSING - UPPER BODY - SCORE: 0-UNK DRESSING - LOWER BODY: Activity did not occur on this shift Patient is not dressing in public clothing ARTICLES SCORE Total number of steps: 0 DRESSING - LOWER BODY - SCORE: 0-UNK TOILETING: Activity did not occur on this shift TOILETING - SCORE: 0-UNK BLADDER MANAGEMENT: Activity did not occur on this shift BLADDER MANAGEMENT - SCORE: 7-IND BOWEL MANAGEMENT: Activity did not occur on this shift BOWEL MANAGEMENT - SCORE: 7-IND TRANSFERS: BED, CHAIR, WHEELCHAIR: TRANSFERS: BED, CHAIR, WHEELCHAIR - STEP 1: Does the patient require assistance of a person or device, or need extra time with bed, chair, or whe elchair transfers? Yes. TRANSFERS: BED, CHAIR, WHEELCHAIR - STEP 2: Does the patient require the assistance of a helper? Yes. TRANSFERS: BED, CHAIR, WHEELCHAIR - STEP 3: How much assistance does the patient require from the helper? Only supervision TRANSFERS: BED, CHAIR, WHEELCHAIR - SCORE: 5-SUP TRANSFERS: TOILET: Activity did not occur on this shift TRANSFERS: TOILET - SCORE: 0-UNK TRANSFERS: SHOWER: Activity did not occur on this shift TRANSFERS: SHOWER - SCORE: 0-UNK TRANSFERS: TUB: Activity did not occur on this shift TRANSFERS: TUB - SCORE: 0-UNK LOCOMOTION: WALK: LOCOMOTION: WALK - STEP 1: Does the patient need help from a person or device, or need extra time to walk 150 feet? Yes. LOCOMOTION: WALK - STEP 2: How much assistance does the patient require to walk a minimum of 150 feet? Only supervision, cuing, or coaxing LOCOMOTION: WALK - SCORE: 5-SUP LOCOMOTION: WHEELCHAIR: LOCOMOTION: WHEELCHAIR - STEP 1: Does the patient need help to go 150 feet in a wheelchair? No. LOCOMOTION: WHEELCHAIR - SCORE: 6-MAGGY LOCOMOTION: STAIRS: LOCOMOTION: STAIRS - STEP 1: Does the patient need help to go up and down 12 to 14 stairs? Yes. LOCOMOTION: STAIRS - STEP 2: How much assistance does the patient need from the helper to go a minimum of 12 to 14 stairs? Only braswell pervision, cuing, or coaxing LOCOMOTION: STAIRS - SCORE: 5-SUP COMPREHENSION: COMPREHENSION - SCORE: 0-UNK EXPRESSION EXPRESSION - SCORE: 0-UNK SOCIAL INTERACTION: SOCIAL INTERACTION - SCORE: 0-UNK PROBLEM SOLVING: PROBLEM SOLVING - SCORE: 0-UNK MEMORY: MEMORY - SCORE: 0-UNK SIGNATURE PANEL: The following modified sections: Transfers: Bed, Chair, Wheelchair - Score, Transfers: Toilet - Score , Locomotion: Walk - Score, Locomotion: Wheelchair - Score, Locomotion: Stairs - Score were [linda richard] signed by Piter Cain PT on TueMar 02 2018 08:47:52 GMT-0600 (Central Standard Time)
--- NOTE | 2018-03-02 08:50 | FAST ---
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 Parish Gates M.D. 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 concussion and edema of cervical spinal cord, sequela. cervical myelopathy. degenerative cervical spinal stenosis. lumbar stenosis with neurogenic claudication. EATING: Activity did not occur on this shift EATING - SCORE: 0-UNK GROOMING: Activity did not occur on this shift GROOMING - SCORE: 0-UNK BATHING: Activity did not occur on this shift BATHING - SCORE: 0-UNK DRESSING - UPPER BODY: Activity did not occur on this shift Patient is not dressing in public clothing ARTICLES SCORE Total number of steps: 0 DRESSING - UPPER BODY - SCORE: 0-UNK DRESSING - LOWER BODY: Activity did not occur on this shift Patient is not dressing in public clothing ARTICLES SCORE Total number of steps: 0 DRESSING - LOWER BODY - SCORE: 0-UNK TOILETING: Activity did not occur on this shift TOILETING - SCORE: 0-UNK BLADDER MANAGEMENT: Activity did not occur on this shift BLADDER MANAGEMENT - SCORE: 7-IND BOWEL MANAGEMENT: Activity did not occur on this shift BOWEL MANAGEMENT - SCORE: 7-IND TRANSFERS: BED, CHAIR, WHEELCHAIR: TRANSFERS: BED, CHAIR, WHEELCHAIR - STEP 1: Does the patient require assistance of a person or device, or need extra time with bed, chair, or whe elchair transfers? Yes. TRANSFERS: BED, CHAIR, WHEELCHAIR - STEP 2: Does the patient require the assistance of a helper? No. Patient only requires an assistive device fo r bed, chair, wheelchair transfers such as a sliding board, grab bar, or brace, OR s/he takes more th an reasonable time, OR there is a safety concern when s/he performs the transfers TRANSFERS: BED, CHAIR, WHEELCHAIR - SCORE: 6-MAGGY TRANSFERS: TOILET: TRANSFERS: TOILET - STEP 1: Does the patient require the assistance of a person or device, or need extra time with toilet transfe rs? Yes. TRANSFERS: TOILET - STEP 2: Does the patient require the assistance of a helper? No. Patient only requires an assistive device braswell ch as a grab bar or special seat, OR s/he takes more than reasonable time to perform toilet transfers , OR there is a safety concern when s/he performs toilet transfers. TRANSFERS: TOILET - SCORE: 6-MAGGY TRANSFERS: SHOWER: Activity did not occur on this shift TRANSFERS: SHOWER - SCORE: 0-UNK TRANSFERS: TUB: Activity did not occur on this shift TRANSFERS: TUB - SCORE: 0-UNK LOCOMOTION: WALK: LOCOMOTION: WALK - STEP 1: Does the patient need help from a person or device, or need extra time to walk 150 feet? No. LOCOMOTION: WALK - STEP 2: Does the patient need an assistive device (such as an orthosis, prosthesis, crutches, or walker) to g o 150 feet, OR does s/he take more than reasonable time, OR is there a concern for safety? Yes, the p atient needs an assistive device LOCOMOTION: WALK - SCORE: 6-MAGGY LOCOMOTION: WHEELCHAIR: Activity did not occur on this shift LOCOMOTION: WHEELCHAIR - SCORE: 0-UNK LOCOMOTION: STAIRS: Activity did not occur on this shift LOCOMOTION: STAIRS - SCORE: 0-UNK COMPREHENSION: COMPREHENSION - SCORE: 0-UNK EXPRESSION EXPRESSION - SCORE: 0-UNK SOCIAL INTERACTION: SOCIAL INTERACTION - SCORE: 0-UNK PROBLEM SOLVING: PROBLEM SOLVING - SCORE: 0-UNK MEMORY: MEMORY - SCORE: 0-UNK SIGNATURE PANEL: The following modified sections: Transfers: Bed, Chair, Wheelchair - Score, Transfers: Toilet - Score , Locomotion: Walk - Score, Locomotion: Wheelchair - Score, Locomotion: Stairs - Score were [linda richard] signed by Piter Cain PT on TueMar 02 2018 08:49:14 GMT-0600 (Central Standard Time)
--- NOTE | 2018-03-02 15:44 | FAST ---
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 Parish Gates M.D. 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 concussion and edema of cervical spinal cord, sequela. cervical myelopathy. degenerative cervical spinal stenosis. lumbar stenosis with neurogenic claudication. EATING: EATING - STEP 1: Does the patient require the assistance of a person or device, or need extra time when eating? Yes. EATING - STEP 2: Does the patient require the assistance of a helper? No, patient only requires an assistive device, O R s/he takes more than reasonable time to eat, OR there is a safety concern, OR s/he requires modifie d food consistency EATING - SCORE: 6-MAGGY GROOMING: Comb/brush hair Oral care Wash, rinse, and dry face GROOMING - STEP 1: Does the patient require the assistance of a person or device, or need extra time when grooming? Yes. GROOMING - STEP 2: Does the patient require the assistance of a helper? No. The patient only requires an assistive devic e, OR takes more than reasonable time to groom, OR there is a concern for safety as the patient groom s GROOMING - SCORE: 6-MAGGY BATHING: Activity did not occur on this shift BATHING - SCORE: 0-UNK DRESSING - UPPER BODY: T-shirt/pullover shirt (four steps) ARTICLES SCORE Total number of steps: 4 DRESSING - UPPER BODY - STEP 1: Does the patient require help from a person or device, or need extra time when dressing above the [address]? Yes. DRESSING - UPPER BODY - STEP 2: Does the patient require the assistance of a helper? No. Patient only requires an assistive device, s uch as a button hook, velcro, or application packaging consultant. OR s/he takes more than reasonable time as s/he dresses the upper body. OR there is a concern for safety when s/he dresses the upper body DRESSING - UPPER BODY - SCORE: 6-MAGGY DRESSING - LOWER BODY: Elastic waist pants (three steps) Slip-on shoe - Left foot (one step) Slip-on shoe - Right foot (one step) Sock - Left foot (one step) Sock - Right foot (one step) Underwear (three steps) ARTICLES SCORE Total number of steps: 10 DRESSING - LOWER BODY - STEP 1: Does the patient require help from a person or device, or need extra time when dressing below the [address]? Yes. DRESSING - LOWER BODY - STEP 2: Does the patient require the assistance of a helper? No. Patient requires an assistive device such as a application packaging consultant. OR s/he takes more than reasonable time as s/he dresses the lower body, OR there is a con cern for safety when s/he dresses the lower body DRESSING - LOWER BODY - SCORE: 6-MAGGY TOILETING: TOILETING - STEP 1: Does the patient require the assistance of a person or device, or need extra time with toileting? No. TOILETING - SCORE: 7-IND BLADDER MANAGEMENT: BLADDER MANAGEMENT - STEP 1: Does the patient control the bladder completely and intentionally without equipment or devices or med ications, and is always continent? Yes. BLADDER MANAGEMENT - SCORE: 7-IND BLADDER MANAGEMENT - FREQUENCY OF ACCIDENTS: BLADDER MANAGEMENT(FA) - STEP 1: How many accidents has the patient had during the current shift? 0 BOWEL MANAGEMENT: BOWEL MANAGEMENT - STEP 1: Does the patient control bowels completely and intentionally without equipment devices or medications AND is always continent? Yes. BOWEL MANAGEMENT - SCORE: 7-IND BOWEL MANAGEMENT - FREQUENCY OF ACCIDENTS: BOWEL MANAGEMENT(FA) - STEP 1: How many accidents has the patient had during the current shift? 0 TRANSFERS: BED, CHAIR, WHEELCHAIR: TRANSFERS: BED, CHAIR, WHEELCHAIR - STEP 1: Does the patient require assistance of a person or device, or need extra time with bed, chair, or whe elchair transfers? No. TRANSFERS: BED, CHAIR, WHEELCHAIR - SCORE: 7-IND TRANSFERS: TOILET: TRANSFERS: TOILET - STEP 1: Does the patient require the assistance of a person or device, or need extra time with toilet transfe rs? No. TRANSFERS: TOILET - SCORE: 7-IND TRANSFERS: SHOWER: Activity did not occur on this shift TRANSFERS: SHOWER - SCORE: 0-UNK TRANSFERS: TUB: Activity did not occur on this shift TRANSFERS: TUB - SCORE: 0-UNK LOCOMOTION: WALK: Activity did not occur on this shift LOCOMOTION: WALK - SCORE: 0-UNK LOCOMOTION: WHEELCHAIR: LOCOMOTION: WHEELCHAIR - STEP 1: Does the patient need help to go 150 feet in a wheelchair? No. LOCOMOTION: WHEELCHAIR - SCORE: 6-MAGGY COMPREHENSION: COMPREHENSION: TYPE: Both COMPREHENSION - STEP 1: Does the patient require help from a person or device, or need extra time to understand complex and a bstract ideas (such as current events, finances, discharge planning, medical issues, relationships, e tc)? No. COMPREHENSION - STEP 2: Does the patient need extra time, require an assistive device (such as glasses for visual comprehensi on or a hearing aid for auditory comprehension) or does s/he have mild difficulty understanding compl ex and abstract information? Yes. COMPREHENSION - SCORE: 6-MAGGY EXPRESSION EXPRESSION: TYPE: Both EXPRESSION - STEP 1: Does the patient require help from a person or device, or need extra time expressing complex and abst ract ideas (such as current events, finances, discharge planning, medical issues, relationships, etc) ? No. EXPRESSION - STEP 2: Does the patient need extra time, require an assistive device (such as augmentive communication syste m or a communication board), OR does s/he have mild difficulty expressing complex and abstract ideas (including mild dysarthria or mild word-find problems)? Yes. EXPRESSION - SCORE: 6-MAGGY SOCIAL INTERACTION: SOCIAL INTERACTION - STEP 1: Does the patient require a helper to interact with others in social and therapeutic situations? No. SOCIAL INTERACTION - STEP 2: Does the patient need extra time in social situations, OR does s/he interact with staff, other patien ts, and family members ONLY in structured environments, OR does s/he require medication for social in teraction? Yes, patient needs extra time SOCIAL INTERACTION - SCORE: 6-MAGGY PROBLEM SOLVING: PROBLEM SOLVING - STEP 1: Does the patient need help from a person or device, or need extra time to solve complex problems such as managing a checking account or confronting interpersonal problems? No. PROBLEM SOLVING - STEP 2: Does the patient require extra time to make decisions or solve problems, OR does s/he have slight dif ficulty reading, initiating, or self-correcting in unfamiliar situations? Yes, patient needs extra ti me. PROBLEM SOLVING - SCORE: 6-MAGGY MEMORY: MEMORY - STEP 1: Does the patient need help from a person or device, or need extra time to remember frequently encount ered people, daily routines, and executing requests? No. MEMORY - STEP 2: Does the patient have slight difficulty recognizing frequently encountered people, daily routines, or executing requests without the need for repetition or using self-initiated or environmental cues to remember? Yes. MEMORY - SCORE: 6-MAGGY SIGNATURE PANEL: The following modified sections: Eating - Score, Grooming - Score, Bathing - Score, Dressing - Upper Body - Score, Dressing - Lower Body - Score, Toileting - Score, Bladder Management - Score, Bowel Man agement - Score, Transfers: Bed, Chair, Wheelchair - Score, Transfers: Toilet - Score, Transfers: Enedina wer - Score, Transfers: Tub - Score, Locomotion: Walk - Score, Locomotion: Wheelchair - Score, Compre hension - Score, Expression - Score, Social Interaction - Score, Problem Solving - Score, Memory - Sc ore were [electronically] signed by Joyce Levin C.N.A. on TueMar 02 2018 15:43:44 GMT-0600 ([place] Standard Time)
--- NOTE | 2018-03-02 19:04 | R.PN ---
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 Pt denied any Shortness of Breath. Ambulated 1000' with modified independence using a rolling walker. Up and down 40 steps with modified independence using bilateral handrails. Hgb 8.2, prealbumin 8.8. VITAL SIGNS Temperature: 97.6 F SBP/DBP: 122/64 Pulse: 89 Resp: 16 MEDICATION ALLERGIES: No Known Drug Allergies (NKDA) ENVIRONMENTAL ALLERGIES: - Substance Allergies None Known - Other Allergies None Known NURSING: - Shower allowing shower - Bladder care per protocol - Skin care per protocol ACTIVITIES OOB only with supervision THERAPIES: - Orthotics/Prosthetics Orthotic Evaluation. Splinting/Casting. - Occupational Therapy Evaluate and Treat. - Physical Therapy Evaluate and Treat. PHYSICAL EXAM - Gen Alert and awake Lying in bed No apparent distress Oriented to: person, time, and place - Skin No breakdown No abnormalities - Eyes No abnormalities - ENMT No abnormalities - Neck No pain - CVS RRR - Chest No abnormalities - Resp CTA bilaterally - Abd +bowel sounds - GI Soft Deferred - No abnormalities - Ext No significant edema - MSK 4+/5 weakness in both lower extremities. - Neuro No focal deficits - Psych No abnormalities ASSESSMENT: Pt. 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 was independen t/mod-I in Self-Care, Sphincter Control, Transfers Control, Communication, Social Cognition, and [place] motion; and he had good Sphincter Control.Currently, he has deficits of Balance, Endurance, Safety Aw areness, Transfers Control, Communication, Social Cognition, Locomotion, and Self-Care.Pt. is now ref erred to [facility] for acute in-patient rehabilitation in order to maximize p atient's functional independence in activities of daily living, strength, ROM, and mobility.- Rehab G oal Patient has realistic goal of being discharged at assistance level 6-Wei to reside at Home with Fam papito/Relatives. MDM/PLAN: - Physical Therapy Gait dysfunction - to improve, our physical therapists will perform initial evaluation of pt's statu s upon admission and devise an individualized program for Gait Training, and Wheel Chair mobility Inability to transfer - to improve, our physical therapists will perform initial evaluation of pt's status upon admission and devise an individualized program for Bed mobility Need for home safety evaluation - to improve, our physical therapists will perform initial evaluatio n of pt's status upon admission and devise an individualized program for Home Evaluation Need in caregiver upon discharge - to improve, our physical therapists will perform initial evaluati on of pt's status upon admission and devise an individualized program for Caregiver Training Edema - to improve, our physical therapists will perform initial evaluation of pt's status upon admi ssion and devise an individualized program for Elevation Training, and Lymphedema Therapy New precaution - to improve, our physical therapists will perform initial evaluation of pt's status upon admission and devise an individualized program for Patient precaution education Poor balance - to improve, our physical therapists will perform initial evaluation of pt's status up on admission and devise an individualized program for Balance Training Poor endurance - to improve, our physical therapists will perform initial evaluation of pt's status upon admission and devise an individualized program for Endurance Training Weakness - to improve, our physical therapists will perform initial evaluation of pt's status upon a dmission and devise an individualized program for Aquatic Therapy, Neuromuscular Reeducation, and Str engthening Achieving independence - to improve, our physical therapists will perform initial evaluation of pt's status upon admission and devise an individualized program for Community Reintegration Activities - Occupational Therapy ADL deficits - to improve, our occupation therapists will perform initial evaluation of pt's status upon admission and devise an individualized program for Bathing, Bed mobility, Community Reintegratio n, Cooking, Dressing, Eating, Fine Motor Skills, Grooming, Homemaking, Kitchen Mobility, Laundry, Pat ient Education, Safety Awareness, Splinting - Positioning, Transfers(Toilet, Tub, Shower), and Wheel Chair Management Cognitive deficits - to improve, our occupation therapists will perform initial evaluation of pt's s tatus upon admission and devise an individualized program for Cognition - orientation Need for infant childcare provider - to improve, our occupation therapists will perform initial evaluation of pt's status upon admission and devise an individualized program for Caregiver Training Weakness - to improve, our occupation therapists will perform initial evaluation of pt's status upon admission and devise an individualized program for Aquatic Therapy, Balance, Endurance, UE ROM, and UE strengthening - Diet Type Continue Regular - Diet - Liquid Texture Continue Regular - Tube Feed Continue N/A - Bladder care per protocol - Skin care per protocol - Diet - Solid Texture Continue Regular - Shower allowing shower FUNCTIONAL STATUS: UPDATED AT WEEKLY TEAM CONFERENCE - Bladder Same accident frequency: 7-Ind - No accidents in the past 7 days - Bowel Same accident frequency: 7-Ind - No accidents in the past 7 days - Walking Same score based on distance walked: 3(>=150ft) FUNCTIONAL STATUS: - Self-Care A. Eating Ind B. Grooming sup C. Bathing modA D. Dressing - Upper sup E. Dressing - Lower Dep F. Toileting Dep - Sphincter Control G: Bladder control Ind H: Bowel control Ind - Transfers Control I. Bed/Chair/Wheelchair Jossy J. Toilet Jossy K. Tub/Shower Jossy - Locomotion L. Walk/Wheelchair (B) sup M. Stairs ADNO - Communication N. Comprehension (B) sup O. Expression (B) sup - Social Cognition P. Social Interaction sup Q. Problem Solving sup R. Memory sup - Endurance Fair - Balance Fair - Safety Awareness Fair CURRENT FUNC. 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
[2018-03-02] MEDS: ATORVASTATIN 20 MG TAB PO SCH (21:43)
[2018-03-02] MEDS: GUAIFENESIN 600 MG SA TAB PO SCH (21:43)
[2018-03-02] MEDS: DOCUSATE NA/SENNA CONC 1 TAB PO SCH (21:43)
--- NOTE | 2018-03-03 01:09 | FAST ---
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 Parish Gates M.D. 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 concussion and edema of cervical spinal cord, sequela. cervical myelopathy. degenerative cervical spinal stenosis. lumbar stenosis with neurogenic claudication. EATING: Activity did not occur on this shift EATING - SCORE: 0-UNK GROOMING: Oral care Wash, rinse, and dry hands GROOMING - STEP 1: Does the patient require the assistance of a person or device, or need extra time when grooming? Yes. GROOMING - STEP 2: Does the patient require the assistance of a helper? Yes. GROOMING - STEP 3: How much assistance does the patient require from the helper? Only prior equipment preparation/set up from the helper GROOMING - SCORE: 5-SUP BATHING: Activity did not occur on this shift BATHING - SCORE: 0-UNK DRESSING - UPPER BODY: Patient is not dressing in public clothing ARTICLES SCORE Total number of steps: 0 DRESSING - UPPER BODY - SCORE: 0-UNK DRESSING - LOWER BODY: Patient is not dressing in public clothing ARTICLES SCORE Total number of steps: 0 DRESSING - LOWER BODY - SCORE: 0-UNK TOILETING: TOILETING - STEP 1: Does the patient require the assistance of a person or device, or need extra time with toileting? Yes . TOILETING - STEP 2: Does the patient require the assistance of a helper? Yes. TOILETING - STEP 3: How much assistance does the patient require from the helper? Only supervision TOILETING - SCORE: 5-SUP BLADDER MANAGEMENT: BLADDER MANAGEMENT - STEP 1: Does the patient control the bladder completely and intentionally without equipment or devices or med ications, and is always continent? No. BLADDER MANAGEMENT - STEP 2: Does the patient require the assistance of a helper? No, patient only requires extra time BLADDER MANAGEMENT - SCORE: 6-MAGGY BOWEL MANAGEMENT: Activity did not occur on this shift BOWEL MANAGEMENT - SCORE: 7-IND TRANSFERS: BED, CHAIR, WHEELCHAIR: TRANSFERS: BED, CHAIR, WHEELCHAIR - STEP 1: Does the patient require assistance of a person or device, or need extra time with bed, chair, or whe elchair transfers? Yes. TRANSFERS: BED, CHAIR, WHEELCHAIR - STEP 2: Does the patient require the assistance of a helper? Yes. TRANSFERS: BED, CHAIR, WHEELCHAIR - STEP 3: How much assistance does the patient require from the helper? Only supervision TRANSFERS: BED, CHAIR, WHEELCHAIR - SCORE: 5-SUP TRANSFERS: TOILET: TRANSFERS: TOILET - STEP 1: Does the patient require the assistance of a person or device, or need extra time with toilet transfe rs? Yes. TRANSFERS: TOILET - STEP 2: Does the patient require the assistance of a helper? Yes. TRANSFERS: TOILET - STEP 3: How much assistance does the patient require from the helper? Only supervision, cuing, coaxing, OR he lp to set out transfer equipment or to lock brakes and/or lift foot rests TRANSFERS: TOILET - SCORE: 5-SUP TRANSFERS: SHOWER: Activity did not occur on this shift TRANSFERS: SHOWER - SCORE: 0-UNK TRANSFERS: TUB: Activity did not occur on this shift TRANSFERS: TUB - SCORE: 0-UNK LOCOMOTION: WALK: Activity did not occur on this shift LOCOMOTION: WALK - SCORE: 0-UNK LOCOMOTION: WHEELCHAIR: Activity did not occur on this shift LOCOMOTION: WHEELCHAIR - SCORE: 0-UNK COMPREHENSION: COMPREHENSION: TYPE: Both COMPREHENSION - STEP 1: Does the patient require help from a person or device, or need extra time to understand complex and a bstract ideas (such as current events, finances, discharge planning, medical issues, relationships, e tc)? No. COMPREHENSION - STEP 2: Does the patient need extra time, require an assistive device (such as glasses for visual comprehensi on or a hearing aid for auditory comprehension) or does s/he have mild difficulty understanding compl ex and abstract information? Yes. COMPREHENSION - SCORE: 6-MAGGY EXPRESSION EXPRESSION: TYPE: Both EXPRESSION - STEP 1: Does the patient require help from a person or device, or need extra time expressing complex and abst ract ideas (such as current events, finances, discharge planning, medical issues, relationships, etc) ? No. EXPRESSION - STEP 2: Does the patient need extra time, require an assistive device (such as augmentive communication syste m or a communication board), OR does s/he have mild difficulty expressing complex and abstract ideas (including mild dysarthria or mild word-find problems)? No. EXPRESSION - SCORE: 7-IND SOCIAL INTERACTION: SOCIAL INTERACTION - STEP 1: Does the patient require a helper to interact with others in social and therapeutic situations? No. SOCIAL INTERACTION - STEP 2: Does the patient need extra time in social situations, OR does s/he interact with staff, other patien ts, and family members ONLY in structured environments, OR does s/he require medication for social in teraction? Yes, patient needs extra time SOCIAL INTERACTION - SCORE: 6-MAGGY PROBLEM SOLVING: PROBLEM SOLVING - STEP 1: Does the patient need help from a person or device, or need extra time to solve complex problems such as managing a checking account or confronting interpersonal problems? No. PROBLEM SOLVING - STEP 2: Does the patient require extra time to make decisions or solve problems, OR does s/he have slight dif ficulty reading, initiating, or self-correcting in unfamiliar situations? Yes, patient needs extra ti me. PROBLEM SOLVING - SCORE: 6-MAGGY MEMORY: MEMORY - STEP 1: Does the patient need help from a person or device, or need extra time to remember frequently encount ered people, daily routines, and executing requests? No. MEMORY - STEP 2: Does the patient have slight difficulty recognizing frequently encountered people, daily routines, or executing requests without the need for repetition or using self-initiated or environmental cues to remember? Yes. MEMORY - SCORE: 6-MAGGY SIGNATURE PANEL: The following modified sections: Eating - Score, Grooming - Score, Dressing - Upper Body - Score, Gregory ssing - Lower Body - Score, Toileting - Score, Bladder Management - Score, Bowel Management - Score, Transfers: Bed, Chair, Wheelchair - Score, Transfers: Toilet - Score, Transfers: Shower - Score, Mariano sfers: Tub - Score, Locomotion: Walk - Score, Locomotion: Wheelchair - Score, Comprehension - Score, Expression - Score, Social Interaction - Score, Problem Solving - Score, Memory - Score were [electro nically] signed by Gabbi Soni CNA on TueMar 03 2018 01:09:04 GMT-0600 (Central Standard Time)
[2018-03-03] MEDS: TRAMADOL HCL 50 MG TAB PO PRN (05:16)
[2018-03-03] MEDS: PANTOPRAZOLE 40MG TABLET PO SCH (05:16)
[2018-03-03] MEDS: LEVOTHYROXINE SOD 0.125 MG TAB PO SCH (05:17)
[2018-03-03 07:41] LABS: Hematocrit 29.5 % (39.6-49.0)
[2018-03-03] MEDS: PROMOD 30 ML DOSE PO SCH ×2 (08:00→20:29)
[2018-03-03] MEDS ORDERED: METHOTREXATE 2.5 MG TAB PO SCH ×2 (08:00)
[2018-03-03] MEDS: [UNRECOGNIZED DRUG - OTHER] PO SCH (08:00)
[2018-03-03] MEDS: FE SULF/FA/VIT B COMP & C TAB PO SCH (08:50)
[2018-03-03] MEDS: APIXABAN 2.5 MG TABLET PO SCH ×2 (08:50→20:28)
[2018-03-03] MEDS: LOSARTAN POTASSIUM 50 MG TABLET PO SCH (08:50)
[2018-03-03] MEDS: DOCOSAHEXANOIC AC/EPA 1000 MG PO SCH (08:50)
[2018-03-03] MEDS: FOLIC ACID 1 MG TABLET PO SCH ×2 (08:50→20:28)
[2018-03-03] MEDS: GUAIFENESIN 600 MG SA TAB PO SCH ×2 (08:50→20:28)
[2018-03-03] MEDS: GABAPENTIN 300 MG CAP PO SCH ×3 (08:50→20:28)
[2018-03-03] MEDS: FERROUS SULFATE 325 MG TAB PO SCH (08:51)
[2018-03-03] MEDS: AMLODIPINE 2.5 MG TAB PO SCH (08:51)
--- NOTE | 2018-03-03 12:37 | FAST ---
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 Parish Gates M.D. 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 concussion and edema of cervical spinal cord, sequela. cervical myelopathy. degenerative cervical spinal stenosis. lumbar stenosis with neurogenic claudication. EATING: Activity did not occur on this shift EATING - SCORE: 0-UNK GROOMING: Wash, rinse, and dry face Wash, rinse, and dry hands GROOMING - STEP 1: Does the patient require the assistance of a person or device, or need extra time when grooming? No. GROOMING - SCORE: 7-IND BATHING: Abdomen Buttocks Chest Left arm Left lower leg and foot Left upper leg Perineal area Right arm Right lower leg and foot Right upper leg BATHING - STEP 1: Does the patient require the assistance of a person or device, or need extra time when bathing? Yes. BATHING - STEP 2: Does the patient require the assistance of a helper? No. The patient only requires an assistive devic e such as a bath steve, OR the patient takes more than reasonable time to bathe, OR there is a concern for safety such as regulating water temperature as the patient bathes. BATHING - SCORE: 6-MAGGY DRESSING - UPPER BODY: T-shirt/pullover shirt (four steps) ARTICLES SCORE Total number of steps: 4 DRESSING - UPPER BODY - STEP 1: Does the patient require help from a person or device, or need extra time when dressing above the [address]? No. DRESSING - UPPER BODY - SCORE: 7-IND DRESSING - LOWER BODY: Elastic waist pants (three steps) Slip-on shoe - Left foot (one step) Slip-on shoe - Right foot (one step) Sock - Left foot (one step) Sock - Right foot (one step) Underwear (three steps) ARTICLES SCORE Total number of steps: 10 DRESSING - LOWER BODY - STEP 1: Does the patient require help from a person or device, or need extra time when dressing below the [address]? Yes. DRESSING - LOWER BODY - STEP 2: Does the patient require the assistance of a helper? No. Patient requires an assistive device such as a photographic double. OR s/he takes more than reasonable time as s/he dresses the lower body, OR there is a con cern for safety when s/he dresses the lower body DRESSING - LOWER BODY - SCORE: 6-MAGGY TOILETING: Activity did not occur on this shift TOILETING - SCORE: 0-UNK BLADDER MANAGEMENT: Activity did not occur on this shift BLADDER MANAGEMENT - SCORE: 7-IND BOWEL MANAGEMENT: Activity did not occur on this shift BOWEL MANAGEMENT - SCORE: 7-IND TRANSFERS: BED, CHAIR, WHEELCHAIR: Activity did not occur on this shift TRANSFERS: BED, CHAIR, WHEELCHAIR - SCORE: 0-UNK TRANSFERS: TOILET: Activity did not occur on this shift TRANSFERS: TOILET - SCORE: 0-UNK TRANSFERS: SHOWER: TRANSFERS: SHOWER - STEP 1: Does the patient require the assistance of a person or device, or need extra time with shower transfe rs? Yes. TRANSFERS: SHOWER - STEP 2: Does the patient require the assistance of a helper? No. The patient only uses an assistive device, t akes more than reasonable time, OR there is a concern for safety when s/he performs transfers. TRANSFERS: SHOWER - SCORE: 6-MAGGY TRANSFERS: TUB: Activity did not occur on this shift TRANSFERS: TUB - SCORE: 0-UNK LOCOMOTION: WALK: Activity did not occur on this shift LOCOMOTION: WALK - SCORE: 0-UNK LOCOMOTION: WHEELCHAIR: Activity did not occur on this shift LOCOMOTION: WHEELCHAIR - SCORE: 0-UNK LOCOMOTION: STAIRS: Activity did not occur on this shift LOCOMOTION: STAIRS - SCORE: 0-UNK COMPREHENSION: COMPREHENSION: TYPE: Both COMPREHENSION - STEP 1: Does the patient require help from a person or device, or need extra time to understand complex and a bstract ideas (such as current events, finances, discharge planning, medical issues, relationships, e tc)? No. COMPREHENSION - STEP 2: Does the patient need extra time, require an assistive device (such as glasses for visual comprehensi on or a hearing aid for auditory comprehension) or does s/he have mild difficulty understanding compl ex and abstract information? Yes. COMPREHENSION - SCORE: 6-MAGGY EXPRESSION EXPRESSION: TYPE: Non-Vocal EXPRESSION - STEP 1: Does the patient require help from a person or device, or need extra time expressing complex and abst ract ideas (such as current events, finances, discharge planning, medical issues, relationships, etc) ? No. EXPRESSION - STEP 2: Does the patient need extra time, require an assistive device (such as augmentive communication syste m or a communication board), OR does s/he have mild difficulty expressing complex and abstract ideas (including mild dysarthria or mild word-find problems)? No. EXPRESSION - SCORE: 7-IND SOCIAL INTERACTION: SOCIAL INTERACTION - STEP 1: Does the patient require a helper to interact with others in social and therapeutic situations? No. SOCIAL INTERACTION - STEP 2: Does the patient need extra time in social situations, OR does s/he interact with staff, other patien ts, and family members ONLY in structured environments, OR does s/he require medication for social in teraction? No. SOCIAL INTERACTION - SCORE: 7-IND PROBLEM SOLVING: PROBLEM SOLVING - STEP 1: Does the patient need help from a person or device, or need extra time to solve complex problems such as managing a checking account or confronting interpersonal problems? No. PROBLEM SOLVING - STEP 2: Does the patient require extra time to make decisions or solve problems, OR does s/he have slight dif ficulty reading, initiating, or self-correcting in unfamiliar situations? No. PROBLEM SOLVING - SCORE: 7-IND MEMORY: MEMORY - STEP 1: Does the patient need help from a person or device, or need extra time to remember frequently encount ered people, daily routines, and executing requests? No. MEMORY - STEP 2: Does the patient have slight difficulty recognizing frequently encountered people, daily routines, or executing requests without the need for repetition or using self-initiated or environmental cues to remember? No. MEMORY - SCORE: 7-IND SIGNATURE PANEL: The following modified sections: Eating - Score, Grooming - Score, Bathing - Score, Dressing - Upper Body - Score, Dressing - Lower Body - Score, Toileting - Score, Transfers: Bed, Chair, Wheelchair - S core, Transfers: Toilet - Score, Transfers: Shower - Score, Transfers: Tub - Score, Comprehension - S core, Expression - Score, Social Interaction - Score, Problem Solving - Score, Memory - Score were [e lectronically] signed by LETY Talbot on TueMar 03 2018 12:36:01 T-0600 ([place] [address] Time)
--- NOTE | 2018-03-03 13:47 | P.RH.PN ---
Estimated Length of Stay: 10 Expected Discharge Date: 03/05/18 Discharge Disposition Plan: Home Family Support: Yes Halfway Goal: Mobility, Transfers, Self Care Vital Signs: Last Vital Signs Temp 97.8 F 03/03/18 07:15 Pulse 92 H 03/03/18 08:51 Resp 16 03/03/18 07:15 BP 129/60 03/03/18 08:51 Pulse Ox 96 03/03/18 07:15 Laboratory: Laboratory Last Values WBC 7.3 K/uL (4.3-10.9) D 03/02/18 05:34 RBC 2.74 M/uL (4.33-5.43) L 03/02/18 05:34 Hgb 9.0 g/dL (13.6-17.9) L 03/03/18 07:01 Hct 29.5 % (39.6-49.0) L D 03/03/18 07:01 MCV 90.1 fL (80-100) 03/02/18 05:34 MCH 29.7 pg (27.0-35.0) 03/02/18 05:34 MCHC 33.0 g/dL (32.0-36.0) 03/02/18 05:34 RDW 21.2 % (12.1-15.2) H 03/02/18 05:34 Plt Count 287 K/uL (152-406) 03/02/18 05:34 MPV 8.7 fL (7.6-11.3) 03/02/18 05:34 Neutrophils % 69.2 % (41.7-73.7) 03/02/18 05:34 Lymphocytes % 8.5 % (15.3-44.8) L 03/02/18 05:34 Monocytes % 11.9 % (3.3-12.3) 03/02/18 05:34 Eosinophils % 9.4 % (0-4.4) H 03/02/18 05:34 Basophils % 1.0 % (0-1.3) 03/02/18 05:34 Absolute Neutrophils 5.1 K/uL (1.8-8.0) 03/02/18 05:34 Absolute Lymphocytes 0.6 K/uL (0.7-4.9) L 03/02/18 05:34 Absolute Monocytes 0.9 K/uL (0.1-1.3) 03/02/18 05:34 Absolute Eosinophils 0.7 K/uL (0-0.5) H 03/02/18 05:34 Absolute Basophils 0.1 K/uL (0-0.5) 03/02/18 05:34 Anisocytosis 2+ 02/25/18 06:34 Morphology Comment Noted (NOT SEEN) 02/25/18 06:34 Sodium 139 mmol/L (136-145) 03/02/18 05:34 Potassium 4.0 mmol/L (3.5-5.1) 03/02/18 05:34 Chloride 108 mmol/L (98-107) H 03/02/18 05:34 Carbon Dioxide 27 mmol/L (21-32) 03/02/18 05:34 BUN 14 mg/dL (7-18) 03/02/18 05:34 Creatinine 0.49 mg/dL (0.55-1.3) L 03/02/18 05:34 Estimated GFR > 90 mL/min (=/>90) 03/02/18 05:34 Glucose 89 mg/dL (74-106) 03/02/18 05:34 Calcium 7.7 mg/dL (8.5-10.1) L 03/02/18 05:34 Magnesium 2.4 mg/dL (1.8-2.4) 02/25/18 06:34 Albumin 2.0 g/dL (3.4-5.0) L 03/02/18 05:34 Prealbumin 8.8 mg/dL (20-40) L 03/02/18 05:34 Urine Color Yellow 02/24/18 19:00 Urine Appearance Clear 02/24/18 19:00 Urine pH 6.0 (5.0-7.0) 02/24/18 19:00 Ur Specific [place] 1.025 (1.005-1.030) 02/24/18 19:00 Urine Ketones Negative (NEG) 02/24/18 19:00 Urine Blood Negative (NEG) 02/24/18 19:00 Urine Nitrite Negative (NEG) 02/24/18 19:00 Urine Bilirubin Negative (NEG) 02/24/18 19:00 Urine Urobilinogen 0.2 mg/dL (0.2-1.0) 02/24/18 19:00 Ur Leukocyte Esterase Negative (NEG) 02/24/18 19:00 Urine RBC <5 /HPF (NONE SEEN) 02/24/18 19:00 Urine WBC <5 /HPF (<5) 02/24/18 19:00 Ur Squamous Epith Cells <5 /HPF (NONE SEEN) 02/24/18 19:00 Urine Bacteria <20 /HPF (NONE SEEN) 02/24/18 19:00 Urine Mucus Heavy /HPF (NONE SEEN) 02/24/18 19:00 Urine Culture Reflexed Not needed 02/24/18 19:00 Urine Glucose Negative (NEG) 02/24/18 19:00 Urine Total Protein 1+ (NEG) H 02/24/18 19:00 Weight: 190 lb 4.8 oz Wound Present: No Closed Surgical Incision Present: Yes Negative Pressure Wound Therapy Present: No Physician Update: Labs have been reviewed and are stable. He is doing well with physical and occupation therapy. He is at modified independent. He walks 1/2 mile every morning up and down 15 steps. Pain Issues: Tramadol 50mg Q6H PRN Functional Improvement: pt is demonstrating good progress with therapy. He is now permitted to be Raman on the unit using a RW. pt demonstrated improved tolerance to ambulation and functional mobility. Summary: Patient's care plan and [facility] goals have been reviewed and revised as necessary. Please see the Rehabilitation Signature page for all necessary signatures.
--- NOTE | 2018-03-03 18:02 | FAST ---
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 Parish Gates M.D. 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 concussion and edema of cervical spinal cord, sequela. cervical myelopathy. degenerative cervical spinal stenosis. lumbar stenosis with neurogenic claudication. EATING: EATING - STEP 1: Does the patient require the assistance of a person or device, or need extra time when eating? No. EATING - SCORE: 7-IND GROOMING: GROOMING - STEP 1: Does the patient require the assistance of a person or device, or need extra time when grooming? No. GROOMING - SCORE: 7-IND BATHING: Activity did not occur on this shift BATHING - SCORE: 0-UNK DRESSING - UPPER BODY: ARTICLES SCORE Total number of steps: 0 DRESSING - UPPER BODY - STEP 1: Does the patient require help from a person or device, or need extra time when dressing above the [address]? Yes. DRESSING - UPPER BODY - STEP 2: Does the patient require the assistance of a helper? No. Patient only requires an assistive device, s uch as a button hook, velcro, or heat and vent aircraft mechanic. OR s/he takes more than reasonable time as s/he dresses the upper body. OR there is a concern for safety when s/he dresses the upper body DRESSING - UPPER BODY - SCORE: 6-MAGGY DRESSING - LOWER BODY: ARTICLES SCORE Total number of steps: 0 DRESSING - LOWER BODY - STEP 1: Does the patient require help from a person or device, or need extra time when dressing below the [address]? Yes. DRESSING - LOWER BODY - STEP 2: Does the patient require the assistance of a helper? No. Patient requires an assistive device such as a heat and vent aircraft mechanic. OR s/he takes more than reasonable time as s/he dresses the lower body, OR there is a con cern for safety when s/he dresses the lower body DRESSING - LOWER BODY - SCORE: 6-MAGGY TOILETING: TOILETING - STEP 1: Does the patient require the assistance of a person or device, or need extra time with toileting? Yes . TOILETING - STEP 2: Does the patient require the assistance of a helper? No. TOILETING - SCORE: 6-MAGGY BLADDER MANAGEMENT: BLADDER MANAGEMENT - STEP 1: Does the patient control the bladder completely and intentionally without equipment or devices or med ications, and is always continent? Yes. BLADDER MANAGEMENT - SCORE: 7-IND BLADDER MANAGEMENT - FREQUENCY OF ACCIDENTS: BLADDER MANAGEMENT(FA) - STEP 1: How many accidents has the patient had during the current shift? 0 BOWEL MANAGEMENT: BOWEL MANAGEMENT - STEP 1: Does the patient control bowels completely and intentionally without equipment devices or medications AND is always continent? Yes. BOWEL MANAGEMENT - SCORE: 7-IND BOWEL MANAGEMENT - FREQUENCY OF ACCIDENTS: BOWEL MANAGEMENT(FA) - STEP 1: How many accidents has the patient had during the current shift? 0 TRANSFERS: BED, CHAIR, WHEELCHAIR: TRANSFERS: BED, CHAIR, WHEELCHAIR - STEP 1: Does the patient require assistance of a person or device, or need extra time with bed, chair, or whe elchair transfers? Yes. TRANSFERS: BED, CHAIR, WHEELCHAIR - STEP 2: Does the patient require the assistance of a helper? No. Patient only requires an assistive device fo r bed, chair, wheelchair transfers such as a sliding board, grab bar, or brace, OR s/he takes more th an reasonable time, OR there is a safety concern when s/he performs the transfers TRANSFERS: BED, CHAIR, WHEELCHAIR - SCORE: 6-MAGGY TRANSFERS: TOILET: TRANSFERS: TOILET - STEP 1: Does the patient require the assistance of a person or device, or need extra time with toilet transfe rs? Yes. TRANSFERS: TOILET - STEP 2: Does the patient require the assistance of a helper? No. Patient only requires an assistive device braswell ch as a grab bar or special seat, OR s/he takes more than reasonable time to perform toilet transfers , OR there is a safety concern when s/he performs toilet transfers. TRANSFERS: TOILET - SCORE: 6-MAGGY TRANSFERS: SHOWER: Activity did not occur on this shift TRANSFERS: SHOWER - SCORE: 0-UNK TRANSFERS: TUB: Activity did not occur on this shift TRANSFERS: TUB - SCORE: 0-UNK LOCOMOTION: WALK: Activity did not occur on this shift LOCOMOTION: WALK - SCORE: 0-UNK LOCOMOTION: WHEELCHAIR: Activity did not occur on this shift LOCOMOTION: WHEELCHAIR - SCORE: 0-UNK COMPREHENSION: COMPREHENSION - SCORE: 0-UNK EXPRESSION EXPRESSION - SCORE: 0-UNK SOCIAL INTERACTION: SOCIAL INTERACTION - SCORE: 0-UNK PROBLEM SOLVING: PROBLEM SOLVING - SCORE: 0-UNK MEMORY: MEMORY - SCORE: 0-UNK SIGNATURE PANEL: The following modified sections: Eating - Score, Grooming - Score, Bathing - Score, Dressing - Upper Body - Score, Dressing - Lower Body - Score, Toileting - Score, Bladder Management - Score, Bowel Man agement - Score, Transfers: Bed, Chair, Wheelchair - Score, Transfers: Toilet - Score, Transfers: Enedina wer - Score, Transfers: Tub - Score, Locomotion: Walk - Score, Locomotion: Wheelchair - Score, Compre hension - Score, Expression - Score, Social Interaction - Score, Problem Solving - Score, Memory - Sc ore were [electronically] signed by Kathy Becker CNA on TueMar 03 2018 18:01:37 GMT-0600 (Cent[facility] Standard Time)
--- NOTE | 2018-03-03 19:20 | FAST ---
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 Parish Gates M.D. 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 concussion and edema of cervical spinal cord, sequela. cervical myelopathy. degenerative cervical spinal stenosis. lumbar stenosis with neurogenic claudication. EATING: EATING - STEP 1: Does the patient require the assistance of a person or device, or need extra time when eating? No. EATING - SCORE: 7-IND GROOMING: Oral care Patient shaved Wash, rinse, and dry face Wash, rinse, and dry hands GROOMING - STEP 1: Does the patient require the assistance of a person or device, or need extra time when grooming? No. GROOMING - SCORE: 7-IND BATHING: Abdomen Buttocks Chest Left arm Left lower leg and foot Left upper leg Perineal area Right arm Right lower leg and foot Right upper leg BATHING - STEP 1: Does the patient require the assistance of a person or device, or need extra time when bathing? Yes. BATHING - STEP 2: Does the patient require the assistance of a helper? No. The patient only requires an assistive devic e such as a bath steve, OR the patient takes more than reasonable time to bathe, OR there is a concern for safety such as regulating water temperature as the patient bathes. BATHING - SCORE: 6-MAGGY DRESSING - UPPER BODY: T-shirt/pullover shirt (four steps) ARTICLES SCORE Total number of steps: 4 DRESSING - UPPER BODY - STEP 1: Does the patient require help from a person or device, or need extra time when dressing above the [address] st? Yes. DRESSING - UPPER BODY - STEP 2: Does the patient require the assistance of a helper? No. Patient only requires an assistive device, s uch as a button hook, velcro, or telecommunications cable jointer. OR s/he takes more than reasonable time as s/he dresses the upper body. OR there is a concern for safety when s/he dresses the upper body DRESSING - UPPER BODY - SCORE: 6-MAGGY DRESSING - LOWER BODY: Elastic waist pants (three steps) Slip-on shoe - Left foot (one step) Slip-on shoe - Right foot (one step) Sock - Left foot (one step) Sock - Right foot (one step) Underwear (three steps) ARTICLES SCORE Total number of steps: 10 DRESSING - LOWER BODY - STEP 1: Does the patient require help from a person or device, or need extra time when dressing below the [address] st? Yes. DRESSING - LOWER BODY - STEP 2: Does the patient require the assistance of a helper? No. Patient requires an assistive device such as a telecommunications cable jointer. OR s/he takes more than reasonable time as s/he dresses the lower body, OR there is a con cern for safety when s/he dresses the lower body DRESSING - LOWER BODY - SCORE: 6-MAGGY TOILETING: Activity did not occur on this shift TOILETING - SCORE: 0-UNK BLADDER MANAGEMENT: Activity did not occur on this shift BLADDER MANAGEMENT - SCORE: 7-IND BOWEL MANAGEMENT: Activity did not occur on this shift BOWEL MANAGEMENT - SCORE: 7-IND TRANSFERS: BED, CHAIR, WHEELCHAIR: Activity did not occur on this shift TRANSFERS: BED, CHAIR, WHEELCHAIR - SCORE: 0-UNK TRANSFERS: TOILET: Activity did not occur on this shift TRANSFERS: TOILET - SCORE: 0-UNK TRANSFERS: SHOWER: Activity did not occur on this shift TRANSFERS: SHOWER - SCORE: 0-UNK TRANSFERS: TUB: TRANSFERS: TUB - STEP 1: Does the patient require the assistance of a person or device, or need extra time with tub transfers? Yes. TRANSFERS: TUB - STEP 2: Does the patient require the assistance of a helper? No. Only requires the assistance of an assistive device, OR takes more than reasonable time, OR there is a concern for safety when s/he performs tub transfers TRANSFERS: TUB - SCORE: 6-MAGGY LOCOMOTION: WALK: Activity did not occur on this shift LOCOMOTION: WALK - SCORE: 0-UNK LOCOMOTION: WHEELCHAIR: Activity did not occur on this shift LOCOMOTION: WHEELCHAIR - SCORE: 0-UNK LOCOMOTION: STAIRS: Activity did not occur on this shift LOCOMOTION: STAIRS - SCORE: 0-UNK COMPREHENSION: COMPREHENSION: TYPE: Both COMPREHENSION - STEP 1: Does the patient require help from a person or device, or need extra time to understand complex and a bstract ideas (such as current events, finances, discharge planning, medical issues, relationships, e tc)? No. COMPREHENSION - STEP 2: Does the patient need extra time, require an assistive device (such as glasses for visual comprehensi on or a hearing aid for auditory comprehension) or does s/he have mild difficulty understanding compl ex and abstract information? No. COMPREHENSION - SCORE: 7-IND EXPRESSION EXPRESSION: TYPE: Both EXPRESSION - STEP 1: Does the patient require help from a person or device, or need extra time expressing complex and abst ract ideas (such as current events, finances, discharge planning, medical issues, relationships, etc) ? No. EXPRESSION - STEP 2: Does the patient need extra time, require an assistive device (such as augmentive communication syste m or a communication board), OR does s/he have mild difficulty expressing complex and abstract ideas (including mild dysarthria or mild word-find problems)? No. EXPRESSION - SCORE: 7-IND SOCIAL INTERACTION: SOCIAL INTERACTION - STEP 1: Does the patient require a helper to interact with others in social and therapeutic situations? No. SOCIAL INTERACTION - STEP 2: Does the patient need extra time in social situations, OR does s/he interact with staff, other patien ts, and family members ONLY in structured environments, OR does s/he require medication for social in teraction? No. SOCIAL INTERACTION - SCORE: 7-IND PROBLEM SOLVING: PROBLEM SOLVING - STEP 1: Does the patient need help from a person or device, or need extra time to solve complex problems such as managing a checking account or confronting interpersonal problems? No. PROBLEM SOLVING - STEP 2: Does the patient require extra time to make decisions or solve problems, OR does s/he have slight dif ficulty reading, initiating, or self-correcting in unfamiliar situations? No. PROBLEM SOLVING - SCORE: 7-IND MEMORY: MEMORY - STEP 1: Does the patient need help from a person or device, or need extra time to remember frequently encount ered people, daily routines, and executing requests? No. MEMORY - STEP 2: Does the patient have slight difficulty recognizing frequently encountered people, daily routines, or executing requests without the need for repetition or using self-initiated or environmental cues to remember? No. MEMORY - SCORE: 7-IND SIGNATURE PANEL: The following modified sections: Eating - Score, Grooming - Score, Bathing - Score, Dressing - Upper Body - Score, Dressing - Lower Body - Score, Toileting - Score, Transfers: Bed, Chair, Wheelchair - S core, Transfers: Toilet - Score, Transfers: Shower - Score, Transfers: Tub - Score, Comprehension - S core, Expression - Score, Social Interaction - Score, Problem Solving - Score, Memory - Score were [e lectronically] signed by Juanita Spence OT on TueMar 03 2018 19:19:10 GMT-0600 (Central Standard T gabriel)
--- NOTE | 2018-03-03 20:07 | P.PN ---
Subjective Date of Service: 03/03/18 Chief Complaint: MR. GERARD HAD CERVICAL LAMINECTOMY Subjective: Improving HE IS FEELING GREAT, SP SURGERY. HE IS FEELING WELL, HAS NO COMPLAINTS. NO ISSUES. PT DOING WELL. Review of Systems 10-point ROS is otherwise unremarkable Physical Examination - Vital Signs Temperature: 97.9 F Blood Pressure: 126/61 Pulse: 82 Respirations: 16 Pulse Ox (%): 98 - Physical Exam General: Alert, In no apparent distress, Cooperative HEENT: Atraumatic, PERRLA, EOMI Neck: Supple, JVD not distended Respiratory: Clear to auscultation bilaterally, Normal air movement Cardiovascular: Regular rate/rhythm, Normal S1 S2 Gastrointestinal: Normal bowel sounds, No tenderness Musculoskeletal: No tenderness Integumentary: No rashes Neurological: Normal speech, Normal tone, Normal affect Lymphatics: No axilla or inguinal lymphadenopathy - Studies Laboratory Data (last 24 hrs) 03/03/18 07:01: Hgb 9.0 L, Hct 29.5 L D Medications List Reviewed: Yes Assessment And Plan - Current Problems (Diagnosis) (1) Cervical post-laminectomy syndrome Onset Date: 02/27/18 Current Visit: Yes Status: Acute Plan: OT PT. SP SURGERY, DOING WELL. STABLE. GETTING STRONGER. HE IS STARTING TO WALK WELL. GETTING STRONGER DAILY. STABLE, DC IN TWO DAYS. (2) Anemia, chronic disease Onset Date: 02/27/18 Current Visit: Yes Status: Chronic Plan: STABLE AT ABOUT 9 HE ALSO HAS SOME BLEEDING BUT HAS BEEN TO GI DOCTORS. 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
[2018-03-03] MEDS: DOCUSATE NA/SENNA CONC 1 TAB PO SCH (20:29)
[2018-03-03] MEDS: ATORVASTATIN 20 MG TAB PO SCH (20:29)
--- NOTE | 2018-03-04 02:28 | FAST ---
SHIFT START DATE/TIME: 03/03/2018 19:00 (TOOTH CUTTER PINION) SHIFT END DATE/TIME: 03/04/2018 07:00 (TOOTH CUTTER PINION) NAME RONNI GERARD DATE OF : 1935 DATE OF ADMISSION: 02/25/2018 18:03 (TOOTH CUTTER PINION) PHONE: AGE: 83 SSN# [id number] GENDER: Male ENCOUNTER PHYSICIAN: Dr. Parish Gates M.D. 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 concussion and edema of cervical spinal cord, sequela. cervical myelopathy. degenerative cervical spinal stenosis. lumbar stenosis with neurogenic claudication. EATING: Activity did not occur on this shift EATING - SCORE: 0-UNK GROOMING: Activity did not occur on this shift GROOMING - SCORE: 0-UNK BATHING: Activity did not occur on this shift BATHING - SCORE: 0-UNK DRESSING - UPPER BODY: Patient is not dressing in public clothing ARTICLES SCORE Total number of steps: 0 DRESSING - UPPER BODY - SCORE: 0-UNK DRESSING - LOWER BODY: Patient is not dressing in public clothing ARTICLES SCORE Total number of steps: 0 DRESSING - LOWER BODY - SCORE: 0-UNK TOILETING: TOILETING - STEP 1: Does the patient require the assistance of a person or device, or need extra time with toileting? Yes . TOILETING - STEP 2: Does the patient require the assistance of a helper? Yes. TOILETING - STEP 3: How much assistance does the patient require from the helper? Only supervision TOILETING - SCORE: 5-SUP BLADDER MANAGEMENT: BLADDER MANAGEMENT - STEP 1: Does the patient control the bladder completely and intentionally without equipment or devices or med ications, and is always continent? No. BLADDER MANAGEMENT - STEP 2: Does the patient require the assistance of a helper? No, patient requires and independently uses an a ssistive device, such as a urinal, bedpan, bedside commode, catheter, absorbent pad, or collecting de vice BLADDER MANAGEMENT - SCORE: 6-MAGGY BOWEL MANAGEMENT: Activity did not occur on this shift BOWEL MANAGEMENT - SCORE: 7-IND TRANSFERS: BED, CHAIR, WHEELCHAIR: Activity did not occur on this shift TRANSFERS: BED, CHAIR, WHEELCHAIR - SCORE: 0-UNK TRANSFERS: TOILET: Activity did not occur on this shift TRANSFERS: TOILET - SCORE: 0-UNK TRANSFERS: SHOWER: Activity did not occur on this shift TRANSFERS: SHOWER - SCORE: 0-UNK TRANSFERS: TUB: Activity did not occur on this shift TRANSFERS: TUB - SCORE: 0-UNK LOCOMOTION: WALK: Activity did not occur on this shift LOCOMOTION: WALK - SCORE: 0-UNK LOCOMOTION: WHEELCHAIR: Activity did not occur on this shift LOCOMOTION: WHEELCHAIR - SCORE: 0-UNK COMPREHENSION: COMPREHENSION: TYPE: Both COMPREHENSION - STEP 1: Does the patient require help from a person or device, or need extra time to understand complex and a bstract ideas (such as current events, finances, discharge planning, medical issues, relationships, e tc)? No. COMPREHENSION - STEP 2: Does the patient need extra time, require an assistive device (such as glasses for visual comprehensi on or a hearing aid for auditory comprehension) or does s/he have mild difficulty understanding compl ex and abstract information? Yes. COMPREHENSION - SCORE: 6-MAGGY EXPRESSION EXPRESSION: TYPE: Both EXPRESSION - STEP 1: Does the patient require help from a person or device, or need extra time expressing complex and abst ract ideas (such as current events, finances, discharge planning, medical issues, relationships, etc) ? No. EXPRESSION - STEP 2: Does the patient need extra time, require an assistive device (such as augmentive communication syste m or a communication board), OR does s/he have mild difficulty expressing complex and abstract ideas (including mild dysarthria or mild word-find problems)? Yes. EXPRESSION - SCORE: 6-MAGGY SOCIAL INTERACTION: SOCIAL INTERACTION - STEP 1: Does the patient require a helper to interact with others in social and therapeutic situations? No. SOCIAL INTERACTION - STEP 2: Does the patient need extra time in social situations, OR does s/he interact with staff, other patien ts, and family members ONLY in structured environments, OR does s/he require medication for social in teraction? Yes, patient needs extra time SOCIAL INTERACTION - SCORE: 6-MAGGY PROBLEM SOLVING: PROBLEM SOLVING - STEP 1: Does the patient need help from a person or device, or need extra time to solve complex problems such as managing a checking account or confronting interpersonal problems? No. PROBLEM SOLVING - STEP 2: Does the patient require extra time to make decisions or solve problems, OR does s/he have slight dif ficulty reading, initiating, or self-correcting in unfamiliar situations? Yes, patient needs extra ti me. PROBLEM SOLVING - SCORE: 6-MAGGY MEMORY: MEMORY - STEP 1: Does the patient need help from a person or device, or need extra time to remember frequently encount ered people, daily routines, and executing requests? No. MEMORY - STEP 2: Does the patient have slight difficulty recognizing frequently encountered people, daily routines, or executing requests without the need for repetition or using self-initiated or environmental cues to remember? Yes. MEMORY - SCORE: 6-MAGGY
[2018-03-04] MEDS: PANTOPRAZOLE 40MG TABLET PO SCH (05:32)
[2018-03-04] MEDS: LEVOTHYROXINE SOD 0.125 MG TAB PO SCH (05:32)
[2018-03-04 05:38] VITALS: BMI 30.5
[2018-03-04] MEDS: FOLIC ACID 1 MG TABLET PO SCH ×2 (08:20→20:18)
[2018-03-04] MEDS: [UNRECOGNIZED DRUG - OTHER] PO SCH (08:22)
[2018-03-04] MEDS: DOCOSAHEXANOIC AC/EPA 1000 MG PO SCH (08:22)
[2018-03-04] MEDS: FERROUS SULFATE 325 MG TAB PO SCH (08:22)
[2018-03-04] MEDS: FE SULF/FA/VIT B COMP & C TAB PO SCH (08:22)
[2018-03-04] MEDS: LOSARTAN POTASSIUM 50 MG TABLET PO SCH (08:23)
[2018-03-04] MEDS: GUAIFENESIN 600 MG SA TAB PO SCH ×2 (08:23→20:15)
[2018-03-04] MEDS: AMLODIPINE 2.5 MG TAB PO SCH (08:23)
[2018-03-04] MEDS: APIXABAN 2.5 MG TABLET PO SCH ×2 (08:24→20:16)
[2018-03-04] MEDS: GABAPENTIN 300 MG CAP PO SCH ×3 (08:24→20:16)
[2018-03-04] MEDS: TRAMADOL HCL 50 MG TAB PO PRN ×3 (08:24→20:17)
[2018-03-04] MEDS: PROMOD 30 ML DOSE PO SCH ×2 (08:25→20:18)
[2018-03-04] MEDS: ACETAMINOPHEN 325 MG TABLET PO PRN (09:58)
--- NOTE | 2018-03-04 10:02 | P.PN ---
Subjective Date of Service: 03/04/18 Chief Complaint: ACHES ALL OVER TODAY HE IS FEELING GREAT, SP SURGERY. HE IS FEELING WELL, HAS NO COMPLAINTS. NO ISSUES. PT DOING WELL. HE HAS NO FEVER BUT ACHES ALL OVER. Review of Systems 10-point ROS is otherwise unremarkable General: Weakness, Malaise Physical Examination - Vital Signs Temperature: 98 F Blood Pressure: 143/76 Pulse: 93 Respirations: 16 Pulse Ox (%): 94 - Physical Exam General: Alert, Mild distress, Moderate distress HEENT: Atraumatic, PERRLA, EOMI Neck: Supple, JVD not distended Respiratory: Clear to auscultation bilaterally, Normal air movement Cardiovascular: Regular rate/rhythm, Normal S1 S2 Gastrointestinal: Normal bowel sounds, No tenderness Musculoskeletal: No tenderness Integumentary: No rashes Neurological: Normal speech, Normal tone, Normal affect Lymphatics: No axilla or inguinal lymphadenopathy - Studies Medications List Reviewed: Yes Assessment And Plan - Current Problems (Diagnosis) (1) Cervical post-laminectomy syndrome Onset Date: 02/27/18 Current Visit: Yes Status: Acute Plan: OT PT. SP SURGERY, DOING WELL. STABLE. GETTING STRONGER. HE IS STARTING TO WALK WELL. GETTING STRONGER DAILY. STABLE, DC IN TWO DAYS. (2) Anemia, chronic disease Onset Date: 02/27/18 Current Visit: Yes Status: Chronic Plan: STABLE AT ABOUT 9 HE ALSO HAS SOME BLEEDING BUT HAS BEEN TO GI DOCTORS. 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 (4) Generalized pain Current Visit: Yes Status: Acute Plan: THIS CAN BE FROM VIRAL SYNDROME. THERE ARE NO CHANGES IN MEDS TO CAUSE THIS.
--- NOTE | 2018-03-04 15:10 | FAST ---
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 Parish Gates M.D. 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 concussion and edema of cervical spinal cord, sequela. cervical myelopathy. degenerative cervical spinal stenosis. lumbar stenosis with neurogenic claudication. EATING: EATING - STEP 1: Does the patient require the assistance of a person or device, or need extra time when eating? Yes. EATING - STEP 2: Does the patient require the assistance of a helper? No, patient only requires an assistive device, O R s/he takes more than reasonable time to eat, OR there is a safety concern, OR s/he requires modifie d food consistency EATING - SCORE: 6-MAGGY GROOMING: Comb/brush hair Oral care Wash, rinse, and dry face Wash, rinse, and dry hands GROOMING - STEP 1: Does the patient require the assistance of a person or device, or need extra time when grooming? Yes. GROOMING - STEP 2: Does the patient require the assistance of a helper? No. The patient only requires an assistive devic e, OR takes more than reasonable time to groom, OR there is a concern for safety as the patient groom s GROOMING - SCORE: 6-MAGGY BATHING: Activity did not occur on this shift BATHING - SCORE: 0-UNK DRESSING - UPPER BODY: T-shirt/pullover shirt (four steps) ARTICLES SCORE Total number of steps: 4 DRESSING - UPPER BODY - STEP 1: Does the patient require help from a person or device, or need extra time when dressing above the [address]? Yes. DRESSING - UPPER BODY - STEP 2: Does the patient require the assistance of a helper? No. Patient only requires an assistive device, s uch as a button hook, velcro, or circuit board assembler. OR s/he takes more than reasonable time as s/he dresses the upper body. OR there is a concern for safety when s/he dresses the upper body DRESSING - UPPER BODY - SCORE: 6-MAGGY DRESSING - LOWER BODY: Elastic waist pants (three steps) Slip-on shoe - Left foot (one step) Slip-on shoe - Right foot (one step) ARTICLES SCORE Total number of steps: 5 DRESSING - LOWER BODY - STEP 1: Does the patient require help from a person or device, or need extra time when dressing below the [address]? Yes. DRESSING - LOWER BODY - STEP 2: Does the patient require the assistance of a helper? No. Patient requires an assistive device such as a circuit board assembler. OR s/he takes more than reasonable time as s/he dresses the lower body, OR there is a con cern for safety when s/he dresses the lower body DRESSING - LOWER BODY - SCORE: 6-MAGGY TOILETING: TOILETING - STEP 1: Does the patient require the assistance of a person or device, or need extra time with toileting? Yes . TOILETING - STEP 2: Does the patient require the assistance of a helper? Yes. TOILETING - STEP 3: How much assistance does the patient require from the helper? Only supervision TOILETING - SCORE: 5-SUP BLADDER MANAGEMENT: BLADDER MANAGEMENT - STEP 1: Does the patient control the bladder completely and intentionally without equipment or devices or med ications, and is always continent? No. BLADDER MANAGEMENT - STEP 2: Does the patient require the assistance of a helper? No, patient requires and independently uses an a ssistive device, such as a urinal, bedpan, bedside commode, catheter, absorbent pad, or collecting de vice BLADDER MANAGEMENT - SCORE: 6-MAGGY BLADDER MANAGEMENT - FREQUENCY OF ACCIDENTS: BLADDER MANAGEMENT(FA) - STEP 1: How many accidents has the patient had during the current shift? 0 BOWEL MANAGEMENT: [place] removes incontinent device (depends, pull ups, etc.); cleans the patient after accident / inco ntinent episode; and, applies new device (depends, pull-ups, padding, etc.). BOWEL MANAGEMENT - SCORE: 1-DEP BOWEL MANAGEMENT - FREQUENCY OF ACCIDENTS: BOWEL MANAGEMENT(FA) - STEP 1: How many accidents has the patient had during the current shift? 2 TRANSFERS: BED, CHAIR, WHEELCHAIR: TRANSFERS: BED, CHAIR, WHEELCHAIR - STEP 1: Does the patient require assistance of a person or device, or need extra time with bed, chair, or whe elchair transfers? No. TRANSFERS: BED, CHAIR, WHEELCHAIR - SCORE: 7-IND TRANSFERS: TOILET: TRANSFERS: TOILET - STEP 1: Does the patient require the assistance of a person or device, or need extra time with toilet transfe rs? Yes. TRANSFERS: TOILET - STEP 2: Does the patient require the assistance of a helper? No. Patient only requires an assistive device braswlel ch as a grab bar or special seat, OR s/he takes more than reasonable time to perform toilet transfers , OR there is a safety concern when s/he performs toilet transfers. TRANSFERS: TOILET - SCORE: 6-MAGGY TRANSFERS: SHOWER: Activity did not occur on this shift TRANSFERS: SHOWER - SCORE: 0-UNK TRANSFERS: TUB: Activity did not occur on this shift TRANSFERS: TUB - SCORE: 0-UNK LOCOMOTION: WALK: Activity did not occur on this shift LOCOMOTION: WALK - SCORE: 0-UNK LOCOMOTION: WHEELCHAIR: LOCOMOTION: WHEELCHAIR - STEP 1: Does the patient need help to go 150 feet in a wheelchair? No. LOCOMOTION: WHEELCHAIR - SCORE: 6-MAGGY COMPREHENSION: COMPREHENSION: TYPE: Both COMPREHENSION - STEP 1: Does the patient require help from a person or device, or need extra time to understand complex and a bstract ideas (such as current events, finances, discharge planning, medical issues, relationships, e tc)? No. COMPREHENSION - STEP 2: Does the patient need extra time, require an assistive device (such as glasses for visual comprehensi on or a hearing aid for auditory comprehension) or does s/he have mild difficulty understanding compl ex and abstract information? Yes. COMPREHENSION - SCORE: 6-MAGGY EXPRESSION EXPRESSION: TYPE: Both EXPRESSION - STEP 1: Does the patient require help from a person or device, or need extra time expressing complex and abst ract ideas (such as current events, finances, discharge planning, medical issues, relationships, etc) ? No. EXPRESSION - STEP 2: Does the patient need extra time, require an assistive device (such as augmentive communication syste m or a communication board), OR does s/he have mild difficulty expressing complex and abstract ideas (including mild dysarthria or mild word-find problems)? Yes. EXPRESSION - SCORE: 6-MAGGY SOCIAL INTERACTION: SOCIAL INTERACTION - STEP 1: Does the patient require a helper to interact with others in social and therapeutic situations? No. SOCIAL INTERACTION - STEP 2: Does the patient need extra time in social situations, OR does s/he interact with staff, other patien ts, and family members ONLY in structured environments, OR does s/he require medication for social in teraction? Yes, patient needs extra time SOCIAL INTERACTION - SCORE: 6-MAGGY PROBLEM SOLVING: PROBLEM SOLVING - STEP 1: Does the patient need help from a person or device, or need extra time to solve complex problems such as managing a checking account or confronting interpersonal problems? No. PROBLEM SOLVING - STEP 2: Does the patient require extra time to make decisions or solve problems, OR does s/he have slight dif ficulty reading, initiating, or self-correcting in unfamiliar situations? Yes, patient needs extra ti me. PROBLEM SOLVING - SCORE: 6-MAGGY MEMORY: MEMORY - STEP 1: Does the patient need help from a person or device, or need extra time to remember frequently encount ered people, daily routines, and executing requests? No. MEMORY - STEP 2: Does the patient have slight difficulty recognizing frequently encountered people, daily routines, or executing requests without the need for repetition or using self-initiated or environmental cues to remember? Yes. MEMORY - SCORE: 6-MAGGY SIGNATURE PANEL: The following modified sections: Eating - Score, Grooming - Score, Bathing - Score, Dressing - Upper Body - Score, Dressing - Lower Body - Score, Toileting - Score, Bladder Management - Score, Bowel Man agement - Score, Transfers: Bed, Chair, Wheelchair - Score, Transfers: Toilet - Score, Transfers: Enedina wer - Score, Transfers: Tub - Score, Locomotion: Walk - Score, Locomotion: Wheelchair - Score, Compre hension - Score, Expression - Score, Social Interaction - Score, Problem Solving - Score, Memory - Sc ore were [electronically] signed by Joyce Levin C.N.A. on Sat Mar 04 2018 15:09:05 GMT-0600 ([facility])
[2018-03-04] MEDS: ATORVASTATIN 20 MG TAB PO SCH (20:16)
[2018-03-04] MEDS: DOCUSATE NA/SENNA CONC 1 TAB PO SCH (20:18)
--- NOTE | 2018-03-05 00:33 | FAST ---
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 Parish Gates M.D. 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 concussion and edema of cervical spinal cord, sequela. cervical myelopathy. degenerative cervical spinal stenosis. lumbar stenosis with neurogenic claudication. EATING: Activity did not occur on this shift EATING - SCORE: 0-UNK GROOMING: Activity did not occur on this shift GROOMING - SCORE: 0-UNK BATHING: Activity did not occur on this shift BATHING - SCORE: 0-UNK DRESSING - UPPER BODY: Patient is not dressing in public clothing ARTICLES SCORE Total number of steps: 0 DRESSING - UPPER BODY - SCORE: 0-UNK DRESSING - LOWER BODY: Patient is not dressing in public clothing ARTICLES SCORE Total number of steps: 0 DRESSING - LOWER BODY - SCORE: 0-UNK TOILETING: TOILETING - STEP 1: Does the patient require the assistance of a person or device, or need extra time with toileting? Yes . TOILETING - STEP 2: Does the patient require the assistance of a helper? No. TOILETING - SCORE: 6-MAGGY BLADDER MANAGEMENT: BLADDER MANAGEMENT - STEP 1: Does the patient control the bladder completely and intentionally without equipment or devices or med ications, and is always continent? No. BLADDER MANAGEMENT - STEP 2: Does the patient require the assistance of a helper? No, patient requires and independently uses an a ssistive device, such as a urinal, bedpan, bedside commode, catheter, absorbent pad, or collecting de vice BLADDER MANAGEMENT - SCORE: 6-MAGGY BOWEL MANAGEMENT: Activity did not occur on this shift BOWEL MANAGEMENT - SCORE: 7-IND TRANSFERS: BED, CHAIR, WHEELCHAIR: TRANSFERS: BED, CHAIR, WHEELCHAIR - STEP 1: Does the patient require assistance of a person or device, or need extra time with bed, chair, or whe elchair transfers? Yes. TRANSFERS: BED, CHAIR, WHEELCHAIR - STEP 2: Does the patient require the assistance of a helper? No. Patient only requires an assistive device fo r bed, chair, wheelchair transfers such as a sliding board, grab bar, or brace, OR s/he takes more th an reasonable time, OR there is a safety concern when s/he performs the transfers TRANSFERS: BED, CHAIR, WHEELCHAIR - SCORE: 6-MAGGY TRANSFERS: TOILET: TRANSFERS: TOILET - STEP 1: Does the patient require the assistance of a person or device, or need extra time with toilet transfe rs? Yes. TRANSFERS: TOILET - STEP 2: Does the patient require the assistance of a helper? No. Patient only requires an assistive device bras[place] ch as a grab bar or special seat, OR s/he takes more than reasonable time to perform toilet transfers , OR there is a safety concern when s/he performs toilet transfers. TRANSFERS: TOILET - SCORE: 6-MAGGY TRANSFERS: SHOWER: Activity did not occur on this shift TRANSFERS: SHOWER - SCORE: 0-UNK TRANSFERS: TUB: Activity did not occur on this shift TRANSFERS: TUB - SCORE: 0-UNK LOCOMOTION: WALK: Activity did not occur on this shift LOCOMOTION: WALK - SCORE: 0-UNK LOCOMOTION: WHEELCHAIR: Activity did not occur on this shift LOCOMOTION: WHEELCHAIR - SCORE: 0-UNK COMPREHENSION: COMPREHENSION: TYPE: Both COMPREHENSION - STEP 1: Does the patient require help from a person or device, or need extra time to understand complex and a bstract ideas (such as current events, finances, discharge planning, medical issues, relationships, e tc)? No. COMPREHENSION - STEP 2: Does the patient need extra time, require an assistive device (such as glasses for visual comprehensi on or a hearing aid for auditory comprehension) or does s/he have mild difficulty understanding compl ex and abstract information? Yes. COMPREHENSION - SCORE: 6-MAGGY EXPRESSION EXPRESSION: TYPE: Both EXPRESSION - STEP 1: Does the patient require help from a person or device, or need extra time expressing complex and abst ract ideas (such as current events, finances, discharge planning, medical issues, relationships, etc) ? No. EXPRESSION - STEP 2: Does the patient need extra time, require an assistive device (such as augmentive communication syste m or a communication board), OR does s/he have mild difficulty expressing complex and abstract ideas (including mild dysarthria or mild word-find problems)? No. EXPRESSION - SCORE: 7-IND SOCIAL INTERACTION: SOCIAL INTERACTION - STEP 1: Does the patient require a helper to interact with others in social and therapeutic situations? No. SOCIAL INTERACTION - STEP 2: Does the patient need extra time in social situations, OR does s/he interact with staff, other patien ts, and family members ONLY in structured environments, OR does s/he require medication for social in teraction? No. SOCIAL INTERACTION - SCORE: 7-IND PROBLEM SOLVING: PROBLEM SOLVING - STEP 1: Does the patient need help from a person or device, or need extra time to solve complex problems such as managing a checking account or confronting interpersonal problems? No. PROBLEM SOLVING - STEP 2: Does the patient require extra time to make decisions or solve problems, OR does s/he have slight dif ficulty reading, initiating, or self-correcting in unfamiliar situations? No. PROBLEM SOLVING - SCORE: 7-IND MEMORY: MEMORY - STEP 1: Does the patient need help from a person or device, or need extra time to remember frequently encount ered people, daily routines, and executing requests? No. MEMORY - STEP 2: Does the patient have slight difficulty recognizing frequently encountered people, daily routines, or executing requests without the need for repetition or using self-initiated or environmental cues to remember? No. MEMORY - SCORE: 7-IND SIGNATURE PANEL: The following modified sections: Eating - Score, Grooming - Score, Bathing - Score, Dressing - Upper Body - Score, Dressing - Lower Body - Score, Toileting - Score, Bladder Management - Score, Bowel Man agement - Score, Transfers: Bed, Chair, Wheelchair - Score, Transfers: Toilet - Score, Transfers: Enedina wer - Score, Transfers: Tub - Score, Locomotion: Walk - Score, Locomotion: Wheelchair - Score, Compre hension - Score, Expression - Score, Social Interaction - Score, Problem Solving - Score, Memory - Sc ore were [electronically] signed by Yun Martinez CNA on TueMar 05 2018 00:32:16 T-0600 ([facility])
[2018-03-05] MEDS: TRAMADOL HCL 50 MG TAB PO PRN (05:03)
[2018-03-05] MEDS: LEVOTHYROXINE SOD 0.125 MG TAB PO SCH (05:03)
[2018-03-05] MEDS: PANTOPRAZOLE 40MG TABLET PO SCH (07:00)
[2018-03-05 07:14] VITALS: BP 148/67; TEMP 97.4
[2018-03-05] MEDS: LOSARTAN POTASSIUM 50 MG TABLET PO SCH (08:23)
[2018-03-05] MEDS: FE SULF/FA/VIT B COMP & C TAB PO SCH (08:24)
[2018-03-05] MEDS: APIXABAN 2.5 MG TABLET PO SCH (08:24)
[2018-03-05] MEDS: GABAPENTIN 300 MG CAP PO SCH ×2 (08:24→13:54)
[2018-03-05] MEDS: DOCOSAHEXANOIC AC/EPA 1000 MG PO SCH (08:24)
[2018-03-05] MEDS: AMLODIPINE 2.5 MG TAB PO SCH (08:24)
[2018-03-05] MEDS: FOLIC ACID 1 MG TABLET PO SCH (08:24)
[2018-03-05] MEDS: FERROUS SULFATE 325 MG TAB PO SCH (08:25)
[2018-03-05] MEDS: GUAIFENESIN 600 MG SA TAB PO SCH (08:25)
[2018-03-05] MEDS: [UNRECOGNIZED DRUG - OTHER] PO SCH (08:28)
[2018-03-05] MEDS: PROMOD 30 ML DOSE PO SCH (08:28)
--- NOTE | 2018-03-05 11:52 | P.PN ---
Subjective Date of Service: 03/05/18 Chief Complaint: ACHES ALL OVER TODAY Subjective: Improving HE IS FEELING GREAT, SP SURGERY. HE IS FEELING WELL, HAS NO COMPLAINTS. NO ISSUES. PT DOING WELL. HE HAS NO FEVER BUT ACHES ALL OVER. HE IS HAPPY TO GO HOME. HE LOVED THE CARE HERE. HE DOES NOT ACHE ANY LONGER. Physical Examination - Vital Signs Temperature: 97.4 F Blood Pressure: 148/67 Pulse: 82 Respirations: 18 Pulse Ox (%): 98 - Studies Medications List Reviewed: Yes Assessment And Plan - Current Problems (Diagnosis) (1) Cervical post-laminectomy syndrome Onset Date: 02/27/18 Current Visit: Yes Status: Acute Plan: OT PT. SP SURGERY, DOING WELL. STABLE. GETTING STRONGER. HE IS STARTING TO WALK WELL. GETTING STRONGER DAILY. STABLE, DC IN TWO DAYS. (2) Anemia, chronic disease Onset Date: 02/27/18 Current Visit: Yes Status: Chronic Plan: STABLE AT ABOUT 9 HE ALSO HAS SOME BLEEDING BUT HAS BEEN TO GI DOCTORS. 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 (4) Generalized pain Current Visit: Yes Status: Acute Plan: THIS CAN BE FROM VIRAL SYNDROME. THERE ARE NO CHANGES IN MEDS TO CAUSE THIS.
--- NOTE | 2018-03-05 14:18 | FAST ---
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 Parish Gates M.D. 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 concussion and edema of cervical spinal cord, sequela. cervical myelopathy. degenerative cervical spinal stenosis. lumbar stenosis with neurogenic claudication. EATING: EATING - STEP 1: Does the patient require the assistance of a person or device, or need extra time when eating? Yes. EATING - STEP 2: Does the patient require the assistance of a helper? No, patient only requires an assistive device, O R s/he takes more than reasonable time to eat, OR there is a safety concern, OR s/he requires modifie d food consistency EATING - SCORE: 6-MAGGY GROOMING: Comb/brush hair Wash, rinse, and dry face Wash, rinse, and dry hands GROOMING - STEP 1: Does the patient require the assistance of a person or device, or need extra time when grooming? Yes. GROOMING - STEP 2: Does the patient require the assistance of a helper? No. The patient only requires an assistive devic e, OR takes more than reasonable time to groom, OR there is a concern for safety as the patient groom s GROOMING - SCORE: 6-MAGGY BATHING: Activity did not occur on this shift BATHING - SCORE: 0-UNK DRESSING - UPPER BODY: T-shirt/pullover shirt (four steps) ARTICLES SCORE Total number of steps: 4 DRESSING - UPPER BODY - STEP 1: Does the patient require help from a person or device, or need extra time when dressing above the [address]? No. DRESSING - UPPER BODY - SCORE: 7-IND DRESSING - LOWER BODY: Elastic waist pants (three steps) Slip-on shoe - Left foot (one step) Slip-on shoe - Right foot (one step) Underwear (three steps) ARTICLES SCORE Total number of steps: 8 DRESSING - LOWER BODY - STEP 1: Does the patient require help from a person or device, or need extra time when dressing below the [address]? No. DRESSING - LOWER BODY - SCORE: 7-IND TOILETING: TOILETING - STEP 1: Does the patient require the assistance of a person or device, or need extra time with toileting? No. TOILETING - SCORE: 7-IND BLADDER MANAGEMENT: BLADDER MANAGEMENT - STEP 1: Does the patient control the bladder completely and intentionally without equipment or devices or med ications, and is always continent? Yes. BLADDER MANAGEMENT - SCORE: 7-IND BLADDER MANAGEMENT - FREQUENCY OF ACCIDENTS: BLADDER MANAGEMENT(FA) - STEP 1: How many accidents has the patient had during the current shift? 0 BOWEL MANAGEMENT: Activity did not occur on this shift BOWEL MANAGEMENT - SCORE: 7-IND BOWEL MANAGEMENT - FREQUENCY OF ACCIDENTS: BOWEL MANAGEMENT(FA) - STEP 1: How many accidents has the patient had during the current shift? 0 TRANSFERS: BED, CHAIR, WHEELCHAIR: TRANSFERS: BED, CHAIR, WHEELCHAIR - STEP 1: Does the patient require assistance of a person or device, or need extra time with bed, chair, or whe elchair transfers? Yes. TRANSFERS: BED, CHAIR, WHEELCHAIR - STEP 2: Does the patient require the assistance of a helper? No. Patient only requires an assistive device fo r bed, chair, wheelchair transfers such as a sliding board, grab bar, or brace, OR s/he takes more th an reasonable time, OR there is a safety concern when s/he performs the transfers TRANSFERS: BED, CHAIR, WHEELCHAIR - SCORE: 6-MAGGY TRANSFERS: TOILET: TRANSFERS: TOILET - STEP 1: Does the patient require the assistance of a person or device, or need extra time with toilet transfe rs? Yes. TRANSFERS: TOILET - STEP 2: Does the patient require the assistance of a helper? No. Patient only requires an assistive device bras[place] ch as a grab bar or special seat, OR s/he takes more than reasonable time to perform toilet transfers , OR there is a safety concern when s/he performs toilet transfers. TRANSFERS: TOILET - SCORE: 6-MAGGY TRANSFERS: SHOWER: Activity did not occur on this shift TRANSFERS: SHOWER - SCORE: 0-UNK TRANSFERS: TUB: Activity did not occur on this shift TRANSFERS: TUB - SCORE: 0-UNK LOCOMOTION: WALK: Activity did not occur on this shift LOCOMOTION: WALK - SCORE: 0-UNK LOCOMOTION: WHEELCHAIR: LOCOMOTION: WHEELCHAIR - STEP 1: Does the patient need help to go 150 feet in a wheelchair? No. LOCOMOTION: WHEELCHAIR - SCORE: 6-MAGGY COMPREHENSION: COMPREHENSION: TYPE: Both COMPREHENSION - STEP 1: Does the patient require help from a person or device, or need extra time to understand complex and a bstract ideas (such as current events, finances, discharge planning, medical issues, relationships, e tc)? No. COMPREHENSION - STEP 2: Does the patient need extra time, require an assistive device (such as glasses for visual comprehensi on or a hearing aid for auditory comprehension) or does s/he have mild difficulty understanding compl ex and abstract information? Yes. COMPREHENSION - SCORE: 6-MAGGY EXPRESSION EXPRESSION: TYPE: Both EXPRESSION - STEP 1: Does the patient require help from a person or device, or need extra time expressing complex and abst ract ideas (such as current events, finances, discharge planning, medical issues, relationships, etc) ? No. EXPRESSION - STEP 2: Does the patient need extra time, require an assistive device (such as augmentive communication syste m or a communication board), OR does s/he have mild difficulty expressing complex and abstract ideas (including mild dysarthria or mild word-find problems)? Yes. EXPRESSION - SCORE: 6-MAGGY SOCIAL INTERACTION: SOCIAL INTERACTION - STEP 1: Does the patient require a helper to interact with others in social and therapeutic situations? No. SOCIAL INTERACTION - STEP 2: Does the patient need extra time in social situations, OR does s/he interact with staff, other patien ts, and family members ONLY in structured environments, OR does s/he require medication for social in teraction? Yes, patient needs extra time SOCIAL INTERACTION - SCORE: 6-MAGGY PROBLEM SOLVING: PROBLEM SOLVING - STEP 1: Does the patient need help from a person or device, or need extra time to solve complex problems such as managing a checking account or confronting interpersonal problems? No. PROBLEM SOLVING - STEP 2: Does the patient require extra time to make decisions or solve problems, OR does s/he have slight dif ficulty reading, initiating, or self-correcting in unfamiliar situations? No. PROBLEM SOLVING - SCORE: 7-IND MEMORY: MEMORY - STEP 1: Does the patient need help from a person or device, or need extra time to remember frequently encount ered people, daily routines, and executing requests? No. MEMORY - STEP 2: Does the patient have slight difficulty recognizing frequently encountered people, daily routines, or executing requests without the need for repetition or using self-initiated or environmental cues to remember? Yes. MEMORY - SCORE: 6-MAGGY SIGNATURE PANEL: The following modified sections: Eating - Score, Grooming - Score, Bathing - Score, Dressing - Upper Body - Score, Dressing - Lower Body - Score, Toileting - Score, Bladder Management - Score, Bowel Man agement - Score, Transfers: Bed, Chair, Wheelchair - Score, Transfers: Toilet - Score, Transfers: Enedina wer - Score, Transfers: Tub - Score, Locomotion: Walk - Score, Locomotion: Wheelchair - Score, Compre hension - Score, Expression - Score, Social Interaction - Score, Problem Solving - Score, Memory - Sc ore were [electronically] signed by Abelardo BauerNEvan on TueMar 05 2018 14:18:26 GMT-0600 ([facility])
--- NOTE | 2018-03-06 15:52 | FAST ---
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 Parish Gates M.D. 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 concussion and edema of cervical spinal cord, sequela. cervical myelopathy. degenerative cervical spinal stenosis. lumbar stenosis with neurogenic claudication. EATING: Activity did not occur on this shift EATING - SCORE: 0-UNK GROOMING: Activity did not occur on this shift GROOMING - SCORE: 0-UNK BATHING: Activity did not occur on this shift BATHING - SCORE: 0-UNK DRESSING - UPPER BODY: Activity did not occur on this shift Patient is not dressing in public clothing ARTICLES SCORE Total number of steps: 0 DRESSING - UPPER BODY - SCORE: 0-UNK DRESSING - LOWER BODY: Activity did not occur on this shift Patient is not dressing in public clothing ARTICLES SCORE Total number of steps: 0 DRESSING - LOWER BODY - SCORE: 0-UNK TOILETING: Activity did not occur on this shift TOILETING - SCORE: 0-UNK BLADDER MANAGEMENT: Activity did not occur on this shift BLADDER MANAGEMENT - SCORE: 7-IND BOWEL MANAGEMENT: Activity did not occur on this shift BOWEL MANAGEMENT - SCORE: 7-IND TRANSFERS: BED, CHAIR, WHEELCHAIR: TRANSFERS: BED, CHAIR, WHEELCHAIR - STEP 1: Does the patient require assistance of a person or device, or need extra time with bed, chair, or whe elchair transfers? Yes. TRANSFERS: BED, CHAIR, WHEELCHAIR - STEP 2: Does the patient require the assistance of a helper? No. Patient only requires an assistive device fo r bed, chair, wheelchair transfers such as a sliding board, grab bar, or brace, OR s/he takes more th an reasonable time, OR there is a safety concern when s/he performs the transfers TRANSFERS: BED, CHAIR, WHEELCHAIR - SCORE: 6-MAGGY TRANSFERS: TOILET: Activity did not occur on this shift TRANSFERS: TOILET - SCORE: 0-UNK TRANSFERS: SHOWER: Activity did not occur on this shift TRANSFERS: SHOWER - SCORE: 0-UNK TRANSFERS: TUB: Activity did not occur on this shift TRANSFERS: TUB - SCORE: 0-UNK LOCOMOTION: WALK: LOCOMOTION: WALK - STEP 1: Does the patient need help from a person or device, or need extra time to walk 150 feet? No. LOCOMOTION: WALK - STEP 2: Does the patient need an assistive device (such as an orthosis, prosthesis, crutches, or walker) to g o 150 feet, OR does s/he take more than reasonable time, OR is there a concern for safety? Yes, the p atient needs an assistive device LOCOMOTION: WALK - SCORE: 6-MAGGY LOCOMOTION: WHEELCHAIR: Activity did not occur on this shift LOCOMOTION: WHEELCHAIR - SCORE: 0-UNK LOCOMOTION: STAIRS: LOCOMOTION: STAIRS - STEP 1: Does the patient need help to go up and down 12 to 14 stairs? No. LOCOMOTION: STAIRS - STEP 2: Does the patient require an assistive device - such as handrails or cane - to go up and down one flig ht of stairs, OR does s/he take more than reasonable time, OR is there a concern for safety? Yes, the patient requires an assistive device LOCOMOTION: STAIRS - SCORE: 6-MAGGY COMPREHENSION: COMPREHENSION - SCORE: 0-UNK EXPRESSION EXPRESSION - SCORE: 0-UNK SOCIAL INTERACTION: SOCIAL INTERACTION - SCORE: 0-UNK PROBLEM SOLVING: PROBLEM SOLVING - SCORE: 0-UNK MEMORY: MEMORY - SCORE: 0-UNK SIGNATURE PANEL: The following modified sections: Transfers: Bed, Chair, Wheelchair - Score, Transfers: Toilet - Score , Locomotion: Walk - Score, Locomotion: Wheelchair - Score, Locomotion: Stairs - Score were [linda [email or web address]] signed by Rakesh Gray PTA on TueMar 06 2018 15:52:05 GMT-0600 (Central Standard Time)
--- NOTE | 2018-03-07 17:16 | PAPE ---
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 Parish Gates M.D. ADMISSION DIAGNOSIS: degenerative lumbar spinal stenosis concussion and edema of cervical spinal cord, sequela cervical myelopathy degenerative cervical spinal stenosis lumbar stenosis with neurogenic claudication ONSET DATE 02/21/2018 SECONDARY/COMORBID DIAGNOSES TIERED: - N/A hypertension cholesterol POST-ADMISSION FUNCTIONAL/MEDICAL STATUS: - Bladder Same accident frequency: Ind - No accidents in the past 7 days - Bowel Same accident frequency: Ind - No accidents in the past 7 days - Walking Same score based on distance walked: 3(>=150ft) STATUS CHANGE EVALUATION: No change in Functional or Medical Status is identified compared with Pre-Admission screening. PATIENT NEEDS CLOSE MEDICAL SUPERVISION BY A REHABILITATION PHYSICIAN FOR: Bowel and Bladder Management Coordination of Treatment Team Medical and Co-Morbidity Management Wound Care PATIENT REQUIRES 24X7 REHAB NURSING FOR MEDICAL AND FUNCTIONAL MGT. OF THE FOLLOWING DEFICITS: ADL's Ambulation Bowel and Bladder Management Cognition Communication Disease Management Medication Management Patient/Family Education Providing Safe Environment Skin Integrity Transfers PATIENT REQUIRES INTENSIVE, COORDINATED INTERDISCIPLINARY APPROACH TO REHAB: Arranging Home Equipment/Services Discharge Planning Family Intervention/Training Supervisor Statement Clerks/Case Management LIST OF IDENTIFIED AND POTENTIAL PROBLEMS: Alteration in leisure activities Bladder, Incontinence Blood Pressure, Hypertension/hypotension Issues Bowel, Incontinence Infection, Actual or Potential Mobility Impaired Pain, Alteration in Comfort Self Care Deficit Skin Integrity, Actual or Potential Urinary Tract Infection (UTI), Actual or Potential RISK FOR COMPLICATIONS - Hypertension CVA. Hypotension. OK. TIA. INTERVENTIONS - Hypertension PATIENT COULD BE AT RISK FOR COMPLICATIONS FROM ADVERSE MEDICAL CONDITIONS DUE TO HIS/HER COMORBIDITI ES AND THE RIGORS OF THE INTENSIVE REHABILLITATION PROGRAM. METHODS OR INTERVENTIONS TO AVOID COMPLIC ATIONS INCLUDE: - Bleeding Assess lab values and manage abnormalities. Nursing to teach precautions for anti-coagulation therapy . Wound to be assessed every shift. - Infection Clinical staff to assess and manage the signs and symptoms of infection including fever, redness, war mth, etc. - Urinary Tract Infection - Falls Patient will be evaluated for Fall Precautions and will be placed on Fall Precautions as indicated pe r protocol. - Skin Breakdown Nursing will assess skin daily using assessment tool and will place on Skin Breakdown Precautions as indicated per protocol. - Pain Clinical staff may employ non-medication methods such as massage, distraction, decrease stimulus, etc . as needed. Clinical staff will assess patient's pain level every shift per protocol to assess and e nsure pain management effectiveness. Medications will be given and the pain level re-assessed. PRELIMINARY PLAN OF CARE: - Physical Therapy Patient needs Physical Therapy for a daily minimum of 1.5 hours at least 5 out of 7 days, to improve: Mobility, Strengthening, Transfers, Stretching, ROM, Endurance, Ability to manage stairs, Gait, and Balance. - Speech Therapy Patient needs Speech Therapy for a daily minimum of 0.5 hours at least 5 out of 7 days, to improve: S wallowing, Cognition, Language Skills, and Compensatory Strategies. - Rehabilitation Nursing Patient requires 24x7 Rehabilitation Nursing for: Pain Issues, Identifying and preventing risk factor s, Monitoring and reporting current medical conditions, Assisting with ambulation and transfer, Luis ting with all ADL-s, Teaching patients about disease process and medications, Family teaching, Provid ing safe environment, Bowel and Bladder Issues, Skin Integrity, and Medication Management. Patient needs Supervisor Statement Clerks and/or Case Management for: Discharge Planning, Arranging Home Equipmen t or Services, and Family Interventions. - Dietary and Nutrition Services Patient needs Dietary and Nutrition Services for: Adequate Nutrition, Nutritional Supplements, and Nu tritional Education. - Occupational Therapy Patient needs Occupational Therapy for a daily minimum of 1.5 hours at least 5 out of 7 days, to impr ove Activities of Daily Living, including: Eating, Grooming, Bathing, Dressing, Toileting, Toilet Tra nsfers, Community Reintegration, Higher functional activities, Adaptive Equipment, Splinting, Househo ld Tasks, and Other activities as determined. POTENTIAL FUNCTIONAL GOALS FOR PATIENT TO ACHIEVE BY DISCHARGE: - Safety Precaution Patient will remain free from falls or injury at time of discharge. - Bed Mobility Patient will perform bed mobility at 4-Jossy level of assistance. - Transfers Patient will complete transfers from bed to chair at 4-Jossy level of assistance. - Mobility Patient will ambulate 150 ft with 4-Jossy level of assistance with RW. PATIENT REHAB POTENTIAL Expected level of measurable improvement will be of a practical value to patient's functional capacit y or adaptations to impairments Has a viable Discharge Plan Medically appropriate; condition is sufficiently stable to participate in intensive rehab program Patient is able and expected to receive 3 hours of individualized therapy daily on at least 5 of ever y 7 days Patient's prognosis for significant practical improvement within a reasonable period of time appears Good DISCHARGE PLAN: - Estimated Length of Stay (days) 16. - Consensus on plan Discharge plan has been discussed with primary caregiver. Patient/Family is in agreement with the haley n. Primary caregiver is in agreement with the plan. - Patient/Family Goals Return home with assistance. - Planned Living Setting Upon Discharge Home, to live with Family/Relatives. CONCLUSION ON REHABILITATION NECESSITY: I have evaluated patient's pre-admission functional status and, comparing it to the patient's post-ad mission functional status now, I conclude that the pre-admission assessment was accurate. Patient's c ondition on admission supports the medical necessity of admission to IRF. It is safe to proceed with patient's therapy program. 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
--- NOTE | 2018-03-07 17:17 | R.DS ---
FACILITY [facility] MR# [id number] NAME RONNI GERARD ADDRESS [address] [place] [address] [address] [id number] PHONE DATE OF 1935 AGE 83 SSN# [id number] GENDER Male DEXTERITY Right-handed MARITAL STATUS RACE White ENCOUNTER PHYSICIAN Dr. Parish Gates M.D. REFERRING DOCTOR Efe Cooper REFERRING FACILITY [facility] DISCHARGE DIAGNOSIS: - Spinal Cord Dysfunction 04 - Other Non-traumatic Spinal Cord Dysfunction (04.130) degenerative lumbar spinal stenosis. concussion and edema of cervical spinal cord, sequela. cervical myelopathy. degenerative cervical spinal stenosis. lumbar stenosis with neurogenic claudication. 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 is a 83 yo Right-handed white male.On 02/21/2018 he was admitted to [facility] with diagnosis degenerative lumbar spinal stenosis.His impairment category is Spinal Cord Dy sfunction 04 - Other Non-traumatic Spinal Cord Dysfunction (04.130).Pre-morbidly, Pt. was independen t/mod-I in Self-Care and Sphincter Control; and he had good Sphincter Control.Currently, he has defic its of Balance, Endurance, Safety Awareness, Transfers Control, Communication, Social Cognition, [place] motion, and Self-Care.Pt. is now referred to [facility] for acute in-patient r ehabilitation in order to maximize patient's functional independence in activities of daily living, s trength, ROM, and mobility.- Rehab Goal Patient has realistic goal of being discharged at assistance level 6-Wei to reside at Home with Fam papito/Relatives. HOSPITAL COURSE: DIET - LIQUID TEXTURE: On 02/24/2018 Pt was upgraded to Regular Diet - Liquid Texture. DIET - SOLID TEXTURE: On 02/24/2018 Pt was upgraded to Regular Diet - Solid Texture. DIET TYPE: On 02/24/2018 Pt was upgraded to Regular Diet Type. TUBE FEED: On 02/24/2018 Pt was changed to N/A Tube Feed. DISCHARGE PHYSICAL EXAM - Gen Alert and awake Lying in bed No apparent distress Oriented to: person, time, and place - Skin No breakdown No abnormalities - Eyes No abnormalities - ENMT No abnormalities - Neck No pain - CVS RRR - Chest No abnormalities - Resp CTA bilaterally - Abd +bowel sounds - GI Soft Deferred - No abnormalities - Ext No significant edema - MSK 4+/5 weakness in both lower extremities. - Neuro No focal deficits - Psych No abnormalities FUNCTIONAL STATUS: - Self-Care A. Eating 7-Ind 7-Ind B. Grooming 5-sup 7-Ind C. Bathing 3-modA 6-Wei D. Dressing - Upper 5-sup 6-Wei E. Dressing - Lower 1-Dep 6-Wei F. Toileting 1-Dep 6-Wei - Sphincter Control G: Bladder control 7-Ind 7-Ind H: Bowel control 7-Ind 7-Ind - Transfers Control I. Bed/Chair/Wheelchair 4-Jossy 6-Wei J. Toilet 4-Jossy 6-Wei K. Tub/Shower 4-Jossy 6-Wei - Locomotion L. Walk/Wheelchair (B) 5-sup 6-Wei M. Stairs 0-ADNO 6-Wei - Communication N. Comprehension (B) 5-sup 5-sup O. Expression (B) 5-sup 5-sup - Social Cognition P. Social Interaction 5-sup 5-sup Q. Problem Solving 5-sup 5-sup R. Memory 5-sup 5-sup - Endurance Fair - Balance Fair - Safety Awareness Fair DISCHARGE INSTRUCTIONS: - N/A Eliquis 2.5 mg twice daily, aspirin 81 mg daily. DISCHARGE PLAN, FOLLOW UP CARE PROVISIONS: - Estimated Length of Stay (days) 16. - Consensus on plan Discharge plan has been discussed with primary caregiver. Patient/Family is in agreement with the haley n. Primary caregiver is in agreement with the plan. - Patient/Family Goals Return home with assistance. - Planned Living Setting Upon Discharge Home, to live with Family/Relatives. 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
== END 2018-03-05 14:00 | disposition home or self-care (01) | DRG 552 ==
LOC: 5TH 18:03
PROVIDERS: ADMIT Psychiatry & Neurology Neurology with Special Qualifications in Child Neurology; ATTEND Psychiatry & Neurology Neurology with Special Qualifications in Child Neurology
DX: M48.062 Spinal stenosis, lumbar region with neurogenic claudication (principal); I10 Essential (primary) hypertension; M06.9 Rheumatoid arthritis, unspecified; H91.90 Unspecified hearing loss, unspecified ear; E78.00 Pure hypercholesterolemia, unspecified; M96.1 Postlaminectomy syndrome, not elsewhere classified; D64.9 Anemia, unspecified; R52 Pain, unspecified
CPT/HCPCS: 36415; 80048; 81001; 82040; 83735; 84134; 85014; 85018; 85025; 87086; 87088; 97110; 97112; 97116; 97150; 97163; 97530; 97542; J7509

== ENCOUNTER 2018-04-10 12:22 | Emergency (ER) | payer OTHER, BC ==
--- OUTSIDE RECORDS SUMMARY | 2018-04-10 12:26 | XMS REPORT ---
:1935 [facility] Address [address] [place] [address] Dr. Shell [address] [place] [id number] Care Team Providers Name Role Phone EFE WAKEFIELD PHILLIP Unavailable Unavailable TRACIE BISHOP Unavailable Unavailable Problems This patient has no known problems. Allergies, Adverse Reactions, Alerts This patient has no known allergies or adverse reactions. Medications This patient has no known medications. Results Test Description Test Time Test Comments Text Results Atomic Results Result Comments SHORT-LATENCY SPE, ALL 2018-03-15 10:37:00 INTRAOPERATIVE MONITORING REPORT LIMBS Patient Name: Germain Wilks [facility] Surgery Date: 02/21/2018 [place] PRO [id number] Monitoring began at 12:53 and ended at 16:32 Surgeon: Efe Wakefield M.D. Examining Neurologist: Alana Monitoring Technologist: LIVIER Ervin Procedure: Posterior Cervical Laminectomy and Decompression C3-6, L4-5 Laminectomy and Fusion Stimulation Parameters: Ulnar nerves individually stimulated at the wrist Rate 4.7Hz, Intensity 35mA, Duration 0.3ms Posterior Tibial nerves individually stimulated at the ankle Rate 4.7Hz, Intensity 70mA, Duration 0.3ms Filters 30-500Hz, Notch Off Motor strip stimulated anterior to C3 and C4 with alternating polarities Intensity 100-500V, Train Rate 4-5, VIRGIL 2-3ms Filters 30-2KHz, Notch Off Recording Parameters: EP1, EP2, CV, CP3, CP4, CPz, and FPz Free-running EEG recorded with bipolar derivation, using CP3, CP4, referenced to FPz Transcranial electrical Motor Evoked Potentials recorded from the Abductor Pollicis Brevis referenced to the Abductor Digiti Quinti Minimi muscle groups and the Abductor Hallucis referenced to Abductor Digiti Minimi muscle groups Description: Intraoperative neurophysiological monitoring was performed using a combination of upper and lower extremity somatosensory evoked potentials, transcranial electrical motor evoked potentials, and free-running EEG. A real-time connection with the examining neurologist was established and maintained throughout the operative procedure by the monitoring technologist. Upper extremity somatosensory evoked potentials were recorded centrally at the cervical and cortical levels following ulnar nerve stimulation at the wrist. Lower extremity somatosensory evoked potentials were recorded centrally at the cervical and cortical levels following posterior tibial nerve stimulation at the ankle. TceMEPs were recorded peripherally from the upper and lower extremities following alternating polarity motor strip stimulation. Post-induction, post-intubation TceMEP recording responses to motor cortex stimulation were clear and reproducible bilaterally. No significant surgically related changes in amplitude or latency of the somatosensory evoked responses or TceMEPs were noted throughout the surgical procedure. At closing, responses were judged to be essentially unchanged from those of post-positioning baselines. Free-running EEG remained symmetrical throughout the procedure with no focal changes noted to occur. Phillip Trinidad MD G95.9, M48.062, G95.19 C METABOLIC PANEL 2018-02-24 05:22:00 Test Item Value Reference Range Comments SODIUM (BEAKER) (test 136 meq/L 136-145 pijb=290) POTASSIUM (BEAKER) (test 4.2 meq/L 3.5-5.1 hqrv=244) CHLORIDE (BEAKER) (test 106 meq/L 98-107 dbea=023) CO2 (BEAKER) (test 26 meq/L 22-29 wady=631) BLOOD UREA NITROGEN 13 mg/dL 7-21 (BEAKER) (test rgrr=412) CREATININE (BEAKER) (test 0.67 mg/dL 0.57-1.25 lvgo=118) GLUCOSE RANDOM (BEAKER) 93 mg/dL 70-105 (test quhj=383) CALCIUM (BEAKER) (test 7.9 mg/dL 8.4-10.2 hyzv=987) EGFR (BEAKER) (test 113 mL/min/1.73 sq m ESTIMATED GFR IS NOT ymct=0806) ACCURATE CREATININE CLEARANCE IN PREDICTING GLOMERULAR FILTRATION RATE. ESTIMATED GFR IS NOT APPLICABLE FOR DIALYSIS PATIENTS. POD 1CBC (HEMOGRAM ONLY)2018-02-24 05:04:00 Test Item Value Reference Range Comments WHITE BLOOD CELL COUNT (BEAKER) (test east=567) 9.0 K/ L 3.5-10.5 RED BLOOD CELL COUNT (BEAKER) (test qwkp=818) 2.96 M/ L 4.63-6.08 HEMOGLOBIN (BEAKER) (test jmkf=616) 8.6 GM/DL 13.7-17.5 HEMATOCRIT (BEAKER) (test sgbj=566) 28.2 % 40.1-51.0 MEAN CORPUSCULAR VOLUME (BEAKER) (test zrcm=480) 95.3 fL 79.0-92.2 MEAN CORPUSCULAR HEMOGLOBIN (BEAKER) (test 29.1 pg 25.7-32.2 gpaw=525) MEAN CORPUSCULAR HEMOGLOBIN CONC (BEAKER) (test 30.5 GM/DL 32.3-36.5 fchg=193) RED CELL DISTRIBUTION WIDTH (BEAKER) (test 22.2 % 11.6-14.4 eols=230) PLATELET COUNT (BEAKER) (test javh=793) 233 K/CU MM 150-450 MEAN PLATELET VOLUME (BEAKER) (test fcsd=792) 10.3 fL 9.4-12.4 NUCLEATED RED BLOOD CELLS (BEAKER) (test 0 /100 WBC 0-0 wdqv=108) BASIC METABOLIC [id number] 06:44:00 Test Item Value Reference Range Comments SODIUM (BEAKER) (test 138 meq/L 136-145 wooo=649) POTASSIUM (BEAKER) (test 4.0 meq/L 3.5-5.1 vyvs=574) CHLORIDE (BEAKER) (test 108 meq/L 98-107 vcpl=669) CO2 (BEAKER) (test 23 meq/L 22-29 zjvf=895) BLOOD UREA NITROGEN 13 mg/dL 7-21 (BEAKER) (test oess=833) CREATININE (BEAKER) (test 0.64 mg/dL 0.57-1.25 yzkw=586) GLUCOSE RANDOM (BEAKER) 99 mg/dL 70-105 (test adgb=250) CALCIUM (BEAKER) (test 8.0 mg/dL 8.4-10.2 afpo=464) EGFR (BEAKER) (test 119 mL/min/1.73 sq m ESTIMATED GFR IS NOT gztq=6478) ACCURATE CREATININE CLEARANCE IN PREDICTING GLOMERULAR FILTRATION RATE. ESTIMATED GFR IS NOT APPLICABLE FOR DIALYSIS PATIENTS. POD 1CBC (HEMOGRAM ONLY)2018-02-23 06:01:00 Test Item Value Reference Range Comments WHITE BLOOD CELL COUNT (BEAKER) (test obww=240) 10.1 K/ L 3.5-10.5 RED BLOOD CELL COUNT (BEAKER) (test okvu=043) 3.02 M/ L 4.63-6.08 HEMOGLOBIN (BEAKER) (test txwf=291) 8.9 GM/DL 13.7-17.5 HEMATOCRIT (BEAKER) (test xynr=474) 29.0 % 40.1-51.0 MEAN CORPUSCULAR VOLUME (BEAKER) (test tram=723) 96.0 fL 79.0-92.2 MEAN CORPUSCULAR HEMOGLOBIN (BEAKER) (test 29.5 pg 25.7-32.2 jgbu=259) MEAN CORPUSCULAR HEMOGLOBIN CONC (BEAKER) (test 30.7 GM/DL 32.3-36.5 wsxb=323) RED CELL DISTRIBUTION WIDTH (BEAKER) (test 23.2 % 11.6-14.4 pbia=293) PLATELET COUNT (BEAKER) (test eztq=272) 249 K/CU MM 150-450 MEAN PLATELET VOLUME (BEAKER) (test zxud=583) 10.7 fL 9.4-12.4 NUCLEATED RED BLOOD CELLS (BEAKER) (test 0 /100 WBC 0-0 dvcy=760) BASIC METABOLIC [id number] 07:14:00 Test Item Value Reference Range Comments SODIUM (BEAKER) (test 139 meq/L 136-145 gboe=568) POTASSIUM (BEAKER) (test 4.9 meq/L 3.5-5.1 hpwt=758) CHLORIDE (BEAKER) (test 110 meq/L 98-107 wybw=832) CO2 (BEAKER) (test 21 meq/L 22-29 phkn=020) BLOOD UREA NITROGEN 14 mg/dL 7-21 (BEAKER) (test emck=735) CREATININE (BEAKER) (test 0.73 mg/dL 0.57-1.25 gtla=774) GLUCOSE RANDOM (BEAKER) 108 mg/dL 70-105 (test dpxh=304) CALCIUM (BEAKER) (test 8.4 mg/dL 8.4-10.2 hqwx=031) EGFR (BEAKER) (test 102 mL/min/1.73 sq m ESTIMATED GFR IS NOT dvqz=7454) ACCURATE CREATININE CLEARANCE IN PREDICTING GLOMERULAR FILTRATION RATE. ESTIMATED GFR IS NOT APPLICABLE FOR DIALYSIS PATIENTS. POD 1CBC (HEMOGRAM ONLY)2018-02-22 06:54:00 Test Item Value Reference Range Comments WHITE BLOOD CELL COUNT (BEAKER) (test wmhp=607) 11.5 K/ L 3.5-10.5 RED BLOOD CELL COUNT (BEAKER) (test ssno=731) 3.15 M/ L 4.63-6.08 HEMOGLOBIN (BEAKER) (test tamb=912) 9.2 GM/DL 13.7-17.5 HEMATOCRIT (BEAKER) (test quss=199) 30.8 % 40.1-51.0 MEAN CORPUSCULAR VOLUME (BEAKER) (test dmba=737) 97.8 fL 79.0-92.2 MEAN CORPUSCULAR HEMOGLOBIN (BEAKER) (test 29.2 pg 25.7-32.2 rlbd=957) MEAN CORPUSCULAR HEMOGLOBIN CONC (BEAKER) (test 29.9 GM/DL 32.3-36.5 utjv=291) RED CELL DISTRIBUTION WIDTH (BEAKER) (test 23.9 % 11.6-14.4 yhpp=561) PLATELET COUNT (BEAKER) (test hzcv=577) 253 K/CU MM 150-450 MEAN PLATELET VOLUME (BEAKER) (test ltgn=792) 10.9 fL 9.4-12.4 NUCLEATED RED BLOOD CELLS (BEAKER) (test 0 /100 WBC 0-0 qhgd=109) FL, PENSION MANAGER IN OR/30 MINUTE [id number] 19:10:00Reason for exam:-> LUMBAR STENOSISFINAL REPORT Lumbar spine one view intraoperative 02/21/2018 4:08 PM CLINICAL HISTORY: Instrument localization COMPARISON: None available IMPRESSION: A localization probe projectsposterior and inferior to L4-5. Findings were reported to Dr. Lamar on 02/21/2018 at 1608. Signed: Jonathon Romero MDReport Verified Date/Time: 02/21/2018 19:10:44 Reading Location: [facility] Radiology Reading Room [facility] METABOLIC [id number] 18:27:00 Test Item Value Reference Range Comments SODIUM (BEAKER) (test 140 meq/L 136-145 mlpf=299) POTASSIUM (BEAKER) (test 4.5 meq/L 3.5-5.1 iicv=287) CHLORIDE (BEAKER) (test 109 meq/L 98-107 kjlc=185) CO2 (BEAKER) (test 22 meq/L 22-29 oaoe=397) BLOOD UREA NITROGEN 15 mg/dL 7-21 (BEAKER) (test sdca=429) CREATININE (BEAKER) (test 0.80 mg/dL 0.57-1.25 dfal=469) GLUCOSE RANDOM (BEAKER) 101 mg/dL 70-105 (test rghe=551) CALCIUM (BEAKER) (test 9.0 mg/dL 8.4-10.2 ukie=252) EGFR (BEAKER) (test 92 mL/min/1.73 sq m ESTIMATED GFR IS NOT hhpq=4955) ACCURATE CREATININE CLEARANCE IN PREDICTING GLOMERULAR FILTRATION RATE. ESTIMATED GFR IS NOT APPLICABLE FOR DIALYSIS PATIENTS. GLUCOSE-STAT [id number] 16:28:00 Test Item Value Reference Range Comments GLUCOSE RANDOM (BEAKER) (test brfp=369) 87 mg/dL 70-110 SODIUM NA-STAT [id number] 16:28:00 Test Item Value Reference Range Comments SODIUM (BEAKER) (test jpwh=039) 137 meq/L 135-148 POTASSIUM-STAT [id number] 16:28:00 Test Item Value Reference Range Comments POTASSIUM (BEAKER) (test pjat=435) 4.0 meq/L 3.6-5.5 BLOOD GAS, [id number] 16:28:00 Test Item Value Reference Range Comments PH ARTERIAL (BEAKER) (test nlry=648) 7.39 7.35-7.45 PCO2 ARTERIAL (BEAKER) (test giwg=615) 39 mmHg 35-45 PO2 ARTERIAL (BEAKER) (test ngxs=719) 310 mmHg 80-90 O2 SATURATION ARTERIAL (BEAKER) (test cbco=073) 99.7 % 96.0-97.0 HCO3 ARTERIAL (BEAKER) (test stpc=622) 23 mmol/L 21-29 BASE EXCESS ARTERIAL (BEAKER) (test znkn=737) -2.2 mmol/L -2.0-3.0 PATIENT TEMPERATURE (BEAKER) (test uril=6910) 36.0 C FIO2 (BEAKER) (test zaph=5230) 50.0 % HGB/HCT (H&H) - STAT [id number] 16:28:00 Test Item Value Reference Range Comments HEMOGLOBIN (BEAKER) (test kkzn=706) 9.3 g/dL 13.0-16.8 HEMATOCRIT (BEAKER) (test fmem=064) 27.0 % 40.0-50.0 CALCIUM, [id number] 16:27:00 Test Item Value Reference Range Comments CALCIUM IONIZED (BEAKER) (test xhda=750) 1.12 mmol/L 1.12-1.27 PH, BLOOD (BEAKER) (test ujbq=6633) 7.37 BLOOD GAS, [id number] 15:11:00 Test Item Value Reference Range Comments PH ARTERIAL (BEAKER) (test kuwc=532) 7.40 7.35-7.45 PCO2 ARTERIAL (BEAKER) (test veog=177) 38 mmHg 35-45 PO2 ARTERIAL (BEAKER) (test mkai=971) 293 mmHg 80-90 O2 SATURATION ARTERIAL (BEAKER) (test gxul=898) 99.7 % 96.0-97.0 HCO3 ARTERIAL (BEAKER) (test gjuk=377) 23 mmol/L 21-29 BASE EXCESS ARTERIAL (BEAKER) (test dqmh=676) -1.3 mmol/L -2.0-3.0 PATIENT TEMPERATURE (BEAKER) (test mvhk=6965) 37.0 C POTASSIUM-STAT [id number] 15:11:00 Test Item Value Reference Range Comments POTASSIUM (BEAKER) (test flht=548) 3.4 meq/L 3.6-5.5 HGB/HCT (H&H) - STAT [id number] 15:11:00 Test Item Value Reference Range Comments HEMOGLOBIN (BEAKER) (test djrw=271) 7.9 g/dL 13.0-16.8 HEMATOCRIT (BEAKER) (test dzzn=952) 23.0 % 40.0-50.0 CALCIUM, [id number] 15:11:00 Test Item Value Reference Range Comments CALCIUM IONIZED (BEAKER) (test cjaj=899) 0.98 mmol/L 1.12-1.27 PH, BLOOD (BEAKER) (test ghwf=2097) 7.40 GLUCOSE-STAT [id number] 15:10:00 Test Item Value Reference Range Comments GLUCOSE RANDOM (BEAKER) (test srhx=968) 78 mg/dL 70-110 SODIUM NA-STAT [id number] 15:10:00 Test Item Value Reference Range Comments SODIUM (BEAKER) (test thim=347) 137 meq/L 135-148 FL, PENSION MANAGER IN OR/30 MINUTE [id number] 14:32:00Reason for exam:-> spine painFINAL REPORT Radiograph of the cervical spine Indication: spine pain Comparison: none Findings: A single lateral view of the cervical spine is obtained intraoperatively. A probeprojects over C3-4 facet. Results were discussed with Dr. Wakefield , who concurred with the above findings. Signed: Lubna Hendricks Verified Date/Time: 02/21/2018 14:32:06 Reading Location: [address] Consult Reading Room CT, SPINE, CERVICAL, WO [id number] 13:11:00FINAL REPORT CT cervical spine without [...] Romero Verified Date/Time: 02/03/2018 13:11:13 Reading Location: [facility] Radiology Reading Room [id number] 12:44:00 Test Item Value Reference Range Comments PARTIAL THROMBOPLASTIN TIME (BEAKER) (test 33.2 seconds 22.5-36.0 zvsk=730) PROTHROMBIN [id number] 12:43:00 Test Item Value Reference Range Comments PROTIME (BEAKER) (test prmn=071) 13.3 seconds 11.7-14.7 INR (BEAKER) (test yosk=804) 1.0 <=5.9 RECOMMENDED COUMADIN/WARFARIN INR THERAPY RANGESSTANDARD DOSE: 2.0 - 3.0 Includes: PROPHYLAXIS forvenous thrombosis, systemic embolization; TREATMENT for venous thrombosis and/or pulmonary embolus.HIGH RISK: Target INR is 2.5-3.5 for patients with mechanical heart valves.BASIC METABOLIC [id number] 12:42: 00 Test Item Value Reference Range Comments SODIUM (BEAKER) (test 140 meq/L 136-145 ixvo=162) POTASSIUM (BEAKER) (test 4.7 meq/L 3.5-5.1 hlix=979) CHLORIDE (BEAKER) (test 106 meq/L 98-107 csjk=768) CO2 (BEAKER) (test 31 meq/L 22-29 cjnn=302) BLOOD UREA NITROGEN 13 mg/dL 7-21 (BEAKER) (test hxdr=159) CREATININE (BEAKER) (test 0.75 mg/dL 0.57-1.25 eldw=838) GLUCOSE RANDOM (BEAKER) 98 mg/dL 70-105 (test ssch=485) CALCIUM (BEAKER) (test 9.3 mg/dL 8.4-10.2 kwho=718) EGFR (BEAKER) (test 99 mL/min/1.73 sq m ESTIMATED GFR IS NOT rcsr=4192) ACCURATE CREATININE CLEARANCE IN PREDICTING GLOMERULAR FILTRATION RATE. ESTIMATED GFR IS NOT APPLICABLE FOR DIALYSIS PATIENTS. URINALYSIS W/ REFLEX URINE [id number] 12:40:00 Test Item Value Reference Range Comments COLOR (BEAKER) (test znzp=166) Yellow CLARITY (BEAKER) (test wgys=983) Clear SPECIFIC GRAVITY UA (BEAKER) (test fcem=271) 1.023 1.001-1.035 PH UA (BEAKER) (test wrwg=097) 5.5 5.0-8.0 PROTEIN UA (BEAKER) (test axzl=170) 20 mg/dL Negative GLUCOSE UA (BEAKER) (test xxck=496) Negative Negative KETONES UA (BEAKER) (test lzfe=188) Negative Negative BILIRUBIN UA (BEAKER) (test znuw=667) Negative Negative BLOOD UA (BEAKER) (test dcsg=076) Negative Negative NITRITE UA (BEAKER) (test rwis=594) Negative Negative LEUKOCYTE ESTERASE UA (BEAKER) (test smdi=770) Negative Negative UROBILINOGEN UA (BEAKER) (test kcko=875) 0.2 mg/dL 0.2-1.0 RBC UA (BEAKER) (test ivpi=903) 0 /HPF WBC UA (BEAKER) (test pbmp=769) 72 /HPF BACTERIA (BEAKER) (test miuw=316) Rare MUCUS (BEAKER) (test rffh=3603) Few SOURCE(BEAKER) (test yvyy=4009) CBC W/PLT COUNT & AUTO [id number] 12:39:00 Test Item Value Reference Range Comments WHITE BLOOD CELL COUNT (BEAKER) (test lsce=655) 9.0 K/ L 3.5-10.5 RED BLOOD CELL COUNT (BEAKER) (test wtvf=203) 3.51 M/ L 4.63-6.08 HEMOGLOBIN (BEAKER) (test znlj=892) 9.9 GM/DL 13.7-17.5 HEMATOCRIT (BEAKER) (test jcgo=519) 33.3 % 40.1-51.0 MEAN CORPUSCULAR VOLUME (BEAKER) (test atqa=131) 94.9 fL 79.0-92.2 MEAN CORPUSCULAR HEMOGLOBIN (BEAKER) (test 28.2 pg 25.7-32.2 sygn=963) MEAN CORPUSCULAR HEMOGLOBIN CONC (BEAKER) (test 29.7 GM/DL 32.3-36.5 fgqn=568) RED CELL DISTRIBUTION WIDTH (BEAKER) (test 24.6 % 11.6-14.4 djpu=532) PLATELET COUNT (BEAKER) (test veym=944) 277 K/CU MM 150-450 MEAN PLATELET VOLUME (BEAKER) (test yeeg=023) 10.8 fL 9.4-12.4 NUCLEATED RED BLOOD CELLS (BEAKER) (test 0 /100 WBC 0-0 wbvk=648) NEUTROPHILS RELATIVE PERCENT (BEAKER) (test 63 % phab=135) LYMPHOCYTES RELATIVE PERCENT (BEAKER) (test 10 % kadc=388) MONOCYTES RELATIVE PERCENT (BEAKER) (test 13 % pwas=523) EOSINOPHILS RELATIVE PERCENT (BEAKER) (test 12 % ijqa=223) BASOPHILS RELATIVE PERCENT (BEAKER) (test 1 % fwlv=824) NEUTROPHILS ABSOLUTE COUNT (BEAKER) (test 5.70 K/ L 1.78-5.38 pjta=383) LYMPHOCYTES ABSOLUTE COUNT (BEAKER) (test 0.89 K/ L 1.32-3.57 uvgy=062) MONOCYTES ABSOLUTE COUNT (BEAKER) (test 1.21 K/ L 0.30-0.82 syem=660) EOSINOPHILS ABSOLUTE COUNT (BEAKER) (test 1.12 K/ L 0.04-0.54 jpli=336) BASOPHILS ABSOLUTE COUNT (BEAKER) (test 0.05 K/ L 0.01-0.08 wovs=680) IMMATURE GRANULOCYTES-RELATIVE PERCENT (BEAKER) 1 % 0-1 (test puem=8860) PROTEIN ELECTROPHORESIS, [id number] 18:38:00 Test Item Value Reference Range Comments ALBUMIN FRACTION (BEAKER) 2.9 g/dL 3.5-5.5 (test xcvr=179) ALPHA 1 FRACTION (BEAKER) 0.2 g/dL 0.2-0.4 (test jnkc=821) ALPHA 2 FRACTION (BEAKER) 0.8 g/dL 0.5-0.9 (test cuhq=418) BETA FRACTION (BEAKER) (test 0.8 g/dL 0.6-1.1 hork=366) GAMMA GLOBULIN FRACTION 0.7 g/dL 0.7-1.7 (BEAKER) (test ybjy=439) INTERPRETATION-119 (BEAKER) Pattern suggestive of acute (test cukd=5480) inflammatory process. No monoclonal bands detected. [id number] Trish Rodas MD (BEAKER) (test dtkj=2340) (electronic signature) PROTEIN TOTAL SERUM, SPEP 5.5 gm/dL 6.0-8.3 (BEAKER) (test xvmy=7924) NEEDLE EMG, 2 [id number] 20:31:00Reason for exam:->Suspect polyneuropathy, sensory ataxia, falls.[facility] DepartmentELECTROMYOGRAPHY / NERVE CONDUCTION STUDY [address] [place], [place] [id number] Name: Germain Wilks : Date of : [...] and right lumbosacral radiculopathy.Temperature: RLE 28 C; RUE, LUE 30Standard temp: 32 CTemp correction: Latency 0.2 [...] mm Median.RWrist 4.1 ms 5.1 ms 9 쐑V Digit II (index finger)-Wrist 4.1 ms 130 mm 32 m/sUlnar.RWrist NR NR NR Digit V (little finger)-Wrist 110 mm Median.RWrist (Median) 2.5 ms 3.5 ms 31 𐲂V 80 mm Wrist (Ulnar) NRNR NR 80 mm Radial.RForearm 2.2 ms 2.8 ms 6 椐V Anatomical snuff box-Forearm 2.2 ms 100mm 36 m/sMedian.LWrist NR NR NR Digit II (index finger)- Wrist 130 mm Ulnar.LWrist 2.6 ms 3.2 ms 4 𘒽V Digit V (little finger) -Wrist 2.6 ms 110 mm 42 m/sRadial.LForearm 1.7 ms 2.4 ms 13 𗇃V Anatomical snuff box-Forearm 1.7 ms 100 mm [...] denervation. Sandra Quiñonez M.D. MR, SPINE, THORACIC, [id number] 07:17: 00FINAL REPORT MR thoracic spine with [...] Verified Date/Time: 10/27/2017 07: 17:46 Reading Location: [facility] C013V Neuro Reading Room BASIC METABOLIC [id number] 05:18:00 Test Item Value Reference Range Comments SODIUM (BEAKER) (test 139 meq/L 136-145 texy=150) POTASSIUM (BEAKER) (test 4.2 meq/L 3.5-5.1 etqt=588) CHLORIDE (BEAKER) (test 107 meq/L 98-107 ntnn=918) CO2 (BEAKER) (test 25 meq/L 22-29 htfy=695) BLOOD UREA NITROGEN 13 mg/dL 7-21 (BEAKER) (test cqwr=896) CREATININE (BEAKER) (test 0.80 mg/dL 0.57-1.25 cexn=839) GLUCOSE RANDOM (BEAKER) 92 mg/dL 70-105 (test uqhw=345) CALCIUM (BEAKER) (test 9.0 mg/dL 8.4-10.2 rqwv=871) EGFR (BEAKER) (test mL/min/1.73 sq m INSUFFICIENT CLINICAL DATA krmd=0135) TO CALCULATE ESTIMATED GFR. [id number] 05:16:00 Test Item Value Reference Range Comments MAGNESIUM (BEAKER) (test facr=335) 2.1 mg/dL 1.6-2.6 CBC W/PLT COUNT & AUTO [id number] 05:01:00 Test Item Value Reference Range Comments WHITE BLOOD CELL COUNT (BEAKER) (test symp=984) 5.4 K/ L 3.5-10.5 RED BLOOD CELL COUNT (BEAKER) (test mcvi=404) 3.16 M/ L 4.63-6.08 HEMOGLOBIN (BEAKER) (test lcoj=319) 9.0 GM/DL 13.7-17.5 HEMATOCRIT (BEAKER) (test atvu=128) 29.2 % 40.1-51.0 MEAN CORPUSCULAR VOLUME (BEAKER) (test jpxz=753) 92.4 fL 79.0-92.2 MEAN CORPUSCULAR HEMOGLOBIN (BEAKER) (test 28.5 pg 25.7-32.2 gmpx=835) MEAN CORPUSCULAR HEMOGLOBIN CONC (BEAKER) (test 30.8 GM/DL 32.3-36.5 hodx=447) RED CELL DISTRIBUTION WIDTH (BEAKER) (test 17.7 % 11.6-14.4 vnvt=969) PLATELET COUNT (BEAKER) (test xboy=145) 242 K/CU MM 150-450 MEAN PLATELET VOLUME (BEAKER) (test xrbv=471) 10.7 fL 9.4-12.4 NUCLEATED RED BLOOD CELLS (BEAKER) (test 0 /100 WBC 0-0 vlht=988) NEUTROPHILS RELATIVE PERCENT (BEAKER) (test 51 % dshq=616) LYMPHOCYTES RELATIVE PERCENT (BEAKER) (test 15 % qkev=057) MONOCYTES RELATIVE PERCENT (BEAKER) (test 17 % jqpb=331) EOSINOPHILS RELATIVE PERCENT (BEAKER) (test 15 % azbs=065) BASOPHILS RELATIVE PERCENT (BEAKER) (test 1 % qhjr=545) NEUTROPHILS ABSOLUTE COUNT (BEAKER) (test 2.79 K/ L 1.78-5.38 wbkh=889) LYMPHOCYTES ABSOLUTE COUNT (BEAKER) (test 0.82 K/ L 1.32-3.57 erow=565) MONOCYTES ABSOLUTE COUNT (BEAKER) (test 0.93 K/ L 0.30-0.82 jjdu=342) EOSINOPHILS ABSOLUTE COUNT (BEAKER) (test 0.82 K/ L 0.04-0.54 ehwm=433) BASOPHILS ABSOLUTE COUNT (BEAKER) (test 0.05 K/ L 0.01-0.08 ftzs=960) IMMATURE GRANULOCYTES-RELATIVE PERCENT (BEAKER) 0 % 0-1 (test gnra=5399) MR, SPINE, CERVICAL, [id number] 07:53:00FINAL REPORT MR cervical spine with and [...] MDReport Verified Date/Time: 10/26/2017 07:53:00 Reading Location: [address] Neuro Reading Room MR, SPINE, LUMBAR, [id number] 07:52:00FINAL REPORT MR Lumbar spine with and [...] Suarez MDReport Verified Date/Time: 10/26/201707:52:13 Reading Location: [facility] B1 [id number] Neuro Reading Room BASIC METABOLIC [id number] 06:20:00 Test Item Value Reference Range Comments SODIUM (BEAKER) (test 139 meq/L 136-145 wxtb=404) POTASSIUM (BEAKER) (test 4.3 meq/L 3.5-5.1 Specimen slightly dcil=837) hemolyzed CHLORIDE (BEAKER) (test 109 meq/L 98-107 teur=368) CO2 (BEAKER) (test 24 meq/L 22-29 zynl=120) BLOOD UREA NITROGEN 15 mg/dL 7-21 (BEAKER) (test utky=116) CREATININE (BEAKER) (test 0.78 mg/dL 0.57-1.25 Specimen slightly jgwp=812) hemolyzed GLUCOSE RANDOM (BEAKER) 86 mg/dL 70-105 (test btce=200) CALCIUM (BEAKER) (test 8.6 mg/dL 8.4-10.2 bdcp=003) EGFR (BEAKER) (test mL/min/1.73 sq m INSUFFICIENT CLINICAL DATA xffj=6741) TO CALCULATE ESTIMATED GFR. [id number] 06:14:00 Test Item Value Reference Range Comments MAGNESIUM (BEAKER) (test 2.3 mg/dL 1.6-2.6 Specimen slightly hemolyzed miha=991) CBC W/PLT COUNT & AUTO [id number] 05:27:00 Test Item Value Reference Range Comments WHITE BLOOD CELL COUNT (BEAKER) (test oflm=488) 5.1 K/ L 3.5-10.5 RED BLOOD CELL COUNT (BEAKER) (test tmzl=337) 3.13 M/ L 4.63-6.08 HEMOGLOBIN (BEAKER) (test mxux=801) 8.9 GM/DL 13.7-17.5 HEMATOCRIT (BEAKER) (test rsgf=005) 28.8 % 40.1-51.0 MEAN CORPUSCULAR VOLUME (BEAKER) (test nwxo=419) 92.0 fL 79.0-92.2 MEAN CORPUSCULAR HEMOGLOBIN (BEAKER) (test 28.4 pg 25.7-32.2 qscf=348) MEAN CORPUSCULAR HEMOGLOBIN CONC (BEAKER) (test 30.9 GM/DL 32.3-36.5 ytki=951) RED CELL DISTRIBUTION WIDTH (BEAKER) (test 17.8 % 11.6-14.4 avht=045) PLATELET COUNT (BEAKER) (test bdhh=994) 258 K/CU MM 150-450 MEAN PLATELET VOLUME (BEAKER) (test pgcp=906) 10.6 fL 9.4-12.4 NUCLEATED RED BLOOD CELLS (BEAKER) (test 0 /100 WBC 0-0 dnnv=432) NEUTROPHILS RELATIVE PERCENT (BEAKER) (test 49 % airz=682) LYMPHOCYTES RELATIVE PERCENT (BEAKER) (test 15 % madw=209) MONOCYTES RELATIVE PERCENT (BEAKER) (test 19 % dsyp=026) EOSINOPHILS RELATIVE PERCENT (BEAKER) (test 16 % cmat=527) BASOPHILS RELATIVE PERCENT (BEAKER) (test 1 % diua=218) NEUTROPHILS ABSOLUTE COUNT (BEAKER) (test 2.50 K/ L 1.78-5.38 owij=047) LYMPHOCYTES ABSOLUTE COUNT (BEAKER) (test 0.77 K/ L 1.32-3.57 suak=435) MONOCYTES ABSOLUTE COUNT (BEAKER) (test 0.98 K/ L 0.30-0.82 devj=229) EOSINOPHILS ABSOLUTE COUNT (BEAKER) (test 0.79 K/ L 0.04-0.54 bilh=537) BASOPHILS ABSOLUTE COUNT (BEAKER) (test 0.04 K/ L 0.01-0.08 kziu=502) IMMATURE GRANULOCYTES-RELATIVE PERCENT (BEAKER) 1 % 0-1 (test qxjf=1052) HEMOGLOBIN [id number] 14:31:00 Test Item Value Reference Range Comments HEMOGLOBIN A1C (BEAKER) (test ebhh=782) 5.7 % 4.3-6.1 URINE [id number] 10:53:00 Test Item Value Reference Range Comments CULTURE (BEAKER) (test KLEBSIELLA PNEUMONIAE >100,000 col/mL qhyd=0092) Klebsiella pneumoniae Amikacin (test code=1) Ampicillin + Sulbactam (test code=6) Aztreonam (test code=32) Cefepime (test code=51) Cefoxitin (test code=68) Ceftazidime (test code=27) Ceftriaxone (test code=52) Ertapenem (test code=38) Gentamicin (test code=18) Levofloxacin (test code=22) Meropenem (test code=34) Nitrofurantoin (test code=23) Piperacillin + Tazobactam (test code=29) Tetracycline (test code=2) Tobramycin (test code=25) Trimethoprim + Sulfamethoxazole (test code=47) <10,000 col/mL Gram Negative Sid of second [id number] 06:07:00 Test Item Value Reference Range Comments PHOSPHORUS (BEAKER) (test ioze=814) 3.2 mg/dL 2.3-4.7 [id number] 06:07:00 Test Item Value Reference Range Comments MAGNESIUM (BEAKER) (test webf=714) 2.1 mg/dL 1.6-2.6 LIPID [id number] 06:07:00 Test Item Value Reference Range Comments TRIGLYCERIDES (BEAKER) (test vhbr=198) 61 mg/dL CHOLESTEROL (BEAKER) (test rchs=871) 119 mg/dL HDL CHOLESTEROL (BEAKER) (test spig=968) 36 mg/dL LDL CHOLESTEROL CALCULATED (BEAKER) (test 71 mg/dL ibcz=562) Triglyceride Reference Range: Low Risk <150 Borderline 150- 199 High Risk 200-499 Very High Risk >=500Cholesterol Reference Range: Low Risk <200 Borderline 200-239 High Risk > 240HDL Cholesterol Reference Range: Low Risk >=60 High Risk <40LDL Cholesterol Reference Range: Optimal <100 Near Optimal 100-129 Borderline 130-159 High 160-189 Very High >=190EEG AWAKE AND [id number] 16:35:00Reason for exam:-> syncopeNeurophysiology Electroencephalogram Report DATE OF REPORT: DATE \\@ "M /d/yy" 10/24/17 Date(s) of Study: 10/24/2017 ACC: [id number] Start time : 1545 hrs Stop time: 1606 hrs ICD-10: R55 Syncope and Collapse CPT Code: 50620 EEG: awake and drowsy <40 min HISTORY: [...] EEG recordings. Haydee Garcia MD Epilepsy Fellow [facility] Neurophysiology Service Robert Ferreira M.D. , FACNS, FAAN, FALEVY Professor of Neurology, [facility] Director , [facility]psy [facility] Head, Cristi [facility] Neurophysiology Lab [facility] METABOLIC [id number] 05:04:00 Test Item Value Reference Range Comments SODIUM (BEAKER) (test 141 meq/L 136-145 mmcc=334) POTASSIUM (BEAKER) (test 4.1 meq/L 3.5-5.1 lgry=811) CHLORIDE (BEAKER) (test 110 meq/L 98-107 wdpp=773) CO2 (BEAKER) (test 25 meq/L 22-29 ocal=077) BLOOD UREA NITROGEN 13 mg/dL 7-21 (BEAKER) (test snng=914) CREATININE (BEAKER) (test 0.77 mg/dL 0.57-1.25 ruct=048) GLUCOSE RANDOM (BEAKER) 86 mg/dL 70-105 (test jydm=010) CALCIUM (BEAKER) (test 8.8 mg/dL 8.4-10.2 mdji=219) EGFR (BEAKER) (test mL/min/1.73 sq m INSUFFICIENT CLINICAL DATA muiz=7890) TO CALCULATE ESTIMATED GFR. [id number] 05:01:00 Test Item Value Reference Range Comments PHOSPHORUS (BEAKER) (test lpdo=407) 2.9 mg/dL 2.3-4.7 [id number] 05:01:00 Test Item Value Reference Range Comments MAGNESIUM (BEAKER) (test hbpa=546) 2.2 mg/dL 1.6-2.6 LIPID [id number] 05:01:00 Test Item Value Reference Range Comments TRIGLYCERIDES (BEAKER) (test rtqu=243) 70 mg/dL CHOLESTEROL (BEAKER) (test atmt=730) 120 mg/dL HDL CHOLESTEROL (BEAKER) (test iiip=606) 35 mg/dL LDL CHOLESTEROL CALCULATED (BEAKER) (test 71 mg/dL ommj=075) Triglyceride Reference Range: Low Risk <150 Borderline 150- 199 High Risk 200-499 Very High Risk >=500Cholesterol Reference Range: Low Risk <200 Borderline 200-239 High Risk > 240HDL Cholesterol Reference Range: Low Risk >=60 High Risk <40LDL Cholesterol Reference Range: Optimal <100 Near Optimal 100-129 Borderline 130-159 High 160-189 Very High >=190CBC W/PLT COUNT & AUTO [id number] 04:32:00 Test Item Value Reference Range Comments WHITE BLOOD CELL COUNT (BEAKER) (test jyrb=174) 5.3 K/ L 3.5-10.5 RED BLOOD CELL COUNT (BEAKER) (test ecfd=744) 3.22 M/ L 4.63-6.08 HEMOGLOBIN (BEAKER) (test lsos=326) 9.1 GM/DL 13.7-17.5 HEMATOCRIT (BEAKER) (test wlua=658) 29.6 % 40.1-51.0 MEAN CORPUSCULAR VOLUME (BEAKER) (test mkwk=785) 91.9 fL 79.0-92.2 MEAN CORPUSCULAR HEMOGLOBIN (BEAKER) (test 28.3 pg 25.7-32.2 cmcj=965) MEAN CORPUSCULAR HEMOGLOBIN CONC (BEAKER) (test 30.7 GM/DL 32.3-36.5 iupw=840) RED CELL DISTRIBUTION WIDTH (BEAKER) (test 17.4 % 11.6-14.4 rsfi=117) PLATELET COUNT (BEAKER) (test tuhu=800) 250 K/CU MM 150-450 MEAN PLATELET VOLUME (BEAKER) (test ezxs=711) 10.6 fL 9.4-12.4 NUCLEATED RED BLOOD CELLS (BEAKER) (test 0 /100 WBC 0-0 jhxo=876) NEUTROPHILS RELATIVE PERCENT (BEAKER) (test 53 % etfy=033) LYMPHOCYTES RELATIVE PERCENT (BEAKER) (test 16 % vhwk=856) MONOCYTES RELATIVE PERCENT (BEAKER) (test 16 % qmhr=614) EOSINOPHILS RELATIVE PERCENT (BEAKER) (test 14 % mfms=453) BASOPHILS RELATIVE PERCENT (BEAKER) (test 1 % tdzr=502) NEUTROPHILS ABSOLUTE COUNT (BEAKER) (test 2.80 K/ L 1.78-5.38 rbse=827) LYMPHOCYTES ABSOLUTE COUNT (BEAKER) (test 0.84 K/ L 1.32-3.57 hpnp=223) MONOCYTES ABSOLUTE COUNT (BEAKER) (test 0.82 K/ L 0.30-0.82 wbey=818) EOSINOPHILS ABSOLUTE COUNT (BEAKER) (test 0.75 K/ L 0.04-0.54 ltdt=515) BASOPHILS ABSOLUTE COUNT (BEAKER) (test 0.05 K/ L 0.01-0.08 nehm=012) IMMATURE GRANULOCYTES-RELATIVE PERCENT (BEAKER) 0 % 0-1 (test npgz=0730) MR, MRA, NECK, [id number] 16:44:00FINAL REPORT MRA arch, great vessels, neck, and head with and without contrast Comparison: None Reason for exam: Stroke Discussion: 2 D and 3-D kcac-nc-piedzv and contrast-enhanced MRA of the arch, great [...] Hayes Verified Date/Time: 10/23/2017 16:44:06 Reading Location: [address] Neuro Reading Room MR, MRA, BRAIN, [id number] 16:44:00FINAL REPORT MRA arch, great vessels, neck, and head with and without contrast Comparison: None Reason for exam: Stroke Discussion: 2 D and 3-D pgsa-sp-aizdbf and contrast-enhanced MRA of the arch, great vessels, and neck, and 3-D ejgo-ik-hnmacw MRA head was provided withmaximal intensity projection [...] Hayes Verified Date/Time: 10/23/2017 16:44:06 Reading Location: [facility] C0V Neuro Reading Room [id number] 05:18:00 Test Item Value Reference Range Comments RPR SCREEN (BEAKER) (test isnc=294) Nonreactive Nonreactive BASIC METABOLIC [id number] 05:05:00 Test Item Value Reference Range Comments SODIUM (BEAKER) (test 141 meq/L 136-145 pmcm=740) POTASSIUM (BEAKER) (test 4.0 meq/L 3.5-5.1 mfey=080) CHLORIDE (BEAKER) (test 110 meq/L 98-107 qatm=985) CO2 (BEAKER) (test 25 meq/L 22-29 tgdm=467) BLOOD UREA NITROGEN 12 mg/dL 7-21 (BEAKER) (test ffpu=088) CREATININE (BEAKER) (test 0.78 mg/dL 0.57-1.25 fpof=263) GLUCOSE RANDOM (BEAKER) 89 mg/dL 70-105 (test wnnw=235) CALCIUM (BEAKER) (test 8.6 mg/dL 8.4-10.2 aogv=290) EGFR (BEAKER) (test mL/min/1.73 sq m INSUFFICIENT CLINICAL DATA lhlt=4308) TO CALCULATE ESTIMATED GFR. [id number] 04:58:00 Test Item Value Reference Range Comments PHOSPHORUS (BEAKER) (test vplp=360) 2.9 mg/dL 2.3-4.7 [id number] 04:58:00 Test Item Value Reference Range Comments MAGNESIUM (BEAKER) (test pdgt=421) 2.0 mg/dL 1.6-2.6 LIPID [id number] 04:58:00 Test Item Value Reference Range Comments TRIGLYCERIDES (BEAKER) (test bixj=870) 69 mg/dL CHOLESTEROL (BEAKER) (test fsao=157) 108 mg/dL HDL CHOLESTEROL (BEAKER) (test yidf=063) 34 mg/dL LDL CHOLESTEROL CALCULATED (BEAKER) (test 60 mg/dL cnfc=578) Triglyceride Reference Range: Low Risk <150 Borderline 150- 199 High Risk 200-499 Very High Risk >=500Cholesterol Reference Range: Low Risk <200 Borderline 200-239 High Risk > 240HDL Cholesterol Reference Range: Low Risk >=60 High Risk <40LDL Cholesterol Reference Range: Optimal <100 Near Optimal 100-129 Borderline 130-159 High 160-189 Very High >=190CBC W/PLT COUNT & AUTO [id number] 04:46:00 Test Item Value Reference Range Comments WHITE BLOOD CELL COUNT (BEAKER) (test apqd=400) 5.6 K/ L 3.5-10.5 RED BLOOD CELL COUNT (BEAKER) (test pfrx=247) 3.19 M/ L 4.63-6.08 HEMOGLOBIN (BEAKER) (test rstq=450) 9.1 GM/DL 13.7-17.5 HEMATOCRIT (BEAKER) (test nkcu=291) 29.4 % 40.1-51.0 MEAN CORPUSCULAR VOLUME (BEAKER) (test qrzi=080) 92.2 fL 79.0-92.2 MEAN CORPUSCULAR HEMOGLOBIN (BEAKER) (test 28.5 pg 25.7-32.2 tyln=734) MEAN CORPUSCULAR HEMOGLOBIN CONC (BEAKER) (test 31.0 GM/DL 32.3-36.5 wdpk=441) RED CELL DISTRIBUTION WIDTH (BEAKER) (test 17.2 % 11.6-14.4 tbes=235) PLATELET COUNT (BEAKER) (test vpgu=967) 253 K/CU MM 150-450 MEAN PLATELET VOLUME (BEAKER) (test axzb=146) 10.4 fL 9.4-12.4 NUCLEATED RED BLOOD CELLS (BEAKER) (test 0 /100 WBC 0-0 owuh=635) NEUTROPHILS RELATIVE PERCENT (BEAKER) (test 53 % wmzz=859) LYMPHOCYTES RELATIVE PERCENT (BEAKER) (test 16 % ovpm=517) MONOCYTES RELATIVE PERCENT (BEAKER) (test 15 % xcxy=991) EOSINOPHILS RELATIVE PERCENT (BEAKER) (test 14 % kjsx=764) BASOPHILS RELATIVE PERCENT (BEAKER) (test 1 % kaik=840) NEUTROPHILS ABSOLUTE COUNT (BEAKER) (test 2.95 K/ L 1.78-5.38 fctr=666) LYMPHOCYTES ABSOLUTE COUNT (BEAKER) (test 0.90 K/ L 1.32-3.57 oxok=688) MONOCYTES ABSOLUTE COUNT (BEAKER) (test 0.86 K/ L 0.30-0.82 tthb=750) EOSINOPHILS ABSOLUTE COUNT (BEAKER) (test 0.80 K/ L 0.04-0.54 vwha=071) BASOPHILS ABSOLUTE COUNT (BEAKER) (test 0.05 K/ L 0.01-0.08 upxx=601) IMMATURE GRANULOCYTES-RELATIVE PERCENT (BEAKER) 0 % 0-1 (test jcll=8537) TROPONIN [id number] 23:34:00 Test Item Value Reference Range Comments TROPONIN I (BEAKER) (test izyw=426) < ng/mL 0.00-0.03 Troponin I (TnI) levels [...] neurological disease, and persistent tachyarrhythmia.VITAMIN B12 AND [id number] 18:43: 00 Test Item Value Reference Range Comments VITAMIN B12 (BEAKER) (test izbd=992) 539 pg/mL 213-816 FOLATE (BEAKER) (test plku=691) 35.7 ng/mL >=7.0 VITAMIN D, [id number] 18:35:00 Test Item Value Reference Range Comments VITAMIN D 25-OH (BEAKER) (test zajb=5642) 41.7 ng/mL 6.6-49.9 Effective 11/17/2016: Reference Range ChangeNew: 6.6-49.9 ng/mL Previous: 13.0 -47.8 ng/mLRecommended Vitamin D Target Range: 30.0-40.0 ng/mLCALCIUM, [id number] 17:55:00 Test Item Value Reference Range Comments CALCIUM IONIZED (BEAKER) (test rfkv=787) 1.09 mmol/L 1.12-1.27 PH, BLOOD (BEAKER) (test fxkb=2393) 7.40 TSH/FREE T4 IF [id number] 17:34:00 Test Item Value Reference Range Comments THYROID STIMULATING HORMONE (BEAKER) (test 1.29 uIU/mL 0.35-4.94 cdqo=328) TROPONIN [id number] 17:22:00 Test Item Value Reference Range Comments TROPONIN I (BEAKER) (test qqar=325) < ng/mL 0.00-0.03 Troponin I (TnI) levels [...] Value Reference Range Comments IRON (BEAKER) (test chof=402) 36 ug/dL 40-160 TOTAL IRON BINDING CAPACITY (BEAKER) (test 348 ug/dL 250-450 vnap=889) IRON % SATURATION (2) (BEAKER) (test aiyx=9544) 10 % 20-55 BASIC METABOLIC [id number] 17:14:00 Test Item Value Reference Range Comments SODIUM (BEAKER) (test 139 meq/L 136-145 bqsc=163) POTASSIUM (BEAKER) (test 4.1 meq/L 3.5-5.1 iskj=136) CHLORIDE (BEAKER) (test 108 meq/L 98-107 ihvl=405) CO2 (BEAKER) (test 25 meq/L 22-29 osuk=365) BLOOD UREA NITROGEN 13 mg/dL 7-21 (BEAKER) (test tofh=150) CREATININE (BEAKER) (test 0.73 mg/dL 0.57-1.25 bodu=601) GLUCOSE RANDOM (BEAKER) 91 mg/dL 70-105 (test eivj=591) CALCIUM (BEAKER) (test 8.8 mg/dL 8.4-10.2 dzow=279) EGFR (BEAKER) (test mL/min/1.73 sq m INSUFFICIENT CLINICAL DATA oter=7093) TO CALCULATE ESTIMATED GFR. CBC W/PLT COUNT & AUTO [id number] 17:00:00 Test Item Value Reference Range Comments WHITE BLOOD CELL COUNT (BEAKER) (test hfpj=427) 6.4 K/ L 3.5-10.5 RED BLOOD CELL COUNT (BEAKER) (test vrvb=582) 3.14 M/ L 4.63-6.08 HEMOGLOBIN (BEAKER) (test xuna=218) 9.0 GM/DL 13.7-17.5 HEMATOCRIT (BEAKER) (test yhpk=393) 29.3 % 40.1-51.0 MEAN CORPUSCULAR VOLUME (BEAKER) (test alhm=400) 93.3 fL 79.0-92.2 MEAN CORPUSCULAR HEMOGLOBIN (BEAKER) (test 28.7 pg 25.7-32.2 iahr=018) MEAN CORPUSCULAR HEMOGLOBIN CONC (BEAKER) (test 30.7 GM/DL 32.3-36.5 cakp=558) RED CELL DISTRIBUTION WIDTH (BEAKER) (test 17.2 % 11.6-14.4 bzmm=383) PLATELET COUNT (BEAKER) (test gzfw=989) 232 K/CU MM 150-450 MEAN PLATELET VOLUME (BEAKER) (test csop=460) 10.6 fL 9.4-12.4 NUCLEATED RED BLOOD CELLS (BEAKER) (test 0 /100 WBC 0-0 ioae=259) NEUTROPHILS RELATIVE PERCENT (BEAKER) (test 62 % gzyg=046) LYMPHOCYTES RELATIVE PERCENT (BEAKER) (test 14 % gzwl=586) MONOCYTES RELATIVE PERCENT (BEAKER) (test 12 % vdit=277) EOSINOPHILS RELATIVE PERCENT (BEAKER) (test 11 % acda=405) BASOPHILS RELATIVE PERCENT (BEAKER) (test 1 % gkls=202) NEUTROPHILS ABSOLUTE COUNT (BEAKER) (test 4.02 K/ L 1.78-5.38 pcho=700) LYMPHOCYTES ABSOLUTE COUNT (BEAKER) (test 0.87 K/ L 1.32-3.57 ipbc=416) MONOCYTES ABSOLUTE COUNT (BEAKER) (test 0.78 K/ L 0.30-0.82 rrbl=353) EOSINOPHILS ABSOLUTE COUNT (BEAKER) (test 0.70 K/ L 0.04-0.54 gwlk=821) BASOPHILS ABSOLUTE COUNT (BEAKER) (test 0.05 K/ L 0.01-0.08 fckf=435) IMMATURE GRANULOCYTES-RELATIVE PERCENT (BEAKER) 0 % 0-1 (test iebn=9685)
[2018-04-10 13:51] LABS: Absolute Lymphocytes (CBC) 1.2 K/uL (0.7-4.9); Absolute Monocytes 0.9 K/uL (0.1-1.3); Absolute Neutrophil 6.1 K/uL (1.8-8.0); Basophils % 0.8 % (0-1.3); Eosinophils % 4.8 % (0-4.4); Hematocrit 27.2 % (39.6-49.0); Lymphocytes % 14.2 % (15.3-44.8); Monocytes % 10.4 % (3.3-12.3)
[2018-04-10 14:09] LABS: ALT/SGPT 15 U/L (12-78); AST/SGOT 19 U/L (15-37); Albumin 2.8 g/dL (3.4-5.0); Alkaline Phosphatase 101 U/L (45-117); BUN Blood Urea Nitrogen 12 mg/dL (7-18); Bicarbonate 30 mmol/L (21-32); Bilirubin Direct 0.1 mg/dL (0-0.2); Bilirubin Total 0.3 mg/dL (0.2-1.0); Glucose Level 107 mg/dL (74-106); Lipase 131 U/L (73-393); Potassium 4.5 mmol/L (3.5-5.1); Protein, Total 6.2 g/dL (6.4-8.2); Sodium Level 139 mmol/L (136-145)
--- NOTE | 2018-04-10 16:30 | EDPHYS ---
Physician Documentation [facility] Name: Germain Wilks Age: 83 yrs Sex: Male : 1935 Arrival Date: 04/10/2018 Time: 12:25 Bed 27 Private MD: Carroll Robison H ED Physician Bharat Gallegos HPI: 04/10 19:32 This 83 yrs old Male presents to ER via Ambulatory with complaints of gs Abdominal Pain. 19:32 Onset: The symptoms/episode began/occurred 1 month(s) ago. Associated signs and gs symptoms: Pertinent positives: anorexia, Pertinent negatives: blood in stools. The symptoms are described as crampy. Modifying factors: The symptoms are alleviated by nothing, the symptoms are aggravated by food. Severity of pain: At its worst the pain was mild in the emergency department the pain has resolved. The patient has experienced similar episodes in the past, a few times. Historical: - Allergies: 12:39 No Known Allergies; aa5 - Home Meds: 12:45 amlodipine 5 mg tab once daily [Active]; ferrex forte 150mg daily [Active]; Fish Oil aa5 oral 1,4000 mg oral daily [Active]; folic acid 1 mg Oral tab 1 tab twice a day [Active]; gabapentin 300 mg oral cap [Active]; hydroxchloroquine 200mg twice a day [Active]; leflunomide 10 mg oral tab once daily [Active]; levothyroxine 25 mcg tab once daily [Active]; losartan 50 mg oral tab once daily [Active]; lutein oral oral [Active]; meclizine 25 mg Oral tab [Active]; Medrol 4 mg Oral tab [Active]; methotrexate sodium 2.5 mg Oral tab [Active]; naltrexone oral oral [Active]; multivitamin [Active]; omeprazole 40 mg Oral cpDR [Active]; simvastatin 40 mg Oral tab [Active]; tramadol 50 mg Oral tab [Active]; tylenol 650mg [Active]; - PMHx: 12:39 Arthritis; Hypertension; Gastric ulcer; aa5 12:45 Thyroid problem; aa5 - PSHx: 12:39 Back sx; aa5 - Immunization history:: Flu vaccine is up to date. - Social history:: Smoking status: Patient/guardian denies using tobacco. - Ebola Screening: : No symptoms or risks identified at this time. ROS: 19:32 All other systems are negative. gs Exam: 19:32 Head/Face: Normocephalic, atraumatic. Eyes: Pupils equal round and reactive to light, gs extra-ocular motions intact. Lids and lashes normal. Conjunctiva and sclera are non-icteric and not injected. Cornea within normal limits. Periorbital areas with no swelling, redness, or edema. ENT: Nares patent. No nasal discharge, no septal abnormalities noted. Tympanic membranes are normal and external auditory canals are clear. Oropharynx with no redness, swelling, or masses, exudates, or evidence of obstruction, uvula midline. Mucous membranes moist. Neck: Trachea midline, no thyromegaly or masses palpated, and no cervical lymphadenopathy. Supple, full range of motion without nuchal rigidity, or vertebral point tenderness. No Meningismus. Chest/axilla: Normal chest wall appearance and motion. Nontender with no deformity. No lesions are appreciated. Cardiovascular: Regular rate and rhythm with a normal S1 and S2. No gallops, murmurs, or rubs. Normal PMI, no JVD. No pulse deficits. Respiratory: Lungs have equal breath sounds bilaterally, clear to auscultation and percussion. No rales, rhonchi or wheezes noted. No increased work of breathing, no retractions or nasal flaring. Abdomen/GI: Soft, non-tender, with normal bowel sounds. No distension or tympany. No guarding or rebound. No evidence of tenderness throughout. Back: No spinal tenderness. No costovertebral tenderness. Full range of motion. Skin: Warm, dry with normal turgor. Normal color with no rashes, no lesions, and no evidence of cellulitis. MS/ Extremity: Pulses equal, no cyanosis. Neurovascular intact. Full, normal range of motion. Neuro: Awake and alert, GCS 15, oriented to person, place, time, and situation. Cranial nerves II-XII grossly intact. Motor strength 5/5 in all extremities. Sensory grossly intact. Cerebellar exam normal. Normal gait. 19:32 Constitutional: The patient appears alert, awake, pale. Vital Signs: 12:39 BP 117 / 71; Pulse 87; Resp 16 S; Temp 97.4(O); Pulse Ox 100% on R/A; Weight 77.11 kg aa5 (M); Height 5 ft. 6 in. (167.64 cm) (R); Pain 0/10; 13:13 BP 133 / 76; Pulse 82; Resp 18; Pulse Ox 99% on R/A; tl3 15:11 BP 139 / 72; Pulse 88; Resp 18; Pulse Ox 99% on R/A; tl3 16:18 BP 144 / 72; Pulse 86; Resp 18; Pulse Ox 100% on R/A; tl3 12:39 Body Mass Index 27.44 (77.11 kg, 167.64 cm) aa5 MDM: 13:21 Patient medically screened. 19:32 Differential diagnosis: gastroesophageal reflux disease, GI Bleed, Peptic Ulcer gs Disease. Data reviewed: vital signs, nurses notes. Response to treatment: the patient's symptoms have markedly improved after treatment, and as a result, I will discharge patient. Physician consultation: Carroll Robison MD regarding patient's condition, and will see patient immediately, later today. ED course: hb stable over 2 months. 04/10 13:21 Order name: Basic Metabolic Panel; Complete Time: 16:17 04/10 13:21 Order name: CBC with Diff; Complete Time: 16:17 04/10 13:21 Order name: Hepatic Function; Complete Time: 16:17 04/10 13:21 Order name: Lipase; Complete Time: 16:17 04/10 13:21 Order name: IV Saline Lock; Complete Time: 13:44 04/10 13:21 Order name: Type And Screen; Complete Time: 16:22 04/10 13:21 Order name: Labs collected and sent; Complete Time: 13:45 Administered Medications: No medications were administered Disposition: 04/10/18 16:29 Discharged to Home. Impression: Anemia in chronic diseases classified elsewhere. - Condition is Stable. - Discharge Instructions: Gastrointestinal Bleeding, Peptic Ulcer. - Medication Reconciliation Form, Thank You Letter, Antibiotic Education, Prescription Opioid Use form. - Follow up: Carroll Robison MD; When: Today. Signatures: Dispatcher [employer] EDMS Dalia Roman RN RN aa5 Bharat Gallegos MD MD Maria Elena Tuttle RN RN tl3 Corrections: (The following items were deleted from the chart) 16:45 16:29 04/10/2018 16:29 Discharged to Home. Impression: Anemia in chronic diseases tl3 classified elsewhere. Condition is Stable. Forms are Medication Reconciliation Form, Thank You Letter, Antibiotic Education, Prescription Opioid Use. Follow up: Carroll Robison; When: Today. gs
--- NOTE | 2018-04-10 16:30 | ER ---
Nurse's Notes [facility] Name: Germain Wilks Age: 83 yrs Sex: Male : 1935 Arrival Date: 04/10/2018 Time: 12:25 Bed 27 Private MD: Carroll Robison H Diagnosis: Anemia in chronic diseases classified elsewhere Presentation: 04/10 12:36 Presenting complaint: Patient states: "I have an endoscopy scheduled with Dr. Robison aa5 for the but I can't make it until then". Pt c/o nausea and states "I feel full all the time so I can't eat much at all". Pt appears pale. Pt denies bloody stools, denies vomiting blood. Transition of care: patient was not received from another setting of care. Onset of symptoms was April 2018. Risk Assessment: Do you want to hurt yourself or someone else? Patient reports no desire to harm self or others. Initial Sepsis Screen: Does the patient meet any 2 criteria? No. Patient's initial sepsis screen is negative. Does the patient have a suspected source of infection? No. Patient's initial sepsis screen is negative. Care prior to arrival: None. 12:36 Method Of Arrival: Ambulatory aa5 12:36 Acuity: LORENZO 3 aa5 Historical: - Allergies: 12:39 No Known Allergies; aa5 - Home Meds: 12:45 amlodipine 5 mg tab once daily [Active]; ferrex forte 150mg daily [Active]; Fish Oil aa5 oral 1,4000 mg oral daily [Active]; folic acid 1 mg Oral tab 1 tab twice a day [Active]; gabapentin 300 mg oral cap [Active]; hydroxchloroquine 200mg twice a day [Active]; leflunomide 10 mg oral tab once daily [Active]; levothyroxine 25 mcg tab once daily [Active]; losartan 50 mg oral tab once daily [Active]; lutein oral oral [Active]; meclizine 25 mg Oral tab [Active]; Medrol 4 mg Oral tab [Active]; methotrexate sodium 2.5 mg Oral tab [Active]; naltrexone oral oral [Active]; multivitamin [Active]; omeprazole 40 mg Oral cpDR [Active]; simvastatin 40 mg Oral tab [Active]; tramadol 50 mg Oral tab [Active]; tylenol 650mg [Active]; - PMHx: 12:39 Arthritis; Hypertension; Gastric ulcer; aa5 12:45 Thyroid problem; aa5 - PSHx: 12:39 Back sx; aa5 - Immunization history:: Flu vaccine is up to date. - Social history:: Smoking status: Patient/guardian denies using tobacco. - Ebola Screening: : No symptoms or risks identified at this time. Screenin:13 Abuse screen: Denies threats or abuse. Nutritional screening: No deficits noted. tl3 Tuberculosis screening: No symptoms or risk factors identified. Fall Risk None identified. Assessment: 13:13 General: Appears in no apparent distress. comfortable, slender, well groomed, well tl3 developed, well nourished, Behavior is calm, cooperative, appropriate for age. Pain: Complains of pain in abdomen. Neuro: Level of Consciousness is awake, alert, obeys commands, Oriented to person, place, time, situation, Appropriate for age. Cardiovascular: Patient's skin is warm and dry. Respiratory: Airway is patent Respiratory effort is even, unlabored, Respiratory pattern is regular, symmetrical. GI: Abdomen is flat. : No signs and/or symptoms were reported regarding the genitourinary system. EENT: No signs and/or symptoms were reported regarding the EENT system. Derm: Skin is pale. 15:11 Reassessment: Patient appears in no apparent distress at this time. No changes from tl3 previously documented assessment. Patient and/or family updated on plan of care and expected duration. Pain level reassessed. Patient is alert, oriented x 3, equal unlabored respirations, skin warm/dry/pink. family at bedside, no needs at this time. 16:18 Reassessment: Patient appears in no apparent distress at this time. No changes from tl3 previously documented assessment. Patient and/or family updated on plan of care and expected duration. Pain level reassessed. Patient is alert, oriented x 3, equal unlabored respirations, skin warm/dry/pink. additional warm blankets provided, no other needs at this time. 16:45 GI: Bowel sounds present X 4 quads. Abd is soft and non tender. tl3 Vital Signs: 12:39 BP 117 / 71; Pulse 87; Resp 16 S; Temp 97.4(O); Pulse Ox 100% on R/A; Weight 77.11 kg aa5 (M); Height 5 ft. 6 in. (167.64 cm) (R); Pain 0/10; 13:13 BP 133 / 76; Pulse 82; Resp 18; Pulse Ox 99% on R/A; tl3 15:11 BP 139 / 72; Pulse 88; Resp 18; Pulse Ox 99% on R/A; tl3 16:18 BP 144 / 72; Pulse 86; Resp 18; Pulse Ox 100% on R/A; tl3 12:39 Body Mass Index 27.44 (77.11 kg, 167.64 cm) aa5 ED Course: 12:25 Patient arrived in ED. mr 12:26 Carroll Robison MD is Private Physician. mr 12:36 Arm band placed on. aa5 12:37 Triage completed. aa5 12:59 Bharat Gallegos MD is Attending Physician. 13:02 Maria Elena Tuttle, CORTEZ is Primary Nurse. tl3 13:13 Patient has correct armband on for positive identification. tl3 13:13 No provider procedures requiring assistance completed. tl3 13:45 Initial lab(s) drawn, by vt, sent to lab. Inserted saline lock: 22 gauge in right tl3 antecubital area, using aseptic technique. Blood collected. 16:27 Carroll Robison MD is Referral Physician. gs 16:44 IV discontinued, intact, bleeding controlled, No redness/swelling at site. Pressure tl3 dressing applied. Administered Medications: No medications were administered Outcome: 16:29 Discharge ordered by . gs 16:44 Discharged to home ambulatory. tl3 16:44 Condition: stable 16:44 Discharge instructions given to patient, family, Instructed on discharge instructions, follow up and referral plans. Demonstrated understanding of instructions, follow-up care, pt going directly to GI's Office from ED 16:45 Patient left the ED. tl3 Signatures: Savita Del Valle mr RomanDalia RN RN aa Bharat Gallegos MD MD Maria Elena Tuttle, CORTEZ RN tl3
[2018-04-10 17:50] VITALS: TEMP 97.4
[2018-04-10 17:54] VITALS: BP 144/72; O2SAT 100
== END 2018-04-10 16:45 | disposition home or self-care (01) ==
LOC: ER 12:22
DX: D63.8 Anemia in other chronic diseases classified elsewhere (principal); R10.9 Unspecified abdominal pain; I10 Essential (primary) hypertension
CPT/HCPCS: 36415; 80048; 80076; 83690; 85025; 86850; 86900; 86901; 99283

== ENCOUNTER 2018-05-04 14:27 | Observation (INO) | payer OTHER, BC ==
--- OUTSIDE RECORDS SUMMARY | 2018-05-04 15:01 | XMS REPORT | Clinical Summary ---
:1935 Author Organization [facility] Address [address] [place] [address] Care Team Providers Name Role Phone Colt [...] daily. iron Take by mouth 0 Active aspgly,[id number] daily. uc 150-60-25-1 vt-cs-oup-mg Cap per capsule [id number]-fish Take 1 0 Active oil 1,000-1,400 mg [...] tablet May resume on 0 Active Tuesday02/28/18. naproxen Take 220 mg 0 02/24/19 Discontinued [...] total) by mouth daily for 7 days. docusate sodium Take 1 20 capsule 0 03/06/19 (COLACE) 100 MG capsule capsule (100 9 19 mg total) by mouth 2 (two) times daily for 10 days. HYDROcodone-acetaminoph Take 1 tablet 30 tablet 0 02/24/19 Discontinued en (NORCO 5-325) 5-325 by mouth 9 19 mg per tablet every 6 (six) hours as needed for up to 10 days. Max Daily Amount: 4 tablets traMADol (ULTRAM) 50 mg Take 1 tablet 30 tablet 0 03/06/19 tablet (50 mg total) 9 19 by mouth every 6 (six) hours as needed for Pain for up to 10 days. 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 Pre-op testing 02/21/2018 Syncope, unspecified syncope type 10/25/2017 Syncope 10/22/2017 Encounters Date Type Specialty Care Team Description 03/03/2018 Outside Orders Central Scheduling IgArti kothariance Cervical myelopathy (HCC) (Primary Dx); Chinedum, SKILLS TRAINER Degenerative cervical spinal stenosis 02/21/2018 Anesthesia Event Trish Blackman, MASSIMO 02/21/2018 Surgery Efe Cooper LAMINECTOMY,POSTERIO MD Phillip R CERVICAL PRONE W/INTERNAL FIXATION 02/21/2018 - Hospital Encounter General Internal Efe Cooper Pre-op testing 02/24/2018 Medicine MD Phillip (Primary Dx) 02/21/2018 Travel 02/03/2018 Anesthesia Event Pre-Admission Trish Blackman Testing MASSIMO Huynh 02/03/2018 Hospital Encounter Cardiology Efe Cooper MD 02/03/2018 Hospital Encounter Efe Cooper MD 02/03/2018 Hospital Encounter Pre-Admission Efe Cooper Pre-op testing; Testing MD Phillip Cervical myelopathy ([facility]); Edema of spinal cord (HCC); Lumbar stenosis with neurogenic claudication 02/03/2018 Hospital Encounter Radiology IgwalaKay Cervical myelopathy (HCC); Elenaum, SKILLS TRAINER Degenerative cervical spinal stenosis 01/30/2018 Orders Only Family Medicine Efe Cooper Pre-op testing ( Primary Dx); MD Phillip Cervical myelopathy ([facility]); Edema of spinal cord (HCC); Lumbar stenosis with neurogenic claudication 01/10/2018 Outside Orders Central Scheduling MichaelKay kothari Cervical myelopathy (HCC) (Primary Dx); Chinedum, SKILLS TRAINER Degenerative cervical spinal stenosis 10/22/2017 - Hospital Encounter Cardiology Pasha Alcantara, Syncope, unspecified syncope type; 10/27/2017 Family history of sudden cardiac ; Olivia Cerda Fall, initial encounter; MD Alejandra Sensory ataxia; Neurologic gait dysfunction; Neurogenic claudication; Polyneuropathy; Cervical myelopathy (HCC) 10/22/2017 Orders Only General Internal Medicine after 05/03/2017 Social History Tobacco Use Types Packs/Day Years [...] at Date Recorded Male 02/03/2018 10:52 AM [employer]PER[employer] Job Start Date Occupation Industry Not on file Not on file Not on file Travel History Travel Start Travel End No recent travel history available. Last Filed Vital Signs Vital Sign Reading Time Taken Blood Pressure 136/64 02/24/2018 2:58 PM [employer] Pulse 86 02/24/2018 2:58 PM [employer] Temperature 38.3 C (100.9 F) 02/24/2018 2:58 PM [employer] Respiratory Rate 20 02/24/2018 2:58 PM [employer] Oxygen Saturation 96% 02/24/2018 2:58 PM [employer] Inhaled Oxygen Concentration - - Weight 88.5 kg (194 lb 16 oz) 02/21/2018 9:30 AM [employer] Height 170.2 cm (5' 7.01") 02/21/2018 9:30 AM [employer] Body Mass Index 30.53 02/21/2018 9:30 AM [employer] Plan of Treatment Not on file Implants Implanted Type Area Quality Control Microbiology Supervisor Device Shelf Model / Identifier Expiration Serial / Lot Date Bone Vivigen Matrix Frozen 5cc [id number] - [id number] Bone N/A: Spine LIFENET:LIFENET 12/28/2018 BL- / Implanted: Qty: 1 on 02/21/2018 by Efe Cooper MD Cervical TRANSPLANT SRV / [id number] Flseal Vhsd Full Strlprep 10ml [id number] - [id number] Cement/F N/A: Spine LONGORIA:BIOSCI 07/11/2019 [id number] / Implanted: Qty: 1 on 02/21/2018 by Efe Cooper MD iller/Ad Cervical / hesive [id number] Floseal Vhsd Full Strlprep 5ml [id number] - [id number] Cement/F N/A: Spine LONGORIA:BIOSCI 04/07/2019 [id number] / Implanted: Qty: 1 on 02/21/2018 by Efe Cooper MD iller/Ad Cervical / hesive [id number] Scr Canc Pa Synap 3.5x14 Ti Ns [id number] - [id number] Spine N/A: Spine SYNTHES:SYNTHES .614.014 / Implanted: Qty: 6 on 02/21/2018 by Efe Cooper MD Cervical USA / Scr Lck Synap Ti Ns .614.508 - [id number] Spine N/A: Spine SYNTHES:SYNTHES 614.508 / Implanted: Qty: 6 on 02/21/2018 by Efe Cooper MD Cervical USA / Rods N/A: Spine SYNTHES SPINE 614.760 / Implanted: Qty: 2 on 02/21/2018 by Efe Cooper MD Cervical / Procedures Procedure Name Priority Date/Time Associated Diagnosis Comments RHYTHM STRIP - SCAN 03/16/2018 3:50 PM [employer] CBC (HEMOGRAM ONLY) Routine 02/24/2018 4:34 Results for this AM [employer] procedure are in the results section. BASIC METABOLIC Routine 02/24/2018 4:34 Results for this PANEL (7) AM [employer] procedure are in the results section. TRANSFUSION SERVICE 02/23/2018 6:01 REPORT - SCAN PM [employer] CBC (HEMOGRAM ONLY) Routine 02/23/2018 4:22 Results for this AM [employer] procedure are in the results section. BASIC METABOLIC Routine 02/23/2018 4:22 Results for this PANEL (7) AM [employer] procedure are in the results section. PREPARE RBC STAT 02/22/2018 11:54 Results for this PM [employer] procedure are in the results section. TRANSFUSION SERVICE 02/22/2018 6:01 REPORT - SCAN PM [employer] CBC (HEMOGRAM ONLY) Routine 02/22/2018 4:51 Results for this AM [employer] procedure are in the results section. BASIC METABOLIC Routine 02/22/2018 4:51 Results for this PANEL (7) AM [employer] procedure are in the results section. BASIC METABOLIC Routine 02/21/2018 5:47 Results for this PANEL (7) PM [employer] procedure are in the results section. SHORT LATENCY SEP Routine 02/21/2018 4:32 Results for this ALL LIMBS PM [employer] procedure are in the results section. CALCIUM, IONIZED STAT 02/21/2018 4:14 Results for this PM [employer] procedure are in the results section. HGB/HCT (H&H) - STAT STAT 02/21/2018 4:14 Results for this LAB PM [employer] procedure are in the results section. GLUCOSE-STAT LAB STAT 02/21/2018 4:14 Results for this PM [employer] procedure are in the results section. POTASSIUM-STAT LAB STAT 02/21/2018 4:14 Results for this PM [employer] procedure are in the results section. SODIUM NA-STAT LAB STAT 02/21/2018 4:14 Results for this PM [employer] procedure are in the results section. BLOOD GAS, ARTERIAL STAT 02/21/2018 4:14 Results for this PM [employer] procedure are in the results section. [place] MENTAL HEALTH AIDES TEACHER IN OR 30 Routine 02/21/2018 3:55 Results for this MINUTE INCREMENTS PM [employer] procedure are in the results section. TRANSFUSE Routine 02/21/2018 3:28 LEUKO-REDUCED RED PM [employer] BLOOD CELLS HGB/HCT (H&H) - STAT STAT 02/21/2018 2:58 Results for this LAB PM [employer] procedure are in the results section. GLUCOSE-STAT LAB STAT 02/21/2018 2:58 Results for this PM [employer] procedure are in the results section. POTASSIUM-STAT LAB STAT 02/21/2018 2:58 Results for this PM [employer] procedure are in the results section. SODIUM NA-STAT LAB STAT 02/21/2018 2:58 Results for this PM [employer] procedure are in the results section. BLOOD GAS, ARTERIAL STAT 02/21/2018 2:58 Results for this PM [employer] procedure are in the results section. CALCIUM, IONIZED STAT 02/21/2018 2:58 Results for this PM [employer] procedure are in the results section. RRL CRITICAL LABS STAT 02/21/2018 2:58 Results for this (ABG,NA,K,H&H,GLUCOS PM [employer] procedure are in E) the results section. [place] MENTAL HEALTH AIDES TEACHER IN OR 30 Routine 02/21/2018 2:28 Results for this MINUTE INCREMENTS PM [employer] procedure are in the results section. PROCEDURE W/ C-ARM 02/21/2018 12:34 Cervical myelopathy PM [employer] (HCC) Edema of spinal cord (HCC) Lumbar stenosis with neurogenic claudication Case Notes 3 HRS PER FAX Special Needs (PRONE POSITION, NEURO-MONITORING:SSEP, EMG, C-ARM, MICROSCOPE, REGULAR OR TABLE, AQUAMANTYS, BOVIES X2, MISONIX BONE SCALPEL, DEPUY) PROCEDURE W/ INTRAOPERATIVE 02/21/2018 12:34 PM [employer] Cervical myelopathy ( HCC) NEUROMONITORING Edema of spinal cord (HCC) Lumbar stenosis with neurogenic claudication Case Notes 3 HRS PER FAX Special Needs (PRONE POSITION, NEURO-MONITORING:SSEP, EMG, C-ARM, MICROSCOPE, REGULAR OR TABLE, AQUAMANTYS, BOVIES X2, MISONIX BONE SCALPEL, DEPUY) LAMINECTOMY,POSTERIOR CERVICAL 02/21/2018 12:34 PM Cervical myelopathy (HCC ) PRONE W/FUSION [employer] Edema of spinal cord (HCC) Lumbar stenosis with neurogenic claudication Case Notes 3 HRS PER FAX Special Needs (PRONE POSITION, NEURO-MONITORING:SSEP, EMG, C-ARM, MICROSCOPE, REGULAR OR TABLE, AQUAMANTYS, BOVIES X2, MISONIX BONE SCALPEL, DEPUY) LAMINECTOMY,POSTERIOR CERVICAL 02/21/2018 12:34 PM Cervical myelopathy (HCC ) PRONE W/INTERNAL FIXATION [employer] Edema of spinal cord (HCC) Lumbar stenosis with neurogenic claudication Case Notes 3 HRS PER FAX Special Needs (PRONE POSITION, NEURO-MONITORING:SSEP, EMG, C-ARM, MICROSCOPE, REGULAR OR TABLE, AQUAMANTYS, BOVIES X2, MISONIX BONE SCALPEL, DEPUY) TRANSFUSION SERVICE 02/04/2018 6:04 PM REPORT - SCAN [employer] CT SPINE CERVICAL Routine 02/03/2018 12:43 PM Cervical myelopathy Results for this WITHOUT IV CONTRAST [employer] (HCC) procedure are in Degenerative the results cervical spinal section. stenosis ECG 12-LEAD Routine 02/03/2018 11:35 AM [employer] Procedure Note - Interface, External Ris In - 02/03/2018 12:19 PM [employer] Ventricular Rate 72 BPM Atrial Rate 72 BPM P-R Interval 186 ms QRS Duration 84 ms Q-T Interval 418 ms QTC Calculation(Bazett) 457 ms P [place] 60 degrees R [place] 40 degrees T [place] 66 degrees Normal sinus rhythm Normal ECG When compared with ECG of 22-OCT-2017 17:03, No significant change was found ECG 12-LEAD STAT 02/03/2018 11:35 AM Pre-op testing Results for this [employer] procedure are in the results section. CBC W/PLT COUNT & AUTO Routine 02/03/2018 11:27 AM Pre-op testing Results for this DIFFERENTIAL [employer] procedure are in the results section. CBC W/PLT COUNT & AUTO Routine 02/03/2018 11:27 AM Pre-op testing Results for this DIFFERENTIAL [employer] procedure are in the results section. URINALYSIS W/ REFLEX Routine 02/03/2018 11:27 AM Pre-op testing Results for this URINE CULTURE [employer] procedure are in the results section. URINE CULTURE Routine 02/03/2018 11:27 AM Pre-op testing Results for this [employer] procedure are in the results section. TYPE AND SCREEN, Routine 02/03/2018 11:24 AM Pre-op testing Results for this AUTOMATED [employer] procedure are in the results section. PROTHROMBIN TIME/INR Routine 02/03/2018 11:24 AM Pre-op testing Results for this [employer] procedure are in the results section. APTT Routine 02/03/2018 11:24 AM Pre-op testing Results for this [employer] procedure are in the results section. BASIC METABOLIC PANEL Routine 02/03/2018 11:24 AM Pre-op testing Results for this (7) [employer] procedure are in the results section. REPORT [...] 436 ms QTC Calculation(Bazett) 477 ms P [place] 54 degrees R [place] 29 degrees T [place] 67 degrees Normal sinus rhythm Normal ECG [...] I Routine 10/22/2017 4:43 PM CDT after 05/03/2017 Results RHYTHM STRIP - SCAN (03/16/2018 3:50 PM [employer])Only the most recent of2 resultswithin the time period is included. Narrative Performed At CBC (Hemogram only) (02/24/2018 4:34 AM [employer])Only the most recent of3 resultswithin the time period is included. WBC 9.0 3.5 - 10.5 K/L [facility] RBC 2.96 (L) 4.63 - 6.08 M/L [facility] Hemoglobin 8.6 (L) 13.7 - 17.5 GM/DL [facility] Hematocrit 28.2 (L) 40.1 - 51.0 % [facility] MCV 95.3 (H) 79.0 - 92.2 fL [facility] MCH 29.1 25.7 - 32.2 pg [facility] MCHC 30.5 (L) 32.3 - 36.5 GM/DL [facility] RDW 22.2 (H) 11.6 - 14.4 % [facility] Platelets 233 150 - 450 K/CU MM [facility] MPV 10.3 9.4 - 12.4 fL [facility] nRBC 0 0 - 0 /100 WBC [facility] Specimen Blood Performing Organization Address City/State/Zipcode Phone Number [facility] [address] [place] [address] CENTER Basic Metabolic Panel (02/24/2018 4:34 AM [employer])Only the most recent of10 resultswithin the time period is included. Sodium 136 136 - 145 meq/L [facility] Potassium 4.2 3.5 - 5.1 meq/L [facility] Chloride 106 98 - 107 meq/L [facility] CO2 26 22 - 29 meq/L [facility] BUN 13 7 - 21 mg/dL [facility] Creatinine 0.67 0.57 - 1.25 mg/dL [facility] Glucose 93 70 - 105 mg/dL [facility] Calcium 7.9 (L) 8.4 - 10.2 mg/dL [facility] EGFR 113Comment: ESTIMATED GFR IS mL/min/1.73 sq m [facility] NOT ACCURATE CREATININE [facility] CLEARANCE IN PREDICTING GLOMERULAR FILTRATION RATE. ESTIMATED GFR IS NOT APPLICABLE FOR DIALYSIS PATIENTS. Specimen Blood Narrative Performed At POD 1 [facility] Performing Organization Address City/State/Zipcode Phone Number [facility] [address] [place] [address] CENTER TRANSFUSION SERVICE REPORT - SCAN (02/23/2018 6:01 PM [employer])Only the most recent of3 resultswithin the time period is included. Narrative Performed At Prepare RBC (02/22/2018 11:54 PM [employer]) CROSSMATCH COMPATIBLE SAFETRACE TX Unit ABO A Pos SAFETRACE TX UNIT NUMBER [id number] [facility]AFET[facility]ACE TX Status TRANSFUSED SAFETRACE TX Blood Bank Product RED BLOOD CELLS SAFETRACE TX PRODUCT CODE [id number] SAFET[facility]ACE TX Performing Organization Address City/State/Zipcode Phone Number SAFETRACE TX SHORT LATENCY SEP ALL LIMBS (02/21/2018 4:32 PM [employer]) Narrative Performed At INTRAOPERATIVE MONITORING REPORT GE RIS Patient Name: Germain Wilks [facility] Surgery Date: 02/21/2018 [place] PRO [id number] Monitoring began at12:53 and ended at 16:32 Surgeon: Efe Cooper M.D. Examining Neurologist: Alana Monitoring Technologist: LIVIER Ervin Procedure:Posterior Cervical Laminectomy and Decompression C3-6, L4-5 Laminectomy and Fusion Stimulation Parameters:Ulnar nerves individually stimulated at the wrist Rate 4.7Hz, Intensity 35mA, Duration 0.3ms Posterior Tibial nerves individually stimulated at the ankle Rate 4.7Hz, Intensity 70mA, Duration 0.3ms Filters 30-500Hz, Notch Off Motor strip stimulated anterior to C3 and C4 with alternating polarities Intensity 100-500V, Train Rate 4-5, VIRGIL 2-3ms Filters 30-2KHz, Notch Off Recording Parameters:EP1, EP2, CV, CP3, CP4, CPz, and FPz Free-running EEG recorded with bipolar derivation, using CP3, CP4, referenced to FPz Transcranial electrical Motor Evoked Potentials recorded from the Abductor Pollicis Brevis referenced to the Abductor Digiti Quinti Minimi muscle groups and the Abductor Hallucis referenced to Abductor Digiti Minimi muscle groups Description:Intraoperative neurophysiological monitoring was performed using a combination of upper and lower extremity somatosensory evoked potentials, transcranial electrical motor evoked potentials, and free-running EEG.A real-time connection with the examining neurologist was established and maintained throughout the operative procedure by the monitoring technologist.Upper extremity somatosensory evoked potentials were recorded centrally at the cervical and cortical levels following ulnar nerve stimulation at the wrist.Lower extremity somatosensory evoked potentials were recorded centrally at the cervical and cortical levels following posterior tibial nerve stimulation at the ankle.TceMEPs were recorded peripherally from the upper and lower extremities following alternating polarity motor strip stimulation.Post-induction, post-intubation TceMEP recording responses to motor cortex stimulation were clear and reproducible bilaterally. No significant surgically related changes in amplitude or latency of the somatosensory evoked responses or TceMEPs were noted throughout the surgical procedure.At closing, responses were judged to be essentially unchanged from those of post-positioning baselines. Free-running EEG remained symmetrical throughout the procedure with no focal changes noted to occur. Phillip Trinidad MD G95.9, M48.062, G95.19 Procedure Note Interface, External Ris In - 03/15/2018 10:37 AM [employer] INTRAOPERATIVE MONITORING REPORT Patient Name: Germain Wilks [facility] Surgery Date: 02/21/2018 [place] PRO [id number] Monitoring began at 12:53 and ended at 16:32 Surgeon: Efe Cooper M.D. Examining Neurologist: Alana Monitoring Technologist: LIVIER [...] occur. Phillip Trinidad MD G95.9, M48.062, G95.19 Performing Organization Address City/[facility] Phone Number [facility] Potassium-Stat Lab (02/21/2018 4:14 PM [employer])Only the most recent of2 resultswithin the time period is included. Potassium 4.0 3.6 - 5.5 meq/L [facility] Specimen Blood, Arterial Performing Organization Address [facility] Phone Number [address] [address] [place] Sodium Na-Stat Lab (02/21/2018 4:14 PM [employer])Only the most recent of2 resultswithin the time period is included. Sodium 137 135 - 148 meq/L [facility] Specimen Blood, Arterial Performing Organization Address [facility] Phone Number [address] [address] [place] Glucose-Stat Lab (02/21/2018 4:14 PM [employer])Only the most recent of2 resultswithin the time period is included. Glucose 87 70 - 110 mg/dL [facility] Specimen Blood, Arterial Performing Organization Address [facility] Phone Number [address] [address] [phone] CENTER HGB/HCT (H&H)-Stat Lab (02/21/2018 4:14 PM [employer])Only the most recent of2 resultswithin the time period is included. Hemoglobin 9.3 (L) 13.0 - 16.8 g/dL [facility] Hematocrit 27.0 (L) 40.0 - 50.0 % [facility] Specimen Blood, Arterial Performing Organization Address City/State/Zipcode Phone Number [address] [address] [phone] [place] Calcium, Ionized (02/21/2018 4:14 PM [employer])Only the most recent of3 resultswithin the time period is included. Calcium, Ion 1.12 1.12 - 1.27 mmol/L [facility] pH, Blood 7.37 [facility] Specimen Blood Performing Organization Address [facility] Phone Number [address] [address] [place] Blood gas, arterial (02/21/2018 4:14 PM [employer])Only the most recent of2 resultswithin the time period is included. pH, Arterial 7.39 7.35 - 7.45 [facility] pCO2, Arterial 39 35 - 45 mmHg [facility] pO2, Arterial 310 (H) 80 - 90 mmHg [facility] O2 Sat, Arterial 99.7 (H) 96.0 - 97.0 % [facility] HCO3, Arterial 23 21 - 29 mmol/L [facility] Base Excess, Arterial -2.2 (L) -2.0 - 3.0 mmol/L [facility] Patient Temperature 36.0 C [facility] FIO2 50.0 % [facility] Specimen Blood, Arterial Performing Organization Address City/[facility] Cent[facility]ode Phone Number [address] [address] CENTER [place] American History Professor in OR 30 minute increments (02/21/2018 3:55 PM [employer])Only the most recent of2 resultswithin the time period is included. Narrative Performed At FINAL REPORT GE RIS Lumbar spine one view intraoperative 02/21/2018 4:08 PM CLINICAL HISTORY: Instrument localization COMPARISON: None available IMPRESSION: A localization probe projects posterior and inferior to L4-5. Findings were reported to Dr. Lamar on 02/21/2018 at 1608. Signed: Jonathon Romero MD Report Verified Date/Time:02/21/2018 19:10:44 Reading Location: [facility] Radiology Reading Room Procedure Note Interface, External Ris In - 02/21/2018 7:12 PM [employer] FINAL REPORT Lumbar spine one view intraoperative 02/21/2018 4:08 PM CLINICAL HISTORY: Instrument localization COMPARISON: None available IMPRESSION: A localization probe projects posterior and inferior to L4-5. Findings were reported to Dr. Lamar on 02/21/2018 at 1608. Signed: Jonathon Romero MD Report Verified Date/Time: 02/21/2018 19:10:44 Reading Location: [facility] Radiology Reading Room Performing Organization Address City/State/Zipcode Phone Number [facility] [facility] Transfuse Leuko-Red RBC (02/21/2018 3:28 PM [employer])CT Spine Cervical without IV Contrast (02/03/2018 12:43 PM [employer]) Narrative Performed At FINAL REPORT [facility] CT cervical spine without contrast 02/03/2018 1:07 [...] MD Report Verified Date/Time:02/03/2018 13:11:13 Reading Location: [facility] Radiology Reading Room Procedure Note Interface, External Ris In - 02/03/2018 1:13 PM [employer] FINAL REPORT CT cervical spine without contrast [...] Report Verified Date/Time: 02/03/2018 13:11:13 Reading Location: [facility] Radiology Reading Room Performing Organization Address City/State/Zipcode Phone Number [facility] ECG 12 lead (02/03/2018 11:35 AM [employer])Only the most recent of2 resultswithin the time period is included. Narrative Performed At Ventricular Rate 72 BPM GE MUSE Atrial Rate 72 BPM P-R Interval 186 ms QRS Duration 84 ms Q-T Interval 418 ms QTC Calculation(Bazett) 457 ms P [place] 60 degrees R [place] 40 degrees T [place] 66 degrees Normal sinus rhythm Normal ECG When compared with ECG of 22-OCT-2017 17:03, No significant change was found Confirmed by MD BYRNE JORGE ([id number]) on 02/03/2018 1:57:55 PM Procedure Note Interface, External Ris In - 02/03/2018 1:58 PM [employer] Ventricular Rate 72 BPM Atrial Rate 72 BPM P-R Interval 186 ms QRS Duration 84 ms Q-T Interval 418 ms QTC Calculation(Bazett) 457 ms P [place] 60 degrees R [place] 40 degrees T [place] 66 degrees Normal sinus rhythm Normal ECG When compared with ECG of 22-OCT-2017 17:03, No significant change was found Confirmed by MD BYRNE JORGE ([id number]) on 02/03/2018 1:57:55 PM Performing Organization Address City/State/[facility] Phone Number GE Plei Urinalysis w/Microscopic + Reflex to Culture (02/03/2018 11:27 AM [employer]) Color, UA Yellow [facility] Clarity, UA Clear [facility] Specific [place], UA 1.023 1.001 - 1.035 [facility] pH, UA 5.5 5.0 - 8.0 [facility] Protein, UA 20 mg/dL (A) Negative [facility] Glucose, UA Negative Negative [facility] Ketones, UA Negative Negative [facility] Bilirubin, UA Negative Negative [facility] Blood, UA Negative Negative [facility] Nitrite, UA Negative Negative [facility] Leukocytes, UA Negative Negative [facility] Urobilinogen, UA 0.2 0.2 - 1.0 mg/dL [facility] RBC, UA 0 /HPF [facility] WBC, UA 72 /HPF [facility] Bacteria, UA Rare [facility] Mucus Few [facility] Specimen Source [facility] Specimen Urine Performing Organization Address City/State/Zipcode Phone Number [facility] [address] [place] [address] CENTER CBC with platelet count + automated diff (02/03/2018 11:27 AM [employer])Only the most recent of6 resultswithin the time period is included. WBC 9.0 3.5 - 10.5 K/L [facility] RBC 3.51 (L) 4.63 - 6.08 M/L [facility] Hemoglobin 9.9 (L) 13.7 - 17.5 GM/DL [facility] Hematocrit 33.3 (L) 40.1 - 51.0 % [facility] MCV 94.9 (H) 79.0 - 92.2 fL [facility] MCH 28.2 25.7 - 32.2 pg [facility] MCHC 29.7 (L) 32.3 - 36.5 GM/DL [facility] RDW 24.6 (H) 11.6 - 14.4 % [facility] Platelets 277 150 - 450 K/CU MM [facility] MPV 10.8 9.4 - 12.4 fL [facility] nRBC 0 0 - 0 /100 WBC [facility] % Neutros 63 % [facility] % Lymphs 10 % [facility] % Monos 13 % [facility] % Eos 12 % [facility] % Baso 1 % [facility] # Neutros 5.70 (H) 1.78 - 5.38 K/L [facility] # Lymphs 0.89 (L) 1.32 - 3.57 K/L [facility] # Monos 1.21 (H) 0.30 - 0.82 K/L [facility] # Eos 1.12 (H) 0.04 - 0.54 K/L [facility] # Baso 0.05 0.01 - 0.08 K/L [facility] Immature Granulocytes-Relative 1 0 - 1 % [facility] Specimen Blood Performing Organization Address City/State/Zipcode Phone Number [address] [address] CENTER Urine culture (02/03/2018 11:27 AM [employer])Only the most recent of2 resultswithin the time period is included. Result No growth [facility] Specimen Urine Performing Organization Address [facility]otn Phone Number [address] [address] CENTER Type and screen, automated (02/03/2018 11:24 AM [employer]) ABO/RH AUTOMATED (BEAKER) A POSITIVE [facility] Ab Scrn NEGATIVE [facility] Specimen Blood Performing Organization Address City/[facility] Centercode Phone Number [address] [address] [phone] aPTT (02/03/2018 11:24 AM [employer]) PTT 33.2 22.5 - 36.0 seconds [facility] Specimen Blood Performing Organization Address City/[facility] Cent[facility]ode Phone Number [address] [address] CENTER Prothrombin time/INR (02/03/2018 11:24 AM [employer]) Protime 13.3 11.7 - 14.7 seconds [facility] INR 1.0 <=5.9 [facility] Specimen Blood Narrative Performed At RECOMMENDED COUMADIN/WARFARIN INR THERAPY [facility] RANGES STANDARD DOSE: 2.0 - 3.0 Includes: PROPHYLAXIS for venous thrombosis, systemic embolization; TREATMENT for venous thrombosis and/or pulmonary embolus. HIGH RISK: Target INR is 2.5-3.5 for patients with mechanical heart valves. Performing Organization Address City/State/Zipcode Phone Number [address] [phone] CENTER EKG-SCANNED (10/31/2017 11:32 AM CDT) Narrative Performed At ARRYTHMIA IMPLANT REPORT - SCAN (10/31/2017 11:32 AM CDT) Narrative Performed At NEEDLE EMG, 2 EXTREMITY (10/27/2017 5:04 PM CDT) Narrative Performed At [facility] Neurophysiology Department ELECTROMYOGRAPHY / NERVE CONDUCTION STUDY [address] [place] [address] [address] [place] [address] Name: Germain Wilks Address:Date of [...] right lumbosacral radiculopathy. Temperature: RLE 28 C; RUDADA Adamson 30 Standard temp: 32 C Temp correction: [...] Sural.R Lower leg NR NR NR Ankle-Lower [id number] mm Sural.L Lower leg NR NR NR Ankle-Lower [id number] mm Median.R Wrist 4.1 ms 5.1 ms [...] Wrist NR NR NR Digit II (index finger)-[id number] mm Ulnar.L Wrist 2.6 ms 3.2 ms [...] Ris In - 10/27/2017 8:31 PM CDT [facility] Neurophysiology Department ELECTROMYOGRAPHY / NERVE CONDUCTION STUDY [address] [place] [address] Name: Germain Wilks Address: Date of : [...] right lumbosacral radiculopathy. Temperature: RLE 28 C; RULOWELL AdamsonE 30 Standard temp: 32 C Temp correction: [...] denervation. Sandra Quiñonez M.D. Performing Organization Address City/[facility] [place] [facility] Centercode Phone Number [facility] Magnesium (10/27/2017 4:12 AM CDT)Only the most recent of5 resultswithin the time period is included. Magnesium 2.1 1.6 - 2.6 mg/dL [facility] Specimen Blood Performing Organization Address City/[facility]/Zipcode Phone Number [facility] [address] [place] [address] [phone] CENTER MR thoracic spine without & with IV contrast (10/27/2017 3:28 AM CDT) Narrative Performed At FINAL REPORT [facility] MR thoracic spine with and without contrast [...] MD Report Verified Date/Time:10/27/2017 07:17:46 Reading Location: [address] Neuro Reading Room Procedure Note Interface, [...] Report Verified Date/Time: 10/27/2017 07:17:46 Reading Location: [address] Neuro Reading Room Performing Organization Address City/State/Zipcode Phone Number GE RIS [place] / lambda light chains, serum (10/26/2017 6:02 PM CDT) [place] Lt Chain,Free 17.0 3.3 - 19.4 mg/L [facility] Lambda Lt 12.8 5.7 - 26.3 mg/L [facility] Chain,Free [facility] [place]/Lambda,Free 1.33 0.26 - 1.65 [facility] Comment: [...] Lab [facility] EZ [facility] [address] [place] [address] Bradley Weems MD, PhD, [place] Performing Organization Address City/[facility]/Zipcode Phone Number [facility], [place] [address] INCOR[facility] [address] [facility] Protein electrophoresis, serum (10/26/2017 6:02 PM CDT) Albumin Fraction 2.9 (L) 3.5 - 5.5 g/dL [facility] Alpha 1 Fraction 0.2 0.2 - 0.4 g/dL [facility] Alpha 2 Fraction 0.8 0.5 - 0.9 g/dL [facility] Beta Fraction 0.8 0.6 - 1.1 g/dL [facility] Gamma Globulin Fraction 0.7 0.7 - 1.7 g/dL [facility] Interpretation Pattern suggestive of [facility] acute inflammatory [facility] process. No monoclonal bands detected. Pathologist: Trish Rodas MD [facility] (electronic signature) [facility] Protein, Total 5.5 (L) 6.0 - 8.3 gm/dL [facility] Specimen Blood Performing Organization Address City/[facility]/Zipcode Phone Number [facility] [address] [place] [address] [phone] CENTER MR lumbar spine without & with IV contrast (10/26/2017 6:18 AM CDT) Narrative Performed At FINAL REPORT [facility] MR Lumbar spine with and without contrast [...] MD Report Verified Date/Time:10/26/2017 07:52:13 Reading Location: [facility] C0[facility] Neuro Reading Room Procedure Note Interface, External [...] Report Verified Date/Time: 10/26/2017 07:52:13 Reading Location: [facility] C013V Neuro Reading Room Performing Organization Address City/State/Zipcode Phone Number [facility]tap MR cervical spine without & with IV contrast (10/26/2017 6:18 AM CDT) Narrative Performed At FINAL REPORT [facility] MR cervical spine with and without contrast [...] MD Report Verified Date/Time:10/26/2017 07:53:00 Reading Location: [address] Neuro Reading Room Procedure Note Interface, [...] Verified Date/Time: 10/26/2017 07:53:00 Reading Location: [facility] C013V Neuro Reading Room Performing Organization Address City/State/Zipcode Phone Number [facility] Hemoglobin A1c (10/25/2017 10:32 AM CDT) Hemoglobin A1C 5.7 4.3 - 6.1 % [facility] Specimen Blood Performing Organization Address City/[facility]/Zipcode Phone Number [address] [address] CENTER Phosphorus (10/25/2017 4:10 AM CDT)Only the most recent of3 resultswithin the time period is included. Phosphorus 3.2 2.3 - 4.7 mg/dL [facility] Specimen Blood - Arm, Right Performing Organization Address City/[facility]/Zipcode Phone Number [address] [address] CENTER Lipid panel (10/25/2017 4:10 AM CDT)Only the most recent of3 resultswithin the time period is included. Triglycerides 61 mg/dL [facility] Cholesterol 119 mg/dL [facility] HDL 36 mg/dL [facility] LDL Calculated 71 mg/dL [facility] Specimen Blood - Arm, Right Narrative Performed At [facility] Triglyceride Reference Range: Low Risk <150 [id number] High Risk 200-499 Very High Risk>=500 Cholesterol Reference Range: Low Risk <200 [id number] High Risk>240 HDL Cholesterol Reference Range: Low Risk >=60 High Risk <40 LDL Cholesterol Reference Range: Optimal<100 Near [id number] [id number] [id number] Very High >=190 Performing Organization Address City/State/Zipcode Phone Number [facility] [address] [place] [address] CENTER ECHOCARDIOGRAM REPORT - SCAN (10/24/2017 6:20 PM CDT) Narrative Performed At EEG AWAKE AND DROWSY (10/24/2017 4:06 PM CDT) Narrative Performed At Neurophysiology Electroencephalogram Report GE RIS DATE OF REPORT:DATE \\@ "M/d/yy" 10/24/17 Date(s) of Study: 10/24/2017 ACC: [id number] Start time: 1545 hrs Stop time: 1606 hrs ICD-10: R55 Syncope and Collapse CPT Code: 61344 EEG: awake and drowsy <40 min HISTORY: [...] Haydee Garcia MD Epilepsy Fellow [facility] Neurophysiology Service Robert Ferreira M.D., ABA, THERESA, SHADI Professor of Neurology, [facility] Director, [facility] Head, [facility] Neurophysiology Lab Procedure Note Interface, External Ris In - 10/24/2017 4:35 PM CDT Neurophysiology Electroencephalogram Report DATE OF REPORT: DATE \\@ "M/d/yy" 10/24/17 Date(s) of Study: 10/24/2017 ACC: [id number] Start time: 1545 hrs Stop time: 1606 hrs ICD-10: R55 Syncope and Collapse CPT Code: 42531 EEG: awake and drowsy <40 min HISTORY: [...] Haydee Garcia MD Epilepsy Fellow [facility] Neurophysiology Service Robert Ferreira M.D., ABA, THERESA, SHADI Professor of Neurology, [facility] Director, [facility] Epilepsy [place] Head, [facility] Neurophysiology Lab Performing Organization Address City/State/Zipcode Phone Number RIS 2D Echo W/Doppler(CW/PW/Color) (10/24/2017 3:02 PM CDT) Ejection Fraction [facility] Narrative Performed At Transthoracic Echocardiography Report (TTE) 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 Prabha Cosby, NB, RDCS,RVT,RDMS Interpreting Ten Torrez MD Physician Procedure [...] Performing Organization Address City/State/Zipcode Phone Number [facility] MRA neck without & with IV contrast (10/23/2017 2:57 PM CDT) Narrative Performed At FINAL REPORT [facility] MRA arch, great vessels, neck, and head with and without contrast Comparison: None Reason for exam:Stroke Discussion: 2 D and 3-D wpoq-pl-vxaipp and contrast-enhanced MRA of the arch, great vessels, and neck, and 3-D odyt-nj-nnrcax MRA head was provided with maximal intensity [...] MD Report Verified Date/Time:10/23/2017 16:44:06 Reading Location: [address] Neuro Reading Room Procedure Note Interface, External Ris In - 10/23/2017 4:46 PM CDT FINAL REPORT MRA arch, great vessels, neck, and head with and without contrast Comparison: None Reason for exam: Stroke Discussion: 2 D and 3-D zmcx-fj-dkldaw and contrast-enhanced MRA of the arch, great vessels, and neck, and 3-D prwr-ml-tyymwb MRA head was provided with maximal intensity [...] Report Verified Date/Time: 10/23/2017 16:44:06 Reading Location: [facility] C0[facility] Neuro Reading Room Performing Organization Address City/State/Zipcode Phone Number [facility] MRA head with and without contrast (10/23/2017 2:57 PM CDT) Narrative Performed At FINAL REPORT [facility] MRA arch, great vessels, neck, and head with and without contrast Comparison: None Reason for exam:Stroke Discussion: 2 D and 3-D uogv-ol-wpuftm and contrast-enhanced MRA of the arch, great vessels, and neck, and 3-D dtaj-jv-ushbst MRA head was provided with maximal intensity [...] MD Report Verified Date/Time:10/23/2017 16:44:06 Reading Location: [facility] C013 Neuro Reading Room Procedure Note Interface, External Ris In - 10/23/2017 4:46 PM CDT FINAL REPORT MRA arch, great vessels, neck, and head with and without contrast Comparison: None Reason for exam: Stroke Discussion: 2 D and 3-D qrtt-dv-ehhnof and contrast-enhanced MRA of the arch, great vessels, and neck, and 3-D zcbo-bb-ieiclo MRA head was provided with maximal intensity [...] Report Verified Date/Time: 10/23/2017 16:44:06 Reading Location: [address] Neuro Reading Room Performing Organization Address City/[facility] Phone Number GE RIS Troponin I (10/22/2017 11:05 PM CDT)Only the most recent of2 resultswithin the time period is included. Troponin I <0.01 0.00 - 0.03 ng/mL [facility] Specimen Blood - Arm, Right Narrative Performed At [facility] Troponin I (TnI) levels must be interpreted [...] disease, and persistent tachyarrhythmia. Performing Organization Address City/[facility]/Zipcode Phone Number [address] [address] CENTER Vitamin B12 and Folate (10/22/2017 4:43 PM CDT) Vitamin B12 539 213 - 816 pg/mL [facility] Folate 35.7 >=7.0 ng/mL [facility] Specimen Blood Performing Organization Address [facility] Phone Number [address] [address] CENTER TSH/Free T4 If Indicated (10/22/2017 4:43 PM CDT) TSH 1.29 0.35 - 4.94 uIU/mL [facility] Specimen Blood Performing Organization Address [facility] Phone Number [address] [address] CENTER Iron, TIBC, % sat. (without ferritin) (10/22/2017 4:43 PM CDT) Iron 36 (L) 40 - 160 ug/dL [facility] TIBC 348 250 - 450 ug/dL [facility] Iron % Saturation 10 (L) 20 - 55 % [facility] Specimen Blood Performing Organization Address [facility] Phone Number [address] [address] [phone] [place] Vitamin D, 25-Hydroxy (10/22/2017 4:43 PM CDT) Vitamin D 25-Hydroxy 41.7 6.6 - 49.9 ng/mL [facility] Specimen Blood Narrative Performed At [facility] Effective 11/17/2016: Reference Range Change New: 6.6-49.9 ng/mL Previous: 13.0-47.8 ng/mL Recommended Vitamin D Target Range: 30.0-40.0 ng/mL Performing Organization Address City/State/Zipcode Phone Number [facility] [address] [place] [address] CENTER RPR (10/22/2017 4:43 PM CDT) RPR Nonreactive Nonreactive [facility] Specimen Blood Performing Organization Address City/State/Zipcode Phone Number [facility] [address] [place] [address] [phone] CENTER after 05/03/2017 Insurance Payer Benefit Plan / Subscriber ID Type Phone Address Group MEDICARE MEDICARE A B xxxxxxxxxxx Medicare BLUE CROSS/BLUE BCBS FED xxxxxxxxx PPO [phone] [address] [place] [address] Advance Directives For more information, please contact:[address] [phone] Code Status Date Activated Date Inactivated Comments Full Code 02/21/2018 10:03 PM This code status was determined by: Patient Full Code 02/21/2018 10:15 AM 02/21/2018 5:14 PM This code status was determined by: Patient Full Code 10/22/2017 4:08 PM 10/27/2017 9:37 PM This code status was determined by: Patient
--- OUTSIDE RECORDS SUMMARY | 2018-05-04 15:02 | XMS REPORT ---
:1935 [facility] Address [address] [place] [address] [place] [id number] Care Team Providers Name Role Phone EFE [...] MONITORING REPORT LIMBS Patient Name: Germain Wilks [facility] Surgery Date: 02/21/2018 [place] PRO [id number] Monitoring began at 12:53 and ended at [...] Comments SODIUM (BEAKER) (test 136 meq/L 136-145 nwnr=881) POTASSIUM (BEAKER) (test 4.2 meq/L 3.5-5.1 rmir=808) CHLORIDE (BEAKER) (test 106 meq/L 98-107 chbi=539) CO2 (BEAKER) (test 26 meq/L 22-29 iyac=658) BLOOD UREA NITROGEN 13 mg/dL 7-21 (BEAKER) (test lcvv=635) CREATININE (BEAKER) (test 0.67 mg/dL 0.57-1.25 iind=776) GLUCOSE RANDOM (BEAKER) 93 mg/dL 70-105 (test oooy=606) CALCIUM (BEAKER) (test 7.9 mg/dL 8.4-10.2 xfhj=476) EGFR (BEAKER) (test 113 mL/min/1.73 sq m ESTIMATED GFR IS NOT jfdl=8937) ACCURATE CREATININE CLEARANCE IN PREDICTING GLOMERULAR FILTRATION RATE. ESTIMATED GFR IS NOT APPLICABLE FOR DIALYSIS PATIENTS. POD 1CBC (HEMOGRAM ONLY)2018-02-24 05:04:00 Test Item Value Reference Range Comments WHITE BLOOD CELL COUNT (BEAKER) (test inuz=608) 9.0 K/ L 3.5-10.5 RED BLOOD CELL COUNT (BEAKER) (test gldp=136) 2.96 M/ L 4.63-6.08 HEMOGLOBIN (BEAKER) (test djuf=281) 8.6 GM/DL 13.7-17.5 HEMATOCRIT (BEAKER) (test aplq=086) 28.2 % 40.1-51.0 MEAN CORPUSCULAR VOLUME (BEAKER) (test qnqb=831) 95.3 fL 79.0-92.2 MEAN CORPUSCULAR HEMOGLOBIN (BEAKER) (test 29.1 pg 25.7-32.2 jupa=776) MEAN CORPUSCULAR HEMOGLOBIN CONC (BEAKER) (test 30.5 GM/DL 32.3-36.5 bskt=399) RED CELL DISTRIBUTION WIDTH (BEAKER) (test 22.2 % 11.6-14.4 ugaf=060) PLATELET COUNT (BEAKER) (test urlu=050) 233 K/CU MM 150-450 MEAN PLATELET VOLUME (BEAKER) (test jiuw=184) 10.3 fL 9.4-12.4 NUCLEATED RED BLOOD CELLS (BEAKER) (test 0 /100 WBC 0-0 vlwq=439) BASIC METABOLIC [id number] 06:44:00 Test Item Value Reference Range Comments SODIUM (BEAKER) (test 138 meq/L 136-145 yqyh=571) POTASSIUM (BEAKER) (test 4.0 meq/L 3.5-5.1 izxg=098) CHLORIDE (BEAKER) (test 108 meq/L 98-107 lhcz=134) CO2 (BEAKER) (test 23 meq/L 22-29 vkey=179) BLOOD UREA NITROGEN 13 mg/dL 7-21 (BEAKER) (test fmvl=674) CREATININE (BEAKER) (test 0.64 mg/dL 0.57-1.25 xioh=220) GLUCOSE RANDOM (BEAKER) 99 mg/dL 70-105 (test msyc=485) CALCIUM (BEAKER) (test 8.0 mg/dL 8.4-10.2 xyhi=607) EGFR (BEAKER) (test 119 mL/min/1.73 sq m ESTIMATED GFR IS NOT akbi=5014) ACCURATE CREATININE CLEARANCE IN PREDICTING GLOMERULAR FILTRATION RATE. ESTIMATED GFR IS NOT APPLICABLE FOR DIALYSIS PATIENTS. POD 1CBC (HEMOGRAM ONLY)2018-02-23 06:01:00 Test Item Value Reference Range Comments WHITE BLOOD CELL COUNT (BEAKER) (test dxmk=876) 10.1 K/ L 3.5-10.5 RED BLOOD CELL COUNT (BEAKER) (test cpdd=997) 3.02 M/ L 4.63-6.08 HEMOGLOBIN (BEAKER) (test apli=805) 8.9 GM/DL 13.7-17.5 HEMATOCRIT (BEAKER) (test vzxh=894) 29.0 % 40.1-51.0 MEAN CORPUSCULAR VOLUME (BEAKER) (test lxtb=347) 96.0 fL 79.0-92.2 MEAN CORPUSCULAR HEMOGLOBIN (BEAKER) (test 29.5 pg 25.7-32.2 tdlo=158) MEAN CORPUSCULAR HEMOGLOBIN CONC (BEAKER) (test 30.7 GM/DL 32.3-36.5 gjxo=868) RED CELL DISTRIBUTION WIDTH (BEAKER) (test 23.2 % 11.6-14.4 anaz=877) PLATELET COUNT (BEAKER) (test unnm=178) 249 K/CU MM 150-450 MEAN PLATELET VOLUME (BEAKER) (test jvif=035) 10.7 fL 9.4-12.4 NUCLEATED RED BLOOD CELLS (BEAKER) (test 0 /100 WBC 0-0 bcjz=099) BASIC METABOLIC [id number] 07:14:00 Test Item Value Reference Range Comments SODIUM (BEAKER) (test 139 meq/L 136-145 uema=169) POTASSIUM (BEAKER) (test 4.9 meq/L 3.5-5.1 ninb=980) CHLORIDE (BEAKER) (test 110 meq/L 98-107 eqof=306) CO2 (BEAKER) (test 21 meq/L 22-29 mjne=639) BLOOD UREA NITROGEN 14 mg/dL 7-21 (BEAKER) (test hwdm=961) CREATININE (BEAKER) (test 0.73 mg/dL 0.57-1.25 qmiu=989) GLUCOSE RANDOM (BEAKER) 108 mg/dL 70-105 (test xrdt=148) CALCIUM (BEAKER) (test 8.4 mg/dL 8.4-10.2 oqyj=482) EGFR (BEAKER) (test 102 mL/min/1.73 sq m ESTIMATED GFR IS NOT nobs=4209) ACCURATE CREATININE CLEARANCE IN PREDICTING GLOMERULAR FILTRATION RATE. ESTIMATED GFR IS NOT APPLICABLE FOR DIALYSIS PATIENTS. POD 1CBC (HEMOGRAM ONLY)2018-02-22 06:54:00 Test Item Value Reference Range Comments WHITE BLOOD CELL COUNT (BEAKER) (test iysa=879) 11.5 K/ L 3.5-10.5 RED BLOOD CELL COUNT (BEAKER) (test iptr=800) 3.15 M/ L 4.63-6.08 HEMOGLOBIN (BEAKER) (test zcgx=013) 9.2 GM/DL 13.7-17.5 HEMATOCRIT (BEAKER) (test nxzp=626) 30.8 % 40.1-51.0 MEAN CORPUSCULAR VOLUME (BEAKER) (test dhan=619) 97.8 fL 79.0-92.2 MEAN CORPUSCULAR HEMOGLOBIN (BEAKER) (test 29.2 pg 25.7-32.2 zljf=227) MEAN CORPUSCULAR HEMOGLOBIN CONC (BEAKER) (test 29.9 GM/DL 32.3-36.5 agih=670) RED CELL DISTRIBUTION WIDTH (BEAKER) (test 23.9 % 11.6-14.4 yzbt=426) PLATELET COUNT (BEAKER) (test oswe=310) 253 K/CU MM 150-450 MEAN PLATELET VOLUME (BEAKER) (test ffto=894) 10.9 fL 9.4-12.4 NUCLEATED RED BLOOD CELLS (BEAKER) (test 0 /100 WBC 0-0 lpbz=008) [place], [employer] WORKER IN OR/30 MINUTE [id number] 19:10:00Reason for exam:-> LUMBAR STENOSISFINAL REPORT Lumbar spine one view intraoperative 02/21/2018 4:08 PM CLINICAL HISTORY: Instrument localization COMPARISON: None available IMPRESSION: A localization probe projectsposterior and inferior to L4-5. Findings were reported to Dr. Lamar on 02/21/2018 at 1608. Signed: Jonathon Romero MDReport Verified Date/Time: 02/21/2018 19:10:44 Reading Location: [facility] Radiology Reading Room [facility] METABOLIC [id number] 18:27:00 Test Item Value Reference Range Comments SODIUM (BEAKER) (test 140 meq/L 136-145 mbva=470) POTASSIUM (BEAKER) (test 4.5 meq/L 3.5-5.1 xvwg=008) CHLORIDE (BEAKER) (test 109 meq/L 98-107 gayn=999) CO2 (BEAKER) (test 22 meq/L 22-29 pqfh=483) BLOOD UREA NITROGEN 15 mg/dL 7-21 (BEAKER) (test tmzy=419) CREATININE (BEAKER) (test 0.80 mg/dL 0.57-1.25 ybug=948) GLUCOSE RANDOM (BEAKER) 101 mg/dL 70-105 (test hsin=006) CALCIUM (BEAKER) (test 9.0 mg/dL 8.4-10.2 hsfb=975) EGFR (BEAKER) (test 92 mL/min/1.73 sq m ESTIMATED GFR IS NOT orni=9691) ACCURATE CREATININE CLEARANCE IN PREDICTING GLOMERULAR FILTRATION RATE. ESTIMATED GFR IS NOT APPLICABLE FOR DIALYSIS PATIENTS. GLUCOSE-STAT [id number] 16:28:00 Test Item Value Reference Range Comments GLUCOSE RANDOM (BEAKER) (test oojq=643) 87 mg/dL 70-110 SODIUM NA-STAT [id number] 16:28:00 Test Item Value Reference Range Comments SODIUM (BEAKER) (test yain=960) 137 meq/L 135-148 POTASSIUM-STAT [id number] 16:28:00 Test Item Value Reference Range Comments POTASSIUM (BEAKER) (test agyo=469) 4.0 meq/L 3.6-5.5 BLOOD GAS, [id number] 16:28:00 Test Item Value Reference Range Comments PH ARTERIAL (BEAKER) (test pnco=498) 7.39 7.35-7.45 PCO2 ARTERIAL (BEAKER) (test vssl=299) 39 mmHg 35-45 PO2 ARTERIAL (BEAKER) (test rsba=925) 310 mmHg 80-90 O2 SATURATION ARTERIAL (BEAKER) (test mead=963) 99.7 % 96.0-97.0 HCO3 ARTERIAL (BEAKER) (test fccg=539) 23 mmol/L 21-29 BASE EXCESS ARTERIAL (BEAKER) (test nfvo=822) -2.2 mmol/L -2.0-3.0 PATIENT TEMPERATURE (BEAKER) (test vpvd=4924) 36.0 C FIO2 (BEAKER) (test opvh=9163) 50.0 % HGB/HCT (H&H) - STAT [id number] 16:28:00 Test Item Value Reference Range Comments HEMOGLOBIN (BEAKER) (test fzop=881) 9.3 g/dL 13.0-16.8 HEMATOCRIT (BEAKER) (test lwey=940) 27.0 % 40.0-50.0 CALCIUM, [id number] 16:27:00 Test Item Value Reference Range Comments CALCIUM IONIZED (BEAKER) (test zygx=507) 1.12 mmol/L 1.12-1.27 PH, BLOOD (BEAKER) (test hqhl=3307) 7.37 BLOOD GAS, [id number] 15:11:00 Test Item Value Reference Range Comments PH ARTERIAL (BEAKER) (test yvbn=355) 7.40 7.35-7.45 PCO2 ARTERIAL (BEAKER) (test aaig=517) 38 mmHg 35-45 PO2 ARTERIAL (BEAKER) (test mldm=316) 293 mmHg 80-90 O2 SATURATION ARTERIAL (BEAKER) (test efgp=380) 99.7 % 96.0-97.0 HCO3 ARTERIAL (BEAKER) (test otya=763) 23 mmol/L 21-29 BASE EXCESS ARTERIAL (BEAKER) (test gdan=507) -1.3 mmol/L -2.0-3.0 PATIENT TEMPERATURE (BEAKER) (test wbew=3460) 37.0 C POTASSIUM-STAT [id number] 15:11:00 Test Item Value Reference Range Comments POTASSIUM (BEAKER) (test hfvq=232) 3.4 meq/L 3.6-5.5 HGB/HCT (H&H) - STAT [id number] 15:11:00 Test Item Value Reference Range Comments HEMOGLOBIN (BEAKER) (test oplh=401) 7.9 g/dL 13.0-16.8 HEMATOCRIT (BEAKER) (test bzjz=861) 23.0 % 40.0-50.0 CALCIUM, [id number] 15:11:00 Test Item Value Reference Range Comments CALCIUM IONIZED (BEAKER) (test ncgq=626) 0.98 mmol/L 1.12-1.27 PH, BLOOD (BEAKER) (test jlas=3911) 7.40 GLUCOSE-STAT [id number] 15:10:00 Test Item Value Reference Range Comments GLUCOSE RANDOM (BEAKER) (test jecw=001) 78 mg/dL 70-110 SODIUM NA-STAT [id number] 15:10:00 Test Item Value Reference Range Comments SODIUM (BEAKER) (test pazz=741) 137 meq/L 135-148 [place], [employer] WORKER IN OR/30 MINUTE [id number] 14:32:00Reason for exam:-> spine painFINAL REPORT Radiograph of the cervical spine Indication: spine pain Comparison: none Findings: A single lateral view of the cervical spine is obtained intraoperatively. A probeprojects over C3-4 facet. Results were discussed with Dr. Wakefield , who concurred with the above findings. Signed: Lubna Hendricks Verified Date/Time: 02/21/2018 14:32:06 Reading Location: [address] Consult Reading Room CT, SPINE, CERVICAL, WO [id number] 13:11:00FINAL REPORT CT cervical spine without [...] Romero Verified Date/Time: 02/03/2018 13:11:13 Reading Location: [facility] Radiology Reading Room [id number] 12:44:00 Test Item Value Reference Range Comments PARTIAL THROMBOPLASTIN TIME (BEAKER) (test 33.2 seconds 22.5-36.0 nnpb=714) PROTHROMBIN TIME/[id number] 12:43:00 Test Item Value Reference Range Comments PROTIME (BEAKER) (test czyf=579) 13.3 seconds 11.7-14.7 INR (BEAKER) (test vzqx=463) 1.0 <=5.9 RECOMMENDED COUMADIN/WARFARIN INR THERAPY RANGESSTANDARD DOSE: 2.0 - 3.0 Includes: PROPHYLAXIS forvenous thrombosis, systemic embolization; TREATMENT for venous thrombosis and/or pulmonary embolus.HIGH RISK: Target INR is 2.5-3.5 for patients with mechanical heart valves.BASIC METABOLIC [id number] 12:42: 00 Test Item Value Reference Range Comments SODIUM (BEAKER) (test 140 meq/L 136-145 btwj=874) POTASSIUM (BEAKER) (test 4.7 meq/L 3.5-5.1 xxur=623) CHLORIDE (BEAKER) (test 106 meq/L 98-107 pkxy=777) CO2 (BEAKER) (test 31 meq/L 22-29 yfot=836) BLOOD UREA NITROGEN 13 mg/dL 7-21 (BEAKER) (test ifkg=619) CREATININE (BEAKER) (test 0.75 mg/dL 0.57-1.25 qwfu=589) GLUCOSE RANDOM (BEAKER) 98 mg/dL 70-105 (test sjwm=316) CALCIUM (BEAKER) (test 9.3 mg/dL 8.4-10.2 lzjh=417) EGFR (BEAKER) (test 99 mL/min/1.73 sq m ESTIMATED GFR IS NOT ryox=1825) ACCURATE CREATININE CLEARANCE IN PREDICTING GLOMERULAR FILTRATION RATE. ESTIMATED GFR IS NOT APPLICABLE FOR DIALYSIS PATIENTS. URINALYSIS W/ REFLEX URINE [id number] 12:40:00 Test Item Value Reference Range Comments COLOR (BEAKER) (test ybrv=308) Yellow CLARITY (BEAKER) (test bndx=723) Clear SPECIFIC GRAVITY UA (BEAKER) (test qaoc=871) 1.023 1.001-1.035 PH UA (BEAKER) (test acgx=805) 5.5 5.0-8.0 PROTEIN UA (BEAKER) (test boky=629) 20 mg/dL Negative GLUCOSE UA (BEAKER) (test dmod=336) Negative Negative KETONES UA (BEAKER) (test jplb=824) Negative Negative BILIRUBIN UA (BEAKER) (test svyp=506) Negative Negative BLOOD UA (BEAKER) (test kifm=768) Negative Negative NITRITE UA (BEAKER) (test rvsy=850) Negative Negative LEUKOCYTE ESTERASE UA (BEAKER) (test gtzo=622) Negative Negative UROBILINOGEN UA (BEAKER) (test duhb=239) 0.2 mg/dL 0.2-1.0 RBC UA (BEAKER) (test nnhj=927) 0 /HPF WBC UA (BEAKER) (test uaom=922) 72 /HPF BACTERIA (BEAKER) (test zhce=594) Rare MUCUS (BEAKER) (test brvc=6522) Few SOURCE(BEAKER) (test ooef=4771) CBC W/PLT COUNT & AUTO [id number] 12:39:00 Test Item Value Reference Range Comments WHITE BLOOD CELL COUNT (BEAKER) (test nbst=543) 9.0 K/ L 3.5-10.5 RED BLOOD CELL COUNT (BEAKER) (test bksn=743) 3.51 M/ L 4.63-6.08 HEMOGLOBIN (BEAKER) (test nock=287) 9.9 GM/DL 13.7-17.5 HEMATOCRIT (BEAKER) (test jwkm=065) 33.3 % 40.1-51.0 MEAN CORPUSCULAR VOLUME (BEAKER) (test ptva=332) 94.9 fL 79.0-92.2 MEAN CORPUSCULAR HEMOGLOBIN (BEAKER) (test 28.2 pg 25.7-32.2 ftth=762) MEAN CORPUSCULAR HEMOGLOBIN CONC (BEAKER) (test 29.7 GM/DL 32.3-36.5 aele=175) RED CELL DISTRIBUTION WIDTH (BEAKER) (test 24.6 % 11.6-14.4 sifh=825) PLATELET COUNT (BEAKER) (test ryli=673) 277 K/CU MM 150-450 MEAN PLATELET VOLUME (BEAKER) (test nmjp=624) 10.8 fL 9.4-12.4 NUCLEATED RED BLOOD CELLS (BEAKER) (test 0 /100 WBC 0-0 hdzj=118) NEUTROPHILS RELATIVE PERCENT (BEAKER) (test 63 % gdrf=849) LYMPHOCYTES RELATIVE PERCENT (BEAKER) (test 10 % ugac=096) MONOCYTES RELATIVE PERCENT (BEAKER) (test 13 % hjwx=215) EOSINOPHILS RELATIVE PERCENT (BEAKER) (test 12 % eiup=358) BASOPHILS RELATIVE PERCENT (BEAKER) (test 1 % ghdw=867) NEUTROPHILS ABSOLUTE COUNT (BEAKER) (test 5.70 K/ L 1.78-5.38 pepl=572) LYMPHOCYTES ABSOLUTE COUNT (BEAKER) (test 0.89 K/ L 1.32-3.57 hirg=540) MONOCYTES ABSOLUTE COUNT (BEAKER) (test 1.21 K/ L 0.30-0.82 cwkg=639) EOSINOPHILS ABSOLUTE COUNT (BEAKER) (test 1.12 K/ L 0.04-0.54 ftvp=498) BASOPHILS ABSOLUTE COUNT (BEAKER) (test 0.05 K/ L 0.01-0.08 wumg=139) IMMATURE GRANULOCYTES-RELATIVE PERCENT (BEAKER) 1 % 0-1 (test bpum=6732) PROTEIN ELECTROPHORESIS, [id number] 18:38:00 Test Item Value Reference Range Comments ALBUMIN FRACTION (BEAKER) 2.9 g/dL 3.5-5.5 (test klmt=641) ALPHA 1 FRACTION (BEAKER) 0.2 g/dL 0.2-0.4 (test pswy=960) ALPHA 2 FRACTION (BEAKER) 0.8 g/dL 0.5-0.9 (test qpgs=792) BETA FRACTION (BEAKER) (test 0.8 g/dL 0.6-1.1 ixfr=974) GAMMA GLOBULIN FRACTION 0.7 g/dL 0.7-1.7 (BEAKER) (test jpai=725) INTERPRETATION-119 (BEAKER) Pattern suggestive of acute (test hfuc=8315) inflammatory process. No monoclonal bands detected. [id number] Trish Rodas MD (BEAKER) (test firm=1009) (electronic signature) PROTEIN TOTAL SERUM, SPEP 5.5 gm/dL 6.0-8.3 (BEAKER) (test tkbr=0255) NEEDLE EMG, 2 [id number] 20:31:00Reason for exam:->Suspect polyneuropathy, sensory ataxia, falls.[facility]uro[facility]iology DepartmentELECTROMYOGRAPHY / NERVE CONDUCTION STUDY [address] [place], [place] [id number] Name: Germain Wilks : Date of : [...] mm Median.RWrist 4.1 ms 5.1 ms 9 濇V Digit II (index finger)-Wrist 4.1 ms 130 mm 32 m/sUlnar.RWrist NR NR NR Digit V (little finger)-Wrist 110 mm Median.RWrist (Median) 2.5 ms 3.5 ms 31 𓃶V 80 mm Wrist (Ulnar) NRNR NR 80 mm Radial.RForearm 2.2 ms 2.8 ms 6 냫V Anatomical snuff box-Forearm 2.2 ms 100mm 36 m/sMedian.LWrist NR NR NR Digit II (index finger)- Wrist 130 mm Ulnar.LWrist 2.6 ms 3.2 ms 4 玄V Digit V (little finger) -Wrist 2.6 ms 110 mm 42 m/sRadial.LForearm 1.7 ms 2.4 ms 13 𒈌V Anatomical snuff box-Forearm 1.7 ms 100 mm [...] denervation. Sandra Quiñonez M.D. MR, SPINE, THORACIC, [id number] 07:17: 00FINAL REPORT MR thoracic spine with [...] Verified Date/Time: 10/27/2017 07: 17:46 Reading Location: [facility] C013V Neuro Reading Room BASIC METABOLIC [id number] 05:18:00 Test Item Value Reference Range Comments SODIUM (BEAKER) (test 139 meq/L 136-145 okzq=616) POTASSIUM (BEAKER) (test 4.2 meq/L 3.5-5.1 vbkr=185) CHLORIDE (BEAKER) (test 107 meq/L 98-107 jzua=861) CO2 (BEAKER) (test 25 meq/L 22-29 kcht=332) BLOOD UREA NITROGEN 13 mg/dL 7-21 (BEAKER) (test aych=562) CREATININE (BEAKER) (test 0.80 mg/dL 0.57-1.25 lara=251) GLUCOSE RANDOM (BEAKER) 92 mg/dL 70-105 (test xzxh=455) CALCIUM (BEAKER) (test 9.0 mg/dL 8.4-10.2 aexz=157) EGFR (BEAKER) (test mL/min/1.73 sq m INSUFFICIENT CLINICAL DATA gstm=9276) TO CALCULATE ESTIMATED GFR. [id number] 05:16:00 Test Item Value Reference Range Comments MAGNESIUM (BEAKER) (test cqko=468) 2.1 mg/dL 1.6-2.6 CBC W/PLT COUNT & AUTO [id number] 05:01:00 Test Item Value Reference Range Comments WHITE BLOOD CELL COUNT (BEAKER) (test dfml=449) 5.4 K/ L 3.5-10.5 RED BLOOD CELL COUNT (BEAKER) (test dzla=102) 3.16 M/ L 4.63-6.08 HEMOGLOBIN (BEAKER) (test vlbo=275) 9.0 GM/DL 13.7-17.5 HEMATOCRIT (BEAKER) (test eopv=290) 29.2 % 40.1-51.0 MEAN CORPUSCULAR VOLUME (BEAKER) (test ugqa=960) 92.4 fL 79.0-92.2 MEAN CORPUSCULAR HEMOGLOBIN (BEAKER) (test 28.5 pg 25.7-32.2 zkvm=344) MEAN CORPUSCULAR HEMOGLOBIN CONC (BEAKER) (test 30.8 GM/DL 32.3-36.5 xeqb=745) RED CELL DISTRIBUTION WIDTH (BEAKER) (test 17.7 % 11.6-14.4 vfiy=498) PLATELET COUNT (BEAKER) (test gzuu=241) 242 K/CU MM 150-450 MEAN PLATELET VOLUME (BEAKER) (test cuik=379) 10.7 fL 9.4-12.4 NUCLEATED RED BLOOD CELLS (BEAKER) (test 0 /100 WBC 0-0 vlxm=158) NEUTROPHILS RELATIVE PERCENT (BEAKER) (test 51 % gidi=298) LYMPHOCYTES RELATIVE PERCENT (BEAKER) (test 15 % kpeu=875) MONOCYTES RELATIVE PERCENT (BEAKER) (test 17 % lnhk=665) EOSINOPHILS RELATIVE PERCENT (BEAKER) (test 15 % gynd=986) BASOPHILS RELATIVE PERCENT (BEAKER) (test 1 % wyvy=658) NEUTROPHILS ABSOLUTE COUNT (BEAKER) (test 2.79 K/ L 1.78-5.38 cqii=356) LYMPHOCYTES ABSOLUTE COUNT (BEAKER) (test 0.82 K/ L 1.32-3.57 knze=558) MONOCYTES ABSOLUTE COUNT (BEAKER) (test 0.93 K/ L 0.30-0.82 baaq=282) EOSINOPHILS ABSOLUTE COUNT (BEAKER) (test 0.82 K/ L 0.04-0.54 btkg=364) BASOPHILS ABSOLUTE COUNT (BEAKER) (test 0.05 K/ L 0.01-0.08 dcee=212) IMMATURE GRANULOCYTES-RELATIVE PERCENT (BEAKER) 0 % 0-1 (test dsuk=8032) MR, SPINE, CERVICAL, [id number] 07:53:00FINAL REPORT MR cervical spine with and [...] MDReport Verified Date/Time: 10/26/2017 07:53:00 Reading Location: [address] Neuro Reading Room MR, SPINE, LUMBAR, [id number] 07:52:00FINAL REPORT MR Lumbar spine with and [...] Suarez MDReport Verified Date/Time: 10/26/201707:52:13 Reading Location: [facility] C013V Neuro Reading Room BASIC METABOLIC [id number] 06:20:00 Test Item Value Reference Range Comments SODIUM (BEAKER) (test 139 meq/L 136-145 yewp=976) POTASSIUM (BEAKER) (test 4.3 meq/L 3.5-5.1 Specimen slightly heit=530) hemolyzed CHLORIDE (BEAKER) (test 109 meq/L 98-107 zzsa=697) CO2 (BEAKER) (test 24 meq/L 22-29 tlnt=409) BLOOD UREA NITROGEN 15 mg/dL 7-21 (BEAKER) (test uzew=121) CREATININE (BEAKER) (test 0.78 mg/dL 0.57-1.25 Specimen slightly azst=970) hemolyzed GLUCOSE RANDOM (BEAKER) 86 mg/dL 70-105 (test mgaq=935) CALCIUM (BEAKER) (test 8.6 mg/dL 8.4-10.2 qdak=002) EGFR (BEAKER) (test mL/min/1.73 sq m INSUFFICIENT CLINICAL DATA wqau=9132) TO CALCULATE ESTIMATED GFR. [id number] 06:14:00 Test Item Value Reference Range Comments MAGNESIUM (BEAKER) (test 2.3 mg/dL 1.6-2.6 Specimen slightly hemolyzed dnyg=422) CBC W/PLT COUNT & AUTO [id number] 05:27:00 Test Item Value Reference Range Comments WHITE BLOOD CELL COUNT (BEAKER) (test echb=836) 5.1 K/ L 3.5-10.5 RED BLOOD CELL COUNT (BEAKER) (test kfpa=054) 3.13 M/ L 4.63-6.08 HEMOGLOBIN (BEAKER) (test apsj=376) 8.9 GM/DL 13.7-17.5 HEMATOCRIT (BEAKER) (test akth=676) 28.8 % 40.1-51.0 MEAN CORPUSCULAR VOLUME (BEAKER) (test feop=234) 92.0 fL 79.0-92.2 MEAN CORPUSCULAR HEMOGLOBIN (BEAKER) (test 28.4 pg 25.7-32.2 okec=741) MEAN CORPUSCULAR HEMOGLOBIN CONC (BEAKER) (test 30.9 GM/DL 32.3-36.5 llzt=796) RED CELL DISTRIBUTION WIDTH (BEAKER) (test 17.8 % 11.6-14.4 plyi=562) PLATELET COUNT (BEAKER) (test wwqq=622) 258 K/CU MM 150-450 MEAN PLATELET VOLUME (BEAKER) (test mted=522) 10.6 fL 9.4-12.4 NUCLEATED RED BLOOD CELLS (BEAKER) (test 0 /100 WBC 0-0 gcnz=075) NEUTROPHILS RELATIVE PERCENT (BEAKER) (test 49 % mzds=914) LYMPHOCYTES RELATIVE PERCENT (BEAKER) (test 15 % qlzs=779) MONOCYTES RELATIVE PERCENT (BEAKER) (test 19 % tkuz=427) EOSINOPHILS RELATIVE PERCENT (BEAKER) (test 16 % mzjl=264) BASOPHILS RELATIVE PERCENT (BEAKER) (test 1 % ufjy=648) NEUTROPHILS ABSOLUTE COUNT (BEAKER) (test 2.50 K/ L 1.78-5.38 rxqx=174) LYMPHOCYTES ABSOLUTE COUNT (BEAKER) (test 0.77 K/ L 1.32-3.57 pwfh=547) MONOCYTES ABSOLUTE COUNT (BEAKER) (test 0.98 K/ L 0.30-0.82 pbuj=965) EOSINOPHILS ABSOLUTE COUNT (BEAKER) (test 0.79 K/ L 0.04-0.54 aypu=416) BASOPHILS ABSOLUTE COUNT (BEAKER) (test 0.04 K/ L 0.01-0.08 czir=080) IMMATURE GRANULOCYTES-RELATIVE PERCENT (BEAKER) 1 % 0-1 (test dnft=4720) HEMOGLOBIN [id number] 14:31:00 Test Item Value Reference Range Comments HEMOGLOBIN A1C (BEAKER) (test lpyr=458) 5.7 % 4.3-6.1 URINE [id number] 10:53:00 Test Item Value Reference Range Comments CULTURE (BEAKER) (test KLEBSIELLA PNEUMONIAE >100,000 col/mL jipu=9391) Klebsiella pneumoniae Amikacin (test code=1) Ampicillin + Sulbactam (test code=6) Aztreonam (test code=32) Cefepime (test code=51) Cefoxitin (test code=68) Ceftazidime (test code=27) Ceftriaxone (test code=52) Ertapenem (test code=38) Gentamicin (test code=18) Levofloxacin (test code=22) Meropenem (test code=34) Nitrofurantoin (test code=23) Piperacillin + Tazobactam (test code=29) Tetracycline (test code=2) Tobramycin (test code=25) Trimethoprim + Sulfamethoxazole (test code=47) <10,000 col/mL Gram Negative Sid of second [id number] 06:07:00 Test Item Value Reference Range Comments PHOSPHORUS (BEAKER) (test dbjc=366) 3.2 mg/dL 2.3-4.7 [id number] 06:07:00 Test Item Value Reference Range Comments MAGNESIUM (BEAKER) (test zmun=758) 2.1 mg/dL 1.6-2.6 LIPID [id number] 06:07:00 Test Item Value Reference Range Comments TRIGLYCERIDES (BEAKER) (test rnvs=453) 61 mg/dL CHOLESTEROL (BEAKER) (test uljb=655) 119 mg/dL HDL CHOLESTEROL (BEAKER) (test qucl=820) 36 mg/dL LDL CHOLESTEROL CALCULATED (BEAKER) (test 71 mg/dL qtia=771) Triglyceride Reference Range: Low Risk <150 Borderline 150- 199 High Risk 200-499 Very High Risk >=500Cholesterol Reference Range: Low Risk <200 Borderline 200-239 High Risk > 240HDL Cholesterol Reference Range: Low Risk >=60 High Risk <40LDL Cholesterol Reference Range: Optimal <100 Near Optimal 100-129 Borderline 130-159 High 160-189 Very High >=190EEG AWAKE AND [id number] 16:35:00Reason for exam:-> syncopeNeurophysiology Electroencephalogram Report DATE OF REPORT: DATE \\@ "M /d/yy" 10/24/17 Date(s) of Study: 10/24/2017 ACC: [id number] Start time : 1545 hrs Stop time: 1606 hrs ICD-10: R55 Syncope and Collapse CPT Code: 71097 EEG: awake and drowsy <40 min HISTORY: [...] recordings. Haydee Garcia MD Epilepsy Fellow [facility] Neurophysiology Service Robert Ferreira M.D. , FACNS, FAAN, FALEVY Professor of Neurology, [facility] Director , [facility] Head, Cristi [facility] Neurophysiology Lab [facility] METABOLIC [id number] 05:04:00 Test Item Value Reference Range Comments SODIUM (BEAKER) (test 141 meq/L 136-145 fbye=143) POTASSIUM (BEAKER) (test 4.1 meq/L 3.5-5.1 vzhw=560) CHLORIDE (BEAKER) (test 110 meq/L 98-107 hqey=973) CO2 (BEAKER) (test 25 meq/L 22-29 jcqd=147) BLOOD UREA NITROGEN 13 mg/dL 7-21 (BEAKER) (test hrtf=857) CREATININE (BEAKER) (test 0.77 mg/dL 0.57-1.25 rmvl=226) GLUCOSE RANDOM (BEAKER) 86 mg/dL 70-105 (test flxh=358) CALCIUM (BEAKER) (test 8.8 mg/dL 8.4-10.2 teop=961) EGFR (BEAKER) (test mL/min/1.73 sq m INSUFFICIENT CLINICAL DATA ayvx=2799) TO CALCULATE ESTIMATED GFR. [id number] 05:01:00 Test Item Value Reference Range Comments PHOSPHORUS (BEAKER) (test bwqr=970) 2.9 mg/dL 2.3-4.7 [id number] 05:01:00 Test Item Value Reference Range Comments MAGNESIUM (BEAKER) (test ndyd=837) 2.2 mg/dL 1.6-2.6 LIPID [id number] 05:01:00 Test Item Value Reference Range Comments TRIGLYCERIDES (BEAKER) (test rmhd=770) 70 mg/dL CHOLESTEROL (BEAKER) (test qanj=248) 120 mg/dL HDL CHOLESTEROL (BEAKER) (test fscf=417) 35 mg/dL LDL CHOLESTEROL CALCULATED (BEAKER) (test 71 mg/dL exgf=661) Triglyceride Reference Range: Low Risk <150 Borderline 150- 199 High Risk 200-499 Very High Risk >=500Cholesterol Reference Range: Low Risk <200 Borderline 200-239 High Risk > 240HDL Cholesterol Reference Range: Low Risk >=60 High Risk <40LDL Cholesterol Reference Range: Optimal <100 Near Optimal 100-129 Borderline 130-159 High 160-189 Very High >=190CBC W/PLT COUNT & AUTO [id number] 04:32:00 Test Item Value Reference Range Comments WHITE BLOOD CELL COUNT (BEAKER) (test jpmw=479) 5.3 K/ L 3.5-10.5 RED BLOOD CELL COUNT (BEAKER) (test fbki=148) 3.22 M/ L 4.63-6.08 HEMOGLOBIN (BEAKER) (test exuk=822) 9.1 GM/DL 13.7-17.5 HEMATOCRIT (BEAKER) (test cgok=045) 29.6 % 40.1-51.0 MEAN CORPUSCULAR VOLUME (BEAKER) (test eoqs=390) 91.9 fL 79.0-92.2 MEAN CORPUSCULAR HEMOGLOBIN (BEAKER) (test 28.3 pg 25.7-32.2 dchj=484) MEAN CORPUSCULAR HEMOGLOBIN CONC (BEAKER) (test 30.7 GM/DL 32.3-36.5 atol=483) RED CELL DISTRIBUTION WIDTH (BEAKER) (test 17.4 % 11.6-14.4 gosf=404) PLATELET COUNT (BEAKER) (test hluu=697) 250 K/CU MM 150-450 MEAN PLATELET VOLUME (BEAKER) (test xign=486) 10.6 fL 9.4-12.4 NUCLEATED RED BLOOD CELLS (BEAKER) (test 0 /100 WBC 0-0 ilya=214) NEUTROPHILS RELATIVE PERCENT (BEAKER) (test 53 % wzxb=653) LYMPHOCYTES RELATIVE PERCENT (BEAKER) (test 16 % urge=665) MONOCYTES RELATIVE PERCENT (BEAKER) (test 16 % rwoq=049) EOSINOPHILS RELATIVE PERCENT (BEAKER) (test 14 % mqwu=953) BASOPHILS RELATIVE PERCENT (BEAKER) (test 1 % dslg=886) NEUTROPHILS ABSOLUTE COUNT (BEAKER) (test 2.80 K/ L 1.78-5.38 kfsf=679) LYMPHOCYTES ABSOLUTE COUNT (BEAKER) (test 0.84 K/ L 1.32-3.57 bbwk=423) MONOCYTES ABSOLUTE COUNT (BEAKER) (test 0.82 K/ L 0.30-0.82 mwar=931) EOSINOPHILS ABSOLUTE COUNT (BEAKER) (test 0.75 K/ L 0.04-0.54 pmrx=635) BASOPHILS ABSOLUTE COUNT (BEAKER) (test 0.05 K/ L 0.01-0.08 uehs=371) IMMATURE GRANULOCYTES-RELATIVE PERCENT (BEAKER) 0 % 0-1 (test edzs=0668) MR, MRA, NECK, [id number] 16:44:00FINAL REPORT MRA arch, great vessels, neck, and head with and without contrast Comparison: None Reason for exam: Stroke Discussion: 2 D and 3-D mrnj-th-gngrqe and contrast-enhanced MRA of the arch, great [...] Hayes Verified Date/Time: 10/23/2017 16:44:06 Reading Location: [address] Neuro Reading Room MR, MRA, BRAIN, [id number] 16:44:00FINAL REPORT MRA arch, great vessels, neck, and head with and without contrast Comparison: None Reason for exam: Stroke Discussion: 2 D and 3-D vjum-xw-lzqbct and contrast-enhanced MRA of the arch, great vessels, and neck, and 3-D mzvg-dw-wdkjiy MRA head was provided withmaximal intensity projection [...] Hayes Verified Date/Time: 10/23/2017 16:44:06 Reading Location: [facility] C0V Neuro Reading Room [id number] 05:18:00 Test Item Value Reference Range Comments RPR SCREEN (BEAKER) (test aotd=216) Nonreactive Nonreactive BASIC METABOLIC [id number] 05:05:00 Test Item Value Reference Range Comments SODIUM (BEAKER) (test 141 meq/L 136-145 dzam=926) POTASSIUM (BEAKER) (test 4.0 meq/L 3.5-5.1 wztw=180) CHLORIDE (BEAKER) (test 110 meq/L 98-107 qixs=966) CO2 (BEAKER) (test 25 meq/L 22-29 anvi=747) BLOOD UREA NITROGEN 12 mg/dL 7-21 (BEAKER) (test meqn=559) CREATININE (BEAKER) (test 0.78 mg/dL 0.57-1.25 mcap=442) GLUCOSE RANDOM (BEAKER) 89 mg/dL 70-105 (test psch=991) CALCIUM (BEAKER) (test 8.6 mg/dL 8.4-10.2 qqjd=475) EGFR (BEAKER) (test mL/min/1.73 sq m INSUFFICIENT CLINICAL DATA qten=8233) TO CALCULATE ESTIMATED GFR. [id number] 04:58:00 Test Item Value Reference Range Comments PHOSPHORUS (BEAKER) (test sxqr=636) 2.9 mg/dL 2.3-4.7 [id number] 04:58:00 Test Item Value Reference Range Comments MAGNESIUM (BEAKER) (test szzu=637) 2.0 mg/dL 1.6-2.6 LIPID [id number] 04:58:00 Test Item Value Reference Range Comments TRIGLYCERIDES (BEAKER) (test dhbs=532) 69 mg/dL CHOLESTEROL (BEAKER) (test bucp=767) 108 mg/dL HDL CHOLESTEROL (BEAKER) (test qygp=592) 34 mg/dL LDL CHOLESTEROL CALCULATED (BEAKER) (test 60 mg/dL juku=500) Triglyceride Reference Range: Low Risk <150 Borderline 150- 199 High Risk 200-499 Very High Risk >=500Cholesterol Reference Range: Low Risk <200 Borderline 200-239 High Risk > 240HDL Cholesterol Reference Range: Low Risk >=60 High Risk <40LDL Cholesterol Reference Range: Optimal <100 Near Optimal 100-129 Borderline 130-159 High 160-189 Very High >=190CBC W/PLT COUNT & AUTO [id number] 04:46:00 Test Item Value Reference Range Comments WHITE BLOOD CELL COUNT (BEAKER) (test obqu=507) 5.6 K/ L 3.5-10.5 RED BLOOD CELL COUNT (BEAKER) (test njfu=722) 3.19 M/ L 4.63-6.08 HEMOGLOBIN (BEAKER) (test xhbe=023) 9.1 GM/DL 13.7-17.5 HEMATOCRIT (BEAKER) (test zevw=452) 29.4 % 40.1-51.0 MEAN CORPUSCULAR VOLUME (BEAKER) (test hldh=364) 92.2 fL 79.0-92.2 MEAN CORPUSCULAR HEMOGLOBIN (BEAKER) (test 28.5 pg 25.7-32.2 ayab=543) MEAN CORPUSCULAR HEMOGLOBIN CONC (BEAKER) (test 31.0 GM/DL 32.3-36.5 oxyx=730) RED CELL DISTRIBUTION WIDTH (BEAKER) (test 17.2 % 11.6-14.4 qeyb=598) PLATELET COUNT (BEAKER) (test bgpj=120) 253 K/CU MM 150-450 MEAN PLATELET VOLUME (BEAKER) (test vfpy=050) 10.4 fL 9.4-12.4 NUCLEATED RED BLOOD CELLS (BEAKER) (test 0 /100 WBC 0-0 uetb=889) NEUTROPHILS RELATIVE PERCENT (BEAKER) (test 53 % zzxq=055) LYMPHOCYTES RELATIVE PERCENT (BEAKER) (test 16 % dqku=268) MONOCYTES RELATIVE PERCENT (BEAKER) (test 15 % ckvd=565) EOSINOPHILS RELATIVE PERCENT (BEAKER) (test 14 % vhut=068) BASOPHILS RELATIVE PERCENT (BEAKER) (test 1 % tsbg=025) NEUTROPHILS ABSOLUTE COUNT (BEAKER) (test 2.95 K/ L 1.78-5.38 daas=403) LYMPHOCYTES ABSOLUTE COUNT (BEAKER) (test 0.90 K/ L 1.32-3.57 zcez=292) MONOCYTES ABSOLUTE COUNT (BEAKER) (test 0.86 K/ L 0.30-0.82 rtjf=057) EOSINOPHILS ABSOLUTE COUNT (BEAKER) (test 0.80 K/ L 0.04-0.54 wvdy=736) BASOPHILS ABSOLUTE COUNT (BEAKER) (test 0.05 K/ L 0.01-0.08 lvny=434) IMMATURE GRANULOCYTES-RELATIVE PERCENT (BEAKER) 0 % 0-1 (test vmxp=2548) TROPONIN [id number] 23:34:00 Test Item Value Reference Range Comments TROPONIN I (BEAKER) (test gjik=573) < ng/mL 0.00-0.03 Troponin I (TnI) levels [...] neurological disease, and persistent tachyarrhythmia.VITAMIN B12 AND [id number] 18:43: 00 Test Item Value Reference Range Comments VITAMIN B12 (BEAKER) (test tgtq=606) 539 pg/mL 213-816 FOLATE (BEAKER) (test cqvg=791) 35.7 ng/mL >=7.0 VITAMIN D, [id number] 18:35:00 Test Item Value Reference Range Comments VITAMIN D 25-OH (BEAKER) (test nxfw=2388) 41.7 ng/mL 6.6-49.9 Effective 11/17/2016: Reference Range ChangeNew: 6.6-49.9 ng/mL Previous: 13.0 -47.8 ng/mLRecommended Vitamin D Target Range: 30.0-40.0 ng/mLCALCIUM, [id number] 17:55:00 Test Item Value Reference Range Comments CALCIUM IONIZED (BEAKER) (test jcrx=157) 1.09 mmol/L 1.12-1.27 PH, BLOOD (BEAKER) (test tjhi=0124) 7.40 TSH/FREE T4 IF [id number] 17:34:00 Test Item Value Reference Range Comments THYROID STIMULATING HORMONE (BEAKER) (test 1.29 uIU/mL 0.35-4.94 jajd=455) TROPONIN [id number] 17:22:00 Test Item Value Reference Range Comments TROPONIN I (BEAKER) (test zldk=037) < ng/mL 0.00-0.03 Troponin I (TnI) levels [...] Value Reference Range Comments IRON (BEAKER) (test xrvg=364) 36 ug/dL 40-160 TOTAL IRON BINDING CAPACITY (BEAKER) (test 348 ug/dL 250-450 kzqq=882) IRON % SATURATION (2) (BEAKER) (test pxzk=4540) 10 % 20-55 BASIC METABOLIC [id number] 17:14:00 Test Item Value Reference Range Comments SODIUM (BEAKER) (test 139 meq/L 136-145 pfdp=266) POTASSIUM (BEAKER) (test 4.1 meq/L 3.5-5.1 hwou=515) CHLORIDE (BEAKER) (test 108 meq/L 98-107 sncp=583) CO2 (BEAKER) (test 25 meq/L 22-29 tgat=334) BLOOD UREA NITROGEN 13 mg/dL 7-21 (BEAKER) (test qjvj=650) CREATININE (BEAKER) (test 0.73 mg/dL 0.57-1.25 rdak=256) GLUCOSE RANDOM (BEAKER) 91 mg/dL 70-105 (test ylia=890) CALCIUM (BEAKER) (test 8.8 mg/dL 8.4-10.2 ixuu=287) EGFR (BEAKER) (test mL/min/1.73 sq m INSUFFICIENT CLINICAL DATA vash=3499) TO CALCULATE ESTIMATED GFR. CBC W/PLT COUNT & AUTO [id number] 17:00:00 Test Item Value Reference Range Comments WHITE BLOOD CELL COUNT (BEAKER) (test wulu=794) 6.4 K/ L 3.5-10.5 RED BLOOD CELL COUNT (BEAKER) (test ofrl=045) 3.14 M/ L 4.63-6.08 HEMOGLOBIN (BEAKER) (test ndhb=592) 9.0 GM/DL 13.7-17.5 HEMATOCRIT (BEAKER) (test esdz=491) 29.3 % 40.1-51.0 MEAN CORPUSCULAR VOLUME (BEAKER) (test cgem=962) 93.3 fL 79.0-92.2 MEAN CORPUSCULAR HEMOGLOBIN (BEAKER) (test 28.7 pg 25.7-32.2 oqke=830) MEAN CORPUSCULAR HEMOGLOBIN CONC (BEAKER) (test 30.7 GM/DL 32.3-36.5 okht=166) RED CELL DISTRIBUTION WIDTH (BEAKER) (test 17.2 % 11.6-14.4 nqui=252) PLATELET COUNT (BEAKER) (test odcf=362) 232 K/CU MM 150-450 MEAN PLATELET VOLUME (BEAKER) (test otlc=057) 10.6 fL 9.4-12.4 NUCLEATED RED BLOOD CELLS (BEAKER) (test 0 /100 WBC 0-0 umeb=494) NEUTROPHILS RELATIVE PERCENT (BEAKER) (test 62 % rtue=818) LYMPHOCYTES RELATIVE PERCENT (BEAKER) (test 14 % omje=085) MONOCYTES RELATIVE PERCENT (BEAKER) (test 12 % goel=891) EOSINOPHILS RELATIVE PERCENT (BEAKER) (test 11 % bhvq=161) BASOPHILS RELATIVE PERCENT (BEAKER) (test 1 % fiww=308) NEUTROPHILS ABSOLUTE COUNT (BEAKER) (test 4.02 K/ L 1.78-5.38 mfnl=505) LYMPHOCYTES ABSOLUTE COUNT (BEAKER) (test 0.87 K/ L 1.32-3.57 toql=464) MONOCYTES ABSOLUTE COUNT (BEAKER) (test 0.78 K/ L 0.30-0.82 optj=507) EOSINOPHILS ABSOLUTE COUNT (BEAKER) (test 0.70 K/ L 0.04-0.54 ksvf=761) BASOPHILS ABSOLUTE COUNT (BEAKER) (test 0.05 K/ L 0.01-0.08 vskx=117) IMMATURE GRANULOCYTES-RELATIVE PERCENT (BEAKER) 0 % 0-1 (test pwke=9319)
[2018-05-04] MEDS ORDERED: SODIUM CHLORIDE 0.9% 10ML INJ IV PRN (15:22)
[2018-05-04] MEDS ORDERED: ACETAMINOPHEN 325 MG TABLET PO PRN (15:25)
[2018-05-04] MEDS ORDERED: LOPERAMIDE HCL 2 MG CAPSULE PO PRN (15:26)
[2018-05-04] MEDS ORDERED: DIPHENHYDRAMINE 25 MG TAB/CAP PO PRN (15:26)
[2018-05-04] MEDS ORDERED: ONDANSETRON 4 MG/2 ML VIAL IV PRN (15:28)
[2018-05-04] MEDS ORDERED: POLYETHYL GLY 3350 17 GM/DOSE PO PRN (15:28)
[2018-05-04] MEDS ORDERED: INFLUENZA VACCINE (for 3y+) 0.5 ML DOSE IMVAC ONE (16:00)
[2018-05-04] MEDS ORDERED: PNEUMOCOCCAL VACCINE 0.5 ML IMVAC ONE (16:00)
[2018-05-04] MEDS ORDERED: NACHLORIDE 0.45% 1,000 ML IV SCH (16:00)
[2018-05-04 16:04] LABS: Absolute Lymphocytes (CBC) 1.2 K/uL (0.7-4.9); Absolute Monocytes 1.2 K/uL (0.1-1.3); Absolute Neutrophil 6.4 K/uL (1.8-8.0); Basophils % 0.4 % (0-1.3); Eosinophils % 0.5 % (0-4.4); Hematocrit 23.5 % (39.6-49.0); Lymphocytes % 13.5 % (15.3-44.8); MPV 8.4 fL (7.6-11.3); Monocytes % 13.9 % (3.3-12.3); RBC Red Blood Cell Count 3.01 M/uL (4.33-5.43)
[2018-05-04 16:17] LABS: BUN Blood Urea Nitrogen 12 mg/dL (7-18); Bicarbonate 27 mmol/L (21-32); Glucose Level 88 mg/dL (74-106); Potassium 4.3 mmol/L (3.5-5.1); Sodium Level 137 mmol/L (136-145)
[2018-05-04 16:38] LABS: Anisocytosis 1+; Blood Morphology Comment NOTED (NOT SEEN); Platelet Estimate ADEQ; Polychromasia SLIGHT; Urine White Blood Cell Casts OK
[2018-05-04 17:27] VITALS: BMI 27.1
[2018-05-04] MEDS ORDERED: NA CHLORIDE 0.9% 250 ML ONE ×2 (17:55→21:47)
[2018-05-04 18:47] LABS: Ferritin 11.8 ng/mL (26-388)
[2018-05-04] MEDS ORDERED: PANTOPRAZOLE 40 MG INJ IVP SCH (21:00)
[2018-05-04] MEDS ORDERED: HOME MED 1 EA UNK (Meclizine Hcl [Meclizine Hcl] 25 MG) PO PRN (21:02)
[2018-05-04] MEDS ORDERED: TRAMADOL HCL 50 MG TAB PO PRN (21:02)
[2018-05-04] MEDS ORDERED: ACETAMINOPHEN PO PRN (21:02)
[2018-05-05] MEDS ORDERED: NA CHLORIDE 0.9% 250 ML ONE (01:44)
[2018-05-05 05:17] LABS: Urine Appearance CLOUDY; Urine Bilirubin NEGATIVE (NEG); Urine Blood NEGATIVE (NEG); Urine Color YELLOW; Urine Glucose NEGATIVE (NEG); Urine Protein NEGATIVE (NEG); Urine Urobilinogen 0.2 mg/dL (0.2-1.0); Urine pH 7.5 (5.0-7.0)
[2018-05-05 05:20] LABS: Urine Microscopic Reflex ORDER UMIC
[2018-05-05] MEDS ORDERED: LEVOTHYROXINE SOD 0.025 MG TAB PO SCH (06:00)
[2018-05-05 06:06] LABS: Urine Amorphous Sediment 1+ /HPF (NONE SEEN); Urine Bacteria <20 /HPF (NONE SEEN); Urine Culture Reflex Order NOT NEEDED; Urine RBC NONE SEEN /HPF (NONE SEEN)
[2018-05-05 07:58] LABS: Hematocrit 32.1 % (39.6-49.0)
[2018-05-05] MEDS: GABAPENTIN 300 MG CAP PO SCH ×2 (09:00→14:00)
[2018-05-05] MEDS ORDERED: HYDROXYCHLOROQUINE 200MG TAB PO SCH ×2 (09:00→17:00)
[2018-05-05] MEDS ORDERED: LOSARTAN POTASSIUM 50 MG TABLET PO SCH (09:00)
[2018-05-05] MEDS ORDERED: FOLIC ACID 1 MG TABLET PO SCH (09:00)
[2018-05-05] MEDS ORDERED: methylPREDNISolone 4 MG TAB PO SCH (09:00)
[2018-05-05] MEDS ORDERED: PANTOPRAZOLE 40MG TABLET PO SCH (09:00)
[2018-05-05] MEDS ORDERED: LEFLUNOMIDE PO SCH (09:00)
[2018-05-05] MEDS ORDERED: Ringers Lactate 1,000 ML IV ONE (13:23)
[2018-05-05] MEDS ORDERED: PROPOFOL 200 MG/20 ML VIAL IV ONE (14:02)
[2018-05-05] MEDS ORDERED: LIDOCAINE 1% MPF 5 ML VIAL ONE (14:03)
--- NOTE | 2018-05-05 15:54 | RAD REPORT ---
EXAM DESCRIPTION: CT - Abdomen Wo Contrast - 05/05/2018 3:39 pm CLINICAL HISTORY: Severe abdominal pain, vomiting COMPARISON: None. TECHNIQUE: Axial [address] imaging of the abdomen was performed. No IV contrast was adm inistered. No oral contrast administered. All CT scans are performed using dose optimization technique as appropriate and may include automated exposure control or mA/KV adjustment according to patient size. FINDINGS: No pericardial thickening or effusion. Cardiomegaly. Minimal bilateral pleural effusions a re present. Patchy posterior gutter opacification on the right is favored to be atelectasis rather th an pneumonia. No suspicious liver finding on noncontrast imaging. There is subtle or minimal capsular nodularity. N o splenomegaly or focal splenic finding. No pancreatic process. Gallbladder is only partially filled. Gallstones can be occult. No biliary tree dilatation. No hydronephrosis or suspicious renal mass. Isodense masses and pyelonephritis are not excluded on a non IV contrast study. Parapelvic cysts are present. There is nonspecific, symmetric perinephric stra nding not uncommon in a patient this age.No adrenal abnormality. No gastric wall thickening or mass. Patient has a moderately large volume of food within the gastric lumen. Imaged portions of the large and small bowel show no acute findings. No free air, free fluid or inflammatory stranding. No hernia, mass or bulky lymphadenopathy. Prominent disc and bony degenerative changes are present. Exam sensitivity is decreased when no IV contrast is administered. IMPRESSION: No obstruction, free air or surgically emergent finding. Fluid filled stomach shows no wall thickening or mass. Minimal bilateral pleural effusions. Patchy posterior gutter opacification on the right favored to be atelectasis rather than pneumonia.
[2018-05-05] MEDS ORDERED: HYDROMORPHONE HCL 1 MG/ML INJ IV PRN (16:11)
[2018-05-05] MEDS ORDERED: SODIUM CHLORIDE 0.9% 10ML INJ IV PRN (16:12)
--- NOTE | 2018-05-05 16:19 | P.DS ---
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 MALAGON. I AM MAKING HIM NPO, STARTED IV MEDS AND I CALLED DR. RODNEY FOR SURGICAL OPTION. HE HAS ACCEPTED THE PATIENT AND SOON [facility] HAS A BED PATIENT WILL BE TRANSFERRED. Vital Signs/Physical Exam: Temp Pulse Resp BP Pulse Ox 98.0 F 77 18 154/81 H 96 05/05/18 14:42 05/05/18 14:42 05/05/18 14:42 05/05/18 14:42 05/05/18 12:00 General: Alert, In no apparent distress HEENT: Atraumatic, PERRLA, EOMI Neck: Supple, JVD not distended Respiratory: Clear to auscultation bilaterally, Normal air movement Cardiovascular: Regular rate/rhythm, Normal S1 S2 Gastrointestinal: Normal bowel sounds, No tenderness Musculoskeletal: No tenderness Integumentary: No rashes Neurological: Normal speech, Normal tone, Normal affect Lymphatics: No axilla or inguinal lymphadenopathy Laboratory Data at Discharge: WBC 8.9 K/uL (4.3-10.9) 05/04/18 15:48 Hgb 10.6 g/dL (13.6-17.9) L D 05/05/18 07:33 Hct 32.1 % (39.6-49.0) L D 05/05/18 07:33 Plt Count 338 K/uL (152-406) 05/04/18 15:48 Sodium 137 mmol/L (136-145) 05/04/18 15:48 Potassium 4.3 mmol/L (3.5-5.1) 05/04/18 15:48 BUN 12 mg/dL (7-18) 05/04/18 15:48 Creatinine 0.76 mg/dL (0.55-1.3) 05/04/18 15:48 Glucose 88 mg/dL (74-106) 05/04/18 15:48 Home Medications: Acetaminophen [Tylenol Arthritis] 1 tab PO Q8HP PRN 01/06/18 Amlodipine [Norvasc*] 1 tab PO BEDTIME 01/06/18 Folic Acid 1 tab PO BID 01/06/18 Leflunomide [Arava] 1 tab PO DAILY 01/06/18 Levothyroxine Sodium 1 tab PO [id number] 01/06/18 Lutein 1 tab PO DAILY AFTER SUPPER 01/06/18 Naltrexone HCl/Bupropion HCl [Contrave ER 8-90 mg Tablet] 1.5 mg PO TID Omeprazole [Prilosec] 40 cap PO BEDTIME 01/06/18 Simvastatin 40 mg PO BEDTIME 01/06/18 Tramadol HCl [Ultram] 50 mg PO Q6HP PRN 01/06/18 methylPREDNISolone [Medrol*] 4 mg PO DAILY 01/06/18 Gabapentin 1 cap PO TID 02/25/18 Losartan Potassium [Cozaar] 50 mg PO DAILY 02/25/18 Hydroxychloroquine [Plaquenil] 200 mg PO BID 05/04/18 Iron Ps Cmplx/Vit B12/FA [Ferrex 150 Forte Capsule] 1 each PO DAILY 05/04/18 Meclizine HCl 25 mg PO PRN PRN 05/04/18 Methotrexate [Methotrexate*] 6 tab PO SEECOM 05/04/18 Multivit-Min/Iron Fum/Folic AC [Scxli-Wrsgdrz-Qznhbmof Tablet] 1 each PO DAILY 05/04/18 Rozet-3S/Dha/Epa/Fish Oil [Fish Oil Dr 1,000 mg Softgel] 1,400 mg PO DAILY AFTER SUPPER 05/04/18 Patient Discharge Instructions: DR. YANA RODNEY HAS ACCEPTED YOU PATIENT FOR [facility].
[2018-05-05] MEDS: D5 0.45 NS 1,000 ML IV SCH (19:40)
[2018-05-05] MEDS: METOPROLOL TARTRATE 5 MG/5 ML INJ IV SCH ×2 (19:43→23:00)
[2018-05-05] MEDS: PANTOPRAZOLE 40 MG INJ IVP SCH (20:50)
[2018-05-05] MEDS ORDERED: ATORVASTATIN 40 MG TAB PO SCH (21:00)
[2018-05-05] MEDS ORDERED: AMLODIPINE 5 MG TAB PO SCH ×2 (21:00)
[2018-05-05] MEDS ORDERED: FOLIC ACID 1 MG PO SCH (21:00)
[2018-05-05] MEDS ORDERED: ATORVASTATIN 20 MG TAB PO SCH (21:00)
--- NOTE | 2018-05-05 21:03 | ENDO RPT ---
[address], [address] EGD PROCEDURE REPORT EXAM DATE: 05/05/2018 PATIENT NAME: Germain Wilks MR#: [id number] BIRTHDATE: 1935 ATTENDING: Carroll Robison Dr STATUS: inpatient - [facility] PUBLIC RELATIONS SPECIALIST: Viola Wood and Mallika Del Valle RN INDICATIONS: The patient is a 83 yr old Male here for an EGD due to anemia, hgb 7.3, nausea and vomiting, dyspepsia, bloating, and belching PROCEDURE PERFORMED: EGD with biopsy MEDICATIONS: Per Anesthesia. TOPICAL ANESTHETIC: none CONSENT: The patient understands the risks and benefits of the procedure and understands that these risks include, but are not limited to: sedation, allergic reaction, infection, perforation and/or bleeding. Alternative means of evaluation and treatment include, among others: physical exam, x-rays, and/or surgical intervention. The patient elects to proceed with this endoscopic procedure. DESCRIPTION OF PROCEDURE: During intra-op preparation period all mechanical medical equipment was checked for proper function. Hand hygiene and appropriate measures for infection prevention was taken. Procedure, possible complications, and alternatives including but not limited to the possibility of bleeding, perforation, tear, infection, sepsis, need for surgery, need for blood transfusion, and anesthesia related complications were explained to the patient. After the risks, benefits and alternatives of the procedure were thoroughly explained, Informed consent was verified, confirmed and timeout was successfully executed by the treatment team. The patient was placed in the left lateral position. The patient was anesthetized with topical anesthesia. Through the anesthetized oropharyngeal area, the scope was passed without any difficulty. The Pentax [id number] ([id number]) endoscope was introduced through the mouth and advanced to the pylorus. food. The gastroscope was then slowly withdrawn and removed. LA Class D esophagitis was found in the total esophagus. Retained food was present in the body of the stomach. An ulcer was found at the pylorus. Multiple biopsies were obtained and sent to pathology. A stricture was found at the pylorus. ADVERSE EVENTS: There were no complications. IMPRESSIONS: 1. LA Class D esophagitis in the total esophagus 2. Moderate amount of retained food in the body of the stomach (last ate at 12 noon yesterday, now 2 PM) 3. 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 Severe stricture at the pylorus - unable to pass endoscope (lumen 3-4 mm in diameter) RECOMMENDATIONS: 1. await biopsy results 2. acid suppression therapy 3. CT abdomen 4. tertiary center for further evaluation / therapy (possible surgery versus advanced endoscopic procedure) 5. NPO except limited liquids 6. aspiration precautions REPEAT EXAM: Carroll Robison Dr eSigned: Carroll Robison Dr 05/05/2018 2:22 PM cc: Naresh Singh CPT CODES: ICD9 CODES: PATIENT NAME: Germain Wilks MR#: [id number]
[2018-05-06] MEDS: METOPROLOL TARTRATE 5 MG/5 ML INJ IV SCH ×3 (00:55→12:29)
[2018-05-06] MEDS: D5 0.45 NS 1,000 ML IV SCH ×2 (05:33→11:49)
[2018-05-06] MEDS ORDERED: LEVOTHYROXINE SOD 0.025 MG TAB PO SCH (06:00)
[2018-05-06] MEDS ORDERED: OMEPRAZOLE 40 MG PO SCH (07:30)
[2018-05-06] MEDS ORDERED: LOSARTAN POTASSIUM 50 MG TABLET PO SCH (09:00)
[2018-05-06 09:13] VITALS: O2SAT 95
--- NOTE | 2018-05-06 10:47 | P.DS ---
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 MALAGON. I AM MAKING HIM NPO, STARTED IV MEDS AND I CALLED DR. RODNEY FOR SURGICAL OPTION. HE HAS ACCEPTED THE PATIENT AND SOON [facility] HAS A BED PATIENT WILL BE TRANSFERRED. WE ARE WAITING FOR A BED AT [facility]. HE IS STABLE AND NOT BEING FED HE WILL ASPIRATE. FAMILY IS AWARE. Vital Signs/Physical Exam: Temp Pulse Resp BP Pulse Ox 97.4 F 64 18 173/77 H 98 05/06/18 08:00 05/06/18 08:00 05/06/18 08:00 05/06/18 08:00 05/06/18 08:00 General: Alert, In no apparent distress HEENT: Atraumatic, PERRLA, EOMI Neck: Supple, JVD not distended Respiratory: Clear to auscultation bilaterally, Normal air movement Cardiovascular: Regular rate/rhythm, Normal S1 S2 Gastrointestinal: Normal bowel sounds, No tenderness Musculoskeletal: No tenderness Integumentary: No rashes Neurological: Normal speech, Normal tone, Normal affect Lymphatics: No axilla or inguinal lymphadenopathy Laboratory Data at Discharge: WBC 8.9 K/uL (4.3-10.9) 05/04/18 15:48 Hgb 10.6 g/dL (13.6-17.9) L D 05/05/18 07:33 Hct 32.1 % (39.6-49.0) L D 05/05/18 07:33 Plt Count 338 K/uL (152-406) 05/04/18 15:48 Sodium 137 mmol/L (136-145) 05/04/18 15:48 Potassium 4.3 mmol/L (3.5-5.1) 05/04/18 15:48 BUN 12 mg/dL (7-18) 05/04/18 15:48 Creatinine 0.76 mg/dL (0.55-1.3) 05/04/18 15:48 Glucose 88 mg/dL (74-106) 05/04/18 15:48 Home Medications: Acetaminophen [Tylenol Arthritis] 1 tab PO Q8HP PRN 01/06/18 Amlodipine [Norvasc*] 1 tab PO BEDTIME 01/06/18 Folic Acid 1 tab PO BID 01/06/18 Leflunomide [Arava] 1 tab PO DAILY 01/06/18 Levothyroxine Sodium 1 tab PO [id number] 01/06/18 Lutein 1 tab PO DAILY AFTER SUPPER 01/06/18 Naltrexone HCl/Bupropion HCl [Contrave ER 8-90 mg Tablet] 1.5 mg PO TID Omeprazole [Prilosec] 40 cap PO BEDTIME 01/06/18 Simvastatin 40 mg PO BEDTIME 01/06/18 Tramadol HCl [Ultram] 50 mg PO Q6HP PRN 01/06/18 methylPREDNISolone [Medrol*] 4 mg PO DAILY 01/06/18 Gabapentin 1 cap PO TID 02/25/18 Losartan Potassium [Cozaar] 50 mg PO DAILY 02/25/18 Hydroxychloroquine [Plaquenil] 200 mg PO BID 05/04/18 Iron Ps Cmplx/Vit B12/FA [Ferrex 150 Forte Capsule] 1 each PO DAILY 05/04/18 Meclizine HCl 25 mg PO PRN PRN 05/04/18 Methotrexate [Methotrexate*] 6 tab PO SEECOM 05/04/18 Multivit-Min/Iron Fum/Folic AC [Qywzs-Sizmtbs-Soitpbjb Tablet] 1 each PO DAILY 05/04/18 Vaughn-3S/Dha/Epa/Fish Oil [Fish Oil Dr 1,000 mg Softgel] 1,400 mg PO DAILY AFTER SUPPER 05/04/18 Patient Discharge Instructions: DR. YANA RODNEY HAS ACCEPTED YOU PATIENT FOR [facility]. Followup: Naresh Singh MD [Primary Care Provider] - (call to schedule appointment)
[2018-05-06] MEDS: PANTOPRAZOLE 40 MG INJ IVP SCH (11:47)
[2018-05-06 12:21] VITALS: BP 157/76; TEMP 98.4
--- NOTE | 2018-05-06 12:57 | P.PN ---
Subjective Date of Service: 05/06/18 Chief Complaint: Anemia, hgb 7.3, bloating/belching, nausea Subjective: No new changes (Awaiting transfer to tertiary center with Dr. Corrales. Annular pyloric channel ulcer with severe pyloric stenosis - lumen ~ 3 mm, moderate amount of retained solid food in stomach, and severe LA class D esophagitis of total esophagus on EGD yesterday. He is NPO.) Review of Systems 10-point ROS is otherwise unremarkable General: Weakness (Improved after transfusion with hgb 7.3 to ~ 10.6.) Physical Examination - Vital Signs Temperature: 98.4 F Blood Pressure: 157/76 Pulse: 70 Respirations: 18 Pulse Ox (%): 99 - Physical Exam General: Alert, In no apparent distress, Oriented x3, Cooperative HEENT: Atraumatic, Normocephalic, PERRLA, EOMI Neck: Supple Respiratory: Normal air movement Cardiovascular: Normal pulses Neurological: Normal speech, Normal strength at 5/5 x4 extr Assessment And Plan - Current Problems (Diagnosis) (1) Pyloric ulcer Current Visit: Yes Status: Acute (2) Bloating Current Visit: Yes Status: Acute (3) Belching Current Visit: Yes Status: Acute (4) Obstruction of pylorus, acquired or adult Current Visit: Yes Status: Acute (5) Anemia Onset Date: 01/09/18 Current Visit: No Status: Acute (6) Esophagitis Current Visit: Yes Status: Acute (7) Retained food in stomach Current Visit: Yes Status: Acute - Plan REC: 1) continue IV Protonix 2) NPO expect ice chips / sips water 3) monitor labs 4) await transfer to tertiary [place]
[2018-05-11] MEDS ORDERED: METHOTREXATE 2.5 MG TAB PO SCH (09:00)
[2018-05-12] MEDS ORDERED: METHOTREXATE 2.5 MG TAB PO SCH (09:00)
== END 2018-05-06 14:44 | disposition short-term general hospital (02) ==
LOC: 4TH 14:56
PROVIDERS: ADMIT Internal Medicine; ATTEND Internal Medicine
PROC: 0DB68ZX Excision of Stomach, Via Natural or Artificial Opening Endoscopic, Diagnostic (ICD-10-PCS; principal; 2018-05-05 15:15)
DX: K31.1 Adult hypertrophic pyloric stenosis (principal); K20.9 Esophagitis, unspecified; K25.9 Gastric ulcer, unspecified as acute or chronic, without hemorrhage or perforation; D64.9 Anemia, unspecified; E03.9 Hypothyroidism, unspecified; I10 Essential (primary) hypertension; M06.9 Rheumatoid arthritis, unspecified; E78.5 Hyperlipidemia, unspecified; M19.90 Unspecified osteoarthritis, unspecified site
CPT/HCPCS: 36430 ×2; 85025; 80048; 36415 ×2; 86900; 86850; 88312; 86901; 88305; 85018; 85014; 82728; 83540; 84466; 74150; 43239; J2704; C9113 ×3; P9016 ×3; 81003; 81015